=== PATIENT | female | born 1990 | race Caucasian/White ===

== ENCOUNTER 2022-06-28 10:10 | Emergency (ER) | payer OTHER, MEDICAID, SELFPAY ==
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
[2022-06-28 10:18] VITALS: BP 130/80; PULSE 96; O2SAT 97
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
[2022-06-28 10:28] VITALS: BP 133/89; PULSE 95; RESP 16; TEMP 36; O2SAT 97; BMI 31.1
[2022-06-28] MEDS: Acetaminophen 325 MG TABLET 975 MG PO (12:06)
== END 2022-06-28 12:22 | disposition home or self-care (01) ==
PROVIDERS: Emergency Provider Emergency Medicine
DX: S13.4XXA Sprain of ligaments of cervical spine, initial encounter (principal); M54.2 Cervicalgia; R07.89 Other chest pain; R51.9 Headache, unspecified; V43.62XA Car passenger injured in collision with other type car in traffic accident, initial encounter; Y93.9 Activity, unspecified; Y92.410 Unspecified street and highway as the place of occurrence of the external cause; Y99.9 Unspecified external cause status; Z79.899 Other long term (current) drug therapy
CPT/HCPCS: 70450; 72125; 99283; 99284

== ENCOUNTER 2022-09-13 15:00 | Outpatient (RCR) | payer OTHER, MEDICAID, SELFPAY | END 2022-10-31 08:17 | disposition home or self-care (01) | LOC: HO.PTCHIC 15:00 | PROVIDERS: PCP Internal Medicine; Visit Provider Internal Medicine | DX: M62.838 Other muscle spasm (principal) | CPT/HCPCS: 97014; 97110; 97161 ==

== ENCOUNTER 2023-03-20 10:00 | Outpatient (RCR) | payer OTHER, MEDICAID, SELFPAY ==
[2022-11-08 14:12] VITALS: BP 130/95
== END 2023-05-27 16:38 | disposition home or self-care (01) ==
LOC: HO.PTCHIC 10:00
PROVIDERS: PCP Internal Medicine; Visit Provider Internal Medicine
DX: M62.838 Other muscle spasm (principal); M54.2 Cervicalgia; M54.42 Lumbago with sciatica, left side
CPT/HCPCS: 97110; 97112; 97140; 97161; 97530

== ENCOUNTER 2023-07-16 13:26 | Inpatient (IN) | payer MEDICAID, SELFPAY ==
--- NOTE | ~2023-07-16 | CT_ITS ---
EXAMINATION: CT ABDOMEN AND PELVIS WITH CONTRAST CLINICAL INFORMATION: epigastric pain, pancreatitis COMPARISON: None. TECHNIQUE: Multidetector volumetric imaging was performed from the superior aspect of the liver through the pubic symphysis following administration of 81 mL Omnipaque 300 intravenous contrast. Sagittal and coronal reformatted images were obtained on the technologist workstation.. This CT examination was performed using dose optimization techniques as appropriate, variously including the following: *Automated exposure control *Adjustment of mA and/or kV according to patient size (this includes techniques or standardized protocols for targeted exams where dose is matched to indication/reason for exam; i.e. extremities or head) *Use of iterative reconstruction technique DLP: 685 mGy-cm FINDINGS: LUNG BASES: The visualized lung bases are unremarkable. LIVER, GALLBLADDER, AND BILIARY TREE: Diffuse fatty infiltration of the liver but no focal hepatic lesion nor biliary ductal dilatation. The gallbladder is unremarkable with no evidence of radiopaque gallstones, gallbladder wall thickening, or obvious pericholecystic inflammatory changes. PANCREAS: There is mild peripancreatic inflammatory change and fluid tracking along the left anterior pararenal space. No pancreatic ductal dilatation. No evidence for pancreatic necrosis. No suspicious pancreatic calcifications. SPLEEN: Unremarkable. ADRENAL GLANDS: Unremarkable. KIDNEYS AND URETERS: The kidneys are normal in size, shape, and attenuation. No hydronephrosis, hydroureter, or calculi seen. No perinephric stranding. BLADDER: Unremarkable. GASTROINTESTINAL TRACT: The small and large bowel are unremarkable. The appendix is unremarkable. ABDOMINAL WALL: No significant hernia is appreciated. LYMPHOVASCULAR STRUCTURES: No lymphadenopathy. The aorta is unremarkable. PELVIC VISCERA: Unremarkable. OSSEOUS STRUCTURES: Unremarkable. CT/CT abdomen pelvis w IV con IMPRESSION: Mild peripancreatic inflammatory changes and fluid tracking along the left anterior pararenal space consistent with acute pancreatitis. No evidence for pancreatic necrosis. Diffuse fatty infiltration of the liver.
--- NOTE | ~2023-07-16 | US_ITS ---
EXAMINATION: US ABDOMEN LIMITED CLINICAL INFORMATION: Gallbladder. Right upper quadrant pain. COMPARISON: None available. TECHNIQUE: Real-time imaging of the right upper quadrant abdominal viscera. Termination is significantly limited due to patient body habitus FINDINGS: PANCREAS: Unable to be visualized. LIVER: Enlarged. The liver contour is normal. Diffusely increased hepatic echotexture suggesting diffuse fatty infiltration. No focal hepatic lesion. There is no intrahepatic biliary duct dilatation seen. GALLBLADDER: Normal. The gallbladder is physiologically distended without evidence of stones, sludge, polyps, wall thickening or pericholecystic fluid. COMMON BILE DUCT: Normal in caliber measuring 0.3 cm in diameter. RIGHT KIDNEY: Normal. No hydronephrosis. No renal calculi or focal parenchymal lesions. The kidney measures and 0.7 cm in maximum dimension. FREE FLUID: None. US/US abdomen limited IMPRESSION: Diffuse fatty infiltration of the liver. Limited examination.
[2023-07-16 13:41] VITALS: BP 146/96; PULSE 61; RESP 19; TEMP 36.6; O2SAT 97; BMI 36.2
--- NOTE | 2023-07-16 13:42 | ED_ITS ---
HPI - General Adult General Chief complaint: Abdominal Pain Stated complaint: ETOH Withdrawal Time Seen by Provider: 07/16/23 16:00 Source: patient Mode of arrival: ambulatory History of Present Illness HPI narrative: 32-year-old female who is relapsed alcoholic, last drink was 3 days ago but she began having epigastric pain 2 days ago with several episodes of nausea and vomiting and has been unable to eat or drink since that time. She describes significant abdominal discomfort and denies diarrhea or urinary symptoms. Related Data Previous Rx's Medication Instructions Recorded cyclobenzaprine 10 mg tablet 10 mg PO TID PRN muscle spasm #14 06/28/22 tabs ibuprofen 600 mg tablet 600 mg PO Q8H PRN pain #14 tabs 06/28/22 lidocaine 5 % topical patch 1 patch topical DAILY #15 ea 06/28/22 Allergies Allergy/AdvReac Type Severity Reaction Status Date / Time No Known Allergies Allergy Verified 07/16/23 13:41 Review of Systems 2 Review of Systems: Pertinent positives and negatives as stated in HPI PMFSH Past Medical History Source: nursing notes reviewed Social History Social History Alcohol intake: current Alcohol intake frequency: 3 or more drinks per day Smoked in Last 30 Days: No Use of substances other than those prescribed or required for medical reasons: Yes Substance Use Frequency: Chronic Longstanding Any prior treatment program specific to substance use: Yes (methadone) Advance Directives: No Advance Directives Information Provided: No Physical Exam ED Vital Signs: Vital Signs - 24 hr 07/16/23 13:41 07/16/23 16:15 07/16/23 17:43 Temperature 98 F 97.9 F 97.9 F Pulse Rate 61 54 50 Respiratory Rate 19 16 16 Blood Pressure 146/96 H 154/89 H 133/88 Pulse Oximetry 97 98 98 Oxygen Delivery Method Room Air Room Air Room Air BMI result Body Mass Index 36.2 VITAL SIGNS: Reviewed. GENERAL: Well developed, well nourished, in no acute distress. HEAD: Normocephalic/atraumatic EYES: PERRLA, EOMI EARS: Ext canals without abnormality NOSE: Nares patent bilateral OROPHARYNX: no oral lesions noted, posterior pharynx clear NECK: Supple, no adenopathy LUNGS: Normal breath sounds. No adventitious sounds or accessory muscle use. SpO2<98> CARDIOVASCULAR: Regular rate and rhythm without noted murmurs ABDOMEN: Soft, diffuse abdominal discomfort, non-distended with bowel sounds. MUSCULOSKELETAL: No tenderness, deformities, or effusions noted on gross inspection. EXTREMITIES: No cyanosis, clubbing or edema. SKIN: Inspection of the skin reveals no rashes NEUROLOGIC: Alert and oriented x 4. Strength and sensation to light touch were grossly intact x 4. Course Course Course Narrative: RME- 32 year old female presents for evaluation of alcohol withdrawal. She reports drinking 4-5 nips per day but not drinking for the last 3 days. Complains of abdominal pain and vomiting. Patient is mildly hypertensive heart rate of 55. Plan for labs Medications Administered Generic Name Dose Route Start Last Admin Trade Name Freq PRN Reason Stop Dose Admin Hydromorphone HCl 0.5 mg 07/16/23 17:07 07/16/23 19:00 Hydromorphone Hcl 0.5 Mg/0.5 Ml Syringe IVPUSH 0.5 mg Q30M PRN Administration Pain, Severe (Pain Scale 7-10) Protocol Discontinued Medications Generic Name Dose Route Start Last Admin Trade Name Freq PRN Reason Stop Dose Admin Hydromorphone HCl 0.5 mg 07/16/23 16:22 07/16/23 16:47 Hydromorphone Hcl 0.5 Mg/0.5 Ml Syringe IVPUSH 07/16/23 16:23 0.5 mg ONCE ONE Administration Protocol Sodium Chloride 1,000 mls @ 999 mls/hr 07/16/23 16:30 07/16/23 17:50 Ns IV 07/16/23 17:30 Infused .Q1H1M SCAR Infusion Iohexol 100 ml 07/16/23 19:31 07/16/23 19:32 Iohexol 350 Mg/Ml 100 Ml Infus..Btl IV 07/16/23 19:32 85 ml ONCE ONE Administration Ondansetron HCl 4 mg 07/16/23 14:47 07/16/23 14:50 Ondansetron Odt 4 Mg Tab.Rapdis TRANSLINGU 07/16/23 14:48 4 mg ONCE ONE Administration Ondansetron HCl 4 mg 07/16/23 17:07 07/16/23 17:13 Ondansetron Hcl 4 Mg/2 Ml Vial IVPUSH 07/16/23 17:08 4 mg ONCE ONE Administration Medical Decision Making Medical Decision Making [facility] Narrative: 22-year-old female with history and clinical presentation, DDX: Biliary pancreatitis, alcoholic pancreatitis, gastritis, cholecystitis, less clinical suspicion for pyelonephritis/SBO. I reviewed all investigations and hematologic indices are negative for leukocytosis but there is a mild left shift, no anemia or thrombocytopenia. Chemistry indices are negative for metabolic acidosis, potassium values are within normal limits, there is no MARIE, however liver enzymes are significantly elevated without an alkaline phosphatase suggesting the possibility being more consistent with an alcoholic pancreatitis in suspect that this is the reason for patient's diffuse abdominal discomfort. Will 1st order an ultrasound and then follow with a CT scan to evaluate the pancreatitis In the meantime, patient will receive antiemetics, IV fluids, pain medication. Ultrasound negative for cholelithiasis and again due to the absence of alkaline phosphatase low clinical suspicion for a choledochal lithiasis in the etiology for elevated AST and total bilirubin. Patient has received IV fluids, antiemetics and continues to receive pain medication as needed. CT scan of abdomen and pelvis is pending. 1950: I discussed case with inpatient hospitalist who accepts admission. I have reviewed the CT scan my prelim read is that there is extensive CT evidence of pancreatitis with peripancreatic inflammation and stranding. Differential Diagnosis Differential Diagnoses: The differential diagnosis associated with the presentation includes Please see the discussion above Admission/Observation Consideration of admission/observation: Escalation of care including admission/observation considered Please see the discussion above Consult Healthcare Provider Management of the patient was discussed with: Hospitalist Please see the discussion above Lab Data MDM Lab Attestation statement: I reviewed the patient's lab results. Please see the discussion above 07/16/23 14:02 07/16/23 14:02 Labs: Lab Results 07/16/23 07/16/23 Range/Units 14:02 17:45 WBC 10.4 (4.8-10.8) X10*3/uL RBC 4.42 (4.20-5.50) X10*6/uL Hgb 14.4 (12.0-16.0) g/dl Hct 41.8 (37.0-47.0) % MCV 94.6 (80.0-98.0) fL MCH 32.6 (27.0-33.0) pg MCHC 34.4 (31.0-35.0) g/dl RDW 12.3 (11.0-16.0) % Plt Count 228 (160-400) X10*3/uL MPV 11.3 (9.4-12.3) fL Immature Gran % (Auto) 0.5 H (0.0-0.4) % Neut % (Auto) 77.6 H (45-73) % Lymph % (Auto) 16.0 L (20-40) % Henderson % (Auto) 5.3 (2-11) % Eos % (Auto) 0.1 (0-4) % Baso % (Auto) 0.5 (0-2) % Lymph # (Auto) 1.7 (1.2-4.9) X10*3/uL Henderson # (Auto) 0.6 (0.1-1.2) X10*3/uL Eos # (Auto) 0.0 (0.0-0.4) X10*3/uL Baso # (Auto) 0.1 (0.0-0.2) X10*3/uL Abs Immat Gran (auto) 0.05 H (0.00-0.03) X10*3/uL Absolute Neuts (auto) 8.0 (2.0-8.3) x10*3/uL Absolute Nucleated RBC 0.000 (0.0-0.012) X10*3/uL Nucleated RBC % (auto) 0.0 (0.0-0.2) /100WBC Sodium 139 (135-145) mmol/L Potassium 3.6 (3.3-5.1) mmol/L Chloride 102 (96-108) mmol/L Carbon Dioxide 22 (22-29) mmol/L Anion Gap 19 (12-20) BUN 20 H (9-16) mg/dL Creatinine 0.97 (0.5-1.4) mg/dL Estim Creat Clear Calc 85.1 Estimated GFR > 60 Random Glucose 148 H (60-115) mg/dL Calcium 9.6 (8.4-10.2) mg/dL Magnesium 1.6 (1.6-2.6) mg/dL Total Bilirubin 1.3 H (0.0-1.0) mg/dL AST 153 H (5-31) U/L ALT 84 H (0-31) U/L Alkaline Phosphatase 94 (39-117) U/L Total Protein 8.2 H (6.5-8.0) g/dL Albumin 4.2 (3.5-5.0) g/dL Lipase 278 H (8-78) U/L Urine Color Dark Yellow Urine Appearance Cloudy Urine pH 5.5 (5.0-9.0) Ur Specific [place] >= 1.030 H (1.005-1.025) Urine Protein 30 (1+) H (Neg-Trace) mg/dL Urine Glucose (UA) Negative (Negative) mg/dL Urine Ketones Trace (Negative) mg/dL Urine Blood Negative (Negative) Urine Nitrite Negative (Negative) Ur Leukocyte Esterase Trace H (Negative) Urine RBC 0-2 (0-2) /HPF Urine WBC 0-5 (0-5) /HPF Ur Squamous Epith Cells 3-5 (0-2) /HPF Urine Bacteria 2+ (None Seen) Hyaline Casts 0-2 (0-2) /LPF Urine Test NEGATIVE (NEGATIVE) Urine Opiates Screen Not Detected (Not Detect) Urine Fentanyl Screen Not Detected (Not Detect) Ur Barbiturates Screen Not Detected (Not Detect) Ur Phencyclidine Scrn Not Detected (Not Detect) Ur Amphetamines Screen Not Detected (Not Detect) U Benzodiazepines Scrn POSITIVE H (Not Detect) Urine Cocaine Screen Not Detected (Not Detect) U Marijuana (THC) Screen POSITIVE H (Not Detect) Ethyl Alcohol < 10 mg/dL Independent Interpretation I performed an independent interpretation of an: EKG Interpretation: Sinus bradycardia, HR -50, no STEMI, DE/QRS/QTC is within normal limits. Radiology Impression Discussion of test interpretation with radiology: I have reviewed the radiologist's reading. Radiologist Impression: Please see the discussion above Chronic Conditions Patient?s care impacted by: Other Alcohol abuse Social Determinants Patient?s care significantly limited by Social Determinants of Health including: Alcoholism and drug addiction in family Critical Care Time Critical Care Time Critical Care Time: Yes Total Critical Care Time: 30 Attestation: I personally attest to this time spent taking care of the patient. Discharge Plan Discharge Clinical Impression: Acute alcoholic pancreatitis, Dehydration, Alcohol abuse Patient Disposition: Admitted As Inpatient
--- NOTE | 2023-07-16 13:42 | ECG_ITS ---
Test Reason : pain Blood Pressure : / mmHG Vent. Rate : 050 BPM Atrial Rate : 050 BPM P-R Int : 134 ms QRS Dur : 094 ms QT Int : 494 ms P-R-T Axes : 016 037 040 degrees QTc Int : 450 ms Sinus bradycardia Nonspecific T wave abnormality Otherwise normal ECG When compared with ECG of 17-OCT-2010 14:47, Vent. rate has decreased BY 37 BPM T wave inversion now evident in Anterior leads Referred By: Frandy Wilkinson Electronically Signed By:RAJINDER BARLOW
[2023-07-16 14:11] LABS: MANUAL DIFF FLAG NO
[2023-07-16 14:14] LABS: Basophils Absolute Auto 0.1 X10*3/uL (0.0-0.2); Basophils Percent Auto 0.5 % (0-2); Eosinophils Percent Auto 0.1 % (0-4); Hematocrit 41.8 % (37.0-47.0); Hemoglobin 14.4 g/dl (12.0-16.0); Imm Gran Abs Auto 0.05 X10*3/uL (0.00-0.03); Imm Gran Pct Auto 0.5 % (0.0-0.4); Lymphocytes Absolute Auto 1.7 X10*3/uL (1.2-4.9); Mean Corpuscular HGB Conc 34.4 g/dl (31.0-35.0); Mean Corpuscular Hemoglobin 32.6 pg (27.0-33.0); Mean Corpuscular Volume 94.6 fL (80.0-98.0); Mean Platelet Volume 11.3 fL (9.4-12.3); Monocytes Absolute Auto 0.6 X10*3/uL (0.1-1.2); Monocytes Percent Auto 5.3 % (2-11); Neutrophils Percent Auto 77.6 % (45-73); Platelet Count 228 X10*3/uL (160-400); Red Blood Count 4.42 X10*6/uL (4.20-5.50); Red Cell Distribution Width 12.3 % (11.0-16.0); White Blood Count 10.4 X10*3/uL (4.8-10.8)
[2023-07-16 14:33] LABS: Alanine Aminotransferase 84 U/L (0-31); Albumin Level 4.2 g/dL (3.5-5.0); Alkaline Phosphatase 94 U/L (39-117); Anion Gap 19 (12-20); Aspartate Amino Transferase 153 U/L (5-31); Bilirubin Total 1.3 mg/dL (0.0-1.0); Blood Urea Nitrogen 20 mg/dL (9-16); Calcium 9.6 mg/dL (8.4-10.2); Carbon Dioxide 22 mmol/L (22-29); Chloride 102 mmol/L (96-108); Creatinine Clr Calc Pharmacy 85.1; Estimated Glomerular Filt Rate > 60; Ethanol < 10 mg/dL; Glucose Random 148 mg/dL (60-115); Magnesium 1.6 mg/dL (1.6-2.6); Potassium 3.6 mmol/L (3.3-5.1); Sodium 139 mmol/L (135-145); Total Protein 8.2 g/dL (6.5-8.0)
[2023-07-16 14:45] LABS: Lipase 278 U/L (8-78)
[2023-07-16] MEDS: Ondansetron ODT 4 MG TAB.RAPDIS TRANSLINGU (14:50)
--- OUTSIDE RECORDS SUMMARY | 2023-07-16 15:51 | XMS_ITS | Continuity of Care Document ---
Author Name Unknown Organization [facility] Address [address], [address] [place] [address]- Care Team Providers Care Photographic Equipment Mechanic Name Role Phone Juan ROBERTS, Kenisha Primary Care Physician Encounter [facility] [place] Date(s): 12/22/20 - 02/21/21 [facility] [address], [address]th [place] [address]- Attending Physician: Rosendo ROBERTS [OB], Brenda Kapadia Allergies, Adverse Reactions, Alerts Substance Reaction Severity Status amoxicillin Hives Active Immunizations Given and Recorded Vaccine Date Status Refusal Reason tetanus/diphtheria/pertussis, acel(Tdap) 1 09/20/20 Given Not Given Vaccine Date Status Refusal Reason influenza virus vaccine, inactivated 10/30/20 Not Given Patient Refuses 1Result Comment: Patient tolerated well NS. Medications acetaminophen 325 mg oral tablet 650 mg, By Mouth, Every 4 hours, # 50 tablet, Refills 0, Tot. Refills 0, Maintenance, 12/12/20 6:39:00 EST, Route to Pharmacy Electronically, [facility] #[id number], Partial fill upon patient request if the prescription is for a schedule II opioi... Start Date: 12/12/20 Status: Ordered acyclovir 400 mg oral tablet = 400 mg, By Mouth, Every 8 hours, # 9 tablet, 0 Refills, Maintenance, 12/12/20 6:41:00 EST, Tablet, [facility] #[id number], Partial fill upon patient request if the prescription is for a schedule II opioid drug., 158, cm, 12/12/20 0:24:00 EST, H... Start Date: 12/12/20 Status: Ordered Adderall 30 mg oral tablet 1 tablet = 30 mg, By Mouth, PRN Other, 0 Refills, Maintenance, 06/19/17 13:06:55 Start Date: 06/19/17 Status: Ordered docusate sodium 100 mg oral capsule 1 capsule = 100 mg, By Mouth, 2 times a day, # 60 capsule, 0 Refills, Maintenance, 12/12/20 6:40:00EST, Capsule, [facility] #[id number], Partial fill upon patient request if the prescription isfor a schedule II opioid drug., 158, cm, 12/12/20 0... Start Date: 12/12/20 Status: Ordered fluconazole 150 mg oral tablet 1 tablet = 150 mg, By Mouth, Once, # 1 tablet, 0 Refills, Soft Stop, 10/30/20 17:30:00 EST, Tablet,[facility] #[id number], Partial fill upon patient request if the prescription is for a schedule II opioid drug., 158, cm, 10/29/20 21:46:00 EST, H... Start Date: 10/30/20 Status: Ordered ibuprofen 800 mg oral tablet 800 mg, 1, tablet, By Mouth, Every 8 hours, # 50 tablet, Refills 0, Tot. Refills 0, Maintenance, 12/12/20 6:40:00 EST, Route to Pharmacy Electronically, [facility] #[id number], Partial fill uponpatient request if the prescription is for a schedu... Start Date: 12/12/20 Status: Ordered lidocaine 1% topical lotion See Instructions, Use on right aspect of skin incision wher burning sensation is located. Use only on skin, # 1 pack/packet, 0 Refills, Maintenance, 12/12/20 6:40:00 EST, [facility] #[id number],Partial fill upon patient request if the prescripti... Start Date: 12/12/20 Status: Ordered methadone 10 mg/5 mL oral solution 70 mL = 140 mg, By Mouth, Every 24 hours, 0 Refills, Maintenance, 09/30/20 14:45:00 EST, Solution, Partial fill upon patient request Start Date: 09/30/20 Status: Ordered MiraLax oral powder for reconstitution = 17 Gm, By Mouth, Daily, dissolve in water before taking, # 527 Gm, 1 Refills, Acute 01/27/23 9:10:00 EST, 11/29/20 9:09:00 EST, REC Powder, [facility] #[id number], Partial fill upon patient request if the prescription is for a schedule II opioi... Start Date: 11/29/20 Stop Date: 11/29/22 Status: Ordered Multivitamin Tablet 0 Refills, Maintenance, 05/03/20 15:48:00 EDT Start Date: 05/03/20 Status: Ordered ondansetron 4 mg oral tablet, disintegrating 1 tablet = 4 mg, By Mouth, Every 8 hours, PRN Nausea & Vomiting, # 30 tablet, 1 Refills, Maintenance, 11/15/20 11:51:00 EST, Tablet, [facility] #[id number], Partial fill upon patient requestif the prescription is for a schedule II opioid drug.,... Start Date: 11/15/20 Status: Ordered oxyCODONE 5 mg oral tablet 5 mg, 1, tablet, By Mouth, Every 4 hours, PRN, # 12 tablet, Refills 0, Tot. Refills 0, Maintenance,Pain , Severe, 12/12/20 6:40:00 EST, Route to Pharmacy Electronically, [facility] #[id number],Partial fill upon patient request if the prescripti... Start Date: 12/12/20 Status: Ordered simethicone 80 mg oral tablet, chewable 80 mg, Chew, 3 times a day, PRN, # 100 tablet, Refills 0, Tot. Refills 0, Maintenance, Gas, 12/12/20 6:40:00 EST, Route to Pharmacy Electronically, [facility] #[id number], Partial fill upon patient request if the prescription is for a schedule II... 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
--- OUTSIDE RECORDS SUMMARY | 2023-07-16 15:51 | XMS_ITS | Continuity of Care Document ---
Author Name Unknown Organization [facility]er [facility] Address [address], [address] [place] [address]- Care Team Providers Care Skewer Up Name Role Phone Juan ROBERTS, Kenisha Primary Care Physician [place] [facility] [place] 12/11/20 - 01/10/21 [facility] [address], [address] [place], [place] [address] Allergies, Adverse Reactions, Alerts Substance Reaction Severity [...] 12/12/20 6:39:00 EST, Route to Pharmacy Electronically, [facility] #[id number], Partial fill upon patient request if the prescription is for a schedule II opioi... Start Date: 12/12/20 Status: Ordered acyclovir 400 mg oral tablet = 400 mg, By Mouth, Every 8 hours, # 9 tablet, 0 Refills, Maintenance, 12/12/20 6:41:00 EST, Tablet, [facility] #[id number], Partial fill upon patient request if the [...] capsule, 0 Refills, Maintenance, 12/12/20 6:40:00EST, Capsule, [facility] #[id number], Partial fill upon patient request if the prescription isfor a schedule II opioid drug., 158, cm, 12/12/20 0... Start Date: 12/12/20 Status: Ordered fluconazole 150 mg oral tablet 1 tablet = 150 mg, By Mouth, Once, # 1 tablet, 0 Refills, Soft Stop, 10/30/20 17:30:00 EST, Tablet,[facility] #[id number], Partial fill upon patient request if the prescription is for a schedule II opioid drug., 158, cm, 10/29/20 21:46:00 EST, H... Start Date: 10/30/20 Status: Ordered ibuprofen 800 mg oral tablet 800 mg, 1, tablet, By Mouth, Every 8 hours, # 50 tablet, Refills 0, Tot. Refills 0, Maintenance, 12/12/20 6:40:00 EST, Route to Pharmacy Electronically, [facility] #[id number], Partial fill uponpatient request if the prescription is for a schedu... Start Date: 12/12/20 Status: Ordered lidocaine 1% topical lotion See Instructions, Use on right aspect of skin incision wher burning sensation is located. Use only on skin, # 1 pack/packet, 0 Refills, Maintenance, 12/12/20 6:40:00 EST, [facility] #[id number],Partial fill upon patient request if the prescripti... [...] taking, # 527 Gm, 1 Refills, Acute 11/29/22 9:10:00 EST, 11/29/20 9:09:00 EST, REC Powder, [facility] #[id number], Partial fill upon patient request if the [...] 1 Refills, Maintenance, 11/15/20 11:51:00 EST, Tablet, [facility] #[id number], Partial fill upon patient requestif the prescription is for a schedule II opioid drug.,... Start Date: 11/15/20 Status: Ordered oxyCODONE 5 mg oral tablet 5 mg, 1, tablet, By Mouth, Every 4 hours, PRN, # 12 tablet, Refills 0, Tot. Refills 0, Maintenance,Pain , Severe, 12/12/20 6:40:00 EST, Route to Pharmacy Electronically, [facility] #[id number],Partial fill upon patient request if the prescripti... Start Date: 12/12/20 Status: Ordered simethicone 80 mg oral tablet, chewable 80 mg, Chew, 3 times a day, PRN, # 100 tablet, Refills 0, Tot. Refills 0, Maintenance, Gas, 12/12/20 6:40:00 EST, Route to Pharmacy Electronically, [facility] #[id number], Partial fill upon patient request if the [...] Active Breech presentation(Confirmed) Active Chronic hepatitis C(Confirmed) 2013 Active Constipation(Confirmed) 1989 Active History of depression(Confirmed) [...]
--- OUTSIDE RECORDS SUMMARY | 2023-07-16 15:51 | XMS_ITS | Continuity of Care Document ---
Author Name Unknown Organization [facility] ter Address [address] [place] [address]- Care Team Providers Care Can Carrier Name Role Phone Juan ROBERTS, Kenisha Primary Care Physician Encounter [facility] [place] Date(s): 10/29/20 - 10/29/[address] [address]- Discharge Disposition: A-D/C Walkout Attending Physician: Not on Staff, Attending MD Admitting Physician: Not on Staff, Admitting MD Referring Physician: Not on Staff, Referring MD Allergies, Adverse Reactions, Alerts Substance Reaction Severity Status amoxicillin Hives Active Immunizations Given and Recorded Vaccine Date Status Refusal Reason tetanus/diphtheria/pertussis, acel(Tdap) 1 09/20/20 Given Not Given Vaccine Date Status Refusal Reason influenza virus vaccine, inactivated 10/30/20 Not Given Patient Refuses 1Result Comment: Patient tolerated well NS. Medications Adderall 30 mg oral tablet 1 tablet = 30 mg, By Mouth, PRN Other, 0 Refills, Maintenance, 06/19/17 13:06:55 Start Date: 06/19/17 Status: Ordered Diflucan 150 mg oral tablet 1 tablet = 150 mg, By Mouth, Once, # 1 tablet, 0 Refills, Soft Stop, 09/21/20 12:15:00 EST, Tablet,[facility] #[id number], Partial fill upon patient request, 157.48, cm, 09/20/20 10:36:00 EST, Height, 81.66, kg, 05/18/20 16:38:00 EDT, Dry Weight Start Date: 09/21/20 Status: Ordered methadone 10 mg/5 mL oral solution 70 mL = 140 mg, By Mouth, Every 24 hours, 0 Refills, Maintenance, 09/30/20 14:45:00 EST, Solution, Partial fill upon patient request Start Date: 09/30/20 Status: Ordered Multivitamin Tablet 0 Refills, Maintenance, 05/03/20 15:48:00 EDT Start Date: 05/03/20 Status: Ordered Xanax Tablet 2 mg, By Mouth, 4 times a day, PRN, Maintenance, as needed for anxiety, 12/15/11 3:57:58 Start Date: 12/15/11 Status: Ordered Problem List Condition Effective Dates Status Health Status Inform ant Adult ADHD(Confirmed) 2012 Active Anemia(Confirmed) Active Anxiety(Confirmed) 2004 Active Chronic hepatitis C(Confirmed) 2013 Active Constipation(Confirmed) 1989 Active History of depression(Confirmed) 2004 Active History of varicose veins(Confirmed) 2013 Active Methadone maintenance treatm ent affecting , 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 Supervision of high-risk (Confirmed) Active History of opioid abuse(Confirmed) 2005 Active Marijuana use(Confirmed) 2019 Active Obesity(Confirmed) 2019 Active Obstructive sleep apnea(Confirmed) 2019 Active PTSD (post-traumatic stress disorder)(Confirmed) Active Substance abuse(Confirmed) 1 10/29/20 Active Tobacco abuse(Confirmed) 2019 Active 1Problem added by Discern Expert Vital Signs Most recent to oldest [Reference Range]: 1 2 Oxygen Saturation [94-100 %] 99 % (10/29/20 6:05 PM) 96 % (10/29/20 5:54 PM) Pulse Rate [55-90 bpm] 81 bpm (10/29/20 6:05 PM) 87 bpm (10/29/20 5:54 PM) Blood Pressure [90-138/55-84 mm Hg] 140/ 67mm Hg *H* (10/29/20 6:05 PM) Respiratory Rate [16-30 br/min] 16 br/mi n (10/29/20 6:05 PM) Temperature [96.8-100.4 DegF] 98.8 DegF (10/29/20 6:05 PM) Mode of Delivery (Oxygen) Room air (10/29/20 6:05 PM) Temperature Route Oral (10/29/20 6:05 PM) Social History Social History Type Response Smoking Status 5-9 cigarettes (betw een 1/4 to 1/2 pack)/day in last 30 days; Tobacco user in household: Yes entered on: 05/18/20 Sex
--- OUTSIDE RECORDS SUMMARY | 2023-07-16 15:51 | XMS_ITS | Continuity of Care Document ---
Author Name Unknown Organization [facility] Miles Boyer [employer] Address [address], [address]t [place] [address]- Care Team Providers Care Vac Press Operator Name Role Phone Juan ROBERTS, Kenisha Primary Care Physician [phone] Encounter [facility] [place] Date(s): 11/21/20 - 11/28/20 [facility] [address], [address]th [place] [address]- Attending Physician: Martine Williamson MD Allergies, Adverse Reactions, Alerts Substance Reaction [...] 06/19/17 13:06:55 Start Date: 06/19/17 Status: Ordered fluconazole 150 mg oral tablet 1 tablet = 150 mg, By Mouth, Once, # 1 tablet, 0 Refills, Soft Stop, 10/30/20 17:30:00 EST, Tablet,[facility] #[id number], Partial fill upon patient request if the prescription is for a schedule II opioid drug., 158, cm, 10/29/20 21:46:00 EST, H... Start Date: 10/30/20 Status: Ordered methadone 10 mg/5 mL oral [...] 1 Refills, Maintenance, 11/15/20 11:51:00 EST, Tablet, [facility] #[id number], Partial fill upon patient requestif the prescription is for a schedule II opioid drug.,... 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 Supervision of high-risk (Confirmed) Active History of opioid abuse(Confirmed) 2005 Active Marijuana use(Confirmed) 2019 Active Obesity(Confirmed) 2019 Active Obstructive sleep apnea(Confirmed) 2019 Active PTSD (post-traumatic stress disorder)(Confirmed) Active Substance abuse(Confirmed) 1 10/29/20 Active Tobacco abuse(Confirmed) 2019 Active 1Problem added by Discern Expert Vital Signs Most recent to oldest [Reference Range]: 1 Height 158 cm (11/21/20 11:31 AM) Weight 89.0 kg (11/21/20 11:31 AM) Body Mass Index [18.5-24.99] 35.65 *>HHI* (11/21/20 11:31 AM) Blood Pressure [90-138/55-84 mm Hg] 105/ 58mm Hg (11/21/20 11:31 AM) Blood pressure sites Arm, right (11/21/20 11:31 AM) Weight Obtained Via Standing scale (11/21/20 11:31 AM) Social History Social History Type Response Smoking Status 5-9 cigarettes (betw een 1/4 to 1/2 pack)/day in last 30 days; Tobacco user in household: Yes entered on: 05/18/20 Sex
--- OUTSIDE RECORDS SUMMARY | 2023-07-16 15:52 | XMS_ITS | Continuity of Care Document ---
Author Name Unknown Organization [facility] Miles [facility] Address [address], [address]t [place] [address]- Care Team Providers Care Barking Machine Feeder Name Role Phone Juan ROBERTS, Kenisha Primary Care Physician Encounter [facility] [place] Date(s): 07/19/20 - 11/16/20 [facility] [address], [address] [place] [address]- Attending Physician: Not on Staff, Attending MD Referring Physician: Martine Williamson MD Allergies, Adverse Reactions, [...] 0 Refills, Soft Stop, 10/30/20 17:30:00 EST, Tablet,[facility] #[id number], Partial fill upon patient request if the [...] 1 Refills, Maintenance, 11/15/20 11:51:00 EST, Tablet, [facility] #[id number], Partial fill upon patient requestif the prescription is for a schedule II opioid drug.,... 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
--- OUTSIDE RECORDS SUMMARY | 2023-07-16 15:52 | XMS_ITS | Continuity of Care Document ---
Author Name Unknown Organization [facility] ter Address [address] [place] [address]- Care Team Providers Care Industrial Cleaner Name Role Phone Juan ROBERTS, Kenisha Primary Care Physician Encounter [facility] [place] [facility] [place] [id number] Date(s): 12/08/20 - 12/12/[address] [address]- Discharge Disposition: A-D/C Home Attending Physician: Martine Williamson MD Admitting Physician: Martine Williamson MD Referring Physician: Martine Williamson MD Allergies, [...] 12/12/20 6:39:00 EST, Route to Pharmacy Electronically, [facility] #[id number], Partial fill upon patient request if the prescription is for a schedule II opioi... Start Date: 12/12/20 Status: Ordered Acetaminophen Tablet 650 mg, Tablet, By Mouth, (1-3), may give 325mg per patient preference and re- dose with 325mg within 4 hours if needed. Patient should only receive a total of 650mg of Acetaminophen every 4 hours., 12/12/20 5:00:00 EST Start Date: 12/12/20 Stop Date: 12/12/20 Status: Completed acyclovir 400 mg oral tablet = 400 mg, By Mouth, Every 8 hours, # 9 tablet, 0 Refills, Maintenance, 12/12/20 6:41:00 EST, Tablet, [facility] #[id number], Partial fill upon patient request if the [...] capsule, 0 Refills, Maintenance, 12/12/20 6:40:00EST, Capsule, [facility] #[id number], Partial fill upon patient request if the prescription isfor a schedule II opioid drug., 158, cm, 12/12/20 0... Start Date: 12/12/20 Status: Ordered fluconazole 150 mg oral tablet 1 tablet = 150 mg, By Mouth, Once, # 1 tablet, 0 Refills, Soft Stop, 10/30/20 17:30:00 EST, Tablet,[facility] #[id number], Partial fill upon patient request if the prescription is for a schedule II opioid drug., 158, cm, 10/29/20 21:46:00 EST, H... Start Date: 10/30/20 Status: Ordered ibuprofen 800 mg oral tablet 800 mg, 1, tablet, By Mouth, Every 8 hours, # 50 tablet, Refills 0, Tot. Refills 0, Maintenance, 12/12/20 6:40:00 EST, Route to Pharmacy Electronically, [facility] #[id number], Partial fill uponpatient request if the prescription is for a schedu... Start Date: 12/12/20 Status: Ordered lidocaine 1% topical lotion See Instructions, Use on right aspect of skin incision wher burning sensation is located. Use only on skin, # 1 pack/packet, 0 Refills, Maintenance, 12/12/20 6:40:00 EST, [facility] #[id number],Partial fill upon patient request if the prescripti... Start Date: 12/12/20 Status: Ordered methadone 10 mg/5 mL oral solution 70 mL = 140 mg, By Mouth, Every 24 hours, 0 Refills, Maintenance, 09/30/20 14:45:00 EST, Solution, Partial fill upon patient request Start Date: 09/30/20 Status: Ordered Methadone Liquid 70 mg, Solution, By Mouth, 12/12/20 5:00:00 EST Start Date: 12/12/20 Stop Date: 12/12/20 Status: Completed MiraLax oral powder for reconstitution = 17 Gm, By Mouth, Daily, dissolve in water before taking, # 527 Gm, 1 Refills, Acute 11/29/22 9:10:00 EST, 11/29/20 9:09:00 EST, REC Powder, [facility] #[id number], Partial fill upon patient request if the [...] 1 Refills, Maintenance, 11/15/20 11:51:00 EST, Tablet, [facility] #[id number], Partial fill upon patient requestif the prescription is for a schedule II opioid drug.,... Start Date: 11/15/20 Status: Ordered oxyCODONE 5 mg oral tablet 5 mg, 1, tablet, By Mouth, Every 4 hours, PRN, # 12 tablet, Refills 0, Tot. Refills 0, Maintenance,Pain , Severe, 12/12/20 6:40:00 EST, Route to Pharmacy Electronically, [facility] #[id number],Partial fill upon patient request if the prescripti... Start Date: 12/12/20 Status: Ordered oxyCODONE 5 mg oral tablet 5 mg, Tablet, By Mouth, Every 4 hours, PRN for Pain , Severe, Routine, 12/09/20 19:11:00 EST Start Date: 12/09/20 Stop Date: 12/12/20 Status: Discontinued simethicone 80 mg oral tablet, chewable 80 mg, Chew, 3 times a day, PRN, # 100 tablet, Refills 0, Tot. 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 Supervision of high-risk (Confirmed) Active History of opioid abuse(Confirmed) 2005 Active Marijuana use(Confirmed) 2019 Active Obesity(Confirmed) 2019 Active Obstructive sleep apnea(Confirmed) 2019 Active PTSD (post-traumatic stress disorder)(Confirmed) Active Tobacco abuse(Confirmed) 2019 Active Procedures Procedure Date Related Diagnosis Body Site Status delivery only; 12/08/20 C ompleted Vital Signs Most recent to oldest [Reference Range]: 1 2 3 4 Height 158 cm (12/12/20 8:00 AM) 158 cm (12/12/20 12:24 AM) 158 cm (12/11/20 6:41 PM) Weight 88.5 kg (12/07/20 8:05 PM) Oxygen Saturation [94-100 %] 96 % (12/12/20 8:00 AM) 96 % (12/12/20 12:24 AM) 96 % (12/11/20 6:41 PM) Pulse Rate [55-90 bpm] 73 bpm (12/12/20 8:00 AM) 64 bpm (12/12/20 12:24 AM) 65 bpm (12/11/20 6:41 PM) Body Mass Index [18.5-24.99] 35.45 *>HHI* (12/07/20 8:05 PM) Blood Pressure [90-138/55-84 mm Hg] 114/63mm Hg (12/12/20 8:00 AM) 109/57mm Hg (12/12/20 12:24 AM) 117/60mm Hg (12/11/20 6:41 PM) Respiratory Rate [16-30 br/min] 16 br/min (12/12/20 11:17 AM) 18 br/min (12/12/20 8:00 AM) 18 br/min (12/12/20 6:48 AM) 18 br/min (12/12/20 6:48 AM) Temperature [96.8-100.4 DegF] 97.7 DegF (12/12/20 8:00 AM) 97.5 DegF (12/12/20 12:24 AM) 98.1 DegF (12/11/20 6:41 PM) Mode of Delivery (Oxygen) Room air (12/12/20 8:00 AM) Room air (12/12/20 12:24 AM) Room air (12/11/20 4:50 AM) Blood pressure sites Arm, right (12/12/20 8:00 AM) Arm, right (12/12/20 12:24 AM) Arm, left (12/11/20 4:50 AM) Temperature Route Oral (12/12/20 8:00 AM) Oral (12/12/20 12:24 AM) Oral (12/11/20 6:41 PM) Dry Weight 88.5 kg (12/07/20 8:05 PM) Social History Social History Type Response Smoking Status 5-9 cigarettes (betw een 1/4 to 1/2 pack)/day in last 30 days; Tobacco user in household: Yes entered on: 05/18/20 Sex
--- OUTSIDE RECORDS SUMMARY | 2023-07-16 15:52 | XMS_ITS | Continuity of Care Document ---
Author Name Unknown Organization [facility] ter Address [address] [place] [id number]- Care Team Providers Care Pharmacy Messenger Name Role Phone Juan ROBERTS, Kenisha Primary Care Physician [phone] Encounter [place] Date(s): 02/24/23 - 02/28/[address] [address]- Encounter Diagnosis Pancreatitis(Final) - 02/24/23 Discharge Disposition: A-D/C Home Attending Physician: Ricardo Marion MD Admitting Physician: Sussy Whipple MD Referring Physician: Not on Staff, Referring MD Allergies, Adverse Reactions, Alerts Substance Reaction Severity Status amoxicillin Hives Active Immunizations Given and Recorded Vaccine Date Status Refusal Reason tetanus/diphtheria/pertussis, acel(Tdap) 1 09/20/20 Given Not Given Vaccine Date Status Refusal Reason influenza virus vaccine, inactivated 10/30/20 Not Given Patient Refuses 1Result Comment: Patient tolerated well NS. Medications Adderall XR 30 mg oral capsule, extended release TAKE 1 CAPSULE BY MOUTH EVERY MORNING Start Date: 02/28/23 Status: Ordered ALPRAZolam 2 mg oral tablet TAKE 1 TABLET (2 MG) BY MOUTH 4 TIMES PER DAY NEEDED FOR ANXIETY- Start Date: 02/28/23 Status: Ordered amphetamine-dextroamphetamine 10 mg oral tablet TAKE 1 TABLET BY MOUTH TWICE DAILY FOR ADHD Start Date: 02/28/23 Status: Ordered folic acid 1 mg oral tablet 1 mg, 1, tablet, By Mouth, Daily, # 30 tablet, Refills 3, Tot. Refills 3, Maintenance, 02/28/23 8:22:00 EDT, Route to Pharmacy Electronically, [facility][id number], Partial fill upon patient request if the prescription is for a schedule II opio... Start Date: 02/28/23 Status: Ordered methadone 10 mg/5 mL oral solution = 77 mg, By Mouth, Every 24 hours, 77 mg by mouth daily, 0 Refills, Maintenance, 09/30/20 14:45:00 EST, Solution, Partial fill upon patient request Start Date: 09/30/20 Status: Ordered Methadone Liquid 77 mg, Solution, By Mouth, verified with clinic, 02/28/23 9:00:00 EDT Start Date: 02/28/23 Stop Date: 02/28/23 Status: Completed ondansetron 4 mg oral tablet, disintegrating 1 tablet = 4 mg, By Mouth, Every 8 hours, PRN as needed for nausea/vomiting, # 30 tablet, 1 Refills, Maintenance, 02/28/23 8:28:00 EDT, Tablet, [facility] #[id number], Partial fill upon patient request if the prescription is for a schedule II opi... Start Date: 02/28/23 Status: Ordered oxyCODONE 5 mg oral tablet 5 mg, 1, tablet, By Mouth, Every 6 hours, PRN, # 17 tablet, Refills 0, Tot. Refills 0, Maintenance,Pain , Severe, 02/28/23 8:26:00 EDT, Route to Pharmacy Electronically, [facility] #[id number],Partial fill upon patient request if the prescripti... Start Date: 02/28/23 Status: Ordered Protonix 40 mg oral delayed release tablet 1 tablet = 40 mg, By Mouth, Daily, # 30 tablet, 1 Refills, Maintenance, 02/28/23 8:33:00 EDT, EC Tablet, 157, cm, 02/27/23 6:14:00 EDT, Height, 99.2, kg, 04/27/22 9:46:00 EDT, Dry Weight Start Date: 02/28/23 Status: Ordered thiamine 100 mg oral tablet 100 mg, 1, tablet, By Mouth, Daily, # 30 tablet, Refills 3, Tot. Refills 3, Maintenance, 02/28/23 8:22:00 EDT, Route to Pharmacy Electronically, [facility] #[id number], Partial fill upon patientrequest if the prescription is for a schedule II op... Start Date: 02/28/23 Status: Ordered Problem List Condition Confirmation Course Effective Dates Status Health St atus Informant Adult ADHD Confirmed 2011 Active Anemia Confirmed Active Anxiety Confirmed 2003 Active Breech presentation Confirmed Active Chronic hepatitis C Confirmed 2012 Active Constipation Confirmed 1988 Active History of depression Confirmed 2003 Active History of varicose veins Confirmed 2013 Active Methadone maintenance treatment affecting , antepartum Confirmed 2016 Active History of opioid abuse Confirmed 2005 Active Marijuana use Confirmed 2019 Active Obesity Confirmed 2019 Active Obstructive sleep apnea Confirmed 2019 Active PTSD (post-traumatic stress disorder) Confirmed Active Severe obesity (BMI 35.0-39.9) with comorbidity Confirmed Active Tobacco abuse Confirmed 2019 Active Results Radiology Reports * Exam Date Time Procedure Performing Provider Status 02/24/23 11:[address] Abd/Pelvis W/ IV Contrast Only Yakov Morelos; Auth (Verified) Notes: (CT Abd/Pelvis W/ IV Contrast Only) Reason For Exam: RLQ pain;Other: RESULT: CT Abd/Pelvis W/ IV Contrast Only CT Abd/Pelvis W/ IV Contrast Only Hx of Present Illness: States increasing epigastric pain and n v for 2 days. also reports daily ETOH and unable to tolerate much. denies any CP, SOB, or diarrhea. Appears very tremulous anxious; Reason: Other:; RLQ pain; Clinical Question(s): Appendicitis; Order Comment: TECHNIQUE: Spiral CT through the abdomen and pelvis with IV contrast formatted in 3 planes. 100 cc of Omnipaque 300 was administered intravenously. This study was performed without oral contrast. Weight-based protocol using automatic tube modulation was used to optimize exposure parameters. CTDIvol Body: 15.40 mGy, DLP Body: 874 mGy*cm. COMPARISON: Right upper quadrant ultrasound from the same day FINDINGS: Water Mechanic View Findings, Lines and Tubes: None. Visualized Chest: Lung bases are clear. No pleural effusion. The heart is normal in size. No pericardial effusion. Diaphragm: Normal. Liver: Severe hepatic steatosis. Gallbladder: No CT evidence of gallbladder pathology. Bile ducts: No biliary ductal dilation. Spleen: Normal. Pancreas: Minimal stranding seen inferior to the pancreas and near the pancreatic head (image [id number]). No fluid collection or hypoenhancement. Adrenal glands: Normal. Kidneys and ureters: No hydronephrosis, stones, or suspicious masses. Bladder: Normal. Reproductive organs: 2.2 cm physiologic appearing cyst on the right ovary. Stomach, small bowel, and large bowel: No evidence of obstruction. Wall thickening and surrounding stranding noted around the third and fourth portion of the duodenum. Appendix: Normal (image 123). Peritoneum and retroperitoneum: No ascites or pneumoperitoneum. No omental or mesenteric lesions. Lymph nodes: No enlarged lymph nodes. Blood vessels: Normal. No aneurysm. No evidence of venous thrombosis. Abdominal and pelvic wall: Unremarkable. Bones: No acute abnormality. Sclerotic changes in the right iliac bone near the SI joint is likely sequela of prior sacroiliitis or trauma. IMPRESSION: Findings suspicious for duodenitis and pancreatitis. Severe hepatic steatosis. Findings communicated to Dr. Alaina Santillan at 11:27 PM on 02/24/2023 I have personally reviewed the images and I agree with this report. WSN: [id number] Ordering Physician: Alaina Santillan Dictated By: Kole Bergeron DO Dictated Date/Time: 02/24/23 11:35 p Reviewed By: Damian Martinez MD Signed By: Damian Martinez MD Signed Date/Time: 02/24/23 11:40 pm Transcribed By: ELY Transcribed Date/Time: 02/24/23 11:28 pm * Exam Date Time Procedure Performing Provider Status 02/24/23 3:28 PM US RUQ Geovanna Romero; Auth (V erified) Notes: (US RUQ) Reason For Exam: Abdominal Pain;Other: RESULT: US RUQ US RUQ HX OF PRESENT ILLNESS: States increasing epigastric pain and n v for 2 days. also reports daily ETOH and unable to tolerate much. denies any CP, SOB, or diarrhea. Appears very tremulous anxious; Reason: Abdominal Pain; Clinical Question(s): Cholecystitis COMPARISON: None. FINDINGS: Limitations: Study is suboptimal due to overlying bowel gas and patient body habitus. Liver: Diffusely echogenic parenchyma. Due to echogenic parenchyma, there is decreased sensitivity for focal lesion detection, but there are no obvious hepatic masses. Smooth hepatic contour. Main portal vein patent with normal hepatopetal direction of flow. Gallbladder: No gallstones. Normal wall thickness. No pericholecystic fluid. Negative Sanchez sign. Biliary Tree: No intrahepatic or extrahepatic bile duct dilation is identified. Common duct measures: 0.4 cm. Pancreas: Obscured by overlying bowel gas. Right kidney: 9.1 cm in length. Normal parenchymal echotexture and thickness. No hydronephrosis, stone or mass. IMPRESSION: 1. Somewhat limited study. Echogenic liver likely representing severe hepatic steatosis. 2. No evidence of acute cholecystitis. I have personally reviewed the images and I agree with this report. WSN: [id number] Ordering Physician: Mary Cervantes Dictated By: Roberta Camacho MD Dictated Date/Time: 02/24/23 4:41 pm Reviewed By: Frandy Butler MD Signed By: Frandy Butler MD Signed Date/Time: 02/24/23 4:46 pm Transcribed By: ELY Transcribed Date/Time: 02/24/23 4:35 pm Vital Signs Most recent to oldest [Reference Range]: 1 2 3 Height 157 cm (02/28/23 10:00 AM) 157 cm (02/28/23 9:27 AM) 157 cm (02/27/23 6:14 AM) Weight 92.7 kg (02/26/23 8:49 AM) Oxygen Saturation [94-100 %] 97 % (02/28/23 10:00 AM) 93 % *L* (02/28/23 9:27 AM) 98 % (02/28/23 5:00 AM) Pulse Rate [55-90 bpm] 96 bpm *H* (02/28/23 10:00 AM) 96 bpm *H* (02/28/23 9:27 AM) 98 bpm *H* (02/28/23 5:00 AM) Body Mass Index [18.5-24.99 kg/m2] 37.61 kg/m2 *>HHI* (02/26/23 8:49 AM) Blood Pressure [90-138/55-84 mm Hg] 128/74mm Hg (02/28/23 10:00 AM) 125/72mm Hg (02/28/23 9:27 AM) 108/72mm Hg (02/28/23 5:00 AM) Respiratory Rate [16-30 br/min] 18 br/min (02/28/23 10:39 AM) 18 br/min (02/28/23 10:00 AM) 18 br/min (02/28/23 9:27 AM) Temperature [96.8-100.4 DegF] 97.9 DegF (02/28/23 10:00 AM) 97.8 DegF (02/28/23 9:27 AM) 98.0 DegF (02/28/23 5:00 AM) Mode of Delivery (Oxygen) Room air (02/28/23 10:00 AM) Room air (02/28/23 9:27 AM) Room air (02/28/23 5:00 AM) Blood pressure sites Arm, left (02/28/23 9:27 AM) Arm, left (02/28/23 5:00 AM) Arm, left (02/27/23 9:00 PM) Temperature Route Oral (02/28/23 10:00 AM) Oral (02/28/23 9:27 AM) Oral (02/28/23 5:00 AM) Weight Obtained Via Patient/family state d (02/26/23 8:49 AM) Social History Social History Type Response Smoking Status 5-9 cigarettes (betw een 1/4 to 1/2 pack)/day in last 30 days; Tobacco user in household: Yes entered on: 05/18/20 Sex Admission evaluation note * Yasmani ROBERTS, Derrick: PERFORM Event Display: Admission Note Authored Date: [id number] Patient: ??JAY HOLLOWAY ? Age:??32 Years?Sex:??Female?:??1990?? Chief Complaint/Reason for Consultation abd pain History of Present Illness 32-year-old female??with history of alcoholism, and prior??IV drug use on methadone, is [facility] pancreatitis Patient stated 2 days ago she started having some??central??abdominal pain that radiates through toher back, associated with some nausea, without vomiting,??and got progressively worse??and she was unable to tolerate food or??drinks, which prompted her to come to the hospital She was not given??able to tolerate??much of alcohol On presentation she is hemodynamically stable, blood work is??with a transaminitis and??lipase is 125, CT abdomen with??pancreatitis and severe liver steatosis she was given two liters of LR Review of Systems as under HPI Objective vss ?? Physical Exam Constitutional: Alert, in no acute distress. Head EENT: Extraocular muscle movement intact.??Moist mucous membranes.?? Neck: Supple. No JVD. Respiratory: Clear to auscultation. No wheezing or crackles. No use of accessory muscles. Cardiovascular: S1S2 regular. No murmurs, rubs or gallops. Gastrointestinal: Abdomen soft, DIFFUSELY tender, non-distended. Normal bowel sounds. Genitourinary: No CVA tenderness. Extremities: No lower extremity pitting??edema. No cyanosis or clubbing. Neurologic: AAOx3, Speech normal. No focal neurological deficits. Skin: No rash. Psychiatric: Normal mood and affect Assessment/Plan Diagnoses Pancreatitis ??(K85.90) ?? Assessment:??32 yo female admitted to hospital for acute alcoholic pancreatitis ?? Alcoholism Acute pancreatitis Presentation correlate with acute alcoholic pancreatitis and transaminitis, Mildly elevated lipase, and CT confirmed diagnosis Status post 2 L We will continue LR at 250 cc/h Pain control with Dilaudid 1 mg every 4 hours CIWA protocol Thiamine and folic acid Clear liquid diet and advance as tolerated ?? opioids disorder in remission, methadone dose need to be verified ? Full code DVT prophylaxis Lovenox subcu ?? Discharge Planning:? Histories Past Medical History/Problem List Active Problems??(16) Adult ADHD Anemia Anxiety Breech presentation Chronic hepatitis C Constipation History of depression History of opioid abuse History of varicose veins Marijuana use Methadone maintenance treatment affecting , antepartum Obese class II Obesity Obstructive sleep apnea PTSD (post-traumatic stress disorder) Tobacco abuse ? Past Surgical History delivery only;: 12/08/20 [place] tooth Foot ? Social History Alcohol Details:??Use: Past. ??Frequency: 1-2 times per year. ??Type: Wine. ??Alcohol use in household: No. 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 Exercise Details:??Self assessment: Good condition. Home/Environment Details:??Living situation: Home/Independent. ??Lives with: Father, Mother. ??DCF involvement: None. Nutrition/Health Details:??Diet: Regular. Sexual Details:??Sexually involved in last 6 months: Yes. ??Gender identity: Identifies as female. ??Self described orientation: Straight or heterosexual. ??Preferred pronoun: She/her. Substance Abuse Details:??Use: Past. ??Type: Marijuana. ??Substance abuse in household: No. Tobacco Details:??Use: 5-9 cigarettes (between 1/4 to 1/2 pack)/day in last 30 days. ??Tobacco user in household: Yes. Details:??Current every day smoker ? Family History No family history recorded. ? Medications Home Medications Acetaminophen (acetaminophen 325 mg oral tablet)?650?Milligram?By Mouth?Every 4 hours Acyclovir (acyclovir 400 mg oral tablet)?400?Milligram?By Mouth?Every 8 hours Alprazolam (Xanax Tablet)?2?Milligram?By Mouth?4 times a day?as needed?as needed for anxiety Amphetamine-Dextroamphetamine (Adderall 30 mg oral tablet)?1?tab(s)?30?Milligram?By Mouth?as needed?Other Docusate (docusate sodium 100 mg oral capsule)?1?capsule?100?Milligram?By Mouth?2times a day Fluconazole (fluconazole 150 mg oral tablet)?1?tab(s)?150?Milligram?By Mouth?Once Ibuprofen (ibuprofen 800 mg oral tablet)?800?Milligram?1?tablet?By Mouth?Every 8 hours Lidocaine Topical (lidocaine 1% topical lotion)?See Instructions?Use on right aspect of skin incision wher burning sensation is located. Use only on skin Methadone (methadone 10 mg/5 mL oral solution)?70?Milliliter?140?Milligram?By Mouth?Every 24 hours Ondansetron (ondansetron 4 mg oral tablet, disintegrating)?1?tab(s)?4?Milligram?By Mouth?Every 8 hours?as needed?Nausea & Vomiting Oxycodone (oxyCODONE 5 mg oral tablet)?5?Milligram?1?tablet?By Mouth?Every 4 hours?as needed?Pain , Severe Simethicone (simethicone 80 mg oral tablet, chewable)?80?Milligram?Chew?3 times a day?as needed?Gas ? Inpatient Medications Medications (20) Active SCHEDULED: (6) Enoxaparin 40 mg Inj (Enoxaparin Inj) ??40 mg 0.4 mL, Subcutaneous Injection, Daily Folic Acid 1 mg Tablet (Folic Acid Tablet) ??1 mg, By Mouth, Daily Multivitamin Tablet ??1 tablet, By Mouth, Daily NaCl 0.9% Flush 3ml (NaCL 0.9% Flush) ??3 mL, IV Push, Every 8 hours Pyridoxine 50 mg Tablet (Pyridoxine Tablet) ??50 mg, By Mouth, Daily Thiamine 100 mg Tablet (Thiamine Tablet) ??100 mg, By Mouth, 2 times a day CONTINUOUS: (1) Lactated Ringers (1000 mL) Cont IV 1,000 mL (Lactated Ringers 1,000 mL) ??1,000 mL, IV Infusion, 125 mL/hr PRN: (13) Acetaminophen 325 mg Tablet (Acetaminophen Tablet) ??650 mg, By Mouth, Every 4 hours Dextromethorphan-Guaifenesin 20 mg-200 mg/10 mL Liqu UD (Robitussin DM Liquid) ??10 mL, By Mouth, Every 4 hours HYDROmorphone 1 mg/mL Inj Syringe (Dilaudid Inj) ??1 mg 1 mL, IV Push Slowly, Every 4 hours Lorazepam 2 mg Inj Syringe (Ativan Inj) ??1 mg, IV Push Slowly, Every 2 hours Lorazepam 2 mg Inj Syringe (Ativan Inj) ??2 mg, IV Push Slowly, Every 2 hours Lorazepam 2 mg Inj Syringe (Ativan Inj) ??2 mg, IV Push Slowly, Every hour Lorazepam 2 mg Tablet (LORazepam Tablet) ??2 mg, By Mouth, Every hour Melatonin 3 mg Tablet (Melatonin Tablet) ??3 mg, By Mouth, Daily at bedtime NaCl 0.9% Flush 3ml (NaCL 0.9% Flush) ??3 mL, IV Push, Every 8 hours Ondansetron 2mg/mL Inj (2mL Vial) (Ondansetron Inj) ??4 mg, IV Push Slowly, Every 30 minutes Polyethylene Glycol 17 Gm Powder (MiraLax Powder) ??17 Gm 1 pack/packet, By Mouth, Daily Senna 8.6 mg / Docusate 50 mg tablet (Docusate/Senna Tablet) ??1 tablet, By Mouth, 2 times a day Simethicone 80 mg Chewable Tablet (Simethicone Tablet) ??80 mg, Chew, 3 times a day ? EKG study * Event Display: EKG Authored Date: * Event Display: ECG 12-Lead Authored Date: Please click on pdf link to open report * Event Display: ECG 12-Lead Authored Date: Ventricular Rate: 91 BPM Atrial Rate: 91 BPM P-R Interval: 128 ms QRS Duration: 88 ms Q-T Interval: 364 ms QTC Calculation(Bazett): 447 ms P [place]: 47 degrees R [place]: 36 degrees T [place]: 22 degrees Normal sinus rhythm Cannot rule out Anterior infarct , age undetermined Abnormal ECG No previous ECGs available Confirmed by DANIELE GIBBONS ([id number]) on 02/25/2023 8:13:38 AM [place]: DANIELE GIBBONS [facility] Progress note * Sanam ROBERTS, Ricardo Lopez: MODIFY, PERFORM Event Display: Progress [facility] Authored Date: [id number] Patient: ??HOLLOWAY, JAY ? Age:??32 Years?Sex:??Female?:??1990?? Subjective no vomiting, has had nausea. Epigastric abd. pain improving ?? Review of Systems ?? Constitutional- no fever, no chills HEENT- no ear pain, no tinnitus, no sore throat Respiratory- no shortness of breath?? CVS- no chest pain, no palpitations, no syncope Abdomen-??has had epigastric ??abdominal pain, nausea and vomtiing- nausea and vomting resolving Neuro- no headache, no paresthesias, no focal weakness - no dysuria, no hematuria Derm- no rash, no pruritis Objective Vital Signs?? Temperature: 99.2 DegF (02/27/23 06:14:00) Temperature Route: Oral (02/27/23 06:14:00) Pulse Rate:??96 bpm??High (02/27/23 10:25:00) Respiratory Rate: 18 br/min (02/27/23 10:25:00) Systolic Blood Pressure: 132 mm Hg (02/27/23 10:25:00) Diastolic Blood Pressure: 72 mm Hg (02/27/23 10:25:00) Blood pressure sites: Arm, left (02/27/23 06:14:00) Mean Arterial Pressure: 87 mm Hg (02/27/23 06:14:00) Pulse Pressure: 57 mm Hg (02/27/23 06:14:00) Oxygen Saturation: 94 % (02/27/23 06:14:00) Mode of Delivery (Oxygen): Room air (02/27/23 06:14:00) FiO2: 21 % (02/27/23 04:48:00) Early Warning Score: 3 (02/27/23 10:26:01) ? 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 Extremities: No edema, peripheral pulses palpable. _ Inpatient Medications Medications (26) Active SCHEDULED: (8) Enoxaparin 40 mg Inj (Enoxaparin Inj) ??40 mg 0.4 mL, Subcutaneous Injection, Daily Folic Acid 1 mg Tablet (Folic Acid Tablet) ??1 mg, By Mouth, Daily Methadone 10mg/5mL UD Solution (Methadone Liquid) ??77 mg 38.5 mL, By Mouth, Daily Multivitamin Tablet ??1 tablet, By Mouth, Daily NaCl 0.9% Flush 3ml (NaCL 0.9% Flush) ??3 mL, IV Push, Every 8 hours Pantoprazole 40 mg Inj (Protonix Inj) ??40 mg, IV Push Slowly, Every 12 hours Pyridoxine 50 mg Tablet (Pyridoxine Tablet) ??50 mg, By Mouth, Daily Thiamine 100 mg Tablet (Thiamine Tablet) ??100 mg, By Mouth, 2 times a day CONTINUOUS: (1) Lactated Ringers (1000 mL) Cont IV 1,000 mL (LR 1,000 mL) ??1,000 mL, IV Infusion, 125 mL/hr PRN: (17) Acetaminophen 325 mg Tablet (Acetaminophen Tablet) ??650 mg, By Mouth, Every 4 hours Alprazolam 0.5 mg Tablet (Xanax Tablet) ??2 mg, By Mouth, 4 times a day Amphetamine-Dextroamphetamine 5 mg Tablet (Adderall Oral Tablet) ??30 mg, By Mouth, 2 times a day Dextromethorphan-Guaifenesin 20 mg-200 mg/10 mL Liqu UD (Robitussin DM Liquid) ??10 mL, By Mouth, Every 4 hours HYDROmorphone 1 mg/mL Inj Syringe (Dilaudid Inj) ??1 mg 1 mL, IV Push Slowly, Every 8 hours Lorazepam 2 mg Inj Syringe (Ativan Inj) ??1 mg, IV Push Slowly, Every 2 hours Lorazepam 2 mg Inj Syringe (Ativan Inj) ??2 mg, IV Push Slowly, Every 2 hours Lorazepam 2 mg Inj Syringe (Ativan Inj) ??2 mg, IV Push Slowly, Every hour Lorazepam 2 mg Tablet (LORazepam Tablet) ??2 mg, By Mouth, Every hour Melatonin 3 mg Tablet (Melatonin Tablet) ??3 mg, By Mouth, Daily at bedtime NaCl 0.9% Flush 3ml (NaCL 0.9% Flush) ??3 mL, IV Push, Every 8 hours nalOXONE ??400mcg/mL Inj (nalOXONE Inj) ??0.2 mg 0.5 mL, IV Push, Every 5 minutes Ondansetron 2mg/mL Inj (2mL Vial) (Zofran Inj) ??4 mg, IV Push, Every 6 hours OxyCODONE 5 mg IR Tablet (oxyCODONE 5 mg oral tablet) ??5 mg, By Mouth, Every 6 hours Polyethylene Glycol 17 Gm Powder (MiraLax Powder) ??17 Gm 1 pack/packet, By Mouth, Daily Senna 8.6 mg / Docusate 50 mg tablet (Docusate/Senna Tablet) ??1 tablet, By Mouth, 2 times a day Simethicone 80 mg Chewable Tablet (Simethicone Tablet) ??80 mg, Chew, 3 times a day ? Results Recent Labs LIPID STUDIES Cholesterol 149 mg/dL ()?? 02/27/2023 12:01 Triglycerides 175 mg/dL (High)?? 02/27/2023 12:01 HDL Cholesterol 17 mg/dL (Low)?? 02/27/2023 12:01 LDL Cholesterol 97 mg/dL ()?? 02/27/2023 12:01 Non HDL Cholesterol 132 mg/dL ()?? 02/27/2023 12:01 ? Assessment/Plan ?? This is a 32-year-old female with history of alcohol use disorder, IV DA currently on maintenance methadone, MEMO, hep C, PTSD, presenting to the emergency room with complaints of severe abdominal pain of 2 to 3 days duration associated with some nausea, vomiting.?? Patient noted to have mildly elevated lipase, transaminase levels were elevated, CT with evidence of acute pancreatitis, possible duodenitis and severe hepatic steatosis.?? Patient admitted for further work-up and management. ?? Acute pancreatitis -suspected to be 2/2??alcohol use Duodenitis Ultrasound right upper quadrant with echogenic liver likely representing severe hepatic steatosis and no evidence of acute cholecystitis. -CT abdomen pelvis done showed??acute pancreatitis and duodenitis. - -Continue PPI IV BID, change to po on discharge -- triglyceride levels were normal and no new medications that could cause pancreatitis - suspected to have acute pancreatitis 2/2 to EtoH use, although she denied regular or excessive ETOH use to me?? (see below) - wean down IV opiates, advanced diet today ?? Opiate use disorder on methadone maintenance Verified with her methadone clinic and will continue with 77 mg of methadone daily for now. ?? Alcohol use disorder - patient denied excessive EtoH use to me today and stated she only drinks a few nips twice a month. However to other staff previously had stated she used to drink 6-10 nips/ day but cut down to 3-4 nips/day. - also has transaminitis, with AST > ALT. although transaminitis may also be due to??hepatic steatosis/ fatty liver. ?? - Liver US showed severe hepatic steatosis. - consulted Addiction medicine-??with addiction medicine as well, she denied any regular or excessive alcohol use. - also seen by SW ? DVT prophylaxis Lovenox CODE STATUS is full Diet - full??liquid OMN -wean down IV opiates,?? advance diet,?? hopefully dc tomorrow ?? * Mio Aguiar RN: PERFORM, SIGN, VERIFY Event Display: Progress Note Hospital Authored Date: Patient: JAY HOLLOWAY Age: 32 years Sex: Female : 1990 Associated Diagnoses: None Author: Mio Aguiar RN Findings Narrative/Incidental Alert and oriented x4, VSS. Patient reports frequent pain in abdomen, medicated with PRN oxycodone as ordered per patient request. IVFs maintained. CIWA assessed per protocol, patient reports mild headache and anxiety and mild tremors to touch. Patient's gait appears to be steady at this time-- safety maintained. Patient able to make her needs known, all needs met at this time. Discharge Information Pulmonary Rehab Discharge : Pulmonary Rehab Discharge Status 02/27/2023 4:48 EDT CPAP/BiPAP Mask Type Full CPAP/BiPAP Mask Size Medium 02/27/2023 2:16 EDT CPAP/BiPAP Mask Type Full CPAP/BiPAP Mask Size Medium 02/26/2023 21:54 EDT CPAP/BiPAP Mask Type Full CPAP/BiPAP Mask Size Medium * Love ROBERTS, Esther: PERFORM Event Display: Progress Note Hospital Authored Date: Patient: ??JAY HOLLOWAY ? Age:??32 Years?Sex:??Female?:??1990?? Subjective Patient continues to have pain, but she reports feeling hungry and wanting to try a diet. Since she is tolerating po now, will cut back on dilaudid and add oxycodone. Hope to wean off dilaudid completely by tomorrow Review of Systems Negative except for the above Allergies Allergies ?(Active and Proposed Allergies Only) amoxicillin? (Severity: Unknown severity, Onset: Unknown) ?Reactions: Hives ? Past Medical History Active Problems??(16) Adult ADHD Anemia Anxiety Breech presentation Chronic hepatitis C Constipation History of depression History of opioid abuse History of varicose veins Marijuana use Methadone maintenance treatment affecting , antepartum Obesity Obstructive sleep apnea PTSD (post-traumatic stress disorder) Severe obesity (BMI 35.0-39.9) with comorbidity Tobacco abuse ? Past Surgical History delivery only;: 12/08/20 [place] tooth Foot ? Social History Alcohol Details:??Use: Past. ??Frequency: 1-2 times per year. ??Type: Wine. ??Alcohol use in household: No. 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 Exercise Details:??Self assessment: Good condition. Home/Environment Details:??Living situation: Home/Independent. ??Lives with: Father, Mother. ??DCF involvement: None. Nutrition/Health Details:??Diet: Regular. Sexual Details:??Sexually involved in last 6 months: Yes. ??Gender identity: Identifies as female. ??Self described orientation: Straight or heterosexual. ??Preferred pronoun: She/her. Substance Abuse Details:??Use: Past. ??Type: Marijuana. ??Substance abuse in household: No. Tobacco Details:??Use: 5-9 cigarettes (between 1/4 to 1/2 pack)/day in last 30 days. ??Tobacco user in household: Yes. Details:??Current every day smoker ? Objective Vital Signs?? Temperature: 99.6 DegF (02/26/23 08:49:00) Temperature Route: Oral (02/26/23 08:49:00) Pulse Rate:??110 bpm??High (02/26/23 08:55:00) Respiratory Rate: 18 br/min (02/26/23 12:19:00) Systolic Blood Pressure: 123 mm Hg (02/26/23 08:55:00) Diastolic Blood Pressure: 78 mm Hg (02/26/23 08:55:00) Blood pressure sites: Arm, left (02/26/23 08:49:00) Mean Arterial Pressure: 93 mm Hg (02/26/23 08:49:00) Pulse Pressure: 45 mm Hg (02/26/23 08:49:00) Oxygen Saturation: 95 % (02/26/23 08:22:00) Mode of Delivery (Oxygen): Room air (02/26/23 08:22:00) Early Warning Score: 4 (02/26/23 12:20:22) ? Intake/Output? 02/24 23:51 02/26 07:00 02/25 07:00 02/24 07:00 ?? 02/26 13:57 02/26 13:57 02/26 06:59 02/25 06:59 Urine Count ?1 ?1 ?0 ?0 ? Mobility & Ambulation Level Mobility & Ambulation Level Activity Assistance: Standby assist (02/26/23) Activity Status ADL: Ambulating in room, Bathroom privileges (02/26/23) Ambulatory devices needed: None (02/26/23) ? Physical Exam Constitutional: Alert, in no distress. Mental Status: Oriented to person, place and time. Head: Normocephalic. Eyes: Pupils are equal, round and reactive to light. Extraocular muscles intact. Ear, Nose and Throat: Oropharynx clear, mucous membranes moist. Ears and nose without masses, lesions or deformities. Trachea midline. Neck: Supple, Full range of motion. Respiratory: Clear to auscultation. No wheezing, rales or rhonchi. Cardiovascular: S1 S2 regular. No murmurs, rubs or gallops. Gastrointestinal: Abdomen soft, epigastric tenderness, non-distended. Normal bowel sounds. No pulsatile mass. No hepatosplenomegaly. Genitourinary: No costovertebral angle tenderness. Neurologic: Cranial nerves II-XII grossly intact. No focal neurological deficits. Flexor plantar response. Moves all extremities spontaneously. Sensation intact bilaterally. Skin: No rashes or lesions. No petechiae or purpura.?? Musculoskeletal: No cyanosis or clubbing. No gross deformities. Normal range of motion. Heme/Lymphatics/Immun: Palpation of neck reveals no swelling or tenderness of neck nodes. Palpationof groin reveals no swelling or tenderness of groin nodes. Psychiatric: Normal mood and affect _ Home Medications Alprazolam (Xanax Tablet)?2?Milligram?By Mouth?4 times a day?as needed?as needed for anxiety Amphetamine-Dextroamphetamine (Adderall 30 mg oral tablet)?1?tab(s)?30?Milligram?By Mouth?as needed?Other Methadone (methadone 10 mg/5 mL oral solution)?70?Milliliter?140?Milligram?By Mouth?Every 24 hours ? Inpatient Medications Medications (26) Active SCHEDULED: (8) Enoxaparin 40 mg Inj (Enoxaparin Inj) ??40 mg 0.4 mL, Subcutaneous Injection, Daily Folic Acid 1 mg Tablet (Folic Acid Tablet) ??1 mg, By Mouth, Daily Methadone 10mg/5mL UD Solution (Methadone Liquid) ??77 mg 38.5 mL, By Mouth, Daily Multivitamin Tablet ??1 tablet, By Mouth, Daily NaCl 0.9% Flush 3ml (NaCL 0.9% Flush) ??3 mL, IV Push, Every 8 hours Pantoprazole 40 mg Inj (Protonix Inj) ??40 mg, IV Push Slowly, Every 12 hours Pyridoxine 50 mg Tablet (Pyridoxine Tablet) ??50 mg, By Mouth, Daily Thiamine 100 mg Tablet (Thiamine Tablet) ??100 mg, By Mouth, 2 times a day CONTINUOUS: (1) Lactated Ringers (1000 mL) Cont IV 1000 mL (Lactated Ringers 1000 mL) ??1,000 mL, IV Infusion, 250 mL/hr PRN: (17) Acetaminophen 325 mg Tablet (Acetaminophen Tablet) ??650 mg, By Mouth, Every 4 hours Alprazolam 0.5 mg Tablet (Xanax Tablet) ??2 mg, By Mouth, 4 times a day Amphetamine-Dextroamphetamine 5 mg Tablet (Adderall Oral Tablet) ??30 mg, By Mouth, 2 times a day Dextromethorphan-Guaifenesin 20 mg-200 mg/10 mL Liqu UD (Robitussin DM Liquid) ??10 mL, By Mouth, Every 4 hours HYDROmorphone 1 mg/mL Inj Syringe (Dilaudid Inj) ??1 mg 1 mL, IV Push Slowly, Every 4 hours Lorazepam 2 mg Inj Syringe (Ativan Inj) ??1 mg, IV Push Slowly, Every 2 hours Lorazepam 2 mg Inj Syringe (Ativan Inj) ??2 mg, IV Push Slowly, Every 2 hours Lorazepam 2 mg Inj Syringe (Ativan Inj) ??2 mg, IV Push Slowly, Every hour Lorazepam 2 mg Tablet (LORazepam Tablet) ??2 mg, By Mouth, Every hour Melatonin 3 mg Tablet (Melatonin Tablet) ??3 mg, By Mouth, Daily at bedtime NaCl 0.9% Flush 3ml (NaCL 0.9% Flush) ??3 mL, IV Push, Every 8 hours nalOXONE ??400mcg/mL Inj (nalOXONE Inj) ??0.2 mg 0.5 mL, IV Push, Every 5 minutes Ondansetron 2mg/mL Inj (2mL Vial) (Zofran Inj) ??4 mg, IV Push, Every 6 hours OxyCODONE 5 mg IR Tablet (oxyCODONE 5 mg oral tablet) ??5 mg, By Mouth, Every 6 hours Polyethylene Glycol 17 Gm Powder (MiraLax Powder) ??17 Gm 1 pack/packet, By Mouth, Daily Senna 8.6 mg / Docusate 50 mg tablet (Docusate/Senna Tablet) ??1 tablet, By Mouth, 2 times a day Simethicone 80 mg Chewable Tablet (Simethicone Tablet) ??80 mg, Chew, 3 times a day ? Results Recent Labs BLOOD COUNT & DIFF WBC 8.9 k/mm3 ()?? 02/25/2023 16:31 RBC 4.38 m/mm3 ()?? 02/25/2023 16:31 Hgb 13.7 Gm/dL ()?? 02/25/2023 16:31 Hct 41.2 % ()?? 02/25/2023 16:31 MCV 94.1 femtoliters ()?? 02/25/2023 16:31 MCH 31.3 pg ()?? 02/25/2023 16:31 MCHC 33.3 g/dL ()?? 02/25/2023 16:31 Platelet Count 161 k/mm3 ()?? 02/25/2023 16:31 RDW-SD 47.2 femtoliters (High)?? 02/25/2023 16:31 MPV 11.3 femtoliters ()?? 02/25/2023 16:31 Nucleated RBC (Automated) 0.0 #/100 WBC'S ()?? 02/25/2023 16:31 Abs. NRBC 0.0 k/mm3 ()?? 02/25/2023 16:31 Abs. Neut 4.2 k/mm3 ()?? 02/25/2023 04:30 Abs. Lymph 2.1 k/mm3 ()?? 02/25/2023 04:30 Abs. Hubbard 0.6 k/mm3 ()?? 02/25/2023 04:30 Abs. Eo 0.1 k/mm3 ()?? 02/25/2023 04:30 Abs. Baso 0.0 k/mm3 ()?? 02/25/2023 04:30 Neut % 59.8 % ()?? 02/25/2023 04:30 Lymph % 29.9 % ()?? 02/25/2023 04:30 Hubbard % 8.6 % ()?? 02/25/2023 04:30 Eos % 0.9 % ()?? 02/25/2023 04:30 Baso % 0.4 % ()?? 02/25/2023 04:30 Imm Gran 0.4 % ()?? 02/25/2023 04:30 Abs. Imm Gran 0.0 k/mm3 ()?? 02/25/2023 04:30 ?? CHEM GENERAL Sodium 135 mmol/L ()?? 02/25/2023 16:31 Potassium 4.0 mmol/L ()?? 02/25/2023 16:31 Chloride 96 mmol/L (Low)?? 02/25/2023 16:31 Bicarbonate Level 26 mmol/L ()?? 02/25/2023 16:31 Anion Gap 13 ()?? 02/25/2023 16:31 Glucose Level 106 mg/dL (High)?? 02/25/2023 04:30 BUN 7 mg/dL ()?? 02/25/2023 04:30 Creatinine-Blood 1.0 mg/dL ()?? 02/25/2023 04:30 Estimated GFR Creatinine 81 ML/MIN/1.73 M2 ()?? 02/25/2023 04:30 Calcium 8.2 mg/dL (Low)?? 02/25/2023 04:30 Calcium, Ionized pH Corrected 1.19 mmol/L ()?? 02/25/2023 04:30 Magnesium 1.6 mg/dL ()?? 02/25/2023 04:30 Protein, Total 6.5 Gm/dL ()?? 02/25/2023 16:31 Albumin 3.2 Gm/dL (Low)?? 02/25/2023 16:31 Alkaline Phosphatase 111 units/L (High)?? 02/25/2023 16:31 Lipase 560 units/L (High)?? 02/25/2023 16:31 AST (SGOT) 276 units/L (High)?? 02/25/2023 16:31 ALT (SGPT) 211 units/L (High)?? 02/25/2023 16:31 Bilirubin, Total 1.1 mg/dL ()?? 02/25/2023 16:31 Bilirubin, Direct 0.5 mg/dL (High)?? 02/25/2023 16:31 Bilirubin, Indirect 0.6 mg/dL ()?? 02/25/2023 16:31 ? Abnormal Labs ?? BLOOD COUNT & DIFF ??Abs. NRBC ??0.0 k/mm3 () ??02/25/2023 16:31 ??Nucleated RBC (Automated) ??0.0 #/100 WBC'S () ??02/25/2023 16:31 ??RDW-SD ??47.2 femtoliters (High) ??02/25/2023 16:31 ? CHEM GENERAL ??ALT (SGPT) ??211 units/L (High) ??02/25/2023 16:31 ??AST (SGOT) ??276 units/L (High) ??02/25/2023 16:31 ??Albumin ??3.2 Gm/dL (Low) ??02/25/2023 16:31 ??Alkaline Phosphatase ??111 units/L (High) ??02/25/2023 16:31 ??Bilirubin, Direct ??0.5 mg/dL (High) ??02/25/2023 16:31 ??Chloride ??96 mmol/L (Low) ??02/25/2023 16:31 ??Lipase ??560 units/L (High) ??02/25/2023 16:31 ? Note: Critical results are displayed in red. ? Urinalysis?? No qualifying data available. ? Assessment/Plan This is a 32-year-old female with history of alcohol use disorder, IV DA currently on maintenance methadone, MEMO, hep C, PTSD, presenting to the emergency room with complaints of severe abdominal pain of 2 to 3 days duration associated with some nausea, vomiting.?? Patient noted to have mildly elevated lipase, transaminase levels were elevated, CT with evidence of acute pancreatitis, possible duodenitis and severe hepatic steatosis.?? Patient admitted for further work-up and management. ?? Acute pancreatitis Secondary to alcohol use Duodenitis Ultrasound right upper quadrant with echogenic liver likely representing severe hepatic steatosis no evidence of acute cholecystitis. CT abdomen pelvis done which shows evidence of acute pancreatitisand duodenitis. -Clear liquid diet, advance to full liquids for dinner -Continue LR until PO intake stable -Cut back on dilaudid, change to 1 mg q4h prn, add oxycodone 5 mg q6h prn -Zofran IV as needed for nausea -Hope to advance to regular diet by tomorrow morning, and if pain controlled on po meds, discharge in am -Continue PPI IV BID, change to po on discharge ? Opiate use disorder on methadone maintenance Verified with her methadone clinic and will continue with 77 mg of methadone daily for now. ?? Alcohol use disorder Monitor on [facility] protocol Continue with IV thiamine, folic acid. ?? DVT prophylaxis Lovenox CODE STATUS is full Diet - full??liquid OMN - IV pain control, acute pancreatitis, anticipate dc tomorrow if pain controlled and nuno diet ?Order Date/Time ??Order Action ??Order Name ??Order Detail ??02/26/2023 13:56 ??Discontinue ??HYDROmorphone 0.5 mg/0.5 mL Inj Syringe ??0.5 mg, 0.5 mL, IV Push Slowly, Every 2 hours, PRN: Pain , Moderate ??02/26/2023 13:55 ??Order ??OxyCODONE 5 mg IR Tablet ??5 mg, By Mouth, Every 6 hours, PRN: Pain , Severe ??02/26/2023 13:55 ??Modify ??HYDROmorphone 1 mg/mL Inj Syringe ??1 mg, 1 mL, IV Push Slowly, Every 4 hours, PRN: Pain , Severe ??02/26/2023 13:53 ??Order ??Full Liquid Diet ??Start: now, 02/26/23 13:53:00 EDT ??02/26/2023 08:39 ??Order ??Clear Liquid Diet ??Clear Liquids without Red Liquids, Start: now, Progress Diet: No, When: Not Applicable, 02/26/23 8:39:00 EDT ??02/26/2023 07:52 ??Order ??Change Attending, /DO ??Love ROBERTS, Esther, 02/26/23 7:51:00 EDT ? Note * Alejandra CLANCY, Twila: PERFORM Event Display: Discharge/Transfer Note Hospital Authored Date: [id number] Nursing Discharge Note Entered On: 02/28/2023 9:19 EDT Performed On: 02/28/2023 9:19 EDT by Twila Roberts RN Nursing Discharge Note 2 Discharge Time : 02/28/2023 11:40 EDT Twila Roberts RN - 02/28/2023 16:38 EDT Discharge Level of Care at Discharge : Home/Long-Term/Foster Care Patient Left Unit Via : Wheelchair Patient Accompanied Off Unit with : Significant other, Other: STAFF DC Instructions Provided & Signed by Pt : Yes Patient Understands D/C Instructions : Yes Patient Instructions Discharge Signed : Yes Did Pt have Specialty Bed or Wound Vac : No Twila Roberts RN - 02/28/2023 9:19 EDT * Sanam ROBERTS, Ricardo Lopez: PERFORM Event Display: Discharge/Transfer Note Hospital Authored Date: [id number] Patient: ??JAY HOLLOWAY ? Age:??32 Years?Sex:??Female?:??1990?? Patient Information Discharge Location: [place] Primary Care Physician: Juan ROBERTS [facility] Admit Date/Time: 02/24/23 23:51 Discharge Disposition Discharge Disposition: Home: No Services Discharge Diagnosis Acute Pancreatitis (K85.90) ? Secondary discharge diagnoses H/o IVDA, in remission, stable on methadone Opioid dependence (F11.20) H/o Hepatitis C s/p treatment ? _ Discharge Medications Alprazolam (ALPRAZolam 2 mg oral tablet)?TAKE 1 TABLET (2 MG) BY MOUTH 4 TIMES PER DAY NEEDEDFOR ANXIETY- Amphetamine-Dextroamphetamine (Adderall XR 30 mg oral capsule, extended release)?TAKE 1 CAPSULE BY MOUTH EVERY MORNING Amphetamine-Dextroamphetamine (amphetamine-dextroamphetamine 10 mg oral tablet)?TAKE 1 TABLET BYMOUTH TWICE DAILY FOR ADHD Folic Acid (folic acid 1 mg oral tablet)?1?Milligram?1?tablet?By Mouth?Daily Methadone (methadone 10 mg/5 mL oral solution)?77?Milligram?By Mouth?Every 24 hours?77 mg by mouth daily Ondansetron (ondansetron 4 mg oral tablet, disintegrating)?1?tab(s)?4?Milligram?By Mouth?Every 8 hours?as needed?as needed for nausea/vomiting Oxycodone (oxyCODONE 5 mg oral tablet)?5?Milligram?1?tablet?By Mouth?Every 6 hours?as needed?Pain , Severe Thiamine (thiamine 100 mg oral tablet)?100?Milligram?1?tablet?By Mouth?Daily ? Medications Started Thiamine Folic acid Short course of oxycodone ?? Hospital Course ??This is a 32-year-old female with history of alcohol use disorder, IV DA currently on maintenancemethadone, MEMO, hep C, PTSD, presenting to the emergency room with complaints of severe abdominal pain of 2 to 3 days duration associated with some nausea, vomiting.?? Patient noted to have mildly elevated lipase, transaminase levels were elevated, CT with evidence of acute pancreatitis, possible duodenitis and severe hepatic steatosis.?? Patient admitted for further work-up and management. ?? Acute pancreatitis - Duodenitis Ultrasound right upper quadrant with echogenic liver likely representing severe hepatic steatosis and no evidence of acute cholecystitis. -CT abdomen pelvis done showed??acute pancreatitis and duodenitis. -suspected to have acute pancreatitis 2/2 to EtoH use, although she?? adamantly denied regular or excessive ETOH use to me??and to addiction medicine ??(see below). Cannot definitevely ascertain alcohol as etiology of pancreatitis but this was suspected to be the cause. See below . - no gallstones on US and?? triglyceride levels were normal and no new medications that could causepancreatitis and no trauma- = she?? was treated supportively with aggressive IVF and pain control with IV opiates for duodenitis-was on IV PPI and t hen switched to PO PPI on discharge - she clinically improved, with no nausea or vomiting and tolerating diet, still with epigastric pain but improved (gave s hort course of PO oxycodone on discharge , MASSPAT checked ? Possible Alcohol use disorder - patient denied excessive EtoH use to me??during my interactions with her ??and stated she only drinks a few nips twice a month. However to other staff previously on admission had stated she used todrink 6-10 nips/ day but cut down to 3-4 nips/day. - also has transaminitis, with AST > ALT which could suggest Alcohol induced transaminitis, ??although transaminitis may also be due to??hepatic steatosis/ fatty liver. ?? - Liver US showed severe hepatic steatosis. - consulted Addiction medicine-??with addiction medicine as well, she denied any regular or excessive alcohol use. - no ETOH level was done initially in ER - so unable to ascertain definitevely if alcohol use disorder at this time. Continue monitoring at addiction /methadone clinic - also seen by SW ?? H/o MABELFRED with heroin/ Opiate use disorder on methadone maintenance- - she has been in remission with no relapse, and stable on methadone. I commended her for maintaining treatment successfully - her methadone dose was Verified with her methadone clinic and we continued?? 77 mg of methadone daily - last dose of methadone was 02/28/23 at 9:30 AM ? CODE STATUS is full Objective Vital Signs?? Temperature: 98 DegF (02/28/23 05:00:00) Temperature Route: Oral (02/28/23 05:00:00) Pulse Rate:??98 bpm??High (02/28/23 05:00:00) Respiratory Rate: 19 br/min (02/28/23 05:00:00) Systolic Blood Pressure: 108 mm Hg (02/28/23 05:00:00) Diastolic Blood Pressure: 72 mm Hg (02/28/23 05:00:00) Blood pressure sites: Arm, left (02/28/23 05:00:00) Pulse Pressure: 46 mm Hg (02/27/23 13:00:00) Oxygen Saturation: 98 % (02/28/23 05:00:00) Mode of Delivery (Oxygen): Room air (02/28/23 05:00:00) Early Warning Score: 0 (02/28/23 05:42:33) ? . Physical Exam General: ??PERRLA, NAD, Moist mucus membranes Neck: No JVD, no carotid bruit CVS: Regular S1 S2, No M/R/G Resp: CTAB, no crepitations or wheezing Abdo: Soft, epigastric tenderness, ??ND, NABS, no organomegaly, no masses [employer] CR[employer] ENGINEER: AO x 3, No focal neurological deficits. Extremities: No edema, peripheral pulses palpable. Pending Results CBC ordered on 02/26/2023 H. pylori Antigen ordered on 02/25/2023 Patient Education Titles Depression?? Follow-Up Appointments Added Follow Up ?Time Frame ?Comments Kenisha Martinez MD?1 week Post Discharge Care Code Status: ?? Full Resuscitation Discharge ?Please give dose of methadone 77mg ??before discharge, ??02/28/23 8:28:00 EDT Discharge Prescriptions ?ePrescribed, ??02/28/23 8:28:00 EDT Home Health Face to Face ^HomeHealthFT[facility] Results Discharge Labs BLOOD COUNT & DIFF WBC 8.9 k/mm3 ()?? 02/25/2023 16:31 RBC 4.38 m/mm3 ()?? 02/25/2023 16:31 Hgb 13.7 Gm/dL ()?? 02/25/2023 16:31 Hct 41.2 % ()?? 02/25/2023 16:31 MCV 94.1 femtoliters ()?? 02/25/2023 16:31 MCH 31.3 pg ()?? 02/25/2023 16:31 MCHC 33.3 g/dL ()?? 02/25/2023 16:31 Platelet Count 161 k/mm3 ()?? 02/25/2023 16:31 RDW-SD 47.2 femtoliters (High)?? 02/25/2023 16:31 MPV 11.3 femtoliters ()?? 02/25/2023 16:31 Nucleated RBC (Automated) 0.0 #/100 WBC'S ()?? 02/25/2023 16:31 Abs. NRBC 0.0 k/mm3 ()?? 02/25/2023 16:31 Abs. Neut 4.2 k/mm3 ()?? 02/25/2023 04:30 Abs. Lymph 2.1 k/mm3 ()?? 02/25/2023 04:30 Abs. Hubbard 0.6 k/mm3 ()?? 02/25/2023 04:30 Abs. Eo 0.1 k/mm3 ()?? 02/25/2023 04:30 Abs. Baso 0.0 k/mm3 ()?? 02/25/2023 04:30 Neut % 59.8 % ()?? 02/25/2023 04:30 Lymph % 29.9 % ()?? 02/25/2023 04:30 Hubbard % 8.6 % ()?? 02/25/2023 04:30 Eos % 0.9 % ()?? 02/25/2023 04:30 Baso % 0.4 % ()?? 02/25/2023 04:30 Imm Gran 0.4 % ()?? 02/25/2023 04:30 Abs. Imm Gran 0.0 k/mm3 ()?? 02/25/2023 04:30 ?? CHEM GENERAL Sodium 139 mmol/L ()?? 02/28/2023 01:35 Potassium 3.6 mmol/L ()?? 02/28/2023 01:35 Chloride 102 mmol/L ()?? 02/28/2023 01:35 Bicarbonate Level 29 mmol/L ()?? 02/28/2023 01:35 Anion Gap 8 ()?? 02/28/2023 01:35 Glucose Level 71 mg/dL ()?? 02/28/2023 01:35 BUN 4 mg/dL (Low)?? 02/28/2023 01:35 Creatinine-Blood 0.9 mg/dL ()?? 02/28/2023 01:35 Estimated GFR Creatinine 88 ML/MIN/1.73 M2 ()?? 02/28/2023 01:35 Calcium 8.2 mg/dL (Low)?? 02/28/2023 01:35 Calcium, Ionized pH Corrected 1.19 mmol/L ()?? 02/25/2023 04:30 Magnesium 1.6 mg/dL ()?? 02/25/2023 04:30 Protein, Total 5.8 Gm/dL (Low)?? 02/28/2023 01:35 Albumin 3.0 Gm/dL (Low)?? 02/28/2023 01:35 AG Ratio 1.1 ()?? 02/28/2023 01:35 Alkaline Phosphatase 97 units/L ()?? 02/28/2023 01:35 Lipase 560 units/L (High)?? 02/25/2023 16:31 AST (SGOT) 76 units/L (High)?? 02/28/2023 01:35 ALT (SGPT) 78 units/L (High)?? 02/28/2023 01:35 Bilirubin, Total 1.0 mg/dL ()?? 02/28/2023 01:35 Bilirubin, Direct 0.5 mg/dL (High)?? 02/25/2023 16:31 Bilirubin, Indirect 0.6 mg/dL ()?? 02/25/2023 16:31 Lactate 2.1 mmol/L ()?? 02/24/2023 15:36 ? ENDOCRINE/TUMOR MARKER Serum Qual NEGATIVE mIU/mL ()?? 02/24/2023 15:36 ? HEME OTHER [place] SPECIMEN DISCARDED AFTER 4 HOURS. ()?? 02/24/2023 15:36 ? LIPID STUDIES Cholesterol 149 mg/dL ()?? 02/27/2023 12:01 Triglycerides 175 mg/dL (High)?? 02/27/2023 12:01 HDL Cholesterol 17 mg/dL (Low)?? 02/27/2023 12:01 LDL Cholesterol 97 mg/dL ()?? 02/27/2023 12:01 Non HDL Cholesterol 132 mg/dL ()?? 02/27/2023 12:01 ? UA/URINALYSIS Appear/Color, Urine YELLOW ()?? 02/24/2023 17:41 Specific [place], Urine 1.024 ()?? 02/24/2023 17:41 pH, Urine 5.5 ()?? 02/24/2023 17:41 Albumin, Urine TRACE (Abnormal)?? 02/24/2023 17:41 Glucose, Urine NEGATIVE ()?? 02/24/2023 17:41 Ketones, Urine NEGATIVE ()?? 02/24/2023 17:41 Bilirubin, Urine NEGATIVE ()?? 02/24/2023 17:41 Hemoglobin, Urine NEGATIVE ()?? 02/24/2023 17:41 Nitrite, Urine NEGATIVE ()?? 02/24/2023 17:41 Leukocyte, Urine 1+ (Abnormal)?? 02/24/2023 17:41 Urobilinogen NORMAL mg/dL ()?? 02/24/2023 17:41 WBC's, Urine 1 /HPF ()?? 02/24/2023 17:41 RBC's, Urine 1 /HPF ()?? 02/24/2023 17:41 Bacteria SLIGHT HPF (Abnormal)?? 02/24/2023 17:41 Squamous Epith 2 /HPF ()?? 02/24/2023 17:41 Mucus SLIGHT /LPF ()?? 02/24/2023 17:41 Hold Urine Culture Testing available 48 hours from time of collection. ()?? 02/24/2023 17:41 ? VIROLOGY COVID-19 POC Result NEGATIVE ()?? 02/24/2023 11:50 ? 35_ minutes spent on discharge * Alejandra CLANCY, Twila: PERFORM Event Display: Patient Education/Instruction Authored Date: [id number] Inpatient Adult Discharge Instructions [address] [id number] Name: JAY HOLLOWAY : 1990 Visit: 02/24/2023 23:51:00 Current Date: 02/28/2023 09:51 Account: [id number] Inpatient Adult Discharge Instructions We would like to thank you for allowing us to assist you with your healthcare needs. The following includes patient education materials and information regarding your injury/illness. Our entire staffstrives to provide an excellent experience for our patients and their families. PLEASE ENSURE YOU FOLLOW-UP PER THE INSTRUCTIONS BELOW! ?? YOUR OPINION IS IMPORTANT TO US! Please complete the survey you may receive by mail or email. Your feedback will be used to make improvements to the healthcare experiences of our patients and their families. Surveys are administered by [employer] ?? If further treatment with your primary care physician or another doctor is recommended, it is important for you to keep the appointment. Call your primary care physician or return to the Emergency Department immediately if your condition worsens, fails to improve, or new symptoms develop. If you need to find a doctor, you can call [facility] for a referral at [phone] or toll free at [phone]) or log in to [email or web address].. ?? You can view and manage your care through the patient portal or by using a health care radha of your choosing. [facility] is a website that allows you to securely view your medical information including your hospital discharge summary, office visit summaries, medications and follow-up visits. You can also request appointments, renew medications, and request access to your medical information using a health care radha of your choosing, or just ask a question. You can enroll at [email or web address] or register during your next office visit. You have been discharged from [facility], Patient Care Unit: S3. If you have any questions regarding these instructions after you leave, please call us and we will be happy to assist you. [facility] Your Care Team Attending Physician Ricardo Marion MD Discharging Providers Ricardo Marion MD Reason for Your Visit Abdominal pain, General medical Your Diagnosis Abdominal pain Alcohol use with withdrawal General medical Medical marijuana use Opioid dependence Pancreatitis Tests Performed Below is a partial list of the tests performed during your hospitalization. You may have had other tests and procedures not included in this list. Please discuss all test results with your provider. BASIC METABOLIC PANEL CBC w/ Differential Comprehensive Metabolic Panel COVID-19 RNA POC Electrolytes HEPATIC FUNCTION PANEL Hold Blue Top Tube Lactic Acid Level Lipase Lipid Panel Liver Function Panel MAGNESIUM PH CORRECTED IONIZED CALCIUM Serum Qualitative Urinalysis w/hold for Urine Culture CT Abd/Pelvis W/ IV Contrast Only US RUQ Primary Care Provider Kenisha Martinez MD Advance Directive . Discharge Vitals Temperature: 97.8 DegF Height: 157 cm Pulse Rate:??96 bpm??High Weight: 92.7 kg Respiratory Rate: 18 br/min Body Mass Index:??37.61 kg/m2??Critical Systolic Blood Pressure: 125 mm Hg Body surface area: 2.01 Diastolic Blood Pressure: 72 mm Hg ?? Oxygen Saturation:??93 %??Low ?? Studies Pending All tests and labs ordered during this hospital stay have been completed unless listed below. Please discuss all pending results with your provider listed above in these instructions. ?? CBC H. pylori Antigen What to do next Instructions From Your Doctor Discharge Orders Code Status:?? Full Resuscitation You Need to Schedule the Following Appointments Follow Up with??Kenisha Martinez MD When??Within 1 week Where: [address] [place] [id number]- Business (1) Discharge Medications JAY HOLLOWAY :1990 Visit Date:02/24/2023 Medications: Please continue your medications until treatment is completed or stopped by your provider. Medications not listed below should be discontinued. Discuss any questions related to medications with your provider. What How Much When Instructions Next Dose New Folic Acid (folic acid 1 mg oral tablet) 1 tab(s) Oral Daily [facility]ills: [id number]/01 New Pantoprazole (Protonix 40 mg oral delayed release tablet) 1 tab(s) Oral Daily Refills: 1 Pickup at [facility] #[id number] 03/01 New Thiamine (thiamine 100 mg oral tablet) 1 tab(s) Oral Daily [facility]: [id number]01 Changed Alprazolam (ALPRAZolam 2 mg oral tablet) TAKE 1 TABLET (2 MG) BY MOUTH 4 TIMES PER DAY NEEDED FOR ANXIETY- ?? as needed Changed Amphetamine-Dextroamphetamine (Adderall XR 30 mg oral capsule, extended release) TAKE 1 CAPSULE BY MOUTH EVERY MORNING ?? 03/01 Changed Amphetamine-Dextroamphetamine (amphetamine-dextroamphetamine 10 mg oral tablet) TAKE 1 TABLET BY MOUTH TWICE DAILY FOR ADHD ?? 902/28 Changed Methadone (methadone 10 mg/ 5 mL oral solution) 77 Milligram Oral Every 24 hours 77 mg by mouth daily ?? 03/01 Changed Ondansetron (ondansetron 4 mg oral tablet, disintegrating) 1 tab(s) Oral Every 8 hours as needed for as needed for nausea/vomiting Pickup at [facility] #[id number] as needed Changed Oxycodone (oxyCODONE 5 mg oral tablet) 1 tab(s) Oral Every 6 hours as needed for Pain , Severe Pickup at [facility] #[id number] as needed Pharmacy Information [facility] #[id number]: [address] [place] [address] [phone] ?? What How Much When Why Comments Stop Taking Acetaminophen (acetaminophen 325 mg oral tablet) 650 Milligram Oral Every 4 hours Stop Taking Acyclovir (acyclovir 400 mg oral tablet) 400 Milligram Oral Every 8 hours Cold sore Stop Taking Docusate (docusate sodium 100 mg oral capsule) 1 capsule Oral Twice a day Stop Taking Fluconazole (fluconazole 150 mg oral tablet) 1 tab(s) Oral Once Stop Taking Ibuprofen (ibuprofen 800 mg oral tablet) 1 tab(s) Oral Every 8 hours Stop Taking Lidocaine Topical (lidocaine 1% topical lotion) See instructions Use on right aspect of skin incision wher burning sensation is located. Use only on skin ?? Stop Taking Multivitamin, (Multivitamin Tablet) Stop Taking Simethicone (simethicone 80 mg oral tablet, chewable) 80 Milligram Chew 3 times a day as needed for Gas Test Results Below is a partial list of the most recent Laboratory test results done prior to this discharge. You may have had other tests and procedures not included in this list. Please discuss all test resultswith your provider. BASIC METABOLIC PANEL (02/25/2023) ???Sodium - 136 mmol/L???Potassium - 4.0 mmol/L???Chloride - 100 mmol/L???Bicarbonate Level - 24 mmol/L???Anion Gap - 12???Glucose Level - 106 mg/dL???BUN - 7 mg/dL???Creatinine-Blood - 1.0 mg/dL???Estimated GFR Creatinine - 81 ML/MIN/1.73 M2???Calcium - 8.2 mg/dL CBC w/ Differential (02/25/2023) ???WBC - 7.0 k/mm3???RBC - 3.76 m/mm3???Hgb - 12.0 Gm/dL???Hct - 35.4 %???MCV - 94.1 femtoliters???MCH - 31.9 pg???MCHC - 33.9 g/dL???Platelet Count - 164 k/mm3???RDW-SD - 47.0 femtoliters???MPV - 11.6 femtoliters???Nucleated RBC (Automated) - 0.3 #/100 WBC'S???Abs. NRBC - 0.0 k/mm3???Abs. Neut - 4.2 k/mm3???Abs. Lymph - 2.1 k/mm3???Abs. Hubbard - 0.6 k/mm3???Abs. Eo - 0.1 k/mm3???Abs. Baso - 0.0 k/mm3???Neut % - 59.8 %???Lymph % - 29.9 %???Hubbard % - 8.6 %???Eos % - 0.9 %???Baso % - 0.4 %???Imm Gran - 0.4 %???Abs. Imm Gran - 0.0 k/mm3 Comprehensive Metabolic Panel (02/28/2023) ???Sodium - 139 mmol/L???Potassium - 3.6 mmol/L???Chloride - 102 mmol/L???Bicarbonate Level - 29 mmol/L???Anion Gap - 8???Glucose Level - 71 mg/dL???BUN - 4 mg/dL???Creatinine-Blood - 0.9 mg/dL???Estimated GFR Creatinine - 88 ML/MIN/1.73 M2???Calcium - 8.2 mg/dL???Protein, Total - 5.8 Gm/dL???Albumin - 3.0 Gm/dL???AG Ratio - 1.1???Alkaline Phosphatase - 97 units/L???AST (SGOT) - 76 units/L???ALT (SGPT) - 78 units/L???Bilirubin, Total - 1.0 mg/dL COVID-19 RNA POC (02/24/2023) ???COVID-19 POC Result - NEGATIVE Electrolytes (02/25/2023) ???Sodium - 135 mmol/L???Potassium - 4.0 mmol/L???Chloride - 96 mmol/L???Bicarbonate Level - 26 mmol/L???Anion Gap - 13 HEPATIC FUNCTION PANEL (02/25/2023) ???Protein, Total - 5.8 Gm/dL???Albumin - 2.8 Gm/dL???Alkaline Phosphatase - 100 units/L???AST (SGOT) - 365 units/L???ALT (SGPT) - 222 units/L???Bilirubin, Total - 0.9 mg/dL???Bilirubin, Direct - 0.4mg/dL???Bilirubin, Indirect - 0.5 mg/dL Hold Blue Top Tube (02/24/2023) ???Hold Blue Top - SPECIMEN DISCARDED AFTER 4 HOURS. Lactic Acid Level (02/24/2023) ???Lactate - 2.1 mmol/L Lipase (02/25/2023) ???Lipase - 560 units/L Lipid Panel (02/27/2023) ???Cholesterol - 149 mg/dL???Triglycerides - 175 mg/dL???HDL Cholesterol - 17 mg/dL???LDL Cholesterol - 97 mg/dL???Non HDL Cholesterol - 132 mg/dL Liver Function Panel (02/25/2023) ???Protein, Total - 6.5 Gm/dL???Albumin - 3.2 Gm/dL???Alkaline Phosphatase - 111 units/L???AST (SGOT) - 276 units/L???ALT (SGPT) - 211 units/L???Bilirubin, Total - 1.1 mg/dL???Bilirubin, Direct - 0.5mg/dL???Bilirubin, Indirect - 0.6 mg/dL MAGNESIUM (02/25/2023) ???Magnesium - 1.6 mg/dL PH CORRECTED IONIZED CALCIUM (02/25/2023) ???Calcium, Ionized pH Corrected - 1.19 mmol/L Serum Qualitative (02/24/2023) ??? Serum Qual - NEGATIVE Urinalysis w/hold for Urine Culture (02/24/2023) ???Appear/Color, Urine - YELLOW???Specific [place], Urine - 1.024???pH, Urine - 5.5???Albumin, Urine - TRACE???Glucose, Urine - NEGATIVE???Ketones, Urine - NEGATIVE???Bilirubin, Urine - NEGATIVE???Hemoglobin, Urine - NEGATIVE???Nitrite, Urine - NEGATIVE???Leukocyte, Urine - 1+???Urobilinogen - NORMAL???WBC's, Urine - 1 /HPF???RBC's, Urine - 1 /HPF???Bacteria - SLIGHT???Squamous Epith - 2 /HPF???Mucus - SLIGHT???Hold Urine Culture - Testing available 48 hours from time of collection. Allergies (NKA means No Known Allergies) amoxicillin??(Hives) Problems Active Problems??(16) Adult ADHD?? Anemia?? Anxiety?? Breech presentation?? Chronic hepatitis C?? Constipation?? History of depression?? History of opioid abuse?? History of varicose veins?? Marijuana use?? Methadone maintenance treatment affecting , antepartum?? Obesity?? Obstructive sleep apnea?? PTSD (post-traumatic stress disorder)?? Severe obesity (BMI 35.0-39.9) with comorbidity?? Tobacco abuse?? Education Materials Below is the list of Educational Leaflet Providered with your Discharge Instructions. Depression?? Valuables and Belongings I fully understand and agree that [facility] accepts no responsibility for all my personal property including clothing, toilet articles, radios, jewelry, dentures, hearing aids, rings, money, or any other property that is in my possession or is brought to me after admission. I understand certain valuables may be placed in a hospital safe for a short period of time. I understand that the hospital is not liable for loss or damage due to accident, fire, or other natural occurrence while said property is in the safe. I accept full responsibility for any personal property that I keep with me, and will not hold the hospital responsible in case of loss or disappearance. I acknowledge that i have been encouraged to send valuables and belongings home. ?? Review of Valuable and Belonging List: With patient Possessions released to: No ??Medical ??Advices Date for Pt to Sign Valuables/Belongings: 02/28/23 09:27:00 ?? Other Discharge Information ? Case Management Discharge Plan?? Discharge Plan?? Discharge Level of Care at Discharge: Home/Long-Term/Foster Care ?? Pulmonary Rehab Status?? Pulmonary Rehab Discharge Status?? CPAP/BiPAP Mask Type: Full CPAP/BiPAP Mask Size: Medium Respiratory Rate: 18 br/min ? Common Emergency Awareness Tips IS IT A STROKE? Act FAST and Check for these signs: FACE Does the face look uneven? ARM Does one arm drift down? SPEECH Does their speech sound strange? TIME Call at any sign of stroke ?? Heart Attack Signs Chest discomfort: Most heart attacks involve discomfort in the center of the chest and lasts more than a few minutes, or goes away and comes back. It can feel like uncomfortable pressure, squeezing, fullness or pain. Discomfort in upper body: Symptoms can include pain or discomfort in one or both arms, back, neck, jaw or stomach. Shortness of breath: With or without discomfort. Other signs: Breaking out in a cold sweat, nausea, or lightheaded. Remember, MINUTES DO MATTER. If you experience any of these heart attack warning signs, call to get immediate medical attention! ?? Smoking can increase your chances of developing chronic health problems and can cause harmful effects to other family members in your house. If you smoke, you are strongly encouraged to quit. Please call [facility] [employer] at [phone] or [phone] ([phone]) or log in to [email or web address] for referrals to smoking cessation programs. ?? 861 Suicide & Crisis Lifeline is available 26/05 if you or someone you know needs to find a reason to keep living. By calling 419 you'll be connected to a skilled, trained counselor at a crisis center in your area. INPATIENT DISCHARGE INSTRUCTIONS SIGNATURE PAGE AMIEAMBERJAY Location:[facility] Registration Date and Time:02/24/2023 23:51 EDT Primary Care Physician: Juan ROBERTS , [facility], I JAY HOLLOWAY, have received the above patient education materials/instructions and have verbalized understanding. If ambulance or transport services are being used I further acknowledge being given a choice of service. ?? If you need to contact me, please call me at this number: . Patient/Home Child Care Provider Name: Patient/Home Child Care Provider Signature: Relationship to Patient: Witness Name/Signature: Date: * Ricardo Marion MD D: PERFORM, SIGN, VERIFY Event Display: Patient Education Handout Authored Date: [id number] * Fanny Mauricio: PERFORM Event Display: Patient Education Leaflets Authored Date: [id number] Depression ?? [id number] Depression Depression is a very common mental health problem. It's not just a state of being unhappy or sad. It's a true disease. The cause seems to be linked to a change in chemicals that send signals in the brain. These things increase a person???s risk of depression: ??? A family history of depression, alcoholism, or suicide ??? Chronic illness ??? Chronic pain ???Migraine headaches ??? High emotional stress Depression may be easier to see in others. You may have a hard time seeing it in yourself. It can show in many physical and emotional ways. These include: ??? Loss of appetite ??? Overeating ??? Not being able to sleep ??? Sleeping too much ??? A lot of tiredness not linked to physical activity ??? Restlessness or irritability ??? Slowness of movement or speech ??? Feeling sad or withdrawn ??? Loss of interest in things you once enjoyed ??? Trouble??concentrating, remembering,??or making decisions ??? Thoughts of harming or killing yourself, or thoughts that life is not worth living ??? Low self-esteem The treatment for depression may include both medicine and psychotherapy. Antidepressants can ease symptoms. They can also make it easier for you to do daily tasks. Therapy can offer emotional support. It can also help you understand things that may be causing the depression. Home care ??? Ongoing care and support help people manage this disease. Find a healthcare provider and therapist who meet your needs. Get help when you feel like you may be getting ill. ??? Be kind to yourself. Make it a point to do things that you enjoy. This may be gardening, walking in nature, or going to a movie. Reward yourself for small successes. ??? Take care of your body. Eat a balanced diet. Eat foods low in saturated fat. Eat a lot of fruits and vegetables. Exercise at least 3 times a week for 30 minutes. Even mild to moderate exercise like brisk walking can make you feel better. ??? Take medicine as prescribed. Don't stop your medicine or change the dose unless you talk with your healthcare provider. ??? Once you start medicine, expect your symptoms to get better slowly. Depression will lift over time. It doesn't get better right away. Ask your healthcare provider how long it will take for a medicine to start working. ??? Don't share your medicine. Don???t use someone else's medicine. ??? Tell your healthcare providers all the medicines you take. This includes prescription and kyyx-gdk-osvpyvi medicines. It includes vitamins and herbal supplements. Some supplements caninteract with medicines. They can cause dangerous side effects. Ask your pharmacist about medicine interactions when you have questions. ??? Don't make major decisions until you feel better. This incl udes things such as a job change, a divorce, or a marriage. ??? Don't drink alcohol. It can make depression worse. ??? Talk with your family and??trusted friends??about your feelings and thoughts.??Ask them to help you notice behavior changes early. You can then get help and, if needed, your medicine can be changed. ??? Talk with your healthcare provider if you are not getting better. They may change your medicine or have you try another treatment. ?? Follow-up care Follow up with your healthcare provider as advised. ?? Crisis care Call 988 if you have thoughts of harming yourself or others. When you call or text [phone], you will beconnected to trained crisis counselors. An online chat option is also available. [employer] is free and available 26/05. 988 counselors will work with 911 to help you get the care you need. Call 988 if you: ??? Have suicidal thoughts, a suicide plan, and a way to carry out the plan ??? Have serious thoughts of hurting someone else ??? Have trouble breathing ??? Are??very confused ??? Feel very drowsy or have??trouble awakening ??? Faint ??? Have new chest pain that becomes more severe, lasts longer, or spreads into your shoulder, arm, neck, jaw, or back ?? When to get medical care Call your healthcare provider right away if any of these happen: ??? Your symptoms get worse ??? You have extreme depression, fear, anxiety, or anger toward yourself or others ??? You feel out of control ??? You feel that you may try to harm yourself or another ??? You hear voices other people don't hear ??? You see things other people don't see ??? You don't sleep or eat for 3 days in a row ??? Friends or family express concern over your behavior and ask you to get help ?? Last Reviewed Date: 2022 ?? [id number] [employer]. All rights reserved. This information is not intended as a substitute for professional medical care. Always follow your healthcare professional's instructions. ?? US Abdomen RUQ * BHSPowerscrisilvia , YANNA S: TRANSCRISILVIA Butler MD, Frandy Riddle: VERIFY Roberta Camacho MD: SIGN Event Display: Result: Authored Date: [id number] US RUQ HX OF PRESENT ILLNESS: States increasing epigastric pain and n v for 2 days. also reports daily ETOH and unable to tolerate much. denies any CP, SOB, or diarrhea. Appears very tremulous anxious; Reason: Abdominal Pain; Clinical Question(s): Cholecystitis COMPARISON: None. FINDINGS: Limitations: Study is suboptimal due to overlying bowel gas and patient body habitus. Liver: Diffusely echogenic parenchyma. Due to echogenic parenchyma, there is decreased sensitivity for focal lesion detection, but there are no obvious hepatic masses. Smooth hepatic contour. Main portal vein patent with normal hepatopetal direction of flow. Gallbladder: No gallstones. Normal wall thickness. No pericholecystic fluid. Negative Sanchez sign. Biliary Tree: No intrahepatic or extrahepatic bile duct dilation is identified. Common duct measures: 0.4 cm. Pancreas: Obscured by overlying bowel gas. Right kidney: 9.1 cm in length. Normal parenchymal echotexture and thickness. No hydronephrosis, stone or mass. IMPRESSION: 1. Somewhat limited study. Echogenic liver likely representing severe hepatic steatosis. 2. No evidence of acute cholecystitis. I have personally reviewed the images and I agree with this report. WSN: [id number] Ordering Physician: Mary Cervantes Dictated By: Roberta Camacho MD Dictated Date/Time: 02/24/23 4:41 pm Reviewed By: Frandy Butler MD Signed By: Frandy Butler MD Signed Date/Time: 02/24/23 4:46 pm Transcribed By: ELY Transcribed Date/Time: 02/24/23 4:[address] Abdomen and Pelvis W contrast IV * BHSPowerscribe , CIS S: TRANSCRIBE Juan ROBERTS, Daiman: VERIFY Kole Bergeron DO: SIGN Event Display: Result: Authored Date: [id number] CT Abd/Pelvis W/ IV Contrast Only Hx of Present Illness: States increasing epigastric pain and n v for 2 days. also reports daily ETOH and unable to tolerate much. denies any CP, SOB, or diarrhea. Appears very tremulous anxious; Reason: Other:; RLQ pain; Clinical Question(s): Appendicitis; Order Comment: TECHNIQUE: Spiral CT through the abdomen and pelvis with IV contrast formatted in 3 planes. 100 cc of Omnipaque 300 was administered intravenously. This study was performed without oral contrast. Weight-based protocol using automatic tube modulation was used to optimize exposure parameters. CTDIvol Body: 15.40 mGy, DLP Body: 874 mGy*cm. COMPARISON: Right upper quadrant ultrasound from the same day FINDINGS: Water Mechanic View Findings, Lines and Tubes: None. Visualized Chest: Lung bases are clear. No pleural effusion. The heart is normal in size. No pericardial effusion. Diaphragm: Normal. Liver: Severe hepatic steatosis. Gallbladder: No CT evidence of gallbladder pathology. Bile ducts: No biliary ductal dilation. Spleen: Normal. Pancreas: Minimal stranding seen inferior to the pancreas and near the pancreatic head (image [id number]). No fluid collection or hypoenhancement. Adrenal glands: Normal. Kidneys and ureters: No hydronephrosis, stones, or suspicious masses. Bladder: Normal. Reproductive organs: 2.2 cm physiologic appearing cyst on the right ovary. Stomach, small bowel, and large bowel: No evidence of obstruction. Wall thickening and surrounding stranding noted around the third and fourth portion of the duodenum. Appendix: Normal (image 123). Peritoneum and retroperitoneum: No ascites or pneumoperitoneum. No omental or mesenteric lesions. Lymph nodes: No enlarged lymph nodes. Blood vessels: Normal. No aneurysm. No evidence of venous thrombosis. Abdominal and pelvic wall: Unremarkable. Bones: No acute abnormality. Sclerotic changes in the right iliac bone near the SI joint is likely sequela of prior sacroiliitis or trauma. IMPRESSION: Findings suspicious for duodenitis and pancreatitis. Severe hepatic steatosis. Findings communicated to Dr. Alaina Santillan at 11:27 PM on 02/24/2023 I have personally reviewed the images and I agree with this report. WSN: [id number] Ordering Physician: Alaina Santillan Dictated By: Kole Bergeron DO Dictated Date/Time: 02/24/23 11:35 p Reviewed By: Damian Martinez MD Signed By: Damian Martinez MD Signed Date/Time: 02/24/23 11:40 pm Transcribed By: ELY Transcribed Date/Time: 04/24/23 11:28 pm Patient Care team information Care Team Personnel Name: Juan ROBERTS , Kenisha Position: [facility] Outreach Member Role: PCP Address: Address: [address] [place] [address] - [place] Name: Vazquez Hernandez RN Position: [facility] RN Member Role: Primary Care Nurse Name: Twila Roberts RN Position: [facility] RN Member Role: Primary Care Nurse Name: Nelda Paige RN Position: [facility] RN Member Role: Primary Care Nurse Name: Jannie HAN Attending Position: [facility] ED Medicine MD Name: Sandeep King RN Position: [facility] ED RN W/OE and Tasks Member Role: Patient Care Provider Name: Riya Powell Position: [facility] ED TA [facility] Care Team Related Persons Name: KARTHIKEYAN TEAGUE Address: [employer] Address: home [address], [place] Name: NIKOLAY KILPATRICK Address: home [address] [place] [id number]
--- OUTSIDE RECORDS SUMMARY | 2023-07-16 15:52 | XMS_ITS | Continuity of Care Document ---
Author Name Unknown Organization [facility] Miles Boyer [employer] Address [address], [address] [place] [address]- Care Team Providers Care Social Work Coordinator Name Role Phone Juan ROBERTS, Kenisha Primary Care Physician Encounter [facility] Date(s): 10/03/20 - 11/02/20 [facility] [employer] [address], 4[address] [place], [place] [address] Allergies, Adverse Reactions, Alerts Substance Reaction Severity [...] 0 Refills, Soft Stop, 10/30/20 17:30:00 EST, Tablet,[id number], Partial fill upon patient request if the prescription is for a schedule II opioid drug., 158, cm, 10/29/20 21:46:00 EST, H... Start Date: 10/30/20 Status: Ordered methadone 10 mg/5 mL oral solution 70 mL = 140 mg, By Mouth, Every 24 hours, 0 Refills, Maintenance, 09/30/20 14:45:00 EST, Solution, Partial fill upon patient request Start Date: 09/30/20 Status: Ordered metroNIDAZOLE 500 mg oral tablet 1 tablet = 500 mg, By Mouth, Every 12 hours, for 7 days, # 14 tablet, 0 Refills, Acute 11/06/20 17:31:00 EST, 10/30/20 17:31:00 EST, Tablet, [facility] #[id number], Partial fill upon patient request if the prescription is for a schedule II opioid... Start Date: 10/30/20 Stop Date: 11/06/20 Status: Ordered Multivitamin Tablet 0 Refills, Maintenance, 05/03/20 15:48:00 EDT Start Date: 05/03/20 Status: Ordered Xanax Tablet 2 mg, By Mouth, 4 times a day, PRN, Maintenance, as needed for anxiety, 12/15/11 3:57:58 Start Date: 12/15/11 Status: Ordered Zofran 4 mg oral tablet 1 tablet = 4 mg, By Mouth, Every 8 hours, PRN Nausea & Vomiting, # 15 tablet, 0 Refills, Maintenance, 10/30/20 17:31:00 EST, Tablet, [facility] #[id number], Partial fill upon patient requestif the prescription is for a schedule II opioid drug.,... Start Date: 10/30/20 Status: Ordered Problem List Condition Effective Dates Status Health Status Inform ant Adult ADHD(Confirmed) 2011 Active Anemia(Confirmed) Active Anxiety(Confirmed) 2003 Active Chronic hepatitis C(Confirmed) 2012 Active Constipation(Confirmed) 1988 Active History of depression(Confirmed) 2004 Active History of varicose veins(Confirmed) 2014 Active Methadone maintenance treatm ent affecting , 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 Supervision of high-risk (Confirmed) Active History of opioid abuse(Confirmed) 2005 Active Marijuana use(Confirmed) 2019 Active Obesity(Confirmed) 2019 Active Obstructive sleep apnea(Confirmed) 2019 Active PTSD (post-traumatic stress disorder)(Confirmed) Active Substance abuse(Confirmed) 1 10/29/20 Active Tobacco abuse(Confirmed) 2019 Active 1Problem added by Discern Expert Social History Social History Type Response Smoking Status 5-9 cigarettes (betw een 1/4 to 1/2 pack)/day in last 30 days; Tobacco user in household: Yes entered on: 05/18/20 Sex
--- OUTSIDE RECORDS SUMMARY | 2023-07-16 15:52 | XMS_ITS | Continuity of Care Document ---
Author Name Unknown Organization [facility] Miles Boyer [employer] [facility] Address [address] [place] [address], [address]t [place] [address]- Care Team Providers Care Fast Food Cashier Name Role Phone Juan ROBERTS, Kenisha Primary Care Physician [place] [facility] [place] Date(s): 10/04/20 - 10/11/20 [facility] [facility] [address], [address] [place] [address]- Attending Physician: Brenda Robbins MD Referring Physician: Martine Williamson MD Allergies, Adverse Reactions, Alerts Substance Reaction Severity Status amoxicillin Active Immunizations Given and Recorded Vaccine Date Status Refusal Reason tetanus/diphtheria/pertussis, acel(Tdap) 1 09/20/20 Given 1Result Comment: Patient tolerated well NS. Medications Adderall 30 mg oral tablet 1 tablet = 30 mg, By Mouth, PRN Other, 0 Refills, Maintenance, 06/19/17 13:06:55 Start Date: 06/19/17 Status: Ordered Diflucan 150 mg oral tablet 1 tablet = 150 mg, By Mouth, Once, # 1 tablet, 0 Refills, Soft Stop, 09/21/20 12:15:00 EST, Tablet,[facility] #[id number], Partial fill upon patient request, 157.48, cm, [...] 2019 Active Obstructive sleep apnea(Confirmed) 2019 Active Tobacco abuse(Confirmed) 2019 Active Social History Social History Type Response Smoking Status 5-9 cigarettes (betw een 1/4 to 1/2 pack)/day in last 30 days; Tobacco user in household: Yes entered on: 05/18/20 Sex
--- OUTSIDE RECORDS SUMMARY | 2023-07-16 15:52 | XMS_ITS | Continuity of Care Document ---
Author Name Unknown Organization [facility] Miles haneySatellier [facility] Address [address] [facility] [address] [facility], [address] [place] [address]- Care Team Providers Care Office Worker Name Role Phone Juan ROBERTS, Kenisha Primary Care Physician En[place] [facility] [place] Date(s): 11/30/20 - 12/30/20 [facility] Roeb[facility] BranArcadia Powers [facility] [address], 4th [address] [place], [place] [address] Allergies, Adverse Reactions, Alerts Substance Reaction Severity [...] 12/12/20 6:39:00 EST, Route to Pharmacy Electronically, [facility] #[id number], Partial fill upon patient request if the prescription is for a schedule II opioi... Start Date: 12/12/20 Status: Ordered acyclovir 400 mg oral tablet = 400 mg, By Mouth, Every 8 hours, # 9 tablet, 0 Refills, Maintenance, 12/12/20 6:41:00 EST, Tablet, [facility] #[id number], Partial fill upon patient request if the [...] capsule, 0 Refills, Maintenance, 12/12/20 6:40:00EST, Capsule, [facility] #[id number], Partial fill upon patient request if the prescription isfor a schedule II opioid drug., 158, cm, 12/12/20 0... Start Date: 12/12/20 Status: Ordered fluconazole 150 mg oral tablet 1 tablet = 150 mg, By Mouth, Once, # 1 tablet, 0 Refills, Soft Stop, 10/30/20 17:30:00 EST, Tablet,[facility] #[id number], Partial fill upon patient request if the prescription is for a schedule II opioid drug., 158, cm, 10/29/20 21:46:00 EST, H... Start Date: 10/30/20 Status: Ordered ibuprofen 800 mg oral tablet 800 mg, 1, tablet, By Mouth, Every 8 hours, # 50 tablet, Refills 0, Tot. Refills 0, Maintenance, 12/12/20 6:40:00 EST, Route to Pharmacy Electronically, [facility] #[id number], Partial fill uponpatient request if the prescription is for a schedu... Start Date: 12/12/20 Status: Ordered lidocaine 1% topical lotion See Instructions, Use on right aspect of skin incision wher burning sensation is located. Use only on skin, # 1 pack/packet, 0 Refills, Maintenance, 12/12/20 6:40:00 EST, [facility] #[id number],Partial fill upon patient request if the prescripti... [...] 9:10:00 EST, 11/29/20 9:09:00 EST, REC Powder, [facility] #[id number], Partial fill upon patient request if the [...] 1 Refills, Maintenance, 11/15/20 11:51:00 EST, Tablet, [facility] #[id number], Partial fill upon patient requestif the prescription is for a schedule II opioid drug.,... Start Date: 11/15/20 Status: Ordered oxyCODONE 5 mg oral tablet 5 mg, 1, tablet, By Mouth, Every 4 hours, PRN, # 12 tablet, Refills 0, Tot. Refills 0, Maintenance,Pain , Severe, 12/12/20 6:40:00 EST, Route to Pharmacy Electronically, [facility] #[id number],Partial fill upon patient request if the prescripti... Start Date: 12/12/20 Status: Ordered simethicone 80 mg oral tablet, chewable 80 mg, Chew, 3 times a day, PRN, # 100 tablet, Refills 0, Tot. Refills 0, Maintenance, Gas, 12/12/20 6:40:00 EST, Route to Pharmacy Electronically, [facility] #[id number], Partial fill upon patient request if the [...] of opioid abuse(Confirmed) 2006 Active Marijuana use(Confirmed) 2020 Active Obesity(Confirmed) 2019 Active Obstructive sleep apnea(Confirmed) 2019 Active PTSD (post-traumatic stress disorder)(Confirmed) Active Tobacco abuse(Confirmed) 2020 Active Social History Social History Type Response Smoking Status 5-9 cigarettes (betw een 1/4 to 1/2 pack)/day in last 30 days; Tobacco user in household: Yes entered on: 05/18/20 Sex
--- OUTSIDE RECORDS SUMMARY | 2023-07-16 15:52 | XMS_ITS | Continuity of Care Document ---
Author Name Unknown Organization [facility] [employer] Boyer [employer] Address [address] [facility] [address] [facility], [address] [place] [address]- Care Team Providers Care Microsoft Bi Architect Name Role Phone Juan ROBERTS, Kenisha Primary Care Physician [place] [facility] [place] 12[place]20 - 03/09/21 [facility] [employer] [facility] [address], 4th [place] [address]- Attending Physician: Rosendo ROBERTS [OB], Brenda Kapadia [...] 12/12/20 6:39:00 EST, Route to Pharmacy Electronically, [facility] #[id number], Partial fill upon patient request if the prescription is for a schedule II opioi... Start Date: 12/12/20 Status: Ordered acyclovir 400 mg oral tablet = 400 mg, By Mouth, Every 8 hours, # 9 tablet, 0 Refills, Maintenance, 12/12/20 6:41:00 EST, Tablet, [facility] #[id number], Partial fill upon patient request if the [...] capsule, 0 Refills, Maintenance, 12/12/20 6:40:00EST, Capsule, [facility] #[id number], Partial fill upon patient request if the prescription isfor a schedule II opioid drug., 158, cm, 12/12/20 0... Start Date: 12/12/20 Status: Ordered fluconazole 150 mg oral tablet 1 tablet = 150 mg, By Mouth, Once, # 1 tablet, 0 Refills, Soft Stop, 10/30/20 17:30:00 EST, Tablet,[facility] #[id number], Partial fill upon patient request if the prescription is for a schedule II opioid drug., 158, cm, 10/29/20 21:46:00 EST, H... Start Date: 10/30/20 Status: Ordered ibuprofen 800 mg oral tablet 800 mg, 1, tablet, By Mouth, Every 8 hours, # 50 tablet, Refills 0, Tot. Refills 0, Maintenance, 12/12/20 6:40:00 EST, Route to Pharmacy Electronically, [facility] #[id number], Partial fill uponpatient request if the prescription is for a schedu... Start Date: 12/12/20 Status: Ordered lidocaine 1% topical lotion See Instructions, Use on right aspect of skin incision wher burning sensation is located. Use only on skin, # 1 pack/packet, 0 Refills, Maintenance, 12/12/20 6:40:00 EST, [facility] #[id number],Partial fill upon patient request if the prescripti... [...] 9:10:00 EST, 11/29/20 9:09:00 EST, REC Powder, [facility] #[id number], Partial fill upon patient request if the [...] 1 Refills, Maintenance, 11/15/20 11:51:00 EST, Tablet, [facility] #[id number], Partial fill upon patient requestif the prescription is for a schedule II opioid drug.,... Start Date: 11/15/20 Status: Ordered oxyCODONE 5 mg oral tablet 5 mg, 1, tablet, By Mouth, Every 4 hours, PRN, # 12 tablet, Refills 0, Tot. Refills 0, Maintenance,Pain , Severe, 12/12/20 6:40:00 EST, Route to Pharmacy Electronically, [facility] #[id number],Partial fill upon patient request if the prescripti... Start Date: 12/12/20 Status: Ordered simethicone 80 mg oral tablet, chewable 80 mg, Chew, 3 times a day, PRN, # 100 tablet, Refills 0, Tot. Refills 0, Maintenance, Gas, 12/12/20 6:40:00 EST, Route to Pharmacy Electronically, [facility] #[id number], Partial fill upon patient request if the [...]
--- OUTSIDE RECORDS SUMMARY | 2023-07-16 15:52 | XMS_ITS | Continuity of Care Document ---
Author Name Unknown Organization [facility] Miles Boyer [employer] Address [address] [facility], [address] [place] [address]- Care Team Providers Care Patient Accounts Specialist Name Role Phone Juan ROBERTS, Kenisha Primary Care Physician [phone] Encounter [facility] Date(s): 10/10/20 - 11/09/20 [facility] BranZymetiss [facility] [address], 4[address] [place], [place] [address] Allergies, Adverse Reactions, Alerts Substance Reaction [...] 0 Refills, Soft Stop, 10/30/20 17:30:00 EST, Table[id number], Partial fill upon patient request if the [...] 0 Refills, Maintenance, 10/30/20 17:31:00 EST, Tablet, [facility] #[id number], Partial fill upon patient requestif the prescription [...] 2006 Active Marijuana use(Confirmed) 2019 Active Obesity(Confirmed) 2020 Active Obstructive sleep apnea(Confirmed) 2019 Active PTSD (post-traumatic stress disorder)(Confirmed) Active Substance abuse(Confirmed) 1 10/29/20 Active Tobacco abuse(Confirmed) 2019 Active 1Problem added by Discern Expert Social History Social History Type Response Smoking Status 5-9 cigarettes (betw een 1/4 to 1/2 pack)/day in last 30 days; Tobacco user in household: Yes entered on: 05/18/20 Sex
--- OUTSIDE RECORDS SUMMARY | 2023-07-16 15:52 | XMS_ITS | Continuity of Care Document ---
Author Name Unknown Organization [facility] Address [address] [place] [address]- Care Team Providers Care Curriculum And Instruction Specialist Name Role Phone Juan ROBERTS, Kenisha Primary Care Physician [phone] Encounter [facility] [place] Date(s): 11/23/20 - 11/23/[address] [address]- Discharge Disposition: A-D/C Home Attending Physician: Fatmata Campos MD Admitting Physician: Fatmata Campos MD Referring Physician: Fatmata Campos MD Allergies, Adverse Reactions, Alerts Substance Reaction [...] 0 Refills, Soft Stop, 10/30/20 17:30:00 EST, Tablet,[facility] #[id number], Partial fill upon patient request if the [...] 1 Refills, Maintenance, 11/15/20 11:51:00 EST, Tablet, [facility] #[id number], Partial fill upon patient requestif the prescription [...] recent to oldest [Reference Range]: 1 2 Height 157 cm (11/23/20 9:30 AM) 157 cm (11/23/20 9:22 AM) Weight 90.0 kg (11/23/20 9:30 AM) Body Mass Index [18.5-24.99] 36.51 *>HHI* (11/23/20 9:30 AM) Blood Pressure [90-138/55-84 mm Hg] 120/ 65mm Hg (11/23/20 9:30 AM) Temperature [96.8-100.4 DegF] 98 DegF (11/23/20 9:22 AM) Blood pressure sites Arm, right (11/23/20 9:30 AM) Temperature Route Oral (11/23/20 9:22 AM) Dry Weight 90.0 kg (11/23/20 9:30 AM) Weight Obtained Via Standing scale (11/23/20 9:30 AM) Dry Weight Obtained Via Standing scale (11/23/20 9:30 AM) Social History Social History Type Response Smoking Status 5-9 cigarettes (betw een 1/4 to 1/2 pack)/day in last 30 days; Tobacco user in household: Yes entered on: 05/18/20 Sex
--- OUTSIDE RECORDS SUMMARY | 2023-07-16 15:52 | XMS_ITS | Continuity of Care Document ---
Author Name Unknown Organization [facility] ter Address [address] [place] [address]- Care Team Providers Care It Help Desk Technician Name Role Phone Juan ROBERTS, Kenisha Primary Care Physician [phone] Encounter [facility] [place] Date(s): 10/29/20 - 10/30/[address] [address] Discharge Disposition: A-D/C Home Attending Physician: Farhan Alvarez MD Admitting Physician: Farhan Alvarez MD Referring Physician: Farhan Alvarez MD Allergies, Adverse Reactions, Alerts Substance Reaction [...] 0 Refills, Soft Stop, 10/30/20 17:30:00 EST, Tablet,[facility] #[id number], Partial fill upon patient request if the prescription is for a schedule II opioid drug., 158, cm, 10/29/20 21:46:00 EST, H... Start Date: 10/30/20 Status: Ordered methadone 10 mg/5 mL oral solution 70 mL = 140 mg, By Mouth, Every 24 hours, 0 Refills, Maintenance, 09/30/20 14:45:00 EST, Solution, Partial fill upon patient request Start Date: 09/30/20 Status: Ordered Methadone Liquid 150 mg, Solution, By Mouth, 10/30/20 5:00:00 EST Start Date: 10/30/20 Stop Date: 10/30/20 Status: Completed metroNIDAZOLE 500 mg oral tablet 1 tablet = 500 mg, By Mouth, Every 12 hours, for 7 days, # 14 tablet, 0 Refills, Acute 11/06/20 17:31:00 EST, 10/30/20 17:31:00 EST, Tablet, [facility] #[id number], Partial fill upon patient request if the [...] 0 Refills, Maintenance, 10/30/20 17:31:00 EST, Tablet, [facility] #[id number], Partial fill upon patient requestif the prescription [...] 2019 Active 1Problem added by Discern Expert Procedures Procedure Date Related Diagnosis Body Site Status Foot 1 Completed [place] tooth Completed 1left foot screws Vital Signs Most recent to oldest [Reference Range]: 1 2 3 Height 158 cm (10/29/20 9:46 PM) 158 cm (10/29/20 6:40 PM) Weight 81.66 kg (10/29/20 9:46 PM) Oxygen Saturation [94-100 %] 98 % (10/30/20 2:01 PM) Pulse Rate [55-90 bpm] 67 bpm (10/29/20 9:46 PM) Body Mass Index [18.5-24.99] 32.71 *>HHI* (10/29/20 9:46 PM) Blood Pressure [90-138/55-84 mm Hg] 91/42mm Hg (10/30/20 2:01 PM) 102/52mm Hg (10/30/20 10:16 AM) 113/55mm Hg (10/30/20 5:00 AM) Respiratory Rate [16-30 br/min] 20 br/min (10/30/20 10:16 AM) 20 br/min (10/30/20 5:50 AM) 16 br/min (10/30/20 5:00 AM) Temperature [96.8-100.4 DegF] 98.1 DegF (10/30/20 2:01 PM) 97.9 DegF (10/30/20 10:16 AM) 97.2 DegF (10/30/20 5:00 AM) Blood pressure sites Arm, left (10/29/20 9:46 PM) Arm, right (10/29/20 6:42 PM) Temperature Route Oral (10/30/20 2:01 PM) Oral (10/30/20 10:16 AM) Oral (10/30/20 5:00 AM) Dry Weight 81.66 kg (10/29/20 9:46 PM) Social History Social History Type Response Smoking Status 5-9 cigarettes (betw een 1/4 to 1/2 pack)/day in last 30 days; Tobacco user in household: Yes entered on: 05/18/20 Sex
--- OUTSIDE RECORDS SUMMARY | 2023-07-16 15:52 | XMS_ITS | Continuity of Care Document ---
Author Name Unknown Organization [facility] Address [address] [place] [address]- Care Team Providers Care Tank Welder Name Role Phone Juan ROBERTS, Kenisha Primary Care Physician [phone] [place] [facility] [place] Date(s): 09/07/20 - 11/05/[address] [address]- Attending Physician: Not on Staff, Attending MD Referring Physician: Kenisha Martinez MD Allergies, Adverse Reactions, Alerts Substance Reaction [...] 0 Refills, Soft Stop, 10/30/20 17:30:00 EST, Tablet,[facility] #[id number], Partial fill upon patient request if the [...] 11/06/20 17:31:00 EST, 10/30/20 17:31:00 EST, Tablet, [facility] #[id number], Partial fill upon patient request if the [...] 0 Refills, Maintenance, 10/30/20 17:31:00 EST, Tablet, [facility] #[id number], Partial fill upon patient requestif the prescription is for a schedule II opioid drug.,... Start Date: 10/30/20 Status: Ordered Problem List Condition Effective Dates Status Health Status Inform ant Adult ADHD(Confirmed) 2012 Active Anemia(Confirmed) Active Anxiety(Confirmed) 2004 Active Chronic hepatitis C(Confirmed) 2013 Active Constipation(Confirmed) 1988 Active History of depression(Confirmed) [...]
--- OUTSIDE RECORDS SUMMARY | 2023-07-16 15:52 | XMS_ITS | Continuity of Care Document ---
Author Name Unknown Organization [facility] Ism[employer]kha Boyer [employer] Address [address] [facility], [address] [place] [address]- Care Team Providers Care Small Arms Artillery Repairer Name Role Phone Juan ROBERTS, Kenisha Primary Care Physician [place] [facility] [place] 11/22/20 [facility] [address], [address] [place] [address]- Attending Physician: Brenda Robbins MD Referring Physician: [...] 0 Refills, Soft Stop, 10/30/20 17:30:00 EST, Tablet,[facility] #[id number], Partial fill upon patient request if the [...] 1 Refills, Maintenance, 11/15/20 11:51:00 EST, Tablet, [facility] #[id number], Partial fill upon patient requestif the prescription [...] oldest [Reference Range]: 1 Height 158 cm (11/15/20 11:12 AM) Weight 88.0 kg (11/15/20 11:12 AM) Body Mass Index [18.5-24.99] 35.25 *>HHI* (11/15/20 11:12 AM) Blood Pressure [90-138/55-84 mm Hg] 103/ 56mm Hg (11/15/20 11:12 AM) Blood pressure sites Arm, right (11/15/20 11:12 AM) Weight Obtained Via Standing scale (11/15/20 11:12 AM) Social History Social History Type Response Smoking Status 5-9 cigarettes (betw een 1/4 to 1/2 pack)/day in last 30 days; Tobacco user in household: Yes entered on: 05/18/20 Sex
--- OUTSIDE RECORDS SUMMARY | 2023-07-16 15:52 | XMS_ITS | Continuity of Care Document ---
Author Name Unknown Organization [facility] Miles [facility] [facility] Address [address] [facility], [address]t [place] [address]- Care Team Providers Care Water Reclamation Systems Operator Name Role Phone Juan ROBERTS, Kenisha Primary Care Physician [phone] Encounter [facility] [place] Date(s): 09/14/20 - 01/13/21 [facility] [employer] [facility] [address], [address]th [place] [address]- Attending Physician: Ester ROBERTS, Lissett Myers Referring Physician: Martine Williamson MD Allergies, Adverse [...] 12/12/20 6:39:00 EST, Route to Pharmacy Electronically, [facility] #[id number], Partial fill upon patient request if the prescription is for a schedule II opioi... Start Date: 12/12/20 Status: Ordered acyclovir 400 mg oral tablet = 400 mg, By Mouth, Every 8 hours, # 9 tablet, 0 Refills, Maintenance, 12/12/20 6:41:00 EST, Tablet, [facility] #[id number], Partial fill upon patient request if the [...] capsule, 0 Refills, Maintenance, 12/12/20 6:40:00EST, Capsule, [facility] #[id number], Partial fill upon patient request if the prescription isfor a schedule II opioid drug., 158, cm, 12/12/20 0... Start Date: 12/12/20 Status: Ordered fluconazole 150 mg oral tablet 1 tablet = 150 mg, By Mouth, Once, # 1 tablet, 0 Refills, Soft Stop, 10/30/20 17:30:00 EST, Tablet,[facility] #[id number], Partial fill upon patient request if the prescription is for a schedule II opioid drug., 158, cm, 10/29/20 21:46:00 EST, H... Start Date: 10/30/20 Status: Ordered ibuprofen 800 mg oral tablet 800 mg, 1, tablet, By Mouth, Every 8 hours, # 50 tablet, Refills 0, Tot. Refills 0, Maintenance, 12/12/20 6:40:00 EST, Route to Pharmacy Electronically, [facility] #[id number], Partial fill uponpatient request if the prescription is for a schedu... Start Date: 12/12/20 Status: Ordered lidocaine 1% topical lotion See Instructions, Use on right aspect of skin incision wher burning sensation is located. Use only on skin, # 1 pack/packet, 0 Refills, Maintenance, 12/12/20 6:40:00 EST, [facility] #[id number],Partial fill upon patient request if the prescripti... [...] 9:10:00 EST, 11/29/20 9:09:00 EST, REC Powder, [facility] #[id number], Partial fill upon patient request if the [...] 1 Refills, Maintenance, 11/15/20 11:51:00 EST, Tablet, [facility] #[id number], Partial fill upon patient requestif the prescription is for a schedule II opioid drug.,... Start Date: 11/15/20 Status: Ordered oxyCODONE 5 mg oral tablet 5 mg, 1, tablet, By Mouth, Every 4 hours, PRN, # 12 tablet, Refills 0, Tot. Refills 0, Maintenance,Pain , Severe, 12/12/20 6:40:00 EST, Route to Pharmacy Electronically, [facility] #[id number],Partial fill upon patient request if the prescripti... Start Date: 12/12/20 Status: Ordered simethicone 80 mg oral tablet, chewable 80 mg, Chew, 3 times a day, PRN, # 100 tablet, Refills 0, Tot. Refills 0, Maintenance, Gas, 12/12/20 6:40:00 EST, Route to Pharmacy Electronically, [facility] #[id number], Partial fill upon patient request if the [...]
--- OUTSIDE RECORDS SUMMARY | 2023-07-16 15:52 | XMS_ITS | Continuity of Care Document ---
Author Name Unknown Organization [facility] Miles haneyThe [employer] [facility] Address [address], 4t [place] [address]- Care Team Providers Care Acls Nurse Name Role Phone Juan ROBERTS, Kenisha Primary Care Physician [phone] [id number] Date[facility] - [facility]30/[facility] [employer] [address], 4th [place] [address]- Attending Physician: Not on Staff, Attending MD [...] 0 Refills, Soft Stop, 10/30/20 17:30:00 EST, Tablet,[facility] #[id number], Partial fill upon patient request if the [...] 9:10:00 EST, 11/29/20 9:09:00 EST, REC Powder, [facility] #[id number], Partial fill upon patient request if the [...] 1 Refills, Maintenance, 11/15/20 11:51:00 EST, Tablet, [facility] #[id number], Partial fill upon patient requestif the prescription is for a schedule II opioid drug.,... Start Date: 11/15/20 Status: Ordered Xanax Tablet 2 mg, By Mouth, 4 times a day, PRN, Maintenance, as needed for anxiety, 12/15/11 3:57:58 Start Date: 12/15/11 Status: Ordered Problem List Condition Effective Dates Status Health Status Inform ant Adult ADHD(Confirmed) 2011 Active Anemia(Confirmed) Active Anxiety(Confirmed) 2004 Active Breech [...]
--- OUTSIDE RECORDS SUMMARY | 2023-07-16 15:52 | XMS_ITS | Continuity of Care Document ---
Author Name Unknown Organization [facility] [employer] Address [address], 4t [place] [address]- Care Team Providers Care Hardboard Factory Worker Name Role Phone Juan ROBERTS, Kenisha Primary Care Physician [phone] Encounter [facility] [place] Date(s): 10/23/20 - 01/19/21 [facility] [employer] [facility] [address], [address]th [place] [address]- Attending Physician: Brenda Robbins MD Allergies, Adverse Reactions, Alerts Substance Reaction [...] 12/12/20 6:39:00 EST, Route to Pharmacy Electronically, [facility] #[id number], Partial fill upon patient request if the prescription is for a schedule II opioi... Start Date: 12/12/20 Status: Ordered acyclovir 400 mg oral tablet = 400 mg, By Mouth, Every 8 hours, # 9 tablet, 0 Refills, Maintenance, 12/12/20 6:41:00 EST, Tablet, [facility] #[id number], Partial fill upon patient request if the [...] capsule, 0 Refills, Maintenance, 12/12/20 6:40:00EST, Capsule, [facility] #[id number], Partial fill upon patient request if the prescription isfor a schedule II opioid drug., 158, cm, 12/12/20 0... Start Date: 12/12/20 Status: Ordered fluconazole 150 mg oral tablet 1 tablet = 150 mg, By Mouth, Once, # 1 tablet, 0 Refills, Soft Stop, 10/30/20 17:30:00 EST, Tablet,[facility] #[id number], Partial fill upon patient request if the prescription is for a schedule II opioid drug., 158, cm, 10/29/20 21:46:00 EST, H... Start Date: 10/30/20 Status: Ordered ibuprofen 800 mg oral tablet 800 mg, 1, tablet, By Mouth, Every 8 hours, # 50 tablet, Refills 0, Tot. Refills 0, Maintenance, 12/12/20 6:40:00 EST, Route to Pharmacy Electronically, [facility] #[id number], Partial fill uponpatient request if the prescription is for a schedu... Start Date: 12/12/20 Status: Ordered lidocaine 1% topical lotion See Instructions, Use on right aspect of skin incision wher burning sensation is located. Use only on skin, # 1 pack/packet, 0 Refills, Maintenance, 12/12/20 6:40:00 EST, [facility] #[id number],Partial fill upon patient request if the prescripti... [...] 9:10:00 EST, 11/29/20 9:09:00 EST, REC Powder, [facility] #[id number], Partial fill upon patient request if the [...] 1 Refills, Maintenance, 11/15/20 11:51:00 EST, Tablet, [facility] #[id number], Partial fill upon patient requestif the prescription is for a schedule II opioid drug.,... Start Date: 11/15/20 Status: Ordered oxyCODONE 5 mg oral tablet 5 mg, 1, tablet, By Mouth, Every 4 hours, PRN, # 12 tablet, Refills 0, Tot. Refills 0, Maintenance,Pain , Severe, 12/12/20 6:40:00 EST, Route to Pharmacy Electronically, [facility] #[id number],Partial fill upon patient request if the prescripti... Start Date: 12/12/20 Status: Ordered simethicone 80 mg oral tablet, chewable 80 mg, Chew, 3 times a day, PRN, # 100 tablet, Refills 0, Tot. Refills 0, Maintenance, Gas, 12/12/20 6:40:00 EST, Route to Pharmacy Electronically, [facility] #[id number], Partial fill upon patient request if the [...]
--- OUTSIDE RECORDS SUMMARY | 2023-07-16 15:52 | XMS_ITS | Continuity of Care Document ---
Author Name Unknown Organization [facility] Address [address] [place] [address]- Care Team Providers Care Telecom Billing Analyst Name Role Phone Juan ROBERTS, Kenisha Primary Care Physician [phone] [place] [facility] [place] Date(s): 04/27/22 - 04/27/[address] [address]- Discharge Disposition: A-D/C Home Attending Physician: Brennen Graff MD Admitting Physician: Brennen Graff MD Referring Physician: Not on Staff, Referring [...] 12/12/20 6:39:00 EST, Route to Pharmacy Electronically, [facility] #[id number], Partial fill upon patient request if the prescription is for a schedule II opioi... Start Date: 12/12/20 Status: Ordered acyclovir 400 mg oral tablet = 400 mg, By Mouth, Every 8 hours, # 9 tablet, 0 Refills, Maintenance, 12/12/20 6:41:00 EST, Tablet, [facility] #[id number], Partial fill upon patient request if the [...] capsule, 0 Refills, Maintenance, 12/12/20 6:40:00EST, Capsule, [facility] #[id number], Partial fill upon patient request if the prescription isfor a schedule II opioid drug., 158, cm, 12/12/20 0... Start Date: 12/12/20 Status: Ordered fluconazole 150 mg oral tablet 1 tablet = 150 mg, By Mouth, Once, # 1 tablet, 0 Refills, Soft Stop, 10/30/20 17:30:00 EST, Tablet,[facility] #[id number], Partial fill upon patient request if the prescription is for a schedule II opioid drug., 158, cm, 10/29/20 21:46:00 EST, H... Start Date: 10/30/20 Status: Ordered ibuprofen 800 mg oral tablet 800 mg, 1, tablet, By Mouth, Every 8 hours, # 50 tablet, Refills 0, Tot. Refills 0, Maintenance, 12/12/20 6:40:00 EST, Route to Pharmacy Electronically, [facility] #[id number], Partial fill uponpatient request if the prescription is for a schedu... Start Date: 12/12/20 Status: Ordered lidocaine 1% topical lotion See Instructions, Use on right aspect of skin incision wher burning sensation is located. Use only on skin, # 1 pack/packet, 0 Refills, Maintenance, 12/12/20 6:40:00 EST, [facility] #[id number],Partial fill upon patient request if the prescripti... [...] 9:10:00 EST, 11/29/20 9:09:00 EST, REC Powder, [facility] #[id number], Partial fill upon patient request if the [...] 1 Refills, Maintenance, 11/15/20 11:51:00 EST, Tablet, [facility] #[id number], Partial fill upon patient requestif the prescription is for a schedule II opioid drug.,... Start Date: 11/15/20 Status: Ordered oxyCODONE 5 mg oral tablet 5 mg, 1, tablet, By Mouth, Every 4 hours, PRN, # 12 tablet, Refills 0, Tot. Refills 0, Maintenance,Pain , Severe, 12/12/20 6:40:00 EST, Route to Pharmacy Electronically, [facility] #[id number],Partial fill upon patient request if the prescripti... Start Date: 12/12/20 Status: Ordered simethicone 80 mg oral tablet, chewable 80 mg, Chew, 3 times a day, PRN, # 100 tablet, Refills 0, Tot. Refills 0, Maintenance, Gas, 12/12/20 6:40:00 EST, Route to Pharmacy Electronically, [facility] #[id number], Partial fill upon patient request if the [...] abuse(Confirmed) 2006 Active Marijuana use(Confirmed) 2019 Active Obese class II(Confirmed) Active Obesity(Confirmed) 2019 Active Obstructive sleep apnea(Confirmed) 2019 Active PTSD (post-traumatic stress disorder)(Confirmed) Active Tobacco abuse(Confirmed) 2019 Active Results Radiology Reports * Exam Date Time Procedure Performing Provider Status 04/27/22 11:00 AM Wrist Comp Min 3 Views Left Suri Chaudhary; Bessie (Verified) Notes: (Wrist Comp Min 3 Views Left) Reason For Exam: with Pain;Trauma RESULT: Wrist Comp Min 3 Views Left Left wrist 4 views dated April 27, 2022. No prior studies are available. HISTORY: Pain. FINDINGS: This examination shows a comminuted intra-articular fracture of the distal radius. The distal fracture fragments show minimal impaction. No additional fracture or dislocation is identified. IMPRESSION: Comminuted intra-articular fracture of the distal radius. Examination 46836. Thank you for allowing me to participate in the care of this patient. WSN: [id number] Ordering Physician: Wilton Martinez Dictated By: Paul Schultz MD Dictated Date/Time: 04/27/22 11:07 a Reviewed By: Paul Schultz MD Signed By: Paul Schultz MD Signed Date/Time: 04/27/22 11:07 am Transcribed By: ELY Transcribed Date/Time: 04/27/22 11:07 am Vital Signs Most recent to oldest [Reference Range]: 1 Height 158 cm (04/27/22 9:46 AM) Weight 99.2 kg (04/27/22 9:46 AM) Oxygen Saturation [94-100 %] 97 % (04/27/22 9:46 AM) Pulse Rate [55-90 bpm] 81 bpm (04/27/22 9:46 AM) Body Mass Index [18.5-24.99] 39.74 *>HHI* (04/27/22 9:46 AM) Blood Pressure [90-138/55-84 mm Hg] 113/ 75mm Hg (04/27/22 9:46 AM) Respiratory Rate [16-30 br/min] 16 br/mi n (04/27/22 9:46 AM) Temperature [96.8-100.4 DegF] 97.7 DegF (04/27/22 9:46 AM) Mode of Delivery (Oxygen) Room air (04/27/22 9:46 AM) Blood pressure sites Arm, right (04/27/22 9:46 AM) Temperature Route Oral (04/27/22 9:46 AM) Dry Weight 99.2 kg (04/27/22 9:46 AM) Weight Obtained Via Standing scale (04/27/22 9:46 AM) Dry Weight Obtained Via Standing scale (04/27/22 9:46 AM) Social History Social History Type Response Smoking Status 5-9 cigarettes (betw een 1/4 to 1/2 pack)/day in last 30 days; Tobacco user in household: Yes entered on: 05/18/20 Sex
--- OUTSIDE RECORDS SUMMARY | 2023-07-16 15:52 | XMS_ITS | Continuity of Care Document ---
Author Name Unknown Organization [facility]ess[facility]kha Boyer [employer] [facility] Address [address], [address]t [place] [address]- Care Team Providers Care Roll Table Operator Name Role Phone Juan ROBERTS, Kenisha Primary Care Physician [phone] [place] [facility] [place] 12[place]05[place]20 - 12/12/20 [facility] [employer] [facility] [address], [address]th [place] [address]- Attending Physician: Martine Williamson MD Allergies, Adverse [...] 12/12/20 6:39:00 EST, Route to Pharmacy Electronically, [facility] #[id number], Partial fill upon patient request if the prescription is for a schedule II opioi... Start Date: 12/12/20 Status: Ordered acyclovir 400 mg oral tablet = 400 mg, By Mouth, Every 8 hours, # 9 tablet, 0 Refills, Maintenance, 12/12/20 6:41:00 EST, Tablet, [facility] #[id number], Partial fill upon patient request if the [...] capsule, 0 Refills, Maintenance, 12/12/20 6:40:00EST, Capsule, [facility] #[id number], Partial fill upon patient request if the prescription isfor a schedule II opioid drug., 158, cm, 12/12/20 0... Start Date: 12/12/20 Status: Ordered fluconazole 150 mg oral tablet 1 tablet = 150 mg, By Mouth, Once, # 1 tablet, 0 Refills, Soft Stop, 10/30/20 17:30:00 EST, Tablet,[facility] #[id number], Partial fill upon patient request if the prescription is for a schedule II opioid drug., 158, cm, 10/29/20 21:46:00 EST, H... Start Date: 10/30/20 Status: Ordered ibuprofen 800 mg oral tablet 800 mg, 1, tablet, By Mouth, Every 8 hours, # 50 tablet, Refills 0, Tot. Refills 0, Maintenance, 12/12/20 6:40:00 EST, Route to Pharmacy Electronically, [facility] #[id number], Partial fill uponpatient request if the prescription is for a schedu... Start Date: 12/12/20 Status: Ordered lidocaine 1% topical lotion See Instructions, Use on right aspect of skin incision wher burning sensation is located. Use only on skin, # 1 pack/packet, 0 Refills, Maintenance, 12/12/20 6:40:00 EST, [facility] #[id number],Partial fill upon patient request if the prescripti... [...] 9:10:00 EST, 11/29/20 9:09:00 EST, REC Powder, [facility] #[id number], Partial fill upon patient request if the [...] 1 Refills, Maintenance, 11/15/20 11:51:00 EST, Tablet, [facility] #[id number], Partial fill upon patient requestif the prescription is for a schedule II opioid drug.,... Start Date: 11/15/20 Status: Ordered oxyCODONE 5 mg oral tablet 5 mg, 1, tablet, By Mouth, Every 4 hours, PRN, # 12 tablet, Refills 0, Tot. Refills 0, Maintenance,Pain , Severe, 12/12/20 6:40:00 EST, Route to Pharmacy Electronically, [facility] #[id number],Partial fill upon patient request if the prescripti... Start Date: 12/12/20 Status: Ordered simethicone 80 mg oral tablet, chewable 80 mg, Chew, 3 times a day, PRN, # 100 tablet, Refills 0, Tot. Refills 0, Maintenance, Gas, 12/12/20 6:40:00 EST, Route to Pharmacy Electronically, [facility] #[id number], Partial fill upon patient request if the [...] stress disorder)(Confirmed) Active Tobacco abuse(Confirmed) 2019 Active Vital Signs Most recent to oldest [Reference Range]: 1 Height 157 cm (12/05/20 10:46 AM) Weight 92 kg (12/05/20 10:46 AM) Body Mass Index [18.5-24.99] 37.32 *>HHI* (12/05/20 10:46 AM) Blood Pressure [90-138/55-84 mm Hg] 100/ 56mm Hg (12/05/20 10:46 AM) Blood pressure sites Arm, right (12/05/20 10:46 AM) Dry Weight 92 kg (12/05/20 10:46 AM) Weight Obtained Via Standing scale (12/05/20 10:46 AM) Dry Weight Obtained Via Standing scale (12/05/20 10:46 AM) Social History Social History Type Response Smoking Status 5-9 cigarettes (betw een 1/4 to 1/2 pack)/day in last 30 days; Tobacco user in household: Yes entered on: 05/18/20 Sex
--- OUTSIDE RECORDS SUMMARY | 2023-07-16 15:52 | XMS_ITS | Continuity of Care Document ---
Author Name Unknown Organization [facility] Address [address], [address] [place] [address]- Care Team Providers Care Stem Threshing Machine Operator Name Role Phone Juan ROBERTS, Kenisha Primary Care Physician [phone] Encounter [facility] [place] Date(s): 10/11/20 - 11/12/20 [facility] [employer] [facility] [address], [address]th [place] [address]- Attending Physician: Bessie Jay MD Referring Physician: Brenda Robbins MD Allergies, Adverse Reactions, [...] 0 Refills, Soft Stop, 10/30/20 17:30:00 EST, Tablet,[facility] #[id number], Partial fill upon patient request if the [...] 0 Refills, Maintenance, 10/30/20 17:31:00 EST, Tablet, [facility] #[id number], Partial fill upon patient requestif the prescription [...]
--- OUTSIDE RECORDS SUMMARY | 2023-07-16 15:52 | XMS_ITS | Continuity of Care Document ---
Author Name Unknown Organization [facility]er [employer] [facility] Address [address], [address]t [place] [address]- Care Team Providers Care Obiee Consultant Name Role Phone Juan ROBERTS, Kenisha Primary Care Physician [phone] En[place] [facility] [place] Date(s): 02/07/21 - 03/09/21 [facility] [employer] [facility] [address], [address] [place] [address]- Attending Physician: Brian Garcia Admitting Physician: AdmBrian vargas Referring Physician: AdmtrBrian Allergies, Adverse Reactions, Alerts Substance Reaction Severity [...] 12/12/20 6:39:00 EST, Route to Pharmacy Electronically, [facility] #[id number], Partial fill upon patient request if the prescription is for a schedule II opioi... Start Date: 12/12/20 Status: Ordered acyclovir 400 mg oral tablet = 400 mg, By Mouth, Every 8 hours, # 9 tablet, 0 Refills, Maintenance, 12/12/20 6:41:00 EST, Tablet, [facility] #[id number], Partial fill upon patient request if the [...] capsule, 0 Refills, Maintenance, 12/12/20 6:40:00EST, Capsule, [facility] #[id number], Partial fill upon patient request if the prescription isfor a schedule II opioid drug., 158, cm, 12/12/20 0... Start Date: 12/12/20 Status: Ordered fluconazole 150 mg oral tablet 1 tablet = 150 mg, By Mouth, Once, # 1 tablet, 0 Refills, Soft Stop, 10/30/20 17:30:00 EST, Tablet,[facility] #[id number], Partial fill upon patient request if the prescription is for a schedule II opioid drug., 158, cm, 10/29/20 21:46:00 EST, H... Start Date: 10/30/20 Status: Ordered ibuprofen 800 mg oral tablet 800 mg, 1, tablet, By Mouth, Every 8 hours, # 50 tablet, Refills 0, Tot. Refills 0, Maintenance, 12/12/20 6:40:00 EST, Route to Pharmacy Electronically, [facility] #[id number], Partial fill uponpatient request if the prescription is for a schedu... Start Date: 12/12/20 Status: Ordered lidocaine 1% topical lotion See Instructions, Use on right aspect of skin incision wher burning sensation is located. Use only on skin, # 1 pack/packet, 0 Refills, Maintenance, 12/12/20 6:40:00 EST, [facility] #[id number],Partial fill upon patient request if the prescripti... [...] 9:10:00 EST, 11/29/20 9:09:00 EST, REC Powder, [facility] #[id number], Partial fill upon patient request if the [...] 1 Refills, Maintenance, 11/15/20 11:51:00 EST, Tablet, [facility] #[id number], Partial fill upon patient requestif the prescription is for a schedule II opioid drug.,... Start Date: 11/15/20 Status: Ordered oxyCODONE 5 mg oral tablet 5 mg, 1, tablet, By Mouth, Every 4 hours, PRN, # 12 tablet, Refills 0, Tot. Refills 0, Maintenance,Pain , Severe, 12/12/20 6:40:00 EST, Route to Pharmacy Electronically, [facility] #[id number],Partial fill upon patient request if the prescripti... Start Date: 12/12/20 Status: Ordered simethicone 80 mg oral tablet, chewable 80 mg, Chew, 3 times a day, PRN, # 100 tablet, Refills 0, Tot. Refills 0, Maintenance, Gas, 12/12/20 6:40:00 EST, Route to Pharmacy Electronically, [facility] #[id number], Partial fill upon patient request if the [...]
--- OUTSIDE RECORDS SUMMARY | 2023-07-16 15:52 | XMS_ITS | Continuity of Care Document ---
Author Name Unknown Organization [facility] Milessurekha Boyer [employer] Address [address], [address] [place] [address]- Care Team Providers Care Business Analytics Manager Name Role Phone Juan ROBERTS, Kenisha Primary Care Physician [phone] [place] [facility] [place] 10[place]23/20 - 10/30/20 [facility] [employer] [address], [address]th [place] [address]- Attending Physician: Brenda Robbins MD Allergies, Adverse [...] 0 Refills, Soft Stop, 10/30/20 17:30:00 EST, Tablet,[facility] #[id number], Partial fill upon patient request if the [...] 11/06/20 17:31:00 EST, 10/30/20 17:31:00 EST, Tablet, [facility] #[id number], Partial fill upon patient request if the [...] 0 Refills, Maintenance, 10/30/20 17:31:00 EST, Tablet, [facility] #[id number], Partial fill upon patient requestif the prescription is for a schedule II opioid drug.,... Start Date: 10/30/20 Status: Ordered Problem List Condition Effective Dates Status Health Status Inform ant Adult ADHD(Confirmed) 2011 Active Anemia(Confirmed) Active Anxiety(Confirmed) 2004 Active Chronic [...] recent to oldest [Reference Range]: 1 Height 157.48 cm (10/23/20 9:03 AM) Weight 88.36 kg (10/23/20 9:03 AM) Body Mass Index [18.5-24.99] 35.63 *>HHI* (10/23/20 9:03 AM) Blood Pressure [90-138/55-84 mm Hg] 105/ 55mm Hg (10/23/20 9:03 AM) Blood pressure sites Arm, right (10/23/20 9:03 AM) Weight Obtained Via Standing scale (10/23/20 9:03 AM) Social History Social History Type Response Smoking Status 5-9 cigarettes (betw een 1/4 to 1/2 pack)/day in last 30 days; Tobacco user in household: Yes entered on: 05/18/20 Sex
--- OUTSIDE RECORDS SUMMARY | 2023-07-16 15:52 | XMS_ITS | Continuity of Care Document ---
Author Name Unknown Organization [facility] Boyer [employer] [facility] Address [address], [address] [place] [address]- Care Team Providers Care Dog Food Dough Mixer Name Role Phone Juan ROBERTS, Kenisha Primary Care Physician Encounter [facility] [place] Date(s): 10/24/20 - 10/31/20 [facility] [employer] [facility] [address], [address] [place] [address]- Attending Physician: Bessie Jay MD Referring Physician: [...] 0 Refills, Soft Stop, 10/30/20 17:30:00 EST, Tablet,[facility] #[id number], Partial fill upon patient request if the [...] 11/06/20 17:31:00 EST, 10/30/20 17:31:00 EST, Tablet, [facility] #[id number], Partial fill upon patient request if the [...] 0 Refills, Maintenance, 10/30/20 17:31:00 EST, Tablet, [facility][id number], Partial fill upon patient requestif the prescription [...]
--- OUTSIDE RECORDS SUMMARY | 2023-07-16 15:52 | XMS_ITS | Continuity of Care Document ---
Author Name Unknown Organization [facility] [employer] [facility] Address [address], [address] [place] [address]- Care Team Providers Care Mushroom Laborer Name Role Phone Juan ROBERTS, Kenisha Primary Care Physician [phone] En[place] [facility] [place] Date(s): 10/16/20 - 11/15/20 [facility] [employer] [facility] [address], [address]th [place] [address]- Allergies, Adverse Reactions, Alerts Substance Reaction Severity [...] 0 Refills, Soft Stop, 10/30/20 17:30:00 EST, Tablet,[facility] #[id number], Partial fill upon patient request if the [...] 1 Refills, Maintenance, 11/15/20 11:51:00 EST, Tablet, [facility] #[id number], Partial fill upon patient requestif the prescription [...] 2006 Active Marijuana use(Confirmed) 2020 Active Obesity(Confirmed) 2020 Active Obstructive sleep apnea(Confirmed) [...]
--- OUTSIDE RECORDS SUMMARY | 2023-07-16 15:52 | XMS_ITS | Continuity of Care Document ---
Author Name Unknown Organization [facility] Holmessurekha Boyer Flaconi [facility] Address [address] [facility], [address]t [place] [address]- Care Team Providers Care Assistant Finance Director Name Role Phone Juan ROBERTS, Kenisha Primary Care Physician Encounter [facility] Date(s): 09/19/20 - 01/17/21 [facility] [employer] [facility] [address], [address]th [place] [address]- Attending Physician: Brenda Robbins MD Referring Physician: [...] 12/12/20 6:39:00 EST, Route to Pharmacy Electronically, [facility] #[id number], Partial fill upon patient request if the prescription is for a schedule II opioi... Start Date: 12/12/20 Status: Ordered acyclovir 400 mg oral tablet = 400 mg, By Mouth, Every 8 hours, # 9 tablet, 0 Refills, Maintenance, 12/12/20 6:41:00 EST, Tablet, [facility] #[id number], Partial fill upon patient request if the [...] capsule, 0 Refills, Maintenance, 12/12/20 6:40:00EST, Capsule, [facility] #[id number], Partial fill upon patient request if the prescription isfor a schedule II opioid drug., 158, cm, 12/12/20 0... Start Date: 12/12/20 Status: Ordered fluconazole 150 mg oral tablet 1 tablet = 150 mg, By Mouth, Once, # 1 tablet, 0 Refills, Soft Stop, 10/30/20 17:30:00 EST, Tablet,[facility] #[id number], Partial fill upon patient request if the prescription is for a schedule II opioid drug., 158, cm, 10/29/20 21:46:00 EST, H... Start Date: 10/30/20 Status: Ordered ibuprofen 800 mg oral tablet 800 mg, 1, tablet, By Mouth, Every 8 hours, # 50 tablet, Refills 0, Tot. Refills 0, Maintenance, 12/12/20 6:40:00 EST, Route to Pharmacy Electronically, [facility] #[id number], Partial fill uponpatient request if the prescription is for a schedu... Start Date: 12/12/20 Status: Ordered lidocaine 1% topical lotion See Instructions, Use on right aspect of skin incision wher burning sensation is located. Use only on skin, # 1 pack/packet, 0 Refills, Maintenance, 12/12/20 6:40:00 EST, [facility] #[id number],Partial fill upon patient request if the prescripti... [...] 9:10:00 EST, 11/29/20 9:09:00 EST, REC Powder, [facility] #[id number], Partial fill upon patient request if the [...] 1 Refills, Maintenance, 11/15/20 11:51:00 EST, Tablet, [facility] #[id number], Partial fill upon patient requestif the prescription is for a schedule II opioid drug.,... Start Date: 11/15/20 Status: Ordered oxyCODONE 5 mg oral tablet 5 mg, 1, tablet, By Mouth, Every 4 hours, PRN, # 12 tablet, Refills 0, Tot. Refills 0, Maintenance,Pain , Severe, 12/12/20 6:40:00 EST, Route to Pharmacy Electronically, [facility] #[id number],Partial fill upon patient request if the prescripti... Start Date: 12/12/20 Status: Ordered simethicone 80 mg oral tablet, chewable 80 mg, Chew, 3 times a day, PRN, # 100 tablet, Refills 0, Tot. Refills 0, Maintenance, Gas, 12/12/20 6:40:00 EST, Route to Pharmacy Electronically, [facility] #[id number], Partial fill upon patient request if the [...]
--- OUTSIDE RECORDS SUMMARY | 2023-07-16 15:52 | XMS_ITS | Continuity of Care Document ---
Author Name Unknown Organization [facility] haneyAnteryon [facility] Address [address] [place] [address], 4t [place] [address]- Care Team Providers Care Gun Club Manager Name Role Phone Juan ROBERTS, Kenisha Primary Care Physician [id number] Date(s): 11/29/20 - 12/06/20 [facility] [employer] [facility] [address] [facility], 4th [place] [address]- Attending Physician: Brenda Robbins MD Referring Physician: [...] 0 Refills, Soft Stop, 10/30/20 17:30:00 EST, Tablet,[facility] #[id number], Partial fill upon patient request if the [...] 9:10:00 EST, 11/29/20 9:09:00 EST, REC Powder, [facility] #[id number], Partial fill upon patient request if the [...] 1 Refills, Maintenance, 11/15/20 11:51:00 EST, Tablet, [facility] #[id number], Partial fill upon patient requestif the prescription [...] oldest [Reference Range]: 1 Height 157 cm (11/29/20 8:35 AM) Weight 89.8 kg (11/29/20 8:35 AM) Body Mass Index [18.5-24.99] 36.43 *>HHI* (11/29/20 8:35 AM) Blood Pressure [90-138/55-84 mm Hg] 98/5 6mm Hg (11/29/20 8:35 AM) Blood pressure sites Arm, right (11/29/20 8:35 AM) Weight Obtained Via Standing scale (11/29/20 8:35 AM) Social History Social History Type Response Smoking Status 5-9 cigarettes (betw een 1/4 to 1/2 pack)/day in last 30 days; Tobacco user in household: Yes entered on: 05/18/20 Sex
--- OUTSIDE RECORDS SUMMARY | 2023-07-16 15:52 | XMS_ITS | Continuity of Care Document ---
Author Name Unknown Organization [facility] Address [address] [place] [address]- Care Team Providers Care Mastic Sprayer Name Role Phone Juan ROBERTS, Kenisha Primary Care Physician [place] [facility] [place] Date(s): 12/27/20 - 01/26/[address] [address]- Attending Physician: Brian Garcia Admitting Physician: AdmBrian [...] 12/12/20 6:39:00 EST, Route to Pharmacy Electronically, [facility] #[id number], Partial fill upon patient request if the prescription is for a schedule II opioi... Start Date: 12/12/20 Status: Ordered acyclovir 400 mg oral tablet = 400 mg, By Mouth, Every 8 hours, # 9 tablet, 0 Refills, Maintenance, 12/12/20 6:41:00 EST, Tablet, [facility] #[id number], Partial fill upon patient request if the [...] capsule, 0 Refills, Maintenance, 12/12/20 6:40:00EST, Capsule, [facility] #[id number], Partial fill upon patient request if the prescription isfor a schedule II opioid drug., 158, cm, 12/12/20 0... Start Date: 12/12/20 Status: Ordered fluconazole 150 mg oral tablet 1 tablet = 150 mg, By Mouth, Once, # 1 tablet, 0 Refills, Soft Stop, 10/30/20 17:30:00 EST, Tablet,[facility] #[id number], Partial fill upon patient request if the prescription is for a schedule II opioid drug., 158, cm, 10/29/20 21:46:00 EST, H... Start Date: 10/30/20 Status: Ordered ibuprofen 800 mg oral tablet 800 mg, 1, tablet, By Mouth, Every 8 hours, # 50 tablet, Refills 0, Tot. Refills 0, Maintenance, 12/12/20 6:40:00 EST, Route to Pharmacy Electronically, [facility] #[id number], Partial fill uponpatient request if the prescription is for a schedu... Start Date: 12/12/20 Status: Ordered lidocaine 1% topical lotion See Instructions, Use on right aspect of skin incision wher burning sensation is located. Use only on skin, # 1 pack/packet, 0 Refills, Maintenance, 12/12/20 6:40:00 EST, [facility] #[id number],Partial fill upon patient request if the prescripti... [...] 9:10:00 EST, 11/29/20 9:09:00 EST, REC Powder, [facility] #[id number], Partial fill upon patient request if the [...] 1 Refills, Maintenance, 11/15/20 11:51:00 EST, Tablet, [facility] #[id number], Partial fill upon patient requestif the prescription is for a schedule II opioid drug.,... Start Date: 11/15/20 Status: Ordered oxyCODONE 5 mg oral tablet 5 mg, 1, tablet, By Mouth, Every 4 hours, PRN, # 12 tablet, Refills 0, Tot. Refills 0, Maintenance,Pain , Severe, 12/12/20 6:40:00 EST, Route to Pharmacy Electronically, [facility] #[id number],Partial fill upon patient request if the prescripti... Start Date: 12/12/20 Status: Ordered simethicone 80 mg oral tablet, chewable 80 mg, Chew, 3 times a day, PRN, # 100 tablet, Refills 0, Tot. Refills 0, Maintenance, Gas, 12/12/20 6:40:00 EST, Route to Pharmacy Electronically, [facility] #[id number], Partial fill upon patient request if the [...]
--- OUTSIDE RECORDS SUMMARY | 2023-07-16 15:52 | XMS_ITS | Continuity of Care Document ---
Author Name Unknown Organization [facility] Address [address] [place] [address]- Care Team Providers Care Stitchdown Thread Laster Name Role Phone Juan ROBERTS, Kenisha Primary Care Physician [place] [facility] [place]/22/[place] - 11/22/[address] [address]- Discharge Disposition: A-D/C Home Attending Physician: Martine [...] 0 Refills, Soft Stop, 10/30/20 17:30:00 EST, Tablet,[email or web address] #[id number], Partial fill upon patient request if the [...] 1 Refills, Maintenance, 11/15/20 11:51:00 EST, Tablet, [email or web address] #[id number], Partial fill upon patient requestif the prescription [...] 2020 Active 1Problem added by Discern Expert Vital Signs Most recent to oldest [Reference Range]: 1 Height 157 cm (11/22/20 8:51 AM) Weight 89.2 kg (11/22/20 8:38 AM) Blood Pressure [90-138/55-84 mm Hg] 97/5 0mm Hg (11/22/20 8:56 AM) Temperature [96.8-100.4 DegF] 97.7 DegF (11/22/20 8:38 AM) Blood pressure sites Arm, right (11/22/20 8:56 AM) Temperature Route Oral (11/22/20 8:38 AM) Weight Obtained Via Standing scale (11/22/20 8:38 AM) Social History Social History Type Response Smoking Status 5-9 cigarettes (betw een 1/4 to 1/2 pack)/day in last 30 days; Tobacco user in household: Yes entered on: 05/18/20 Sex
--- OUTSIDE RECORDS SUMMARY | 2023-07-16 15:53 | XMS_ITS | Continuity of Care Document ---
Author Name Unknown Organization [facility]ha Boyer [employer] Address [address] [facility], [address] [place] [address]- Care Team Providers Care Corrugated Fastener Driver Name Role Phone Juan ROBERTS, Kenisha Primary Care Physician [place] [facility] [place] 07/13/20 [facility] [employer] [address] [facility], [address] [place] [address]- [facility] Allergies, Adverse Reactions, Alerts Substance Reaction Severity Status NKA Active Medications Adderall 30 mg oral tablet 1 tablet = 30 mg, By Mouth, PRN Other, 0 Refills, Maintenance, 06/19/17 13:06:55 Start Date: 06/19/17 Status: Ordered Methadone = 75 mg, By Mouth, Daily, 0 Refills, Maintenance, 12/15/11 3:57:52 Start Date: 12/15/11 Status: Ordered Multivitamin Tablet 0 Refills, Maintenance, 05/03/20 15:48:00 EDT Start Date: 05/03/20 Status: Ordered Xanax Tablet 2 mg, By Mouth, 4 times a day, PRN, Maintenance, as needed for anxiety, 12/15/11 3:57:58 Start Date: 12/15/11 Status: Ordered Zofran 4 mg oral tablet 1 tablet = 4 mg, By Mouth, Every 8 hours, 0 Refills, Maintenance, 05/03/20 15:48:00 EDT Start Date: 05/03/20 Status: Ordered Problem List Condition Effective Dates Status Health Status Inform ant Adult ADHD(Confirmed) 2012 Active Anxiety(Confirmed) 2004 Active Chronic hepatitis C(Confirmed) 2013 Active Constipation(Confirmed) 1989 Active History of depression(Confirmed) 2003 Active History of varicose veins(Confirmed) 2014 Active Methadone maintenance treatm ent affecting , 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
--- OUTSIDE RECORDS SUMMARY | 2023-07-16 15:53 | XMS_ITS | Continuity of Care Document ---
Author Name Unknown Organization [facility] Miles [employer] Address [address] [facility], [address] [place] [address]- Care Team Providers Care Panelboard Assembler Name Role Phone Juan ROBERTS, Kenisha Primary Care Physician Encounter [facility] [id number] Date(s): 05/18/20 - 05/25/20 [facility] [address] [facility], [address] [place] [address]- [facility] Attending Physician: Fatmata Campos MD Referring Physician: Kenisha Martinez MD Allergies, [...] 2013 Active Marijuana use(Confirmed) 2019 Active Obesity(Confirmed) 2019 Active Obstructive sleep apnea(Confirmed) 2019 Active Prolapse of female pelvic organs(Confirmed) 2019 Active Tobacco abuse(Confirmed) 2019 Active Vital Signs Most recent to oldest [Reference Range]: 1 Height 157.48 cm (05/18/20 3:49 PM) Weight 81.66 kg (05/18/20 3:49 PM) Body Mass Index [18.5-24.99] 32.93 *>HHI* (05/18/20 3:49 PM) Dry Weight 81.66 kg (05/18/20 3:49 PM) Social History Social History Type Response Smoking Status 5-9 cigarettes (betw een 1/4 to 1/2 pack)/day in last 30 days; Tobacco user in household: Yes entered on: 05/18/20 Sex
--- OUTSIDE RECORDS SUMMARY | 2023-07-16 15:53 | XMS_ITS | Continuity of Care Document ---
Author Name Unknown Organization [facility] Arnett [employer]T [employer] Address [address], [address] [place] [address]- Care Team Providers Care Director Paid Media Name Role Phone Juan ROBERTS, Kenisha Primary Care Physician [facility] [id number] Date(s): 05/03/20 - 05/10/20 [email or web address] [address] [facility], [address] [place] [address]- [facility] Attending Physician: Martine Williamson MD Referring Physician: Kenisha Martinez MD Allergies, [...] 15:48:00 EDT Start Date: 05/03/20 Status: Ordered Vital Signs Most recent to oldest [Reference Range]: 1 Weight 88 kg (05/03/20 3:46 PM) Blood Pressure [90-138/55-84 mm Hg] 92/5 0mm Hg (05/03/20 3:46 PM) Blood pressure sites Arm, right (05/03/20 3:46 PM) Dry Weight 88 kg (05/03/20 3:46 PM) Weight Obtained Via Standing scale (05/03/20 3:46 PM) Dry Weight Obtained Via Standing scale (05/03/20 3:46 PM) Social History Social History Type Response Smoking Status Current every day herberth browning entered on: 06/06/17 Sex
--- OUTSIDE RECORDS SUMMARY | 2023-07-16 15:53 | XMS_ITS | Continuity of Care Document ---
Author Name Unknown Organization [facility] [place] [employer] [facility] Address [address], [address]t [place] [address]- Care Team Providers Care Front Facer Name Role Phone Juan ROBERTS, Kenisha Primary Care Physician [phone] [place] [facility] [place] 07/03/20 - 08/02/20 [facility] [employer] [facility] [address], [address] [place] [address]- [facility] Allergies, Adverse Reactions, Alerts Substance Reaction [...]
--- OUTSIDE RECORDS SUMMARY | 2023-07-16 15:53 | XMS_ITS | Continuity of Care Document ---
Author Name Unknown Organization [facility] Lenoxsurekha Boyer [employer] [facility] Address [address] [facility], [address] [place] [address]- Care Team Providers Care Missing Persons Investigator Name Role Phone Juan ROBERTS, Kenisha Primary Care Physician [phone] [place] [facility] [place](s): 06/29/20 - 07/06/20 [facility] [employer] [facility] [address] [facility], [address] [place] [address]- [facility] Attending Physician: Not on Staff, Attending MD [...] 12/15/11 3:57:52 Start Date: 12/15/11 Status: Ordered metronidazole topical 0.75% gel with applicator 1 applicator, Vaginally, Daily at bedtime, for 5 days, # 70 Gm, 0 Refills, Acute 07/08/20 12:21:00 EDT, 07/03/20 12:21:00 EDT, Gel, [facility] #[id number], 1 applicator Vaginally Daily at bedtime,x5 days, 157.48, cm, 07/03/20 12:02:00 EDT, Height... Start Date: 07/03/20 Stop Date: 07/08/20 Status: Ordered Multivitamin Tablet 0 Refills, Maintenance, [...] Anemia, iron deficiency(Confirmed) 2013 Active Marijuana use(Confirmed) 2020 Active Obesity(Confirmed) 2020 Active Obstructive sleep apnea(Confirmed) 2019 Active Prolapse of female pelvic organs(Confirmed) 2019 Active Tobacco abuse(Confirmed) 2020 Active Social History Social History Type Response Smoking Status 5-9 cigarettes (betw een 1/4 to 1/2 pack)/day in last 30 days; Tobacco user in household: Yes entered on: 05/18/20 Sex
--- OUTSIDE RECORDS SUMMARY | 2023-07-16 15:53 | XMS_ITS | Continuity of Care Document ---
Author Name Unknown Organization [facility]ha Boyer [employer] Address [address] [facility], [address]t [place] [address]- Care Team Providers Care Doctor Of Radiology Name Role Phone Juan ROBERTS, Kenisha Primary Care Physician En[place] [facility] [place] Date(s): 01/08/21 - 01/15/21 [facility] [employer] [facility] [address], [address]th [place] [address]- Attending Physician: Rosendo ROBERTS [OB], Brenda Kapadia [...] 12/12/20 6:39:00 EST, Route to Pharmacy Electronically, [facility] #[id number], Partial fill upon patient request if the prescription is for a schedule II opioi... Start Date: 12/12/20 Status: Ordered acyclovir 400 mg oral tablet = 400 mg, By Mouth, Every 8 hours, # 9 tablet, 0 Refills, Maintenance, 12/12/20 6:41:00 EST, Tablet, [facility] #[id number], Partial fill upon patient request if the [...] capsule, 0 Refills, Maintenance, 12/12/20 6:40:00EST, Capsule, [facility] #[id number], Partial fill upon patient request if the prescription isfor a schedule II opioid drug., 158, cm, 12/12/20 0... Start Date: 12/12/20 Status: Ordered fluconazole 150 mg oral tablet 1 tablet = 150 mg, By Mouth, Once, # 1 tablet, 0 Refills, Soft Stop, 10/30/20 17:30:00 EST, Tablet,[facility] #[id number], Partial fill upon patient request if the prescription is for a schedule II opioid drug., 158, cm, 10/29/20 21:46:00 EST, H... Start Date: 10/30/20 Status: Ordered ibuprofen 800 mg oral tablet 800 mg, 1, tablet, By Mouth, Every 8 hours, # 50 tablet, Refills 0, Tot. Refills 0, Maintenance, 12/12/20 6:40:00 EST, Route to Pharmacy Electronically, [facility] #[id number], Partial fill uponpatient request if the prescription is for a schedu... Start Date: 12/12/20 Status: Ordered lidocaine 1% topical lotion See Instructions, Use on right aspect of skin incision wher burning sensation is located. Use only on skin, # 1 pack/packet, 0 Refills, Maintenance, 12/12/20 6:40:00 EST, [facility] #[id number],Partial fill upon patient request if the prescripti... [...] 9:10:00 EST, 11/29/20 9:09:00 EST, REC Powder, [facility] #[id number], Partial fill upon patient request if the [...] 1 Refills, Maintenance, 11/15/20 11:51:00 EST, Tablet, [facility] #[id number], Partial fill upon patient requestif the prescription is for a schedule II opioid drug.,... Start Date: 11/15/20 Status: Ordered oxyCODONE 5 mg oral tablet 5 mg, 1, tablet, By Mouth, Every 4 hours, PRN, # 12 tablet, Refills 0, Tot. Refills 0, Maintenance,Pain , Severe, 12/12/20 6:40:00 EST, Route to Pharmacy Electronically, [facility] #[id number],Partial fill upon patient request if the prescripti... Start Date: 12/12/20 Status: Ordered simethicone 80 mg oral tablet, chewable 80 mg, Chew, 3 times a day, PRN, # 100 tablet, Refills 0, Tot. Refills 0, Maintenance, Gas, 12/12/20 6:40:00 EST, Route to Pharmacy Electronically, [facility] #[id number], Partial fill upon patient request if the [...] 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 History of opioid abuse(Confirmed) 2005 Active [...]
--- OUTSIDE RECORDS SUMMARY | 2023-07-16 15:53 | XMS_ITS | Continuity of Care Document ---
Author Name Unknown Organization [facility] New[facility]ha Boyer [employer] [facility] Address [address] [facility], [address] [place] [address]- Care Team Providers Care Chief Security Officer Name Role Phone Juan ROBERTS, Kenisha Primary Care Physician En[place] [facility] [place] Date(s): 06/07/20 - 07/07/20 [facility] [address], [address] [place] [address]- [facility] Allergies, Adverse Reactions, Alerts Substance Reaction Severity [...] 07/08/20 12:21:00 EDT, 07/03/20 12:21:00 EDT, Gel, [facility] #[id number], 1 applicator Vaginally Daily at bedtime,x5 days, [...] 2020 Active Prolapse of female pelvic organs(Confirmed) 2020 Active Tobacco abuse(Confirmed) 2020 Active Social History Social History Type Response Smoking Status 5-9 cigarettes (betw een 1/4 to 1/2 pack)/day in last 30 days; Tobacco user in household: Yes entered on: 05/18/20 Sex
--- OUTSIDE RECORDS SUMMARY | 2023-07-16 15:53 | XMS_ITS | Continuity of Care Document ---
Author Name Unknown Organization [facility]kha Boyer [facility] Address [address] [facility], [address] [place] [address]- Care Team Providers Care Securities Lending Trader Name Role Phone Kenisha Martinez MD Primary Care Physician En[place] [facility] [place] Date(s): 07/03/20 - 07/10/20 [facility] [address] [facility], [address] [place] [address]- [facility] Attending Physician: Bushra Alvarez MD Referring Physician: Kenisha Martinez MD Allergies, [...] Status Inform ant Adult ADHD(Confirmed) 2011 Active Anxiety(Confirmed) 2003 Active Chronic hepatitis C(Confirmed) 2012 Active Constipation(Confirmed) 1988 Active History of depression(Confirmed) 2004 Active History of varicose veins(Confirmed) 2014 Active Methadone maintenance treatm ent affecting , 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 History of abnormal cervical Pap smear(Confirmed) 2015 Active History of chlamydia(Confirmed) 2015 Active History of opioid abuse(Confirmed) 2006 Active Anemia, iron deficiency(Confirmed) 2013 Active Marijuana use(Confirmed) 2020 Active Obesity(Confirmed) 2019 Active Obstructive sleep apnea(Confirmed) 2019 Active Prolapse of female pelvic organs(Confirmed) 2019 Active Tobacco abuse(Confirmed) 2019 Active Vital Signs Most recent to oldest [Reference Range]: 1 Height 157.48 cm (07/03/20 12:02 PM) Weight 87.81 kg (07/03/20 12:02 PM) Body Mass Index [18.5-24.99] 35.41 *>HHI* (07/03/20 12:02 PM) Blood Pressure [90-138/55-84 mm Hg] 96/5 1mm Hg (07/03/20 12:02 PM) Blood pressure sites Arm, left (07/03/20 12:02 PM) Weight Obtained Via Standing scale (07/03/20 12:02 PM) Social History Social History Type Response Smoking Status 5-9 cigarettes (betw een 1/4 to 1/2 pack)/day in last 30 days; Tobacco user in household: Yes entered on: 05/18/20 Sex
--- OUTSIDE RECORDS SUMMARY | 2023-07-16 15:53 | XMS_ITS | Continuity of Care Document ---
Author Name Unknown Organization [facility] [place] [employer]ha Boyer [employer] Address [address], [address] [place] [address]- Care Team Providers Care Visual Aid Expert Name Role Phone Juan ROBERTS, Kenisha Primary Care Physician [phone] [place] [facility] [place] - 08/03/20 [facility] [employer] [facility] [address] [facility], [address] [place] [address]- [facility] Attending Physician: Not on Staff, Attending MD [...]
--- OUTSIDE RECORDS SUMMARY | 2023-07-16 15:53 | XMS_ITS | Continuity of Care Document ---
Author Name Unknown Organization [facility] [place] [employer] [facility] Address [address] [facility], [address] [place] [address]- Care Team Providers Care Pneumatic Tool Repairer Name Role Phone Juan ROBERTS, Kenisha Primary Care Physician En[place] [facility] [place] Date(s): 08/21/20 - 08/28/20 [facility] [employer] [facility] [address] [facility], [address] [place] [address]- [facility] Attending Physician: Bessie Jay MD Referring Physician: Keinsha Martinez MD Allergies, Adverse Reactions, Alerts Substance [...]
--- OUTSIDE RECORDS SUMMARY | 2023-07-16 15:53 | XMS_ITS | Continuity of Care Document ---
Author Name Unknown Organization [facility] Miles Boyer [employer] [facility] Address [address] [place] [address], [address] [place] [address]- Care Team Providers Care Cd Mixer Helper Name Role Phone Juan ROBERTS, Kenisha Primary Care Phys[id number] Date[facility] 05/30/20 - 06/06/20 [facility] [employer] [facility] [address] [facility] [facility], 4th [place] [address]- [facility] Attending Physician: Martine Williamson MD [...] Inform ant Adult ADHD(Confirmed) 2012 Active Anxiety(Confirmed) 2003 Active Chronic hepatitis C(Confirmed) [...] oldest [Reference Range]: 1 Height 157.48 cm (05/30/20 11:39 AM) Weight 88.0 kg (05/30/20 11:39 AM) Body Mass Index [18.5-24.99] 35.48 *>HHI* (05/30/20 11:39 AM) Blood Pressure [90-138/55-84 mm Hg] 101/ 56mm Hg (05/30/20 11:39 AM) Blood pressure sites Arm, right (05/30/20 11:39 AM) Weight Obtained Via Standing scale (05/30/20 11:39 AM) Social History Social History Type Response Smoking Status 5-9 cigarettes (betw een 1/4 to 1/2 pack)/day in last 30 days; Tobacco user in household: Yes entered on: 05/18/20 Sex
--- OUTSIDE RECORDS SUMMARY | 2023-07-16 15:53 | XMS_ITS | Continuity of Care Document ---
Author Name Unknown Organization [facility] Address [address] [place] [address]- Care Team Providers Care Web Design Specialist Name Role Phone Kenisha Martinez MD Primary Care Physician [place] [facility] [place] - 08/12/[address] [address]- [facility] Allergies, Adverse Reactions, Alerts Substance Reaction Severity [...]
--- OUTSIDE RECORDS SUMMARY | 2023-07-16 15:53 | XMS_ITS | Continuity of Care Document ---
Author Name Unknown Organization [facility] [employer]ha Boyer [employer] Address [address] [facility], [address] [place] [address]- Care Team Providers Care Sweep Molder Name Role Phone Juan ROBERTS, Kenisha Primary Care Physician [phone] En[place] [facility] [place] Date(s): 07/05/20 - 08/05/20 [facility] [employer] [address] [facility], [address] [place] [address]- [facility] Attending Physician: Not on Staff, Attending MD Referring Physician: Bushra Alvarez MD Allergies, Adverse Reactions, Alerts Substance [...]
--- OUTSIDE RECORDS SUMMARY | 2023-07-16 15:53 | XMS_ITS | Continuity of Care Document ---
Author Name Unknown Organization [facility] [employer] [facility] Address [address], [address] [place] [address]- Care Team Providers Care Cook Short Order Name Role Phone Juan ROBERTS, Kenisha Primary Care Physician [phone] [place] [facility] [place] 07/07/20 - 08/06/20 [facility] [employer] [address], [address] [place] [address]- [facility] Allergies, Adverse Reactions, Alerts Substance [...]
--- OUTSIDE RECORDS SUMMARY | 2023-07-16 15:53 | XMS_ITS | Continuity of Care Document ---
Author Name Unknown Organization [facility] Address [address] [place] [address]- Care Team Providers Care School Cleaner Name Role Phone Kenisha Martinez MD Primary Care Physician [place] [facility] [place](s[place] 06/08/20 - 07/08/[address] [address]- [facility] Allergies, Adverse Reactions, Alerts Substance Reaction Severity [...]
--- OUTSIDE RECORDS SUMMARY | 2023-07-16 15:53 | XMS_ITS | Continuity of Care Document ---
Author Name Unknown Organization [facility] Miles Boyer [employer] [facility] Address [address] [facility], [address]t [place] [address]- Care Team Providers Care Making Line Worker Name Role Phone Juan ROBERTS, Kenisha Primary Care Physician [place] [facility] [place]/18[place]20 - 01/17/21 [facility] [employer] [facility] [address], [address]th [place] [address]- Attending Physician: Brain Garcia Admitting Physician: AdmBrian vargas Referring Physician: [...] 12/12/20 6:39:00 EST, Route to Pharmacy Electronically, [facility][id number], Partial fill upon patient request if the prescription is for a schedule II opioi... Start Date: 12/12/20 Status: Ordered acyclovir 400 mg oral tablet = 400 mg, By Mouth, Every 8 hours, # 9 tablet, 0 Refills, Maintenance, 12/12/20 6:41:00 EST, Tablet, [facility] #[id number], Partial fill upon patient request if the [...] capsule, 0 Refills, Maintenance, 12/12/20 6:40:00EST, Capsule, [facility] #[id number], Partial fill upon patient request if the prescription isfor a schedule II opioid drug., 158, cm, 12/12/20 0... Start Date: 12/12/20 Status: Ordered fluconazole 150 mg oral tablet 1 tablet = 150 mg, By Mouth, Once, # 1 tablet, 0 Refills, Soft Stop, 10/30/20 17:30:00 EST, Tablet,[facility] #[id number], Partial fill upon patient request if the prescription is for a schedule II opioid drug., 158, cm, 10/29/20 21:46:00 EST, H... Start Date: 10/30/20 Status: Ordered ibuprofen 800 mg oral tablet 800 mg, 1, tablet, By Mouth, Every 8 hours, # 50 tablet, Refills 0, Tot. Refills 0, Maintenance, 12/12/20 6:40:00 EST, Route to Pharmacy Electronically, [facility] #[id number], Partial fill uponpatient request if the prescription is for a schedu... Start Date: 12/12/20 Status: Ordered lidocaine 1% topical lotion See Instructions, Use on right aspect of skin incision wher burning sensation is located. Use only on skin, # 1 pack/packet, 0 Refills, Maintenance, 12/12/20 6:40:00 EST, [facility] #[id number],Partial fill upon patient request if the prescripti... [...] 9:10:00 EST, 11/29/20 9:09:00 EST, REC Powder, [facility] #[id number], Partial fill upon patient request if the [...] 1 Refills, Maintenance, 11/15/20 11:51:00 EST, Tablet, [facility] #[id number], Partial fill upon patient requestif the prescription is for a schedule II opioid drug.,... Start Date: 11/15/20 Status: Ordered oxyCODONE 5 mg oral tablet 5 mg, 1, tablet, By Mouth, Every 4 hours, PRN, # 12 tablet, Refills 0, Tot. Refills 0, Maintenance,Pain , Severe, 12/12/20 6:40:00 EST, Route to Pharmacy Electronically, [facility] #[id number],Partial fill upon patient request if the prescripti... Start Date: 12/12/20 Status: Ordered simethicone 80 mg oral tablet, chewable 80 mg, Chew, 3 times a day, PRN, # 100 tablet, Refills 0, Tot. Refills 0, Maintenance, Gas, 12/12/20 6:40:00 EST, Route to Pharmacy Electronically, [facility] #[id number], Partial fill upon patient request if the [...]
--- OUTSIDE RECORDS SUMMARY | 2023-07-16 15:53 | XMS_ITS | Continuity of Care Document ---
Author Name Unknown Organization [facility] Address [address] [place] [address]- Care Team Providers Care Mechanical Insulator Name Role Phone Juan ROBERTS, Kenisha Primary Care Physician [place] [facility] [place](s): 06/22/20 - 08/12/[address] [address]- [facility] Attending Physician: Not on Staff, Attending MD Allergies, Adverse Reactions, Alerts Substance Reaction [...]
--- OUTSIDE RECORDS SUMMARY | 2023-07-16 15:53 | XMS_ITS | Continuity of Care Document ---
Author Name Unknown Organization [facility] [employer]ha Boyer [employer] [facility] Address [address] [facility], [address] [place] [address]- Care Team Providers Care Senior Engineering Technician Name Role Phone Juan ROBERTS, Kenisha Primary Care Physician En[place] [facility] [place] Date(s): 05/30/20 - 09/09/20 [facility] [employer] [address] [facility], [address] [place], [place] [address] Attending Physician: Martine Williamson MD Allergies, Adverse [...] Inform ant Adult ADHD(Confirmed) 2011 Active Anxiety(Confirmed) 2004 Active Chronic hepatitis C(Confirmed) 2013 Active Constipation(Confirmed) 1988 Active History of depression(Confirmed) 2004 Active History of varicose veins(Confirmed) 2014 Active Methadone maintenance treatm ent affecting , 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
--- OUTSIDE RECORDS SUMMARY | 2023-07-16 15:53 | XMS_ITS | Continuity of Care Document ---
Author Name Unknown Organization [facility] Miles Boyer [employer] [facility] Address [address] [facility], 4t [place] [address]- Care Team Providers Care Metal Roofing Mechanic Name Role Phone Juan ROBERTS, Kenisha Primary Care Physician [place] [facility] [place] - 06[place]02/20 [facility] Miles [employer] [facility] [address] [facility], 4th [place] [address]- [facility] Allergies, Adverse Reactions, Alerts Substance Reaction [...]
--- OUTSIDE RECORDS SUMMARY | 2023-07-16 15:53 | XMS_ITS | Continuity of Care Document ---
Author Name Unknown Organization [facility] Miles Boyer [employer] [facility] Address [address] [place] [address], 4t [place] [address]- Care Team Providers Care Appeals And Generalist Clerk Name Role Phone Juan ROBERTS, Kenisha Primary Care Physician En[facility] [id number] Date(s): 05/30/20 - 06/06/20 [facility] [employer] [facility] [address] [facility], 4th [place] [address]- [facility] Attending Physician: Bessie Jay MD Referring Physician: Martine Williamson MD Allergies, [...]
--- OUTSIDE RECORDS SUMMARY | 2023-07-16 15:53 | XMS_ITS | Continuity of Care Document ---
Author Name Unknown Organization [facility] [employer] Address [address] [facility], [address] [place] [address]- Care Team Providers Care Artificial Flowers Starcher Name Role Phone Juan ROBERTS, Kenisha Primary Care Physician [place] [facility] [place] Date(s): 07/05/20 - 08/04/20 [facility] [employer] [address] [facility], [address] [place] [address]- [facility] Allergies, Adverse Reactions, Alerts Substance Reaction Severity [...]
--- OUTSIDE RECORDS SUMMARY | 2023-07-16 15:53 | XMS_ITS | Continuity of Care Document ---
Author Name Unknown Organization [facility]ha Boyer [employer] Address [address] [facility], [address] [place] [address]- Care Team Providers Care Arabic Translator Name Role Phone Juan ROBERTS, Kenisha Primary Care Physician [phone] Encounter [facility] [id number] Date(s): 04/20/20 - 04/27/20 [facility] [employer] [facility] [address], [address] [place] [address]- [facility] Attending Physician: Mendez Ojeda MD Allergies, Adverse Reactions, Alerts Substance Reaction Severity Status NKA Active Medications Adderall 30 mg oral tablet 1 tablet = 30 mg, By Mouth, PRN Other, 0 Refills, Maintenance, 06/19/17 13:06:55 Start Date: 06/19/17 Status: Ordered gabapentin 400 mg oral capsule 400 mg, 1, capsule, By Mouth, 2 times a day, PRN, Refills 0, Maintenance, Pain , Moderate, 06/19/1713:07:24 Start Date: 06/19/17 Status: Ordered Methadone = 75 mg, By Mouth, Daily, 0 Refills, Maintenance, 12/15/11 3:57:52 Start Date: 12/15/11 Status: Ordered morphine 15 mg/12 hr oral tablet, extended release = 15 mg, By Mouth, Every 12 hours, # 14 capsule, 0 Refills, Maintenance, 06/22/17 9:07:27, CR Tablet Start Date: 06/22/17 Status: Ordered Xanax Tablet 2 mg, By Mouth, 4 times a day, PRN, Maintenance, as needed for anxiety, 12/15/11 3:57:58 Start Date: 12/15/11 Status: Ordered Social History Social History Type Response Smoking Status Current every day herberth browning entered on: 06/06/17 Sex
--- OUTSIDE RECORDS SUMMARY | 2023-07-16 15:53 | XMS_ITS | Continuity of Care Document ---
Author Name Unknown Organization [facility] Miles haney[employer]elig[employer] [facility] Address [address], [address] [place] [address]- Care Team Providers Care Computer Consultant Name Role Phone Juan ROBERTS, Kenisha Primary Care Physician [place] [facility] [place] Date(s): 01/01/21 - 01/31/21 [facility] [employer] [facility] [address], 4th [place] [address]- Allergies, Adverse Reactions, Alerts Substance Reaction Severity [...] 12/12/20 6:39:00 EST, Route to Pharmacy Electronically, [facility] #[id number], Partial fill upon patient request if the prescription is for a schedule II opioi... Start Date: 12/12/20 Status: Ordered acyclovir 400 mg oral tablet = 400 mg, By Mouth, Every 8 hours, # 9 tablet, 0 Refills, Maintenance, 12/12/20 6:41:00 EST, Tablet, [facility] #[id number], Partial fill upon patient request if the [...] capsule, 0 Refills, Maintenance, 12/12/20 6:40:00EST, Capsule, [facility] #[id number], Partial fill upon patient request if the prescription isfor a schedule II opioid drug., 158, cm, 12/12/20 0... Start Date: 12/12/20 Status: Ordered fluconazole 150 mg oral tablet 1 tablet = 150 mg, By Mouth, Once, # 1 tablet, 0 Refills, Soft Stop, 10/30/20 17:30:00 EST, Tablet,[facility] #[id number], Partial fill upon patient request if the prescription is for a schedule II opioid drug., 158, cm, 10/29/20 21:46:00 EST, H... Start Date: 10/30/20 Status: Ordered ibuprofen 800 mg oral tablet 800 mg, 1, tablet, By Mouth, Every 8 hours, # 50 tablet, Refills 0, Tot. Refills 0, Maintenance, 12/12/20 6:40:00 EST, Route to Pharmacy Electronically, [facility] #[id number], Partial fill uponpatient request if the prescription is for a schedu... Start Date: 12/12/20 Status: Ordered lidocaine 1% topical lotion See Instructions, Use on right aspect of skin incision wher burning sensation is located. Use only on skin, # 1 pack/packet, 0 Refills, Maintenance, 12/12/20 6:40:00 EST, [facility] #[id number],Partial fill upon patient request if the prescripti... [...] 9:10:00 EST, 11/29/20 9:09:00 EST, REC Powder, [facility] #[id number], Partial fill upon patient request if the [...] 1 Refills, Maintenance, 11/15/20 11:51:00 EST, Tablet, [facility] #[id number], Partial fill upon patient requestif the prescription is for a schedule II opioid drug.,... Start Date: 11/15/20 Status: Ordered oxyCODONE 5 mg oral tablet 5 mg, 1, tablet, By Mouth, Every 4 hours, PRN, # 12 tablet, Refills 0, Tot. Refills 0, Maintenance,Pain , Severe, 12/12/20 6:40:00 EST, Route to Pharmacy Electronically, [facility] #[id number],Partial fill upon patient request if the prescripti... Start Date: 12/12/20 Status: Ordered simethicone 80 mg oral tablet, chewable 80 mg, Chew, 3 times a day, PRN, # 100 tablet, Refills 0, Tot. Refills 0, Maintenance, Gas, 12/12/20 6:40:00 EST, Route to Pharmacy Electronically, [facility] #[id number], Partial fill upon patient request if the [...]
--- OUTSIDE RECORDS SUMMARY | 2023-07-16 15:53 | XMS_ITS | Continuity of Care Document ---
Author Name Unknown Organization [facility] Address [address] [place] [address]- Care Team Providers Care Relish Blender Name Role Phone Juan ROBERTS, Kenisha Primary Care Physician [place] [facility] [place] 05/30/20 - 06/29/20 [facility] [address] [place] [address]- [facility] Allergies, Adverse Reactions, Alerts Substance Reaction [...] Pap smear(Confirmed) 2015 Active History of chlamydia(Confirmed) 2014 Active History of opioid abuse(Confirmed) 2006 Active Anemia, iron deficiency(Confirmed) 2012 Active Marijuana use(Confirmed) 2019 Active Obesity(Confirmed) 2019 Active Obstructive sleep apnea(Confirmed) 2019 Active Prolapse of female pelvic organs(Confirmed) 2019 Active Tobacco abuse(Confirmed) 2019 Active Social History Social History Type Response Smoking Status 5-9 cigarettes (betw een 1/4 to 1/2 pack)/day in last 30 days; Tobacco user in household: Yes entered on: 05/18/20 Sex
--- OUTSIDE RECORDS SUMMARY | 2023-07-16 15:53 | XMS_ITS | Continuity of Care Document ---
Author Name Unknown Organization [facility] [employer] Boyer [employer] Address [address] [facility], [address] [place] [address]- Care Team Providers Care Continuous Improvement Lead Name Role Phone Juan ROBERTS, Kenisha Primary Care Physician En[place] [facility] [place] Date(s): 07/31/20 - 09/09/20 [facility] [employer] [facility] [address] [facility], [address] [place] [address]- Attending Physician: Fatmata Campos MD Referring Physician: Krystle Dodge CNM Allergies, Adverse Reactions, Alerts Substance Reaction Severity [...]
--- OUTSIDE RECORDS SUMMARY | 2023-07-16 15:53 | XMS_ITS | Continuity of Care Document ---
Author Name Unknown Organization [facility] [employer] Address [address] [facility], [address] [place] [address]- Care Team Providers Care Cottage Parent Name Role Phone Juan ROBERTS, Kenisha Primary Care Physician [phone] [place] [facility] [place] Date(s): 07/18/20 - 08/17/20 [facility] [employer] [facility] [address] [facility], [address] [place] [address]- [facility] Allergies, Adverse Reactions, Alerts Substance Reaction [...]
[2023-07-16 16:15] VITALS: BP 154/89; PULSE 54; RESP 16; TEMP 36.6; O2SAT 98
[2023-07-16] MEDS: HYDROmorphone HCl 0.5 MG/0.5 ML SYRINGE IVPUSH ×3 (16:47→19:00)
[2023-07-16] MEDS: 0.9 % Sodium Chloride 1,000 ML 999 ML IV (16:48)
[2023-07-16] MEDS: ondansetron HCL 4 MG/2 ML VIAL IVPUSH ×2 (17:13→20:56)
[2023-07-16 17:43] VITALS: BP 133/88; PULSE 50; RESP 16; TEMP 36.6; O2SAT 98
[2023-07-16 17:56] LABS: Appearance Urine Cloudy; Color Urine Dark Yellow; Glucose Urine UA Negative (Negative); Leukocyte Esterase Urine Trace (Negative); Nitrite Urine Negative (Negative); PH 5.5 (5.0-9.0); Specific Gravity - Urine >= 1.030 (1.005-1.025); UMIC TRIGGER UACC YES; UPreg QC Valid YES; Urine Blood Negative (Negative); Urine Ketones Trace mg/dL (Negative); Urine Pregnancy NEGATIVE (NEGATIVE); Urine Protein 30 (1+) mg/dL (Neg-Trace)
[2023-07-16 18:02] LABS: Amphetamine Screen Urine Not Detected (Not Detect); Barbiturates, Urine Not Detected (Not Detect); Benzodiazepines Screen Urine POSITIVE (Not Detect); Cannabinoid Screen Urine POSITIVE (Not Detect); Cocaine Screen Urine Not Detected (Not Detect); Fentanyl, urine Not Detected (Not Detect); Opiate Screen Urine Not Detected (Not Detect); Phencyclidine Screen Urine Not Detected (Not Detect)
--- NOTE | 2023-07-16 18:27 | PC.NURSE ---
Pt requesting my xanax. Dr ricci notified, declined to order xanax.
--- NOTE | 2023-07-16 18:46 | PC.NURSE ---
Pt requesting more pain medication, MD ricci notified.
[2023-07-16 19:08] LABS: RBC Urine 0-2 /HPF (0-2)
[2023-07-16 19:09] LABS: Bacteria Urine 2+ (None Seen); Hyaline Casts Urine 0-2 /LPF (0-2); WBC Urine 0-5 /HPF (0-5)
[2023-07-16] MEDS: iohexoL 350 MG/ML 100 ML INFUS..BTL IV (19:32)
--- NOTE | 2023-07-16 20:06 | PHA.MEDREC ---
Addendum entered by Zahraa Duckworth RPh 07/16/23 20:28: Patient gets methadone from [facility], will need to be confirmed by the RN in the morning. Original Note: Pharmacy Consult ? Medication Reconciliation Pharmacy has completed the medication reconciliation. Patient reported she is trying to self-restart her acamprosate, last took a tablet today. Patient reported taking her adderall prn instead of scheduled. Zahraa Duckworth, PharmD
--- NOTE | 2023-07-16 20:17 | P.HPHOSP_ITS ---
History of Present Illness Date of Service: 07/16/23 Chief Complaint: Abdominal Pain This is a 32-year-old female with pertinent history of alcohol use disorder, opioid use disorder on methadone, mood disorder who presents to the emergency department for evaluation of abdominal pain. Patient states that started 2 days prior to presentation. Located in the epigastric region and radiating to the back. Initially it was intermittent but progressed to being constant. Associated with nausea and vomiting. Also has decreased p.o. intake in the last 2 days. Patient states her last alcoholic drink was 3 days prior to presentation. No history of alcohol withdrawal. Does have a history of alcoholic pancreatitis. No fever, chills, chest discomfort, palpitations, shortness of breath, changes in urinary or bowel habits. In the emergency department, lipase found to be elevated and imaging concerning for acute pancreatitis. Review of Systems 2 Constitutional: Constitutional: Reports fatigue and Reports malaise Cardiovascular: Cardiovascular: Reports no additional cardiovascular complaints Respiratory: Respiratory: Reports no additional respiratory complaints Gastrointestinal: Gastrointestinal: Reports abdominal pain, Reports nausea and Reports vomiting Genitourinary: Genitourinary: Reports no additional female genitourinary complaints Endocrine: Endocrine: Reports fatigue [facility] Medical History (Updated 07/16/23 @ 20:21 by Vera Reed MD) Mood disorder Opioid abuse Alcohol use disorder Pertinent family history: No family history of early CAD Social History Alcohol intake: current Alcohol intake frequency: 3 or more drinks per day Smoked in Last 30 Days: No Use of substances other than those prescribed or required for medical reasons: Yes Substance Use Frequency: Chronic Longstanding Any prior treatment program specific to substance use: Yes (methadone) Advance Directives: No Advance Directives Information Provided: No Meds Allergies Allergy/AdvReac Type Severity Reaction Status Date / Time No Known Allergies Allergy Verified 07/16/23 13:41 Active Medications: Current Medications Hydromorphone HCl (Hydromorphone Hcl 0.5 Mg/0.5 Ml Syringe) 0.5 mg IVPUSH Q30M PRN; Protocol PRN Reason: Pain, Severe (Pain Scale 7-10) Last Admin: 07/16/23 19:00 Dose: 0.5 mg Home Medications Medication Instructions Recorded Confirmed Last Taken Type acamprosate 333 mg tablet,delayed 666 mg PO TID 07/16/23 07/16/23 07/16/23 History release albuterol sulfate 90 mcg/actuation 2 puff inhalation Q4-6H PRN 07/16/23 07/16/23 Unknown History aerosol inhaler (Ventolin HFA) Shortness Of Breath Or Wheezing alprazolam 2 mg tablet 2 mg PO TID PRN anxiety 07/16/23 07/16/23 Unknown History dextroamphetamine-amphetamine 10 1 tab PO BID PRN attention deficit 07/16/23 07/16/23 Unknown History mg tablet hyperactivity disorder dextroamphetamine-amphetamine ER 1 cap PO QAM PRN attention deficit 07/16/23 07/16/23 Unknown History 30 mg 24hr capsule,extend release hyperactivity disorder (Adderall XR) Physical Exam 2 Vital Signs and Narrative: Vital Signs: Last Vital Signs Temp 97.9 F 07/16/23 17:43 Pulse 50 07/16/23 17:43 Resp 16 07/16/23 17:43 BP 133/88 07/16/23 17:43 Pulse Ox 98 07/16/23 17:43 O2 Del Method Room Air 07/16/23 17:43 BMI result Body Mass Index 36.2 Middle-aged female lying in bed in mild distress Neck supple, no JVD Regular rate and rhythm, S1-S2 heard Regular breath sounds bilaterally, no wheezing or crackles appreciated Abdomen with epigastric tenderness, no guarding, no rigidity, no rebound tenderness Patient is awake, alert and oriented to self, place, time and person ; no focal motor deficit Psych: Normal mood No pedal edema Results Labs 07/16/23 14:02 07/16/23 14:02 Labs: Laboratory Results - last 24 hr 07/16/23 07/16/23 14:02 17:45 MCV 94.6 MCH 32.6 MCHC 34.4 RDW 12.3 Plt Count 228 MPV 11.3 Immature Gran % (Auto) 0.5 H Neut % (Auto) 77.6 H Lymph % (Auto) 16.0 L [place] % (Auto) 5.3 Eos % (Auto) 0.1 Baso % (Auto) 0.5 Lymph # (Auto) 1.7 [place] # (Auto) 0.6 Eos # (Auto) 0.0 Baso # (Auto) 0.1 Abs Immat Gran (auto) 0.05 H Absolute Neuts (auto) 8.0 Absolute Nucleated RBC 0.000 Nucleated RBC % (auto) 0.0 Anion Gap 19 Estim Creat Clear Calc 85.1 Estimated GFR > 60 Random Glucose 148 H Calcium 9.6 Magnesium 1.6 Total Bilirubin 1.3 H AST 153 H ALT 84 H Alkaline Phosphatase 94 Total Protein 8.2 H Albumin 4.2 Lipase 278 H Urine Color Dark Yellow Urine Appearance Cloudy Urine pH 5.5 Ur Specific [place] >= 1.030 H Urine Protein 30 (1+) H Urine Glucose (UA) Negative Urine Ketones Trace Urine Blood Negative Urine Nitrite Negative Ur Leukocyte Esterase Trace H Urine RBC 0-2 Urine WBC 0-5 Ur Squamous Epith Cells 3-5 Urine Bacteria 2+ Hyaline Casts 0-2 Urine Test NEGATIVE Urine Opiates Screen Not Detected Urine Fentanyl Screen Not Detected Ur Barbiturates Screen Not Detected Ur Phencyclidine Scrn Not Detected Ur Amphetamines Screen Not Detected U Benzodiazepines Scrn POSITIVE H Urine Cocaine Screen Not Detected U Marijuana (THC) Screen POSITIVE H Ethyl Alcohol < 10 Imaging Radiologist's Impressions: Impressions Abdomen Ultrasound 07/16/23 17:00 IMPRESSION: Diffuse fatty infiltration of the liver. Limited examination. Abdomen/Pelvis CT 07/16/23 19:32 IMPRESSION: Mild peripancreatic inflammatory changes and fluid tracking along the left anterior pararenal space consistent with acute pancreatitis. No evidence for pancreatic necrosis. Diffuse fatty infiltration of the liver. Assessment and Plan (1) Acute alcoholic pancreatitis: Status: Acute Plan This is a 32-year-old female with pertinent history of alcohol use disorder, opioid use disorder on methadone, mood disorder who presents to the emergency department for evaluation of abdominal pain. #. acute pancreatitis, likely in the setting of alcohol use. Imaging without gallbladder disease. Triglyceride pending. Continue IV fluid resuscitation. Will keep NPO for bowel rest. IV opioids p.r.n. for symptomatic relief. Monitor for improvement in symptoms and advance diet as tolerated. #. Alcohol use disorder. Monitor CIWA. Initiating thiamine and folic acid. Consulting addiction team and care team #. mood disorder. On Xanax t.i.d. p.r.n. DVT prophylaxis: Lovenox Full code Admit as inpatient and will require two night minimum hospital stay for IV fluid resuscitation. Time Spent With Patient Time: Total time managing care of this patient today ____ minutes. Quality Stroke Does the patient have a stroke diagnosis?: No VTE Prior VTE?: No VTE Risk Level:: Medical - moderate - high VTE Device Contraindication: Treatment Not Indicated VTE Drug Contraindication: N/A - Med Ordered
[2023-07-16 20:40] LABS: Triglycerides 690 mg/dL (<150)
[2023-07-16] MEDS: Thiamine HCL 100 MG in 0.9 % Sodium Chloride 100 ML 202 MG IV (20:51)
[2023-07-16] MEDS: ALPRAZolam 0.5 MG TABLET 2 MG PO (20:51)
[2023-07-16] MEDS: Melatonin 3 MG TABLET 6 MG PO (20:51)
[2023-07-16] MEDS: Enoxaparin Sodium 40 MG/0.4 ML SYRINGE SUBCUT (20:52)
[2023-07-16] MEDS: Acetaminophen 325 MG TABLET 650 MG PO (20:56)
[2023-07-16] MEDS: Morphine Sulfate 4 MG/ML CARTRIDGE IVPUSH (20:56)
[2023-07-16] MEDS: 0.9 % Sodium Chloride 1,000 ML 100 ML IVCONT (21:41)
[2023-07-16] MEDS: Acamprosate Calcium 333 MG TABLET.DR 666 MG PO (21:42)
[2023-07-16 23:41] VITALS: BP 151/97; PULSE 62; RESP 16; TEMP 36.8; O2SAT 96
--- NOTE | 2023-07-16 23:45 | MHC.EDTECH ---
Pt ambulated to bathroom with steady gait.
[2023-07-17] MEDS: Metoclopramide HCl 10 MG/2 ML VIAL IVPUSH (00:18)
[2023-07-17] MEDS: Morphine Sulfate 4 MG/ML CARTRIDGE IVPUSH ×3 (00:44→22:22)
[2023-07-17] MEDS: ondansetron HCL 4 MG/2 ML VIAL IVPUSH ×3 (01:05→12:36)
[2023-07-17] MEDS: HYDROmorphone HCl 0.5 MG/0.5 ML SYRINGE IVPUSH ×2 (03:32→09:20)
[2023-07-17 05:41] LABS: Alanine Aminotransferase 63 U/L (0-31); Albumin Level 3.5 g/dL (3.5-5.0); Alkaline Phosphatase 86 U/L (39-117); Anion Gap 15 (12-20); Aspartate Amino Transferase 107 U/L (5-31); Bilirubin Total 1.5 mg/dL (0.0-1.0); Blood Urea Nitrogen 13 mg/dL (9-16); Carbon Dioxide 22 mmol/L (22-29); Chloride 106 mmol/L (96-108); Creatinine Clr Calc Pharmacy 100.6; Estimated Glomerular Filt Rate > 60; Glucose Random 108 mg/dL (60-115); Potassium 3.8 mmol/L (3.3-5.1); Sodium 139 mmol/L (135-145); Total Protein 7.4 g/dL (6.5-8.0)
[2023-07-17] MEDS: Thiamine HCL 100 MG TABLET PO (09:08)
[2023-07-17] MEDS: Folic Acid 1 MG TABLET PO (09:08)
[2023-07-17] MEDS: 0.9 % Sodium Chloride 1,000 ML 100 ML IVCONT (09:09)
[2023-07-17] MEDS: ALPRAZolam 0.5 MG TABLET 2 MG PO (09:20)
--- NOTE | 2023-07-17 10:30 | PC.NURSE ---
Addendum entered by Harrison Simms RN 07/17/23 13:00: addendum to note below: Bushra reported that pt got 6 take home bottles to cover 07/11-07/17. (77 mg each bottle). Original Note: release of information signed by pt and faxed ([phone])to [facility] in [place]. Methadone dose verified by Bushra ([phone]). Verification form faxed to pharmacy.
[2023-07-17] MEDS: Acamprosate Calcium 333 MG TABLET.DR 666 MG PO (10:51)
--- NOTE | 2023-07-17 11:34 | HE.PHANOTE ---
RE: methadone Received last dose verification form from [facility]; 77mg. Per Harrison, patient given take home bottles (quantity of 6) on 07/11/23; last dose 77mg on 07/16/23.
[2023-07-17] MEDS: PHENobarbitaL sodium 130 MG/ML IM ONCE 120 MG IM (12:00)
[2023-07-17] MEDS: Lactated Ringers 1,000 ML 150 ML IVCONT ×2 (12:02→18:18)
[2023-07-17] MEDS: methADONE HCl 20 MG/2 ML ORAL.CONC 77 MG PO (12:29)
--- NOTE | 2023-07-17 13:08 | PC.NURSE ---
NS d/c'd, LR started at 150 ml/hr. methadone given as documented.
--- NOTE | 2023-07-17 13:18 | HO.PM.IMPN ---
Subjective Subjective Date of Service: 07/17/23 Interval History: seen and examined this morning follow up for pancreatitis ongoing epigastric adominal paiin Review of Systems Review of Systems: Yes all other systems are reviewed and are negative Constitutional Constitutional: Denies chills and Denies fever(s) Cardiovascular Cardiovascular: Denies chest pain, Denies palpitations and Denies dyspnea Respiratory Respiratory: Denies cough and Denies dyspnea Gastrointestinal Gastrointestinal: Reports abdominal pain, Denies nausea and Denies vomiting Endocrine Endocrine: Denies palpitations Physical Exam Vital Signs: Vital Signs: Last Vital Signs Temp 98.2 F 07/16/23 23:41 Pulse 62 07/16/23 23:41 Resp 16 07/16/23 23:41 BP 151/97 H 07/16/23 23:41 Pulse Ox 96 07/16/23 23:41 O2 Del Method Room Air 07/16/23 23:41 BMI result Body Mass Index 36.2 Const: General: no acute distress, alert and awake Nutritional Appearance: overweight Orientation/consciousness: patient oriented x3 Resp: Effort & Inspection: normal respiratory effort, able to speak in complete sentences, no respiratory distress and no use of accessory muscles Auscultation: clear to auscultation bilaterally Cardio: Rate: regular rate Heart sounds: S1 normal heart sound present and S2 normal heart sound present GI: Other: epigastric tenderness Inspection: No distended Palpation (GI): Soft to palpation Neuro: General: patient oriented x3, moves all extremities and CN's II-XI intact bilaterally Extrem: General: Yes no pedal edema Objective Data Active Medications Acetaminophen (Acetaminophen 325 Mg Tablet) 650 mg PO Q6H PRN PRN Reason: Pain, Mild (Pain Scale 1-3) Last Admin: 07/16/23 20:56 Dose: 650 mg Documented By: SHAWN Albuterol Sulfate (Albuterol Sulfate 90 Mcg 8 Gm Inhaler) 2 puff INHALE Q4H PRN PRN Reason: Shortness Of Breath Or Wheezing Alprazolam (Alprazolam 0.5 Mg Tablet) 2 mg PO TID PRN PRN Reason: anxiety Last Admin: 07/17/23 09:20 Dose: 2 mg Documented By: HEATHER Enoxaparin Sodium (Enoxaparin Sodium 40 Mg/0.4 Ml Syringe) 40 mg SUBCUT Q24H [facility] Last Admin: 07/16/23 20:52 Dose: 40 mg Documented By: SHAWN Folic Acid (Folic Acid 1 Mg Tablet) 1 mg PO DAILY [facility] Last Admin: 07/17/23 09:08 Dose: 1 mg Documented By: HEATHER Lactated Ringer's (Lr) 1,000 mls @ 150 mls/hr IVCONT .Q6H40M [facility] Last Admin: 07/17/23 12:02 Dose: 150 mls/hr Documented By: HEATHER Melatonin (Melatonin 3 Mg Tablet) 6 mg PO BEDTIME PRN PRN Reason: Insomnia Last Admin: 07/16/23 20:51 Dose: 6 mg Documented By: SHAWN Methadone HCl (Methadone Hcl 20 Mg/2 Ml Oral.Conc) 77 mg PO DAILY [facility] Last Admin: 07/17/23 12:29 Dose: 77 mg Documented By: HEATHER Morphine Sulfate (Morphine Sulfate 4 Mg/Ml Cartridge) 4 mg IVPUSH Q4H PRN; Protocol PRN Reason: Pain, Severe (Pain Scale 7-10) Last Admin: 07/17/23 00:44 Dose: 4 mg Documented By: MODESTA Ondansetron HCl (Ondansetron Hcl 4 Mg/2 Ml Vial) 4 mg IVPUSH Q6H PRN PRN Reason: Nausea and Vomiting Last Admin: 07/17/23 12:36 Dose: 4 mg Documented By: HEATHER Pharmacy Consult (Consult Rx Etoh Phenob Im/Po) 1 each MISCELLANE ONCE PRN; Protocol PRN Reason: Consult order Phenobarbital (Phenobarbital 15 Mg Tablet) 45 mg PO BID [facility]; Protocol Stop: 07/19/23 21:01 Phenobarbital (Phenobarbital 15 Mg Tablet) 15 mg PO BID [facility]; Protocol Stop: 07/21/23 21:01 Phenobarbital (Phenobarbital 15 Mg Tablet) 15 mg PO DAILY [facility]; Protocol Stop: 07/23/23 09:01 Phenobarbital Sodium (Phenobarbital Sodium 130 Mg/Ml Vial Im Q3hx2) 90 mg IM Q3H [facility]; Protocol Stop: 07/17/23 17:16 Sodium Chloride (0.9 % Sodium Chloride Flush 3 Ml Syringe) 3 ml IVFLUSH QSHIFT [facility] Last Admin: 07/17/23 00:20 Dose: Not Given Documented By: SHAWN Non-Admin Reason: IV Running Thiamine HCl (Thiamine Hcl 100 Mg Tablet) 100 mg PO DAILY [facility] Last Admin: 07/17/23 09:08 Dose: 100 mg Documented By: HEATHER Labs 07/16/23 14:02 07/17/23 05:15 Labs: Laboratory Results - last 24 hr 07/16/23 07/16/23 07/16/23 14:02 14:10 17:45 MCV 94.6 MCH 32.6 MCHC 34.4 RDW 12.3 Plt Count 228 MPV 11.3 Immature Gran % (Auto) 0.5 H Neut % (Auto) 77.6 H Lymph % (Auto) 16.0 L [place] % (Auto) 5.3 Eos % (Auto) 0.1 Baso % (Auto) 0.5 Lymph # (Auto) 1.7 [place] # (Auto) 0.6 Eos # (Auto) 0.0 Baso # (Auto) 0.1 Abs Immat Gran (auto) 0.05 H Absolute Neuts (auto) 8.0 Absolute Nucleated RBC 0.000 Nucleated RBC % (auto) 0.0 Anion Gap 19 Estim Creat Clear Calc 85.1 Estimated GFR > 60 Random Glucose 148 H Calcium 9.6 Magnesium 1.6 Total Bilirubin 1.3 H AST 153 H ALT 84 H Alkaline Phosphatase 94 Total Protein 8.2 H Albumin 4.2 Triglycerides 690 H Lipase 278 H Urine Color Dark Yellow Urine Appearance Cloudy Urine pH 5.5 Ur Specific [place] >= 1.030 H Urine Protein 30 (1+) H Urine Glucose (UA) Negative Urine Ketones Trace Urine Blood Negative Urine Nitrite Negative Ur Leukocyte Esterase Trace H Urine RBC 0-2 Urine WBC 0-5 Ur Squamous Epith Cells 3-5 Urine Bacteria 2+ Hyaline Casts 0-2 Urine Test NEGATIVE Urine Opiates Screen Not Detected Urine Fentanyl Screen Not Detected Ur Barbiturates Screen Not Detected Ur Phencyclidine Scrn Not Detected Ur Amphetamines Screen Not Detected U Benzodiazepines Scrn POSITIVE H Urine Cocaine Screen Not Detected U Marijuana (THC) Screen POSITIVE H Ethyl Alcohol < 10 07/17/23 05:15 MCV MCH MCHC RDW Plt Count MPV Immature Gran % (Auto) Neut % (Auto) Lymph % (Auto) [place] % (Auto) Eos % (Auto) Baso % (Auto) Lymph # (Auto) [place] # (Auto) Eos # (Auto) Baso # (Auto) Abs Immat Gran (auto) Absolute Neuts (auto) Absolute Nucleated RBC Nucleated RBC % (auto) Anion Gap 15 Estim Creat Clear Calc 100.6 Estimated GFR > 60 Random Glucose 108 Calcium 9.0 D Magnesium Total Bilirubin 1.5 H AST 107 H ALT 63 H Alkaline Phosphatase 86 Total Protein 7.4 Albumin 3.5 Triglycerides Lipase Urine Color Urine Appearance Urine pH Ur Specific [place] Urine Protein Urine Glucose (UA) Urine Ketones Urine Blood Urine Nitrite Ur Leukocyte Esterase Urine RBC Urine WBC Ur Squamous Epith Cells Urine Bacteria Hyaline Casts Urine Test Urine Opiates Screen Urine Fentanyl Screen Ur Barbiturates Screen Ur Phencyclidine Scrn Ur Amphetamines Screen U Benzodiazepines Scrn Urine Cocaine Screen U Marijuana (THC) Screen Ethyl Alcohol Assessment and Plan (1) Alcohol use disorder: Status: Acute (2) Acute alcoholic pancreatitis: Status: Acute Plan This is a 32-year-old female with pertinent history of alcohol use disorder, opioid use disorder on methadone, mood disorder who presents to the emergency department for evaluation of abdominal pain. acute pancreatitis likely multifactorial related to alcohol use, elevated Triglyceride could also be contributing factor clear liquids, IVF, pain control ADAT elevated triglycerides TG 690 will start fenofibrate will need outpatient follow up Alcohol dependence will start phenobarbitol protocol follow CIWA continue thiamine and folic acid addiction medicine consult pending mood disorder On Xanax t.i.d. p.r.n. -stop while on phenobarbitol DVT prophylaxis: Lovenox Full code Admit as inpatient and will require two night minimum hospital stay for IV fluid resuscitation. Time Spent With Patient Time: Total time managing care of this patient today ____ minutes. Quality Stroke Does the patient have a stroke diagnosis?: No VTE Prior VTE?: No VTE Risk Level:: Medical - moderate - high VTE Device Contraindication: Treatment Not Indicated VTE Drug Contraindication: N/A - Med Ordered
[2023-07-17 14:16] VITALS: BP 129/100; PULSE 82; RESP 16; TEMP 36.5; O2SAT 95
[2023-07-17] MEDS: PHENobarbitaL sodium 130 MG/ML VIAL IM Q3Hx2 90 MG IM ×2 (15:27→18:17)
--- NOTE | 2023-07-17 16:31 | PC.NURSE ---
IV to right lower arm infiltrated , IV fluids stopped. Unable to obtain IV access , Charge nurse at main ED called for support , waiting for other RN to do IV . Report called to Eddie CLANCY on med surge, mary Bassettaiah was notified and waiting for pt to be transferred to [id number]
--- NOTE | 2023-07-17 16:57 | PC.NURSE ---
IV inserted by ED RN , #20 right lower arm , IV fluids resumed
[2023-07-17 17:19] VITALS: BMI 35.9
[2023-07-17 18:04] VITALS: BP 131/84; PULSE 73; RESP 17; TEMP 36.4; O2SAT 97
--- NOTE | 2023-07-17 18:20 | MHC.RECOVRN ---
This newswriter met with patient after receiving addiction consult. Pt was admitted for ETOH withdrawal and pancreatitis. Pt was resting in bed, awake to verbal command. Pt request Addiction/Recovery to return tomorrow. Resource folder left at bedside. Addiction/Recovery to return tomorrow when patient more alert.
[2023-07-17] MEDS: Enoxaparin Sodium 40 MG/0.4 ML SYRINGE SUBCUT (20:41)
[2023-07-17] MEDS: Acetaminophen 325 MG TABLET 650 MG PO (20:41)
[2023-07-17] MEDS: Melatonin 3 MG TABLET 6 MG PO (22:22)
[2023-07-17 22:54] VITALS: RESP 16
[2023-07-18] MEDS: Lactated Ringers 1,000 ML 150 ML IVCONT ×4 (00:21→22:43)
[2023-07-18] MEDS: HYDROmorphone HCl 0.5 MG/0.5 ML SYRINGE IVPUSH (01:33)
[2023-07-18 02:07] VITALS: RESP 18
[2023-07-18 03:07] VITALS: BP 130/65; PULSE 65; RESP 17; TEMP 36.8; O2SAT 97
[2023-07-18] MEDS: Morphine Sulfate 4 MG/ML CARTRIDGE IVPUSH ×4 (06:07→20:40)
[2023-07-18 06:17] LABS: Alanine Aminotransferase 44 U/L (0-31); Albumin Level 3.4 g/dL (3.5-5.0); Alkaline Phosphatase 74 U/L (39-117); Anion Gap 12 (12-20); Aspartate Amino Transferase 72 U/L (5-31); Bilirubin Direct 0.4 mg/dL (0.0-0.5); Bilirubin Total 1.4 mg/dL (0.0-1.0); Blood Urea Nitrogen 6 mg/dL (9-16); Calcium 8.7 mg/dL (8.4-10.2); Carbon Dioxide 26 mmol/L (22-29); Chloride 104 mmol/L (96-108); Creatinine Clr Calc Pharmacy 102.8; Estimated Glomerular Filt Rate > 60; Glucose Random 78 mg/dL (60-115); Potassium 3.6 mmol/L (3.3-5.1); Sodium 138 mmol/L (135-145); Total Protein 6.9 g/dL (6.5-8.0)
[2023-07-18 06:32] LABS: Lipase 282 U/L (8-78)
[2023-07-18] MEDS: Thiamine HCL 100 MG TABLET PO (07:25)
[2023-07-18] MEDS: Fenofibrate,Micronized 134 MG CAPSULE PO (07:26)
[2023-07-18] MEDS: PHENobarbitaL 15 MG TABLET 45 MG PO ×2 (07:26→20:46)
[2023-07-18] MEDS: 0.9 % Sodium Chloride Flush 3 ML SYRINGE IVFLUSH ×3 (07:27→20:45)
[2023-07-18] MEDS: methADONE HCl 20 MG/2 ML ORAL.CONC 77 MG PO (07:28)
[2023-07-18] MEDS: Folic Acid 1 MG TABLET PO (07:28)
[2023-07-18 07:31] VITALS: BP 121/78; PULSE 74; RESP 16; TEMP 36; O2SAT 92
[2023-07-18] MEDS: Acetaminophen 325 MG TABLET 650 MG PO ×2 (07:33→20:46)
[2023-07-18] MEDS: Famotidine/PF 20 MG/2 ML VIAL IVPUSH (09:21)
--- NOTE | 2023-07-18 11:44 | MHC.CM.PN ---
pt lives with mother ,she goes to [facility] she has her own ride ian pt has a chilkd who lives with the father dc plan resume clinic
[2023-07-18] MEDS: polyethylene glycoL 3350 17 GM POWD.PACK PO (14:02)
--- NOTE | 2023-07-18 15:14 | P.PNIM_ITS ---
Subjective Subjective Date of Service: 07/18/23 Interval History: seen and examined this morning follow up for pancreatitis reporting ongoing abdominal pain Review of Systems Review of Systems: Yes all other systems are reviewed and are negative Constitutional Constitutional: Denies chills and Denies fever(s) Gastrointestinal Gastrointestinal: Reports abdominal pain Physical Exam 2 Vital Signs: Vital Signs: Last Vital Signs Temp 96.8 F 07/18/23 07:31 Pulse 74 07/18/23 07:31 Resp 16 07/18/23 07:31 BP 121/78 07/18/23 07:31 Pulse Ox 92 07/18/23 07:31 O2 Del Method Room Air 07/18/23 07:31 BMI result Body Mass Index 35.9 Const: General: no acute distress, alert and awake Nutritional Appearance: overweight Orientation/consciousness: patient oriented x3 Resp: Effort & Inspection: normal respiratory effort, able to speak in complete sentences, no respiratory distress and no use of accessory muscles A uscultation: clear to auscultation bilaterally Cardio: Rate: regular rate Heart sounds: S1 normal heart sound present and S2 normal heart sound present GI: Other: epigastric tenderness Inspection: No distended Palpation (GI): Soft to palpation, Tenderness to palpation present (GI) and no guarding Neuro: General: patient oriented x3, moves all extremities and CN's II-XI intact bilaterally Extrem: General: Yes no pedal edema Objective Data Active Medications Acetaminophen (Acetaminophen 325 Mg Tablet) 650 mg PO Q6H PRN PRN Reason: Pain, Mild (Pain Scale 1-3) Last Admin: 07/18/23 07:33 Dose: 650 mg Documented By: NIKO Albuterol Sulfate (Albuterol Sulfate 90 Mcg 8 Gm Inhaler) 2 puff INHALE Q4H PRN PRN Reason: Shortness Of Breath Or Wheezing Docusate Sodium (Docusate Sodium 100 Mg Capsule) 100 mg PO BEDTIME [facility] Enoxaparin Sodium (Enoxaparin Sodium 40 Mg/0.4 Ml Syringe) 40 mg SUBCUT Q24H [facility] Last Admin: 07/17/23 20:41 Dose: 40 mg Documented By: OZORALB Famotidine (Famotidine/Pf 20 Mg/2 Ml Vial) 20 mg IVPUSH DAILY [facility] Last Admin: 07/18/23 09:21 Dose: 20 mg Documented By: NIKO Fenofibrate (Fenofibrate,Micronized 134 Mg Capsule) 134 mg PO DAILY [facility] Last Admin: 07/18/23 07:26 Dose: 134 mg Documented By: NIKO Folic Acid (Folic Acid 1 Mg Tablet) 1 mg PO DAILY [facility] Last Admin: 07/18/23 07:28 Dose: 1 mg Documented By: NIKO Lactated Ringer's (Lr) 1,000 mls @ 150 mls/hr IVCONT .Q6H40M [facility] Last Infusion: 07/18/23 14:50 Dose: 0 mls/hr Documented By: NIKO Melatonin (Melatonin 3 Mg Tablet) 6 mg PO BEDTIME PRN PRN Reason: Insomnia Last Admin: 07/17/23 22:22 Dose: 6 mg Documented By: TIMAORALB Methadone HCl (Methadone Hcl 20 Mg/2 Ml Oral.Conc) 77 mg PO DAILY [facility] Last Admin: 07/18/23 07:28 Dose: 77 mg Documented By: NIKO Morphine Sulfate (Morphine Sulfate 4 Mg/Ml Cartridge) 4 mg IVPUSH Q3H PRN; Protocol PRN Reason: Pain, Severe (Pain Scale 7-10) Ondansetron HCl (Ondansetron Hcl 4 Mg/2 Ml Vial) 4 mg IVPUSH Q6H PRN PRN Reason: Nausea and Vomiting Last Admin: 07/17/23 12:36 Dose: 4 mg Documented By: HEATHER Pharmacy Consult (Consult Rx Etoh Phenob Im/Po) 1 each MISCELLANE ONCE PRN; Protocol PRN Reason: Consult order Phenobarbital (Phenobarbital 15 Mg Tablet) 45 mg PO BID [facility]; Protocol Stop: 07/19/23 21:01 Last Admin: 07/18/23 07:26 Dose: 45 mg Documented By: NIKO Phenobarbital (Phenobarbital 15 Mg Tablet) 15 mg PO BID [facility]; Protocol Stop: 07/21/23 21:01 Phenobarbital (Phenobarbital 15 Mg Tablet) 15 mg PO DAILY [facility]; Protocol Stop: 07/23/23 09:01 Polyethylene Glycol (Polyethylene Glycol 3350 17 Gm Powd.Pack) 17 gm PO DAILY PRN PRN Reason: Constipation Last Admin: 07/18/23 14:02 Dose: 17 gm Documented By: NIKO Sodium Chloride (0.9 % Sodium Chloride Flush 3 Ml Syringe) 3 ml IVFLUSH QSHIFT [facility] Last Admin: 07/18/23 07:27 Dose: 3 ml Documented By: NIKO Thiamine HCl (Thiamine Hcl 100 Mg Tablet) 100 mg PO DAILY [facility] Last Admin: 07/18/23 07:25 Dose: 100 mg Documented By: NIKO Labs 07/16/23 14:02 07/18/23 05:12 Labs: Laboratory Results - last 24 hr 07/18/23 05:12 Anion Gap 12 Estim Creat Clear Calc 102.8 Estimated GFR > 60 Random Glucose 78 Calcium 8.7 Total Bilirubin 1.4 H Direct Bilirubin 0.4 AST 72 H ALT 44 H Alkaline Phosphatase 74 Total Protein 6.9 Albumin 3.4 L Lipase 282 H Assessment and Plan (1) Acute alcoholic pancreatitis: Status: Acute (2) Hypertriglyceridemia: Status: Acute Plan This is a 32-year-old female with pertinent history of alcohol use disorder, opioid use disorder on methadone, mood disorder who presents to the emergency department for evaluation of abdominal pain. acute pancreatitis likely multifactorial related to alcohol use, elevated Triglyceride could also be contributing factor persistent abdominal pain continue clear liquids, IVF, pain control; ADAT pepcid for possible component of etoh gastritis elevated triglycerides TG 690 started fenofibrate will need outpatient follow up Alcohol dependence continue phenobarbitol protocol follow CIWA continue thiamine and folic acid addiction medicine consult pending mood disorder On Xanax t.i.d. p.r.n. -stop while on phenobarbitol DVT prophylaxis: Lovenox Full code attending - dr. Mitchell requires ongoing inpatient stay for management of acute pancreatitis requiring IV analgesia for adequate pain control Time Spent With Patient Time: Total time managing care of this patient today ____ minutes. Quality Stroke Does the patient have a stroke diagnosis?: No VTE Prior VTE?: No VTE Risk Level:: Medical - moderate - high VTE Device Contraindication: Treatment Not Indicated VTE Drug Contraindication: N/A - Med Ordered
--- NOTE | 2023-07-18 15:36 | MHC.RECOVRN ---
Pt declining to meet with recovery team at this time. Pt with folder of resources provided yesterday.
[2023-07-18 15:50] VITALS: BP 114/56; PULSE 71; RESP 20; TEMP 36.3; O2SAT 96
[2023-07-18 16:38] VITALS: RESP 19
[2023-07-18 20:00] VITALS: BP 138/63; PULSE 77; RESP 20; TEMP 36.1; O2SAT 94
[2023-07-18] MEDS: Enoxaparin Sodium 40 MG/0.4 ML SYRINGE SUBCUT (20:45)
[2023-07-18] MEDS: Docusate Sodium 100 MG CAPSULE PO (20:53)
[2023-07-18] MEDS: Melatonin 3 MG TABLET 6 MG PO (20:54)
--- NOTE | 2023-07-18 21:10 | PM.EVENT ---
Event Note Date of Service: 07/18/23 Event Note: Addiction consult place Patient declined to meet with Recovery Support RN No follow up at this time Time Spent With Patient Time: Total time managing care of this patient today ____ minutes.
[2023-07-19] MEDS: Morphine Sulfate 4 MG/ML CARTRIDGE IVPUSH ×2 (00:08→03:20)
[2023-07-19] MEDS: Acetaminophen 325 MG TABLET 650 MG PO ×2 (03:17→15:45)
[2023-07-19 03:49] VITALS: BP 118/75; PULSE 61; RESP 20; TEMP 36.2; O2SAT 94
[2023-07-19] MEDS: Lactated Ringers 1,000 ML 150 ML IVCONT ×2 (05:13→12:02)
[2023-07-19 08:00] VITALS: BP 147/86; PULSE 67; RESP 18; TEMP 36.2; O2SAT 95
--- NOTE | 2023-07-19 09:09 | P.PNIM_ITS ---
Subjective Subjective Date of Service: 07/19/23 Interval History: seen and examined this morning follow up for pancreatitis reporting ongoing abdominal pain Review of Systems Review of Systems: Yes all other systems are reviewed and are negative Constitutional Constitutional: Denies chills and Denies fever(s) Gastrointestinal Gastrointestinal: Reports abdominal pain Physical Exam 2 Vital Signs: Vital Signs: Last Vital Signs Temp 97.2 F 07/19/23 08:00 Pulse 67 07/19/23 08:00 Resp 18 07/19/23 08:00 BP 147/86 H 07/19/23 08:00 Pulse Ox 95 07/19/23 08:00 O2 Del Method Room Air 07/19/23 08:00 BMI result Body Mass Index 35.9 Appearing in no acute distress lung sounds are clear to auscultation heart regular rate rhythm, clear S1, S2 positive bowel sounds, abdomen is soft, RUQ tenderness neuro patient is alert x3, no focal deficits Objective Data Active Medications Acetaminophen (Acetaminophen 325 Mg Tablet) 650 mg PO Q6H PRN PRN Reason: Pain, Mild (Pain Scale 1-3) Last Admin: 07/19/23 03:17 Dose: 650 mg Documented By: BALTAZAR Albuterol Sulfate (Albuterol Sulfate 90 Mcg 8 Gm Inhaler) 2 puff INHALE Q4H PRN PRN Reason: Shortness Of Breath Or Wheezing Docusate Sodium (Docusate Sodium 100 Mg Capsule) 100 mg PO BEDTIME [facility] Last Admin: 07/18/23 20:53 Dose: 100 mg Documented By: BALTAZAR Enoxaparin Sodium (Enoxaparin Sodium 40 Mg/0.4 Ml Syringe) 40 mg SUBCUT Q24H [facility] Last Admin: 07/18/23 20:45 Dose: 40 mg Documented By: BALTAZAR Famotidine (Famotidine/Pf 20 Mg/2 Ml Vial) 20 mg IVPUSH DAILY [facility] Last Admin: 07/18/23 09:21 Dose: 20 mg Documented By: NIKO Fenofibrate (Fenofibrate,Micronized 134 Mg Capsule) 134 mg PO DAILY [facility] Last Admin: 07/18/23 07:26 Dose: 134 mg Documented By: NIKO Folic Acid (Folic Acid 1 Mg Tablet) 1 mg PO DAILY [facility] Last Admin: 07/18/23 07:28 Dose: 1 mg Documented By: NIKO Hydromorphone HCl (Hydromorphone Hcl 0.5 Mg/0.5 Ml Syringe) 0.5 mg IVPUSH Q4H PRN; Protocol PRN Reason: Pain, Severe (Pain Scale 7-10) Lactated Ringer's (Lr) 1,000 mls @ 150 mls/hr IVCONT .Q6H40M [facility] Last Admin: 07/19/23 05:13 Dose: 150 mls/hr Documented By: BALTAZAR Melatonin (Melatonin 3 Mg Tablet) 6 mg PO BEDTIME PRN PRN Reason: Insomnia Last Admin: 07/18/23 20:54 Dose: 6 mg Documented By: BALTAZAR Methadone HCl (Methadone Hcl 20 Mg/2 Ml Oral.Conc) 77 mg PO DAILY [facility] Last Admin: 07/18/23 07:28 Dose: 77 mg Documented By: NIKO Morphine Sulfate (Morphine Sulfate 4 Mg/Ml Cartridge) 4 mg IVPUSH Q3H PRN; Protocol PRN Reason: Pain, Severe (Pain Scale 7-10) Last Admin: 07/19/23 03:20 Dose: 4 mg Documented By: BALTAZAR Ondansetron HCl (Ondansetron Hcl 4 Mg/2 Ml Vial) 4 mg IVPUSH Q6H PRN PRN Reason: Nausea and Vomiting Last Admin: 07/17/23 12:36 Dose: 4 mg Documented By: HEATHER Pharmacy Consult (Consult Rx Etoh Phenob Im/Po) 1 each MISCELLANE ONCE PRN; Protocol PRN Reason: Consult order Phenobarbital (Phenobarbital 15 Mg Tablet) 45 mg PO BID [facility]; Protocol Stop: 07/19/23 21:01 Last Admin: 07/18/23 20:46 Dose: 45 mg Documented By: BALTAZAR Phenobarbital (Phenobarbital 15 Mg Tablet) 15 mg PO BID [facility]; Protocol Stop: 07/21/23 21:01 Phenobarbital (Phenobarbital 15 Mg Tablet) 15 mg PO DAILY [facility]; Protocol Stop: 07/23/23 09:01 Polyethylene Glycol (Polyethylene Glycol 3350 17 Gm Powd.Pack) 17 gm PO DAILY PRN PRN Reason: Constipation Last Admin: 07/18/23 14:02 Dose: 17 gm Documented By: NIKO Sodium Chloride (0.9 % Sodium Chloride Flush 3 Ml Syringe) 3 ml IVFLUSH QSHIFT [facility] Last Admin: 07/18/23 20:45 Dose: 3 ml Documented By: BALTAZAR Thiamine HCl (Thiamine Hcl 100 Mg Tablet) 100 mg PO DAILY [facility] Last Admin: 07/18/23 07:25 Dose: 100 mg Documented By: NIKO Labs 07/16/23 14:02 07/18/23 05:12 Assessment and Plan (1) Acute alcoholic pancreatitis: Status: Acute (2) Hypertriglyceridemia: Status: Acute Plan This is a 32-year-old female with pertinent history of alcohol use disorder, opioid use disorder on methadone, mood disorder who presents to the emergency department for evaluation of abdominal pain. acute pancreatitis lipase 282 likely multifactorial related to alcohol use, elevated Triglyceride could also be contributing factor persistent abdominal pain IV fluids clear liquids and advance as tolerated IV pepcid for possible component of etoh gastritis elevated triglycerides TG 690 started fenofibrate will need outpatient follow up Alcohol dependence continue phenobarbitol protocol follow CIWA continue thiamine and folic acid addiction medicine consult pending mood disorder On Xanax t.i.d. p.r.n. -stop while on phenobarbitol DVT prophylaxis: Lovenox Full code attending - dr. Pearson requires ongoing inpatient stay for management of acute pancreatitis requiring IV analgesia for adequate pain control Time Spent With Patient Time: Total time managing care of this patient today ____ minutes. Quality Stroke Does the patient have a stroke diagnosis?: No VTE Prior VTE?: No VTE Risk Level:: Medical - moderate - high VTE Device Contraindication: Treatment Not Indicated VTE Drug Contraindication: N/A - Med Ordered
[2023-07-19] MEDS: methADONE HCl 20 MG/2 ML ORAL.CONC 77 MG PO (09:19)
[2023-07-19] MEDS: HYDROmorphone HCl 0.5 MG/0.5 ML SYRINGE IVPUSH ×4 (09:21→22:29)
[2023-07-19] MEDS: PHENobarbitaL 15 MG TABLET 45 MG PO ×2 (09:23→20:18)
[2023-07-19] MEDS: Folic Acid 1 MG TABLET PO (09:23)
[2023-07-19] MEDS: Fenofibrate,Micronized 134 MG CAPSULE PO (09:24)
[2023-07-19] MEDS: Thiamine HCL 100 MG TABLET PO (09:24)
[2023-07-19] MEDS: Famotidine/PF 20 MG/2 ML VIAL IVPUSH (09:30)
[2023-07-19] MEDS: 0.9 % Sodium Chloride Flush 3 ML SYRINGE IVFLUSH ×2 (15:44→20:22)
[2023-07-19 16:00] VITALS: BP 122/76; PULSE 63; RESP 18; TEMP 36.7; O2SAT 93
[2023-07-19 20:00] VITALS: BP 141/75; PULSE 57; RESP 20; TEMP 36; O2SAT 96
[2023-07-19] MEDS: Docusate Sodium 100 MG CAPSULE PO (20:18)
[2023-07-19] MEDS: Enoxaparin Sodium 40 MG/0.4 ML SYRINGE SUBCUT (20:19)
[2023-07-19] MEDS: Melatonin 3 MG TABLET 6 MG PO (22:29)
[2023-07-20] MEDS: Acetaminophen 325 MG TABLET 650 MG PO ×3 (00:47→16:54)
[2023-07-20] MEDS: HYDROmorphone HCl 0.5 MG/0.5 ML SYRINGE IVPUSH ×5 (03:23→21:35)
[2023-07-20 04:00] VITALS: BP 122/71; PULSE 65; RESP 18; TEMP 36; O2SAT 95
[2023-07-20] MEDS: ondansetron HCL 4 MG/2 ML VIAL IVPUSH ×2 (07:43→16:55)
[2023-07-20 08:00] VITALS: BP 146/91; PULSE 71; RESP 18; O2SAT 96
[2023-07-20 08:05] LABS: Alanine Aminotransferase 41 U/L (0-31); Albumin Level 3.1 g/dL (3.5-5.0); Alkaline Phosphatase 76 U/L (39-117); Anion Gap 13 (12-20); Aspartate Amino Transferase 63 U/L (5-31); Bilirubin Direct 0.4 mg/dL (0.0-0.5); Bilirubin Total 0.8 mg/dL (0.0-1.0); Blood Urea Nitrogen 4 mg/dL (9-16); Calcium 8.4 mg/dL (8.4-10.2); Carbon Dioxide 30 mmol/L (22-29); Chloride 101 mmol/L (96-108); Creatinine Clr Calc Pharmacy 120.9; Estimated Glomerular Filt Rate > 60; Glucose Random 100 mg/dL (60-115); Lipase 168 U/L (8-78); Potassium 3.5 mmol/L (3.3-5.1); Sodium 140 mmol/L (135-145); Total Protein 6.4 g/dL (6.5-8.0)
[2023-07-20] MEDS: methADONE HCl 20 MG/2 ML ORAL.CONC 77 MG PO (08:59)
[2023-07-20] MEDS: Famotidine/PF 20 MG/2 ML VIAL IVPUSH (09:00)
[2023-07-20] MEDS: Fenofibrate,Micronized 134 MG CAPSULE PO (09:01)
[2023-07-20] MEDS: Thiamine HCL 100 MG TABLET PO (09:01)
[2023-07-20] MEDS: Folic Acid 1 MG TABLET PO (09:01)
[2023-07-20] MEDS: PHENobarbitaL 15 MG TABLET PO ×2 (09:01→20:18)
[2023-07-20] MEDS: 0.9 % Sodium Chloride Flush 3 ML SYRINGE IVFLUSH ×3 (09:02→20:18)
--- NOTE | 2023-07-20 09:28 | P.PNIM_ITS ---
Subjective Subjective Date of Service: 07/20/23 Interval History: seen and examined this morning follow up for pancreatitis reporting ongoing abdominal pain Review of Systems Review of Systems: Yes all other systems are reviewed and are negative Constitutional Constitutional: Denies chills and Denies fever(s) Gastrointestinal Gastrointestinal: Reports abdominal pain Physical Exam 2 Vital Signs: Vital Signs: Last Vital Signs Temp 96.8 F 07/20/23 04:00 Pulse 71 07/20/23 08:00 Resp 18 07/20/23 08:00 BP 146/91 H 07/20/23 08:00 Pulse Ox 96 07/20/23 08:00 O2 Del Method Room Air 07/20/23 08:00 BMI result Body Mass Index 35.9 Appearing in no acute distress lung sounds are clear to auscultation heart regular rate rhythm, clear S1, S2 positive bowel sounds, abdomen is soft, nontender neuro patient is alert x3, no focal deficit Objective Data Active Medications Acetaminophen (Acetaminophen 325 Mg Tablet) 650 mg PO Q6H PRN PRN Reason: Pain, Mild (Pain Scale 1-3) Last Admin: 07/20/23 07:39 Dose: 650 mg Documented By: SINDY Albuterol Sulfate (Albuterol Sulfate 90 Mcg 8 Gm Inhaler) 2 puff INHALE Q4H PRN PRN Reason: Shortness Of Breath Or Wheezing Docusate Sodium (Docusate Sodium 100 Mg Capsule) 100 mg PO BEDTIME [facility] Last Admin: 07/19/23 20:18 Dose: 100 mg Documented By: ALMAZ Enoxaparin Sodium (Enoxaparin Sodium 40 Mg/0.4 Ml Syringe) 40 mg SUBCUT Q24H [facility] Last Admin: 07/19/23 20:19 Dose: 40 mg Documented By: ALMAZ Famotidine (Famotidine/Pf 20 Mg/2 Ml Vial) 20 mg IVPUSH DAILY [facility] Last Admin: 07/20/23 09:00 Dose: 20 mg Documented By: SINDY Fenofibrate (Fenofibrate,Micronized 134 Mg Capsule) 134 mg PO DAILY [facility] Last Admin: 07/20/23 09:01 Dose: 134 mg Documented By: SINDY Folic Acid (Folic Acid 1 Mg Tablet) 1 mg PO DAILY [facility] Last Admin: 07/20/23 09:01 Dose: 1 mg Documented By: SINDY Hydromorphone HCl (Hydromorphone Hcl 0.5 Mg/0.5 Ml Syringe) 0.5 mg IVPUSH Q4H PRN; Protocol PRN Reason: Pain, Severe (Pain Scale 7-10) Last Admin: 07/20/23 07:30 Dose: 0.5 mg Documented By: SINDY Melatonin (Melatonin 3 Mg Tablet) 6 mg PO BEDTIME PRN PRN Reason: Insomnia Last Admin: 07/19/23 22:29 Dose: 6 mg Documented By: ALMAZ Methadone HCl (Methadone Hcl 20 Mg/2 Ml Oral.Conc) 77 mg PO DAILY [facility] Last Admin: 07/20/23 08:59 Dose: 77 mg Documented By: SINDY Morphine Sulfate (Morphine Sulfate 4 Mg/Ml Cartridge) 4 mg IVPUSH Q3H PRN; Protocol PRN Reason: Pain, Severe (Pain Scale 7-10) Last Admin: 07/19/23 03:20 Dose: 4 mg Documented By: BALTAZAR Ondansetron HCl (Ondansetron Hcl 4 Mg/2 Ml Vial) 4 mg IVPUSH Q6H PRN PRN Reason: Nausea and Vomiting Last Admin: 07/20/23 07:43 Dose: 4 mg Documented By: SINDY Pharmacy Consult (Consult Rx Etoh Phenob Im/Po) 1 each MISCELLANE ONCE PRN; Protocol PRN Reason: Consult order Phenobarbital (Phenobarbital 15 Mg Tablet) 15 mg PO BID [facility]; Protocol Stop: 07/21/23 21:01 Last Admin: 07/20/23 09:01 Dose: 15 mg Documented By: SINDY Phenobarbital (Phenobarbital 15 Mg Tablet) 15 mg PO DAILY [facility]; Protocol Stop: 07/23/23 09:01 Polyethylene Glycol (Polyethylene Glycol 3350 17 Gm Powd.Pack) 17 gm PO DAILY PRN PRN Reason: Constipation Last Admin: 07/18/23 14:02 Dose: 17 gm Documented By: NIKO Sodium Chloride (0.9 % Sodium Chloride Flush 3 Ml Syringe) [facility] Last Admin: 07/20/23 09:02 Dose: 3 ml Documented By: SINDY Thiamine HCl (Thiamine Hcl 100 Mg Tablet) 100 mg PO DAILY [facility] Last Admin: 07/20/23 09:01 Dose: 100 mg Documented By: SINDY Labs 07/16/23 14:02 07/20/23 07:29 Labs: Laboratory Results - last 24 hr 07/20/23 07:29 Anion Gap 13 Estim Creat Clear Calc 120.9 Estimated GFR > 60 Random Glucose 100 Calcium 8.4 Total Bilirubin 0.8 Direct Bilirubin 0.4 AST 63 H ALT 41 H Alkaline Phosphatase 76 Total Protein 6.4 L Albumin 3.1 L Lipase 168 H Assessment and Plan (1) Acute alcoholic pancreatitis: Status: Acute (2) Hypertriglyceridemia: Status: Acute Plan This is a 32-year-old female with pertinent history of alcohol use disorder, opioid use disorder on methadone, mood disorder who presents to the emergency department for evaluation of abdominal pain. acute pancreatitis still with some pain lipase down to 168 likely multifactorial related to alcohol use, elevated Triglyceride could also be contributing factor persistent abdominal pain s/p IV fluids bland diet IV pepcid elevated triglycerides TG 690 started fenofibrate will need outpatient follow up Alcohol dependence continue phenobarbitol protocol follow CIWA continue thiamine and folic acid addiction medicine consult pending mood disorder On Xanax t.i.d. p.r.n. -stop while on phenobarbitol DVT prophylaxis: Lovenox Full code attending - dr. Pearson requires ongoing inpatient stay for management of acute pancreatitis requiring IV analgesia for adequate pain control Time Spent With Patient Time: Total time managing care of this patient today ____ minutes. Quality Stroke Does the patient have a stroke diagnosis?: No VTE Prior VTE?: No VTE Risk Level:: Medical - moderate - high VTE Device Contraindication: Treatment Not Indicated VTE Drug Contraindication: N/A - Med Ordered
[2023-07-20 16:00] VITALS: BP 135/90; PULSE 82; RESP 20; TEMP 36; O2SAT 93
[2023-07-20 20:00] VITALS: BP 142/64; PULSE 64; RESP 20; TEMP 36.2; O2SAT 94
[2023-07-20] MEDS: Docusate Sodium 100 MG CAPSULE PO (20:18)
[2023-07-20] MEDS: Melatonin 3 MG TABLET 6 MG PO (22:33)
[2023-07-21] MEDS: HYDROmorphone HCl 0.5 MG/0.5 ML SYRINGE IVPUSH ×2 (02:32→07:10)
[2023-07-21] MEDS: Acetaminophen 325 MG TABLET 650 MG PO (02:38)
[2023-07-21 03:52] VITALS: BP 113/61; PULSE 61; RESP 18; TEMP 36.2; O2SAT 95
[2023-07-21 08:00] VITALS: BP 138/82; PULSE 56; RESP 16; TEMP 36.6; O2SAT 96
[2023-07-21] MEDS: Fenofibrate,Micronized 134 MG CAPSULE PO (08:12)
[2023-07-21] MEDS: Thiamine HCL 100 MG TABLET PO (08:12)
[2023-07-21] MEDS: Famotidine/PF 20 MG/2 ML VIAL IVPUSH (08:12)
[2023-07-21] MEDS: PHENobarbitaL 15 MG TABLET PO (08:12)
[2023-07-21] MEDS: methADONE HCl 20 MG/2 ML ORAL.CONC 77 MG PO (08:12)
[2023-07-21] MEDS: 0.9 % Sodium Chloride Flush 3 ML SYRINGE IVFLUSH (08:12)
[2023-07-21] MEDS: Folic Acid 1 MG TABLET PO (08:12)
--- NOTE | 2023-07-21 09:01 | PM.DS ---
DS: Providers Provider Date of Service: 07/21/23 Date of admission: 07/16/23 20:15 Primary care physician: Kenisha Martinez MD Consults: 07/16/23 20:23 Addiction Medicine Routine Consulting Provider: Karlos Jones Reason for consultation: Alcohol use disorder DS: Diagnosis Discharge Diagnosis (1) Acute alcoholic pancreatitis: Status: Acute (2) Hypertriglyceridemia: Status: Acute DS: Summary Hospital Course Hospital Course: HP as per admitting provider . This is a 32-year-old female with pertinent history of alcohol use disorder, opioid use disorder on methadone, mood disorder who presents to the emergency department for evaluation of abdominal pain. Patient states that started 2 days prior to presentation. Located in the epigastric region and radiating to the back. Initially it was intermittent but progressed to being constant. Associated with nausea and vomiting. Also has decreased p.o. intake in the last 2 days. Patient states her last alcoholic drink was 3 days prior to presentation. No history of alcohol withdrawal. Does have a history of alcoholic pancreatitis. No fever, chills, chest discomfort, palpitations, shortness of breath, changes in urinary or bowel habits. In the emergency department, lipase found to be elevated and imaging concerning for acute pancreatitis. 32-year-old woman with history of alcohol use treated for acute pancreatitis. Patient treated with IV fluids, narcotic pain medication. Diet was advanced, she has been able to eat and drink. She was also noted to help have elevated triglycerides of 690, so the combination of both may have triggered her pancreatitis. She reports that she did have pancreatitis 1 time before this. She was placed on CIWA protocol but did not have any signs of withdrawal with phenobarbital. She was seen evaluated by addiction medicine. She will continue on and a Acamprosate at home. Lipase trended down. Plan is to discharge home. She should not drink any alcohol. Mental health. Continue home medications Time Spent with Patient Time attestation: Total time managing care of this patient today ____ minutes. Discharge coordination time: Greater than 30 minutes Quality: Safe Use of Opioids Does Pt have an Active Cancer Diagnosis on the Problem List?: No Quality: Stroke Does the patient have a stroke diagnosis?: No Physical Exam Vital Signs: Vital Signs: Last Vital Signs Temp 97.8 F 07/21/23 08:00 Pulse 56 07/21/23 08:00 Resp 16 07/21/23 08:00 BP 138/82 07/21/23 08:00 Pulse Ox 96 07/21/23 08:00 O2 Del Method Room Air 07/21/23 08:00 BMI result Body Mass Index 35.9 Appearing in no acute distress head is normocephalic atraumatic eyes pupils are PERRLA sclera is anicteric mouth throat mucous membranes are intact and moist neck is supple no lymphadenopathy, no JVD noted lung sounds are clear to auscultation heart regular rate rhythm, clear S1, S2 positive bowel sounds, abdomen is soft, nontender neuro patient is alert x3, no focal deficits Discharge Plan Discharge Anticipated Discharge Date/Time: 07/21/23 08:54 Patient Disposition: Home, Self-Care Discharge Diagnosis: Alcoholic pancreatitis Referrals: Kenisha Martinez MD [Primary Care Provider] - 1 Week Discharge Medications: New acamprosate 333 mg tablet,delayed release (DR/EC) 666 mg PO TID Qty: 45 0RF Continued dextroamphetamine-amphetamine 10 mg tablet 1 tab PO BID PRN (Reason: attention deficit hyperactivity disorder) alprazolam 2 mg tablet 2 mg PO TID PRN (Reason: anxiety) albuterol sulfate [Ventolin HFA] 90 mcg/actuation HFA aerosol inhaler 2 puff INHALATION Q4-6H PRN (Reason: Shortness Of Breath Or Wheezing) dextroamphetamine-amphetamine [Adderall XR] 30 mg capsule,extended release 24hr 1 cap PO QAM PRN (Reason: attention deficit hyperactivity disorder) acamprosate 333 mg tablet,delayed release (DR/EC) 666 mg PO TID methadone [Methadose] 10 mg/mL Concentrate 77 mg PO DAILY Discharge Orders: Discharge Order (Routine); Ordered 07/21/23 Ordered By: Celia Chaudhary Diet: Advance to usual diet Activity on Discharge: As tolerated Stand Alone Forms: Patient Portal Discharge page Care Plan Goals: Do not drink alcohol Last dose of methadone 07/21/2023 0812 Health Concerns: Alcoholic pancreatitis Plan of Treatment: Follow-up with primary care provider as needed Follow-up with resources in the community to help the stop drinking alcohol Assessment: See discharge summary
[2023-07-21 09:16] LABS: Anion Gap 11 (12-20); Blood Urea Nitrogen 4 mg/dL (9-16); Calcium 9.2 mg/dL (8.4-10.2); Carbon Dioxide 29 mmol/L (22-29); Chloride 101 mmol/L (96-108); Creatinine Clr Calc Pharmacy 108.1; Estimated Glomerular Filt Rate > 60; Glucose Random 141 mg/dL (60-115); Lipase 195 U/L (8-78); Potassium 3.3 mmol/L (3.3-5.1); Sodium 138 mmol/L (135-145)
--- NOTE | 2023-07-21 10:27 | MHC.CM.PN ---
pt dcd home no skilled services
== END 2023-07-21 12:44 | disposition home or self-care (01) | DRG 282 ==
LOC: HO.ED 19:03 → HO.EDOVER 20:22 → HO.S3 07-17 14:33
PROVIDERS: Physician Assistant; Physician Assistant Medical; Admitting Provider Student in an Organized Health Care Education/Training Program; Emergency Provider Student in an Organized Health Care Education/Training Program; PCP Internal Medicine; Visit Provider Nurse Practitioner Acute Care
DX: K85.20 Alcohol induced acute pancreatitis without necrosis or infection (principal); E78.1 Pure hyperglyceridemia; F39 Unspecified mood [affective] disorder; F10.20 Alcohol dependence, uncomplicated; E86.0 Dehydration; F11.20 Opioid dependence, uncomplicated; Z79.899 Other long term (current) drug therapy
CPT/HCPCS: 36415; 74177; 76705; 80048; 80053; 80076; 80307; 81001; 81025; 83690; 83735; 84478; 85025; 93005; 99285; J1170; J1650; J2270; J2405; J2560; J2765; J3411; Q9967

== ENCOUNTER → 2023-07-16 20:15 | Outpatient (BNV) | payer MEDICAID, SELFPAY | PROVIDERS: Admitting Provider Student in an Organized Health Care Education/Training Program; Emergency Provider Student in an Organized Health Care Education/Training Program; PCP Internal Medicine; Visit Provider Student in an Organized Health Care Education/Training Program | DX: K85.20 Alcohol induced acute pancreatitis without necrosis or infection (principal); E78.1 Pure hyperglyceridemia | CPT/HCPCS: 99222; 99232; 99239 ==

== ENCOUNTER 2023-08-13 12:35 | Outpatient (REF) | payer MEDICAID, SELFPAY ==
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
== END 2023-08-13 12:36 | disposition home or self-care (01) ==
LOC: HO.XRAY 12:35
PROVIDERS: PCP Internal Medicine; Visit Provider Internal Medicine
DX: M25.532 Pain in left wrist (principal)
CPT/HCPCS: 73110

== ENCOUNTER 2023-11-16 09:38 | Inpatient (IN) | payer MEDICAID, SELFPAY ==
[2023-11-16] VITALS (8 sets, daily range): BP systolic 113–140; BP diastolic 69–86; PULSE 69–146; RESP 13–24; TEMP 36.4–37.8; O2SAT 48–99; BMI 28.3
--- NOTE | ~2023-11-16 | XR_ITS ---
EXAMINATION: XR CHEST CLINICAL INFORMATION: Reason for Exam sob COMPARISON: CT abdomen and pelvis 07/16/2023 TECHNIQUE: One view of the chest FINDINGS: Lines and tubes: EKG leads overlie the patient. Multifocal right parenchymal consolidation and left retrocardiac and to a lesser extent left upper lobe consolidation suspicious for multifocal infection and/or asymmetric edema. Low lung volumes. No pleural effusion. No pneumothorax. Normal cardiomediastinal silhouette. XR/XR chest 1V IMPRESSION: Multifocal right parenchymal consolidation and left retrocardiac and to a lesser extent left upper lobe consolidation suspicious for multifocal infection and/or asymmetric edema. Low lung volumes. Recommend repeat radiographs after treatment to ensure resolution.
--- NOTE | ~2023-11-16 | CT_ITS ---
EXAMINATION: CT ANGIOGRAM OF THE CHEST WITH AND WITHOUT CONTRAST (CT PULMONARY ANGIOGRAM FOR PE) CLINICAL INFORMATION: Reason for Exam sob 55% RA COMPARISON: Today's chest x-ray TECHNIQUE: Prior to contrast administration, noncontrast localization images were obtained. Subsequently, multidetector volumetric imaging was performed from the thoracic inlet to below the diaphragms following the administration of 65 mL Omnipaque 350 intravenous contrast. No contrast reaction reported Sagittal, coronal, and MIP oblique sagittal reformatted images were obtained on the CT workstation, uploaded to PACS, and reviewed. This CT examination was performed using dose optimization techniques as appropriate, variously including the following: *Automated exposure control *Adjustment of mA and/or kV according to patient size (this includes techniques or standardized protocols for targeted exams where dose is matched to indication/reason for exam; i.e. extremities or head) *Use of iterative reconstruction technique Total exam dose-length product 420 mGy-cm FINDINGS: QUALITY OF STUDY/CONTRAST BOLUS: Satisfactory. Exam artifact limits sensitivity for segmental and subsegmental emboli. PULMONARY ARTERIES: No large central or segmental pulmonary emboli. As above, image utilized limits evaluation. If there is strong clinical concern for pulmonary embolism, recommend bilateral leg Doppler for DVT or short interval follow-up CT pulmonary angiography. THORACIC AORTA: Grossly normal in caliber without obvious aneurysm or dissection. Artifact limits examination. LUNG: There is multifocal airspace disease bilaterally with dense consolidation of the right middle lobe, extensive consolidation of the right upper lobe multifocal consolidation of both lower lobes and minimal patchy consolidation in the lingula. Multifocal patchy airspace opacities are nonspecific with differential considerations including pneumonia, hemorrhage, aspiration, organizing pneumonia, inflammatory disease, or drug reaction. Clinical correlation is required. Bronchoscopy could be helpful in this regard. This is a probable etiology of patient's pulmonary distress. In the absence of pleural effusions or signs of venous hypertension, this is unlikely to represent cardiogenic pulmonary edema. On motion degraded imaging, the central airways are grossly patent PLEURA: No pleural effusion or pneumothorax. MEDIASTINUM: Possible subcarinal toña fullness. Possible right hilar toña fullness. Suspect small reactive nodes. No evidence of septal bowing or right heart strain. CORONARY ARTERY CALCIFICATION: Mild coronary artery calcifications suspected in the LAD on thin sections. CHEST WALL/AXILLA: No axillary or internal mammary lymphadenopathy. OSSEOUS STRUCTURES: No fracture. UPPER ABDOMEN: A diffuse decrease in liver attenuation suggests hepatic steatosis. Nonobstructive gas pattern. No reflux of contrast into the hepatic veins to suggest elevated right heart pressures. CT/CT angio chest PE protocol IMPRESSION: 1. Multifocal airspace opacities bilaterally right more than left favor an acute airspace process such as pneumonia. Clinical correlation is required. This is a probable etiology for patient's respiratory distress. 2. No large central or segmental pulmonary emboli. Technically limited examination with significant artifact. If there is strong clinical concern for pulmonary thromboembolic disease recommend bilateral lower extremity Doppler ultrasound of the legs or short interval follow-up PE study. VTE: negative
--- NOTE | 2023-11-16 10:00 | ED_ITS ---
HPI - General Adult General Chief complaint: Upper Respiratory Symptoms Stated complaint: Ear pain/Sore throat/Chest pain Time Seen by Provider: 11/16/23 09:58 Source: patient Mode of arrival: ambulatory Limitations: other (Lethargic) History of Present Illness HPI narrative: 33-year-old female hx opiate use disorder on methadone ( last used opiates 3 months ago w/ hx of IVDA), alcoholabuse, mood d/o presents stating she has shortness of breath has been ongoing for the past 3 days, reports she was recently discharged from a program is a lot of sick contacts. Patient is having a very hard time giving us a history and review of systems she is very short of breath speaking in 2-3 word sentences. Was rushed back from triage patient is saturating 51% on room air, lethargic. Immediately respiratory was called was placed on a non-rebreather. Related Data Home Medications Medication Instructions Recorded Confirmed acamprosate 333 mg tablet,delayed 666 mg PO TID 07/16/23 07/16/23 release albuterol sulfate 90 mcg/actuation 2 puff inhalation Q4-6H PRN 07/16/23 07/16/23 aerosol inhaler (Ventolin HFA) Shortness Of Breath Or Wheezing alprazolam 2 mg tablet 2 mg PO TID PRN anxiety 07/16/23 07/16/23 dextroamphetamine-amphetamine 10 1 tab PO BID PRN attention deficit 07/16/23 07/16/23 mg tablet hyperactivity disorder dextroamphetamine-amphetamine ER 1 cap PO QAM PRN attention deficit 07/16/23 07/16/23 30 mg 24hr capsule,extend release hyperactivity disorder (Adderall XR) methadone 10 mg/mL oral 77 mg PO DAILY 07/16/23 07/17/23 concentrate (Methadose) Previous Rx's Medication Instructions Recorded acamprosate 333 mg tablet,delayed 666 mg (2 x 333 mg) PO TID #45 tabs 07/21/23 release Allergies Allergy/AdvReac Type Severity Reaction Status Date / Time amoxicillin Allergy Hives Verified 11/16/23 09:49 Review of Systems 2 Review of Systems: Constitutional : No Weight loss, No Fever, No Chills, No Fatigue, No Malaise ENT/Mouth : No sore throat, No Rhinorrhea Eyes: No Eye Pain, No Swelling, No Redness Cardiovascular : No Chest Pain, + SOB, No Dyspnea on Exertion, No Orthopnea, No Edema, No Palpitations Respiratory : No Cough, No Sputum, No Wheezing Gastrointestinal : No Nausea, No Vomiting, No Diarrhea, No Constipation, No abdominal Pain, No Hematochezia, No Melena Genitourinary : No Dysuria, No Urinary Frequency, No Hematuria, Musculoskeletal : No joint pain, No Myalgias, No Joint Swelling Skin : No Skin Lesions, No rash Neuro : No Weakness, No Numbness, No Dizziness, No Headache Psych : No Anxiety/Panic, No Depression All other systems reviewed and are negative Yes all other systems are reviewed and are negative [facility] Past Medical History Attestation statement: The following information was validated with the patient. Source: old records reviewed and nursing notes reviewed Onset Date is defined in the Problem List Problems that require an onset date and time if occurred within 24 hrs of arrival to the ED Aortic Dissection and Rupture; Neurologic impairment; Cardiopulmonary Arrest; Endotracheal Intubation; Insertion or Replacement of Mechanical Circulatory Assist Device Medical History Hypertriglyceridemia Alcohol abuse Mood disorder Opioid abuse Alcohol use disorder Social History Social History Household Members: Family Housing: House Unable to assess alcohol history related to: Unable to respond Alcohol intake: current Alcohol intake frequency: 3 or more drinks per day Patient Tobacco Use Status: Tobacco use Unknown Advance Directives: No Advance Directives Information Provided: No service: No Physical Exam ED Vital Signs: Vital Signs - 24 hr 11/16/23 09:58 Pulse Rate 146 H Respiratory Rate 24 H Blood Pressure 117/77 Pulse Oximetry 48 L Oxygen Delivery Method Room Air BMI result Body Mass Index 28.3 hypoxic- 51% RA Tachycardia likely due to hypoxia Appearance: Alert.? Oriented X3.? + acute distress.?with tripoding Head: Normocephalic, atraumatic, no step-offs or deformities Eyes: Pupils equal, round and reactive to light.? ENT: Pharynx normal.? Neck: Normal inspection.? Neck supple.? CVS: Normal heart rate and rhythm.? Pulses normal.? Respiratory: + moderate respiratory distress.? Breath sounds diminished bilaterally.? Abdomen: Soft and nontender.? Skin: Skin warm and dry.? Normal skin color.? Normal skin turgor.? Extremities: No lower extremity edema.? No calf ttp. 5/5 strength to bilateral upper and lower extremities Back: No midline tenderness, no C-spine tenderness, full range of motion, no CVA tenderness bilaterally Neuro: Oriented X 3.? No motor deficit.? No sensory deficit. CN 2-12 intact Course Reevaluation(s) Reevaluation #1: Patient very difficult stick phlebotomy just darryl patients labs. Labs pending Infection suspected labs, iv antibiotics and fluids ordered. Blood cultures lactic ordered Time: 11:15 Reevaluation #2: CBC leukocytosis and an elevated band count as well as elevated neutrophil count. Patient is receiving IV antibiotics and IV fluids. Infection suspected lactic acid hemolyzed they are trying again again patient very difficult stick therefore delay in obtaining this. Patient's chemistry with no acute findings requiring intervention. Beta hCG negative. Troponin 87 likely a type 2 cardiac injury secondary to acute hypoxia. Will repeat at the 3 hour radah, non ischemic EKG Time: 12:04 Reevaluation #3: Multifocal pna on xray. CTA pending Time: 12:27 Additional Reevaluation(s): CTA no clot multifocal pna. Patient 94-95% on oximizer. Hospitalist aware of admission. Medications Administered Discontinued Medications Generic Name Dose Route Start Last Admin Trade Name Freq PRN Reason Stop Dose Admin Magnesium Sulfate 2 gm in 50 mls @ 25 mls/hr 11/16/23 09:58 11/16/23 11:43 Magnesium Sulfate/H2o IV 11/16/23 11:57 Infused ONCE ONE Infusion Ceftriaxone Sodium 1 gm/ 50 mls @ 100 mls/hr 11/16/23 10:27 11/16/23 11:43 Sodium Chloride IV 11/16/23 10:56 Infused ONCE ONE Infusion Sodium Chloride 1,973.13 mls @ 1,973.13 mls/hr 11/16/23 10:27 11/16/23 12:21 Ns 30 ml/kg infuse over 1 hr (1973.13 ml) 11/16/23 11:26 Infused IV Infusion .Q1H STA Iohexol 65 ml 11/16/23 12:26 11/16/23 12:26 Iohexol 350 Mg/Ml 100 Ml Infus..Btl IV 11/16/23 12:27 65 ml ONCE ONE Administration Methylprednisolone Sodium Succinate 125 mg 11/16/23 09:58 11/16/23 10:52 Methylprednisolone Sod Succ 125 Mg/2 Ml Vial IVPUSH 11/16/23 09:59 125 mg ONCE ONE Administration Naloxone HCl 0.4 mg 11/16/23 10:14 11/16/23 10:56 Naloxone Hcl 0.4 Mg/Ml Vial IVPUSH 11/16/23 10:15 0.4 mg STAT STA Administration Ondansetron HCl 4 mg 11/16/23 11:02 11/16/23 11:09 Ondansetron Hcl 4 Mg/2 Ml Vial IVPUSH 11/16/23 11:03 4 mg ONCE ONE Administration Medical Decision Making Medical Decision Making [facility] Narrative: 1008 33-year-old female presents with acute respiratory distress for the past few days she says she has not been feeling well. On exam patient has diminished breath sounds bilaterally is noted to be hypoxic oxygen saturation 51% on room air. Immediately placed on a non-rebreather. Noted to be tachycardic heart rate 130s 140s. Patient lethargic. History and physical exam concerning for acute hypoxic respiratory failure. Will rule out pulmonary embolism, viral illness, pneumonia. Unlikely ACS, dissection. Will rule out metabolic derangement. History less likely opiate overdose Plan at this time labs, imaging. Respiratory at bedside. Differential Diagnosis Differential Diagnoses: The differential diagnosis associated with the presentation includes History and physical exam concerning for acute hypoxic respiratory failure. Will rule out pulmonary embolism, viral illness, pneumonia. Unlikely ACS, dissection. Will rule out metabolic derangement. History less likely opiate overdose Admission/Observation Consideration of admission/observation: Escalation of care including admission/observation considered Lab Data [facility] Lab Attestation statement: I reviewed the patient's lab results. CBC significant for leukocytosis 17.2 CMP U tox 11/16/23 10:49 11/16/23 10:56 Labs: Lab Results 11/16/23 11/16/23 11/16/23 Range/Units 10:19 10:49 10:56 WBC 17.2 H (4.8-10.8) X10*3/uL RBC 4.02 L (4.20-5.50) X10*6/uL Hgb 12.1 (12.0-16.0) g/dl Hct 37.6 (37.0-47.0) % MCV 93.5 (80.0-98.0) fL MCH 30.1 (27.0-33.0) pg MCHC 32.2 (31.0-35.0) g/dl RDW 12.9 (11.0-16.0) % Plt Count 185 (160-400) X10*3/uL MPV 10.8 (9.4-12.3) fL Immature Gran % (Auto) Cancelled Neut % (Auto) Cancelled Lymph % (Auto) Cancelled [place] % (Auto) Cancelled Eos % (Auto) Cancelled Baso % (Auto) Cancelled Lymph # (Auto) Cancelled [place] # (Auto) Cancelled Eos # (Auto) Cancelled Baso # (Auto) Cancelled Abs Immat Gran (auto) Cancelled Absolute Neuts (auto) Cancelled Absolute Nucleated RBC 0.000 (0.0-0.012) X10*3/uL Nucleated RBC % (auto) 0.0 (0.0-0.2) /100WBC Neutrophils % (Manual) 80 H (45-73) % Band Neutrophils % 9 H (3-5) % Lymphocytes % (Manual) 6 L (20-40) % Monocytes % (Manual) 5 (2-11) % Abs Neuts (Manual) 15.3 H (2.0-8.3) X10*3/uL Lymphocytes # (Manual) 1.0 L (1.2-4.9) X10*3/uL Monocytes # (Manual) 0.9 (0.1-1.2) X10*3/uL Toxic Vacuolation PRESENT Platelet Estimate NORMAL (NORMAL) Plt Morphology Comment NORMAL RBC Morphology NORMAL PT (11.1-13.3) SEC INR (0.9-1.1) O2 Saturation 90.0 % ABG pH at Pt Temp 7.42 (7.35-7.45) ABG pCO2 at Pt Temp 58 H (32-45) mmHg ABG pO2 at Pt Temp 64 L (83-108) mmHg ABG HCO3 38 H (22-26) mmol/L ABG Base Excess (Actual) 11.8 mmol/L VBG pH (7.32-7.43) VBG pCO2 mmHg VBG pO2 mmHg VBG HCO3 (22-26) mmol/L VBG O2 Saturation % VBG Base Excess mmol/L Sodium 138 (135-145) mmol/L Potassium 3.9 (3.3-5.1) mmol/L Chloride 97 (96-108) mmol/L Carbon Dioxide 30 H (22-29) mmol/L Anion Gap 15 (12-20) BUN 11 (9-16) mg/dL Creatinine 0.84 (0.5-1.4) mg/dL Estim Creat Clear Calc 79.1 Estimated GFR > 60 Random Glucose 116 H (60-115) mg/dL Lactic Acid (0.5-2.0) mmol/L Calcium 8.3 L D (8.4-10.2) mg/dL Magnesium 1.9 (1.6-2.6) mg/dL Total Bilirubin 0.7 (0.0-1.0) mg/dL AST 39 H (5-31) U/L ALT 26 (0-31) U/L Alkaline Phosphatase 115 (39-117) U/L Troponin I High Sens 87.0 H* (<3.5-17.0) ng/L Total Protein 7.5 (6.5-8.0) g/dL Albumin 3.7 (3.5-5.0) g/dL Beta HCG, Quant < 2 mIU/mL Ethyl Alcohol < 10 mg/dL 11/16/23 11/16/23 Range/Units 11:05 12:39 WBC (4.8-10.8) X10*3/uL RBC (4.20-5.50) X10*6/uL Hgb (12.0-16.0) g/dl Hct (37.0-47.0) % MCV (80.0-98.0) fL MCH (27.0-33.0) pg MCHC (31.0-35.0) g/dl RDW (11.0-16.0) % Plt Count (160-400) X10*3/uL MPV (9.4-12.3) fL Immature Gran % (Auto) Neut % (Auto) Lymph % (Auto) [place] % (Auto) Eos % (Auto) Baso % (Auto) Lymph # (Auto) [place] # (Auto) Eos # (Auto) Baso # (Auto) Abs Immat Gran (auto) Absolute Neuts (auto) Absolute Nucleated RBC (0.0-0.012) X10*3/uL Nucleated RBC % (auto) (0.0-0.2) /100WBC Neutrophils % (Manual) (45-73) % Band Neutrophils % (3-5) % Lymphocytes % (Manual) (20-40) % Monocytes % (Manual) (2-11) % Abs Neuts (Manual) (2.0-8.3) X10*3/uL Lymphocytes # (Manual) (1.2-4.9) X10*3/uL Monocytes # (Manual) (0.1-1.2) X10*3/uL Toxic Vacuolation Platelet Estimate (NORMAL) Plt Morphology Comment RBC Morphology PT 13.7 H (11.1-13.3) SEC INR 1.1 (0.9-1.1) O2 Saturation % ABG pH at Pt Temp (7.35-7.45) ABG pCO2 at Pt Temp (32-45) mmHg ABG pO2 at Pt Temp (83-108) mmHg ABG HCO3 (22-26) mmol/L ABG Base Excess (Actual) mmol/L VBG pH 7.63 H* (7.32-7.43) VBG pCO2 31 mmHg VBG pO2 169 mmHg VBG HCO3 33 H (22-26) mmol/L VBG O2 Saturation 100.0 % VBG Base Excess 12.0 mmol/L Sodium (135-145) mmol/L Potassium (3.3-5.1) mmol/L Chloride (96-108) mmol/L Carbon Dioxide (22-29) mmol/L Anion Gap (12-20) BUN (9-16) mg/dL Creatinine (0.5-1.4) mg/dL Estim Creat Clear Calc Estimated GFR Random Glucose (60-115) mg/dL Lactic Acid 1.2 (0.5-2.0) mmol/L Calcium (8.4-10.2) mg/dL Magnesium (1.6-2.6) mg/dL Total Bilirubin (0.0-1.0) mg/dL AST (5-31) U/L ALT (0-31) U/L Alkaline Phosphatase (39-117) U/L Troponin I High Sens (<3.5-17.0) ng/L Total Protein (6.5-8.0) g/dL Albumin (3.5-5.0) g/dL Beta HCG, Quant mIU/mL Ethyl Alcohol mg/dL ABG Data ABG Results: 1019 O2 sat: 90 pH: 7.42 pCO2: 58 pO2: 64 HCO3: 38 VBG 11:05 o2 sat: 100 pH: 7.63 pCO2: 31 pO2:169 HCO3: 33 Attestation ABG: I personally reviewed and interpreted this ABG as follows: Independent Interpretation I performed an independent interpretation of an: EKG (Vent. Rate : 113 BPM Atrial Rate : 113 BPM P-R Int : 120 ms QRS Dur : 090 ms QT Int : 346 ms P-R-T Axes : 041 037 040 degrees QTc Int : 474 ms Sinus tachycardia Nonspecific [address] abnormality Abnormal ECG When compared with ECG of 16-JUL-2023 13:49, Vent. rate has increase) and CT Scan Radiology Impression Discussion of test interpretation with radiology: I have reviewed the radiologist's reading. Radiologist Impression: Vent. Rate : 113 BPM Atrial Rate : 113 BPM P-R Int : 120 ms QRS Dur : 090 ms QT Int : 346 ms P-R-T Axes : 041 037 040 degrees QTc Int : 474 ms Sinus tachycardia Nonspecific ST abnormality Abnormal ECG When compared with ECG of 16-JUL-2023 13:49, Vent. rate has increased BY 63 BPM External Record Review External record reviewed: Inpatient record and Outpatient record Social Determinants Patient?s care significantly limited by Social Determinants of Health including: Other Social Determinant of Health Critical Care Time Critical Care Time Critical Care Time: Yes Total Critical Care Time: 45 Attestation: I attest to this time spent taking care of the patient, obtaining history, physical, reviewing labs, imaging, speaking to my attending, speaking to specialist. Discharge Plan Discharge Clinical Impression: Opioid abuse, Multifocal pneumonia, Hypoxia Patient Disposition: Admitted As Inpatient Prescriptions: No Action dextroamphetamine-amphetamine 10 mg tablet 1 tab PO BID PRN (Reason: attention deficit hyperactivity disorder) alprazolam 2 mg tablet 2 mg PO TID PRN (Reason: anxiety) albuterol sulfate [Ventolin HFA] 90 mcg/actuation HFA aerosol inhaler 2 puff INHALATION Q4-6H PRN (Reason: Shortness Of Breath Or Wheezing) dextroamphetamine-amphetamine [Adderall XR] 30 mg capsule,extended release 24hr 1 cap PO QAM PRN (Reason: attention deficit hyperactivity disorder) acamprosate 333 mg tablet,delayed release (DR/EC) 666 mg PO TID methadone [Methadose] 10 mg/mL Concentrate 77 mg PO DAILY acamprosate 333 mg tablet,delayed release (DR/EC) 666 mg PO TID Qty: 45 0RF
[2023-11-16 10:26] LABS: ABG Base Excess 11.8 mmol/L; ABG HCO3 38 mmol/L (22-26); ABG pCO2 58 mmHg (32-45); ABG pH 7.42 (7.35-7.45); ABG pO2 64 mmHg (83-108)
[2023-11-16] MEDS: 0.9 % Sodium Chloride 1,973.13 ML 1973.13 ML IV (10:52)
[2023-11-16] MEDS: Magnesium Sulfate/H2O 2 GM/50 ML PIGGYBACK IV (10:52)
[2023-11-16] MEDS: methylPREDNISolone Sod Succ 125 MG/2 ML VIAL IVPUSH (10:52)
[2023-11-16] MEDS: Naloxone HCl 0.4 MG/ML VIAL IVPUSH (10:56)
[2023-11-16] MEDS: cefTRIAXone sodium 1 GM in 0.9 % Sodium Chloride 50 ML IV (10:58)
[2023-11-16 10:59] LABS: ABG Refer to POC result
[2023-11-16] MEDS: ondansetron HCL 4 MG/2 ML VIAL IVPUSH (11:09)
[2023-11-16 11:10] LABS: Hemoglobin 12.1 g/dl (12.0-16.0); PLT CLUMP 1; Red Cell Distribution Width 12.9 % (11.0-16.0)
[2023-11-16 11:12] LABS: Hematocrit 37.6 % (37.0-47.0); Mean Corpuscular HGB Conc 32.2 g/dl (31.0-35.0); Mean Corpuscular Hemoglobin 30.1 pg (27.0-33.0); Mean Corpuscular Volume 93.5 fL (80.0-98.0); Mean Platelet Volume 10.8 fL (9.4-12.3); Platelet Count 185 X10*3/uL (160-400); Red Blood Count 4.02 X10*6/uL (4.20-5.50); WBC ABN SCTR FOR CBC 1; White Blood Count 17.2 X10*3/uL (4.8-10.8)
[2023-11-16 11:18] LABS: VBG HCO3 33 mmol/L (22-26); VBG pCO2 31 mmHg; VBG pH 7.63 (7.32-7.43); VBG pO2 169 mmHg
[2023-11-16 11:33] LABS: Band Neutrophils Percent 9 % (3-5); Lymphocytes Percent Manual 6 % (20-40); Monocytes Absolute Manual 0.9 X10*3/uL (0.1-1.2); Monocytes Percent Manual 5 % (2-11); Neutrophils Absolute Manual 15.3 X10*3/uL (2.0-8.3); Neutrophils Percent Manual 80 % (45-73)
[2023-11-16 11:38] LABS: Platelet Estimate NORMAL (NORMAL); Platelet Morphology Comment NORMAL; RBC Morphology NORMAL; Toxic Vacuolation PRESENT
[2023-11-16 11:40] LABS: Venous Blood Gas Refer to POC result
[2023-11-16 11:41] LABS: Alanine Aminotransferase 26 U/L (0-31); Albumin Level 3.7 g/dL (3.5-5.0); Alkaline Phosphatase 115 U/L (39-117); Anion Gap 15 (12-20); Aspartate Amino Transferase 39 U/L (5-31); Bilirubin Total 0.7 mg/dL (0.0-1.0); Blood Urea Nitrogen 11 mg/dL (9-16); Calcium 8.3 mg/dL (8.4-10.2); Carbon Dioxide 30 mmol/L (22-29); Chloride 97 mmol/L (96-108); Creatinine Clr Calc Pharmacy 79.1; Estimated Glomerular Filt Rate > 60; Ethanol < 10 mg/dL; Glucose Random 116 mg/dL (60-115); HCG Quantitative < 2 mIU/mL; Magnesium 1.9 mg/dL (1.6-2.6); Potassium 3.9 mmol/L (3.3-5.1); Sodium 138 mmol/L (135-145); Total Protein 7.5 g/dL (6.5-8.0)
[2023-11-16] MEDS: iohexoL 350 MG/ML 100 ML INFUS..BTL 65 ML IV (12:26)
[2023-11-16 12:50] LABS: INTERNATIONAL NORM RATIO 1.1 (0.9-1.1); Prothrombin Time 13.7 SEC (11.1-13.3)
[2023-11-16 12:53] LABS: Lactic Acid 1.2 mmol/L (0.5-2.0)
[2023-11-16 13:11] LABS: Troponin-I High Sensitivity 88.9 ng/L (<3.5-17.0)
--- NOTE | 2023-11-16 13:24 | P.HPHOSP_ITS ---
History of Present Illness Date of Service: 11/16/23 Attending physician on admission: [facility] Chief Complaint: SOB, cough Pt is a 33-year-old female with a PMH significant for?opioid use disorder methadone, alcohol use disorder, and ADHD who presents to the ED with?shortness of breath, productive cough, and ZIMMERMAN past 3 days. Has had a low-grade fever and chills. Denies nausea, vomiting, abdominal pain at home. Patient has a long history of opioid use disorder including IVDU. Reports was voluntarily in a recovery program for 2 months, though voluntarily left around 2 weeks ago since everyone was using there and she did not want to be around that kind of environment. Initially denied using while in the community, but eventually admits to using once before he symptoms started. Says she was Narcaned while in the community, but is unsure why. Denies overdose. The patient herself was somnolent upon arrival in the ED, satting at 48% O2. Was given Narcan which revive her some and patient immediately started having nausea and vomiting. At time of interview patient is still somewhat groggy, but alert and awake and answering inappropriately. In the ED pt was also tachycardic up to 146 and tachypneic up 24. Labs were significant for leukocytosis of 17.2, and initial troponin 87.0 with repeat 88.9. VBG pH 7.63. Ethyl alcohol level was undetectable. CXR showed multifocal right parenchymal consolidation and left retrocardiac and left upper lobe consolidation suspicious for multifocal infection. CTA of chest found multifocal airspace opacities bilaterally right more than left that favor an acute airspace process such as pneumonia. Did not find any large central or segmental pulmonary emboli, but exam limited due to artifact. EKG demonstrated sinus tachycardia of [address] elevations or depressions. Pt was treated with Mag sulfate, Solu-Medrol, IVF, ondansetron, ceftriaxone, and azithromycin. Pt will be admitted to the hospital for treatment and further evaluation of acute hypoxic respiratory failure in the setting of likely aspiration pneumonia from likely opioid overdose. Review of Systems 2 Review of Systems: SOB, ZIMMERMAN Productive cough Fever, chills Nausea, vomiting while in ED Denies chest pain/pressure, palpitations PMFSH Medical History Hypertriglyceridemia Alcohol abuse Mood disorder Opioid abuse Alcohol use disorder Social History Household Members: Unknown / Unable to assess Housing: House Unable to assess alcohol history related to: Unknown Alcohol intake: current Alcohol intake frequency: 3 or more drinks per day Patient Tobacco Use Status: Tobacco use Unknown Use of substances other than those prescribed or required for medical reasons: Refusing to respond Currently Displaying Signs/Symptoms of Drug Intoxication Withdrawal: No Have you been hit, kicked, punched, or otherwise hurt by someone within the past year? If so, by whom?: No Do you feel safe in your current relationship?: Yes Is there a partner from a previous relationship who is making you feel unsafe now?: No Are you made to feel afraid or neglected: No Advance Directives: No Advance Directives Information Provided: No Do you have thoughts of harming others: None Do you have a plan to hurt others: No Plan Recently lost weight without trying: No Eating poorly because of decreased appetite: No Nutrition Risks: No Nutritional Risk Patient : No : No Poor oral hygiene: No service: No Meds Allergies Allergy/AdvReac Type Severity Reaction Status Date / Time amoxicillin Allergy Hives Verified 11/16/23 09:49 Home Medications Medication Instructions Recorded Confirmed Last Taken Type acamprosate 333 mg tablet,delayed 666 mg PO TID 07/16/23 11/16/23 11/16/23 09:00 History release albuterol sulfate 90 mcg/actuation 2 puff inhalation Q4-6H PRN 07/16/23 11/16/23 Unknown History aerosol inhaler (Ventolin HFA) Shortness Of Breath Or Wheezing alprazolam 2 mg tablet 2 mg PO QID PRN anxiety 07/16/23 11/16/23 Unknown History dextroamphetamine-amphetamine 10 1 tab PO BID@0900,1700 attention 07/16/23 11/16/23 11/16/23 09:00 History mg tablet deficit hyperactivity disorder dextroamphetamine-amphetamine ER 1 cap PO DAILY attention deficit 07/16/23 11/16/23 11/16/23 09:00 History 30 mg 24hr capsule,extend release hyperactivity disorder (Adderall XR) methadone 10 mg/mL oral 77 mg PO DAILY 07/16/23 07/17/23 07/16/23 History concentrate (Methadose) ascorbic acid (vitamin C) 500 mg 500 mg PO DAILY 11/16/23 11/16/23 11/16/23 09:00 History tablet (Vitamin C) etonogestrel 0.12 mg-ethinyl 1 vag ring vaginal Q4W 11/16/23 11/16/23 Unknown History estradiol 0.015 mg/24 hr vaginal ring (NuvaRing) famotidine 20 mg tablet 20 mg PO BID 11/16/23 11/16/23 11/16/23 09:00 History folic acid 1 mg tablet 1 mg PO DAILY 11/16/23 11/16/23 11/16/23 09:00 History magnesium oxide 400 mg (241.3 mg 400 mg PO DAILY 11/16/23 11/16/23 11/16/23 09:00 History magnesium) tablet ondansetron 4 mg disintegrating 4 mg PO Q8H PRN Nausea And Vomiting 11/16/23 11/16/23 Unknown History tablet pantoprazole 40 mg tablet,delayed 40 mg PO DAILY@0630 11/16/23 11/16/23 11/16/23 09:00 History release thiamine HCl (vitamin B1) 100 mg 100 mg PO DAILY 11/16/23 11/16/23 11/16/23 09:00 History tablet (Vitamin B-1) zinc acetate 50 mg (zinc) capsule 50 mg PO DAILY 11/16/23 11/16/23 11/16/23 09:00 History Physical Exam 2 Vital Signs and Narrative: Vital Signs: Last Vital Signs Pulse 110 H 11/16/23 13:05 Resp 13 11/16/23 13:05 BP 126/78 11/16/23 13:05 Pulse Ox 95 11/16/23 13:05 O2 Del Method Oxymask 11/16/23 13:05 O2 Flow Rate 10 11/16/23 13:05 BMI result Body Mass Index 28.3 Constitutional: Alert though seemingly drowsy, cooperative, answering appropriately. In no acute distress. Mental Status: Oriented to person, place and time. Eyes: Pupils are equal, round, and reactive to light. Ear, Nose, and Throat: Oropharynx clear, mucous membranes moist. Ears and nose without deformities. Trachea midline. Respiratory: Diffuse expiratory rhonchi bilaterally, especially on right side. Cardiovascular: S1, S2 tachycardic. No murmurs, rubs, or gallops. Gastrointestinal: Abdomen soft, non-tender, non-distended. Normal bowel sounds. Neurologic: Cranial nerves II-XII are grossly intact bilaterally. No focal neurological deficits. Moves all extremities spontaneously. Skin: Warm, dry. Musculoskeletal: No cyanosis or clubbing. Extremities: No edema. Psychiatric: Normal mood and affect. Results Labs 11/17/23 04:01 11/17/23 04:01 Labs: Laboratory Results - last 24 hr 11/16/23 11/16/23 11/16/23 10:19 10:49 10:56 MCV 93.5 MCH 30.1 MCHC 32.2 RDW 12.9 Plt Count 185 MPV 10.8 Immature Gran % (Auto) Cancelled Neut % (Auto) Cancelled Lymph % (Auto) Cancelled [place] % (Auto) Cancelled Eos % (Auto) Cancelled Baso % (Auto) Cancelled Lymph # (Auto) Cancelled [place] # (Auto) Cancelled Eos # (Auto) Cancelled Baso # (Auto) Cancelled Abs Immat Gran (auto) Cancelled Absolute Neuts (auto) Cancelled Absolute Nucleated RBC 0.000 Nucleated RBC % (auto) 0.0 Neutrophils % (Manual) 80 H Band Neutrophils % 9 H Lymphocytes % (Manual) 6 L Monocytes % (Manual) 5 Abs Neuts (Manual) 15.3 H Lymphocytes # (Manual) 1.0 L Monocytes # (Manual) 0.9 Toxic Vacuolation PRESENT Platelet Estimate NORMAL Plt Morphology Comment NORMAL RBC Morphology NORMAL PT INR O2 Saturation 90.0 ABG pH at Pt Temp 7.42 ABG pCO2 at Pt Temp 58 H ABG pO2 at Pt Temp 64 L ABG HCO3 38 H ABG Base Excess (Actual) 11.8 VBG pH VBG pCO2 VBG pO2 VBG HCO3 VBG O2 Saturation VBG Base Excess Anion Gap 15 Estim Creat Clear Calc 79.1 Estimated GFR > 60 Random Glucose 116 H Lactic Acid Calcium 8.3 L D Magnesium 1.9 Total Bilirubin 0.7 AST 39 H ALT 26 Alkaline Phosphatase 115 Total Protein 7.5 Albumin 3.7 Beta HCG, Quant < 2 Ethyl Alcohol < 10 11/16/23 11/16/23 11:05 12:39 MCV MCH MCHC RDW Plt Count MPV Immature Gran % (Auto) Neut % (Auto) Lymph % (Auto) [place] % (Auto) Eos % (Auto) Baso % (Auto) Lymph # (Auto) [place] # (Auto) Eos # (Auto) Baso # (Auto) Abs Immat Gran (auto) Absolute Neuts (auto) Absolute Nucleated RBC Nucleated RBC % (auto) Neutrophils % (Manual) Band Neutrophils % Lymphocytes % (Manual) Monocytes % (Manual) Abs Neuts (Manual) Lymphocytes # (Manual) Monocytes # (Manual) Toxic Vacuolation Platelet Estimate Plt Morphology Comment RBC Morphology PT 13.7 H INR 1.1 O2 Saturation ABG pH at Pt Temp ABG pCO2 at Pt Temp ABG pO2 at Pt Temp ABG HCO3 ABG Base Excess (Actual) VBG pH 7.63 H* VBG pCO2 31 VBG pO2 169 VBG HCO3 33 H VBG O2 Saturation 100.0 VBG Base Excess 12.0 Anion Gap Estim Creat Clear Calc Estimated GFR Random Glucose Lactic Acid 1.2 Calcium Magnesium Total Bilirubin AST ALT Alkaline Phosphatase Total Protein Albumin Beta HCG, Quant Ethyl Alcohol Imaging Radiologist's Impressions: Impressions Chest X-Ray 11/16/23 10:43 IMPRESSION: Multifocal right parenchymal consolidation and left retrocardiac and to a lesser extent left upper lobe consolidation suspicious for multifocal infection and/or asymmetric edema. Low lung volumes. Recommend repeat radiographs after treatment to ensure resolution. Chest CTA 11/16/23 12:31 IMPRESSION: 1. Multifocal airspace opacities bilaterally right more than left favor an acute airspace process such as pneumonia. Clinical correlation is required. This is a probable etiology for patient's respiratory distress. 2. No large central or segmental pulmonary emboli. Technically limited examination with significant artifact. If there is strong clinical concern for pulmonary thromboembolic disease recommend bilateral lower extremity Doppler ultrasound of the legs or short interval follow-up PE study. VTE: negative Assessment and Plan (1) Hypoxia: Status: Acute (2) Aspiration pneumonia: Status: Acute Plan Pt is a 33-year-old female with a PMH significant for?opioid use disorder methadone, alcohol use disorder, and ADHD who presents to the ED with?shortness of breath, productive cough, and ZIMMERMAN past 3 days. Pt will be admitted to the hospital for treatment and further evaluation of acute hypoxic respiratory failure in the setting of likely aspiration pneumonia from likely opioid overdose. Acute hypoxic respiratory failure in the setting of multifocal pneumonia with sepsis Pt satting as low at 48% on RA, CTA with evidence of multifocal airspace opacities bilaterally right more than left Likely secondary to aspiration from opioid use disorder/opioid overdose Patient meets sepsis criteria: Tachycardia, tachypnea, leukocytosis; lactic acid WNL 1.2 Pt given IVF and started on broad-spectrum antibiotics in ED Pt with penicillin allergy: Will treat with ceftriaxone, metronidazole, started 11/16/2023 Titrate supplemental O2 >92, wean as tolerated Monitor respiratory status Follow CBC, cultures Elevated troponins Initial troponin 87.0 with repeat 88.9 Patient asymptomatic, EKG without significant ischemic changes Likely type 2 setting increased demand Opioid use disorder Addiction medicine consult ADHD Continue Adderall Alcohol use disorder Continue acamprosate GERD Continue famotidine, PPI Full Code Attending:?Dr. Pearson DVT Prophylaxis: Lovenox Pt will require a hospitalization of at least two nights for treatment of? with . Quality Stroke Does the patient have a stroke diagnosis?: No VTE Prior VTE?: No VTE Risk Level:: Medical - moderate - high VTE Device Contraindication: Treatment Not Indicated VTE Drug Contraindication: N/A - Med Ordered
--- NOTE | 2023-11-16 13:54 | PHA.MEDREC ---
Pharmacy Consult ? Medication Reconciliation Pharmacy has completed the medication reconciliation. Spoke to patient to confirm meds.
--- NOTE | 2023-11-16 15:36 | PC.NURSE ---
pt a+o x3, she was brought to the ed via private vehicle by her step-father. her chief complaint was sob x3 days. pt was immediately brought back. her o2 sat was mid-high 80s on r/a. she was placed on 10L via venti mask that brought her o2 sat up to low - mid 90s. pt has hx of iv drug use and reports using 2 days ago, she denies alcohol use. she is also on methadone. labs were drawn, 20g iv was inserted ALEXIS, meds and fluid given as documented. pt's currently satting hi 90s on 10L venti-mask.
[2023-11-16] MEDS: Enoxaparin Sodium 40 MG/0.4 ML SYRINGE SUBCUT (16:07)
[2023-11-16] MEDS: Amphetamine Mixed Salts 10 MG TABLET PO (16:08)
[2023-11-16] MEDS: metroNIDAZOLE/NS 500 MG/100 ML PIGGYBACK 100 MG IV ×2 (16:08→22:20)
[2023-11-16] MEDS: 0.9 % Sodium Chloride Flush 3 ML SYRINGE IVFLUSH ×2 (16:09→22:20)
[2023-11-16] MEDS: Acamprosate Calcium 333 MG TABLET.DR 666 MG PO ×2 (16:21→20:41)
[2023-11-16 16:39] LABS: Amphetamine Screen Urine Not Detected (Not Detect); Barbiturates, Urine Not Detected (Not Detect); Benzodiazepines Screen Urine POSITIVE (Not Detect); Cannabinoid Screen Urine Not Detected (Not Detect); Cocaine Screen Urine Not Detected (Not Detect); Fentanyl, urine POSITIVE (Not Detect); Opiate Screen Urine Not Detected (Not Detect); Phencyclidine Screen Urine Not Detected (Not Detect)
--- NOTE | 2023-11-16 16:39 | PC.NURSE ---
Addendum entered by Harrison Simms RN 11/16/23 16:44: belongings list completed and is in pt's chart Original Note: meds given as documented.report sent as documented. transporter notified.
--- NOTE | 2023-11-16 17:48 | PC.NURSE ---
Pts arrives to room about 45 minutes prior to pt arrival. upon pt arrival is slurring words and unsteady on feet. when confronted about the safety of his condition and the pt he becomes defensive and denies etoh or drug use but does admit to having just taken his methadon, keppra, clonapin, gabapentin and several other medication. camera placed in room for pt safety. meteorologist in charge aware. pt is alert talkative mild sob with ambulation.
--- NOTE | 2023-11-16 18:10 | PC.NURSE ---
close observation called to mention that was giving her a flask and then a small box which she wrapped and placed secretly in a bag. security called.
--- NOTE | 2023-11-16 18:15 | PC.NURSE ---
observation room calls to report pt is vaping in room.
--- NOTE | 2023-11-16 18:31 | PC.NURSE ---
Pt leaving ama per provider as pt is refusing to stay once flask and vape device has been located and removed from pts belongings. video games mechanic states there was an object like a pill box that was handed to her by her however that cannot be located. providers area aware. security at bedside. escorted out with large mr. dillon vodkchay bottle.
--- NOTE | 2023-11-16 18:58 | PM.EVENT ---
Event Note Date of Service: 11/16/23 Event Note: Pt caught drinking alcohol and vaping on camera and subsequently decided to leave AMA, when alcohol flask was taking away. Unfortunately she was not deemed to be able to make a sound decision given O2 saturation of a mere 81 %. She was convinced in the end to stay and get the right care, however the who brought her these vape and alcohol not alowed to returned to the unt Time Spent With Patient Time: Total time managing care of this patient today ____ minutes.
[2023-11-16] MEDS: Famotidine 20 MG TABLET PO (20:41)
[2023-11-16] MEDS: ALPRAZolam 0.5 MG TABLET 2 MG PO (20:41)
[2023-11-16] MEDS: Acetaminophen 325 MG TABLET 650 MG PO (20:48)
--- NOTE | 2023-11-16 20:51 | PC.NURSE ---
Addendum entered by Sheila Cantor RN 11/17/23 00:16: Pt switching back and forth from nasal cannula and oxymask due to comfort, oxygen saturation remains 96% on 4L, Pt noted to have productive cough, Pt medicated per MAR with good effect, Pt allowed to sleep, respirations even and unlabored, Pt easily arousable, call fraser within reach. Original Note: This RN taking over care of Pt at 18:45, Pt agreeable to stay inpatient and not leave AMA, security searched Pt belongings at shift change. Pt reevaluated by this RN at 20:20 and noted to be calm and cooperative, wearing oxymask at 2L, respirations even and unlabored, Pt alert and oriented x 4, clear speech, Pt medicated per MAR, charge histotechnologist at bedside attempting new IV access.
[2023-11-16] MEDS: Benzonatate 100 MG CAPSULE PO (23:13)
[2023-11-16] MEDS: Nicotine Polacrilex Lozenge 2 MG LOZENGE BUCCAL (23:37)
--- NOTE | 2023-11-17 03:30 | PC.NURSE ---
Pt ambulated to bathroom 1A, complaints of unrelenting productive cough and SOB upon ambulation with upper lobe wheezing, medicated previously with tessalon no effect. MD made aware and robitussin with codeine ordered, Respiratory therapy called to administer inhaler treatment, inhaler not available at this time and respiratory informed this nurse a call was made to pharmacy, Pt escorted to bed with HOB raised and oxy mask place on Pt on 4L, complaining of TOBAR, medicated per JAN, SOB resolved at this time, o2 saturation 96%, no signs of respiratory distress, respirations unlabored and even, call fraser within reach.
[2023-11-17] MEDS: Acetaminophen 325 MG TABLET 650 MG PO ×4 (03:41→22:35)
[2023-11-17] MEDS: guaiFEN/Codeine SF 200/20/10ML 10 ML LIQUID PO ×2 (03:41→10:25)
[2023-11-17 03:43] VITALS: PULSE 88; O2SAT 96
[2023-11-17 04:22] VITALS: BP 106/56; PULSE 71; RESP 16; TEMP 36.1; O2SAT 93
[2023-11-17 05:11] LABS: Hematocrit 30.1 % (37.0-47.0); Hemoglobin 9.7 g/dl (12.0-16.0); Mean Corpuscular HGB Conc 32.2 g/dl (31.0-35.0); Mean Corpuscular Hemoglobin 30.3 pg (27.0-33.0); Mean Corpuscular Volume 94.1 fL (80.0-98.0); Mean Platelet Volume 11.6 fL (9.4-12.3); NRBC Pct Auto 0.1 /100WBC (0.0-0.2); Platelet Count 190 X10*3/uL (160-400); White Blood Count 19.8 X10*3/uL (4.8-10.8)
[2023-11-17 05:29] LABS: Anion Gap 13 (12-20); Blood Urea Nitrogen 9 mg/dL (9-16); Carbon Dioxide 30 mmol/L (22-29); Chloride 100 mmol/L (96-108); Creatinine Clr Calc Pharmacy 84.1; Estimated Glomerular Filt Rate > 60; Glucose Random 186 mg/dL (60-115); Potassium 3.4 mmol/L (3.3-5.1); Sodium 140 mmol/L (135-145)
[2023-11-17] MEDS: Omeprazole 20 MG CAPSULE.DR PO (06:11)
[2023-11-17] MEDS: metroNIDAZOLE/NS 500 MG/100 ML PIGGYBACK 100 MG IV ×3 (06:11→22:35)
[2023-11-17] MEDS: ALPRAZolam 0.5 MG TABLET 2 MG PO ×3 (06:32→21:10)
[2023-11-17] MEDS: Ondansetron ODT 4 MG TAB.RAPDIS TRANSLINGU (06:33)
[2023-11-17 08:00] VITALS: BP 120/64; PULSE 73; RESP 18; TEMP 36.6; O2SAT 94
--- NOTE | 2023-11-17 09:25 | HO.PM.IMPN ---
Subjective Subjective Date of Service: 11/17/23 Interval History: f/u on pna, and acute hypoxic resp failure more cooperative today, remains hypoxic on but getting better Physical Exam Vital Signs: Vital Signs: Last Vital Signs Temp 98 F 11/17/23 08:00 Pulse 73 11/17/23 08:00 Resp 18 11/17/23 08:00 BP 120/64 11/17/23 08:00 Pulse Ox 94 11/17/23 08:00 O2 Del Method Room Air 11/17/23 08:00 O2 Flow Rate 4 11/17/23 04:22 BMI result Body Mass Index 28.3 Const: Other: General: AO X 3, no acute distress Resp: hamlet rhonchi CVS: S1,S2,RRR GI: +BS, NT, no distention Skin: No rash Neuro: motor grossly intact Psych: appropriate affect Objective Data Active Medications Acamprosate (Acamprosate Calcium 333 Mg Tablet.) 666 mg PO TID [facility] Last Admin: 11/16/23 20:41 Dose: 666 mg Documented By: VENKATA Acetaminophen (Acetaminophen 325 Mg Tablet) 650 mg PO Q6H PRN PRN Reason: Pain, Mild (Pain Scale 1-3) Last Admin: 11/17/23 03:41 Dose: 650 mg Documented By: VENKATA Albuterol Sulfate (Albuterol Sulfate 90 Mcg 8 Gm Inhaler) 2 puff INHALE Q4H PRN PRN Reason: Shortness Of Breath Or Wheezing Alprazolam (Alprazolam 0.5 Mg Tablet) 2 mg PO QID PRN PRN Reason: anxiety Last Admin: 11/17/23 06:32 Dose: 2 mg Documented By: VENKATA Amphetamine/Dextroamphetamine (Dextroamphetamine/Amphetamine Xr 10 Mg Cap.Er.24h) 30 mg PO DAILY [facility] Amphetamine/Dextroamphetamine (Amphetamine Mixed Salts 10 Mg Tablet) 10 mg PO BID@0900,1700 [facility] Last Admin: 11/16/23 16:08 Dose: 10 mg Documented By: HEATHER Ascorbic Acid (Ascorbic Acid 500 Mg Tablet) 500 mg PO DAILY [facility] Benzonatate (Benzonatate 100 Mg Capsule) 100 mg PO TID PRN PRN Reason: Cough Last Admin: 11/16/23 23:13 Dose: 100 mg Documented By: VENKATA Docusate Sodium (Docusate Sodium 100 Mg Capsule) 100 mg PO DAILY PRN PRN Reason: Constipation Enoxaparin Sodium (Enoxaparin Sodium 40 Mg/0.4 Ml Syringe) 40 mg SUBCUT Q24H [facility] Last Admin: 11/16/23 16:07 Dose: 40 mg Documented By: HEATHER Famotidine (Famotidine 20 Mg Tablet) 20 mg PO BID [facility] Last Admin: 11/16/23 20:41 Dose: 20 mg Documented By: VENKATA Folic Acid (Folic Acid 1 Mg Tablet) 1 mg PO DAILY [facility] Guaifenesin/Codeine Phosphate (Guaifen/Codeine Sf 200/20/10ml 10 Ml Liquid) 10 ml PO Q4H PRN PRN Reason: Cough Last Admin: 11/17/23 03:41 Dose: 10 ml Documented By: VENKATA Metronidazole (Flagyl) 500 mg in 100 mls @ 100 mls/hr IV Q8H [facility] Last Infusion: 11/17/23 07:43 Dose: Infused Documented By: DUYEN Ceftriaxone Sodium 1 gm/ (Sodium Chloride) 50 mls @ 100 mls/hr IV Q24H [facility] Magnesium Oxide (Magnesium Oxide 400 Mg Tablet) 400 mg PO DAILY [facility] Melatonin (Melatonin 3 Mg Tablet) 6 mg PO BEDTIME PRN PRN Reason: Insomnia Nicotine Polacrilex (Nicotine Polacrilex Lozenge 2 Mg Lozenge) 2 mg BUCCAL Q2H PRN PRN Reason: Nicotine Cravings Last Admin: 11/16/23 23:37 Dose: 2 mg Documented By: VENKATA Omeprazole (Omeprazole 20 Mg Dav.) 20 mg PO DAILY@0630 [facility] Last Admin: 11/17/23 06:11 Dose: 20 mg Documented By: VENKATA Ondansetron HCl (Ondansetron Odt 4 Mg Tab.Rapdis) 4 mg TRANSLINGU Q8H PRN PRN Reason: Nausea And Vomiting Last Admin: 11/17/23 06:33 Dose: 4 mg Documented By: VENKATA Sodium Chloride (0.9 % Sodium Chloride Flush 3 Ml Syringe) 3 ml IVFLUSH QSHIFT [facility] Last Admin: 11/16/23 22:20 Dose: 3 ml Documented By: VENKATA Thiamine HCl (Thiamine Hcl 100 Mg Tablet) 100 mg PO DAILY [facility] Zinc Sulfate (Zinc Sulfate 220 Mg Capsule) 220 mg PO DAILY [facility] Labs 11/17/23 04:01 11/17/23 04:01 Labs: Laboratory Results - last 24 hr 11/16/23 11/16/23 11/16/23 10:19 10:49 10:56 MCV 93.5 MCH 30.1 MCHC 32.2 RDW 12.9 Plt Count 185 MPV 10.8 Immature Gran % (Auto) Cancelled Neut % (Auto) Cancelled Lymph % (Auto) Cancelled Upson % (Auto) Cancelled Eos % (Auto) Cancelled Baso % (Auto) Cancelled Lymph # (Auto) Cancelled Upson # (Auto) Cancelled Eos # (Auto) Cancelled Baso # (Auto) Cancelled Abs Immat Gran (auto) Cancelled Absolute Neuts (auto) Cancelled Absolute Nucleated RBC 0.000 Nucleated RBC % (auto) 0.0 Neutrophils % (Manual) 80 H Band Neutrophils % 9 H Lymphocytes % (Manual) 6 L Monocytes % (Manual) 5 Abs Neuts (Manual) 15.3 H Lymphocytes # (Manual) 1.0 L Monocytes # (Manual) 0.9 Toxic Vacuolation PRESENT Platelet Estimate NORMAL Plt Morphology Comment NORMAL RBC Morphology NORMAL PT INR O2 Saturation 90.0 ABG pH at Pt Temp 7.42 ABG pCO2 at Pt Temp 58 H ABG pO2 at Pt Temp 64 L ABG HCO3 38 H ABG Base Excess (Actual) 11.8 VBG pH VBG pCO2 VBG pO2 VBG HCO3 VBG O2 Saturation VBG Base Excess Anion Gap 15 Estim Creat Clear Calc 79.1 Estimated GFR > 60 Random Glucose 116 H Lactic Acid Calcium 8.3 L D Magnesium 1.9 Total Bilirubin 0.7 AST 39 H ALT 26 Alkaline Phosphatase 115 Total Protein 7.5 Albumin 3.7 Beta HCG, Quant < 2 Urine Opiates Screen Urine Fentanyl Screen Ur Barbiturates Screen Ur Phencyclidine Scrn Ur Amphetamines Screen U Benzodiazepines Scrn Urine Cocaine Screen U Marijuana (THC) Screen Ethyl Alcohol < 10 11/16/23 11/16/23 11/16/23 11:05 12:39 15:57 MCV MCH MCHC RDW Plt Count MPV Immature Gran % (Auto) Neut % (Auto) Lymph % (Auto) Upson % (Auto) Eos % (Auto) Baso % (Auto) Lymph # (Auto) Upson # (Auto) Eos # (Auto) Baso # (Auto) Abs Immat Gran (auto) Absolute Neuts (auto) Absolute Nucleated RBC Nucleated RBC % (auto) Neutrophils % (Manual) Band Neutrophils % Lymphocytes % (Manual) Monocytes % (Manual) Abs Neuts (Manual) Lymphocytes # (Manual) Monocytes # (Manual) Toxic Vacuolation Platelet Estimate Plt Morphology Comment RBC Morphology PT 13.7 H INR 1.1 O2 Saturation ABG pH at Pt Temp ABG pCO2 at Pt Temp ABG pO2 at Pt Temp ABG HCO3 ABG Base Excess (Actual) VBG pH 7.63 H* VBG pCO2 31 VBG pO2 169 VBG HCO3 33 H VBG O2 Saturation 100.0 VBG Base Excess 12.0 Anion Gap Estim Creat Clear Calc Estimated GFR Random Glucose Lactic Acid 1.2 Calcium Magnesium Total Bilirubin AST ALT Alkaline Phosphatase Total Protein Albumin Beta HCG, Quant Urine Opiates Screen Not Detected Urine Fentanyl Screen POSITIVE H Ur Barbiturates Screen Not Detected Ur Phencyclidine Scrn Not Detected Ur Amphetamines Screen Not Detected U Benzodiazepines Scrn POSITIVE H Urine Cocaine Screen Not Detected U Marijuana (THC) Screen Not Detected Ethyl Alcohol 11/17/23 04:01 MCV 94.1 MCH 30.3 MCHC 32.2 RDW 13.0 Plt Count 190 MPV 11.6 Immature Gran % (Auto) Neut % (Auto) Lymph % (Auto) Upson % (Auto) Eos % (Auto) Baso % (Auto) Lymph # (Auto) Upson # (Auto) Eos # (Auto) Baso # (Auto) Abs Immat Gran (auto) Absolute Neuts (auto) Absolute Nucleated RBC 0.020 H Nucleated RBC % (auto) 0.1 Neutrophils % (Manual) Band Neutrophils % Lymphocytes % (Manual) Monocytes % (Manual) Abs Neuts (Manual) Lymphocytes # (Manual) Monocytes # (Manual) Toxic Vacuolation Platelet Estimate Plt Morphology Comment RBC Morphology PT INR O2 Saturation ABG pH at Pt Temp ABG pCO2 at Pt Temp ABG pO2 at Pt Temp ABG HCO3 ABG Base Excess (Actual) VBG pH VBG pCO2 VBG pO2 VBG HCO3 VBG O2 Saturation VBG Base Excess Anion Gap 13 Estim Creat Clear Calc 84.1 Estimated GFR > 60 Random Glucose 186 H Lactic Acid Calcium 8.0 L Magnesium Total Bilirubin AST ALT Alkaline Phosphatase Total Protein Albumin Beta HCG, Quant Urine Opiates Screen Urine Fentanyl Screen Ur Barbiturates Screen Ur Phencyclidine Scrn Ur Amphetamines Screen U Benzodiazepines Scrn Urine Cocaine Screen U Marijuana (THC) Screen Ethyl Alcohol Assessment and Plan (1) Aspiration pneumonia: Status: Acute (2) Hypoxia: Status: Acute (3) Multifocal pneumonia: Status: Acute Plan Pt is a 33-year-old female with a PMH significant for?opioid use disorder methadone, alcohol use disorder, and ADHD who presents to the ED with?shortness of breath, productive cough, and ZIMMERMAN past 3 days. Pt will be admitted to the hospital for treatment and further evaluation of acute hypoxic respiratory failure in the setting of likely aspiration pneumonia from likely opioid overdose. Acute hypoxic respiratory failure in the setting of multifocal pneumonia with sepsis, suspect aspiration from OD, CT with multifocal PNA -Continue Ceftriaxone + Flagyl -O2, goal 92 to 94, wean as nuno Elevated troponins Initial troponin 87.0 with repeat 88.9, no ecg change.. likely from hypoxia, no further testing at this poin Leukocytosis--worse, likely from PNA and steroid Opioid use disorder Addiction medicine consult anemia--singificant drop since yesterday, likely from hemoconcentration, monitor ADHD Continue Adderall Diarrhea--check cdif Alcohol use disorder Continue acamprosate ciwa, pt was cought drinking alcohol and vaping in the room yesterday--brought by GERD Continue famotidine, PPI Full Code DVT Prophylaxis: Lovenox need for inpt: IV Abx for multifocal PNA with severe hypoxia, not able to manage on outpatient basis at this time Quality Stroke Does the patient have a stroke diagnosis?: No VTE Prior VTE?: No VTE Risk Level:: Medical - moderate - high VTE Device Contraindication: Treatment Not Indicated VTE Drug Contraindication: N/A - Med Ordered
[2023-11-17] MEDS: Acamprosate Calcium 333 MG TABLET.DR 666 MG PO ×3 (09:46→21:10)
[2023-11-17] MEDS: Magnesium Oxide 400 MG TABLET PO (09:46)
[2023-11-17] MEDS: Zinc Sulfate 220 MG CAPSULE PO (09:46)
[2023-11-17] MEDS: Ascorbic Acid 500 MG TABLET PO (09:46)
[2023-11-17] MEDS: Folic Acid 1 MG TABLET PO (09:46)
[2023-11-17] MEDS: Famotidine 20 MG TABLET PO ×2 (09:46→21:10)
[2023-11-17] MEDS: Thiamine HCL 100 MG TABLET PO (09:46)
[2023-11-17] MEDS: cefTRIAXone sodium 1 GM in 0.9 % Sodium Chloride 50 ML IV (10:20)
[2023-11-17] MEDS: Benzonatate 100 MG CAPSULE PO ×2 (10:25→21:16)
--- NOTE | 2023-11-17 10:48 | HE.PHANOTE ---
RE METHADONE VERIFICATION LAST DOSE 77 MG @[facility] ON 11/15/23
--- NOTE | 2023-11-17 11:35 | MHC.RECOVRN ---
Met with pt in 378 after consult placed to Addiction Medicine. Pt had presented to the ED with c/o headache, cough, general malaise, weakness x3 days - lethargic in triage, difficulty holding belongings/remaining alert. Upon evaluation, pt admitted for treatment of pneumonia and hypoxia. Pt sitting in bed, awake, alert, easily engages in conversation, awaiting methadone dose. Pt reports receiving methadone through [facility] in [place], 77 mg daily, x 5 years. Pt reports she had been doing well with recovery from opioids (x 2 years) up until an incident where she was living. Pt reports she used 1/2 bag heroin/fentanyl, which resulted in overdose. Did receive Narcan. Pt reports this was second overdose, first was in 2019. Pt reports after ceasing opioid use she began to use alcohol. Reports 1 pint vodka daily x 2 years. Pt reports she recently went to [facility], [facility], and was living at [facility] in [place] until incident on Friday. Pt reports recovery from alcohol x 2 months. Pt would like to return to [facility]. Pt requesting t/w speak with Moni, nursing program chair, to inquire if pt is able to return upon discharge. 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 Pt hopes to return to [facility] and continue methadone. Denies other questions or concerns for t/w. Attempted to reach Moni ([phone] ext [phone]), no answer, voicemail left with request to return phone call.
[2023-11-17 12:18] VITALS: O2SAT 94
[2023-11-17] MEDS: methADONE HCl 20 MG/2 ML ORAL.CONC 77 MG PO (12:44)
[2023-11-17 12:58] LABS: CDiff Gene PCR NEGATIVE (Negative)
[2023-11-17] MEDS: Enoxaparin Sodium 40 MG/0.4 ML SYRINGE SUBCUT (14:58)
[2023-11-17] MEDS: 0.9 % Sodium Chloride Flush 3 ML SYRINGE IVFLUSH ×2 (14:59→22:36)
[2023-11-17 15:53] VITALS: BP 109/60; PULSE 68; RESP 18; TEMP 36.4; O2SAT 93
[2023-11-17] MEDS: Loperamide HCl 2 MG CAPSULE PO ×2 (16:07→22:35)
[2023-11-17] MEDS: Amphetamine Mixed Salts 10 MG TABLET PO (16:09)
--- NOTE | 2023-11-17 16:14 | MHC.CM.PN ---
PT REPORTS SHE LIVES WITH HER FAMILY AND IS INDEPENDENT WITH CARE SHE DENIES USE OF DME OR HOME SERVICES SHE SAYS SHE HAS A HCP NAMING HER MOTHER HER AGENT, COPY REQUESTED PCP: HARMONY BLAND DCP: HOME NO SERVICES VIA PRIVATE TRANSPORT
[2023-11-17 19:36] VITALS: BP 118/69; PULSE 74; RESP 16; TEMP 36.3; O2SAT 94
[2023-11-17] MEDS: Nicotine Polacrilex Lozenge 2 MG LOZENGE BUCCAL (19:38)
[2023-11-18] MEDS: guaiFEN/Codeine SF 200/20/10ML 10 ML LIQUID PO ×4 (00:04→19:49)
[2023-11-18] MEDS: Melatonin 3 MG TABLET 6 MG PO (00:08)
[2023-11-18 03:14] VITALS: BP 103/61; PULSE 73; RESP 14; TEMP 37; O2SAT 93
[2023-11-18] MEDS: metroNIDAZOLE/NS 500 MG/100 ML PIGGYBACK 100 MG IV ×3 (06:27→22:39)
[2023-11-18] MEDS: Omeprazole 20 MG CAPSULE.DR PO (06:27)
--- NOTE | 2023-11-18 07:00 | CA_ITS ---
Transthoracic Echocardiogram Patient (Last, First, Middle): Codi Leos A Gender: Female Date of : 1990 Age: 33 Procedure Date: 11/18/2023 Procedure Type: Transthoracic Echocardiogram Location: S3W Height: 152.4 cm Weight: 65.77 kg BSA: 1.63 m2 Heart Rate: bpm BP: 105 / 66 mmHg [facility]: [place] Referring MD: Leon Pearosn MD Symptoms: elevated troponin Study Quality: Fair/Contrast ECG Rhythm: Sinus Conclusions: - The left ventricular systolic function is mildly decreased. The calculated ejection fraction is 50% by biplane method. - No obvious valvular pathology seen on this study. Findings Procedure Information Contrast agent, definity, is being given per protocol without apparent complications. The study quality is limited by the patients inability to tolerate the test. Left Ventricle Normal left ventricular cavity size. There is normal left ventricular wall thickness. The left ventricular systolic function is mildly decreased. The calculated ejection fraction is 50% by biplane method. There is mild global hypokinesis. Diastolic function is indeterminate on the basis of available data. Right Ventricle Normal right ventricular cavity size and systolic function. Atria The left atrium is moderately dilated. The right atrium is normal in size. Aortic Valve There is a normal trileaflet aortic valve. There is no aortic valve stenosis. There is no aortic valve regurgitation. Mitral Valve The mitral valve appears normal. There is trace mitral valve regurgitation. There is no mitral valve stenosis. Pulmonic Valve The pulmonic valve is likely normal. Tricuspid Valve Normal tricuspid valve structure. There is mild tricuspid valve regurgitation. There is no evidence of pulmonary hypertension. Great Vessels The asc aorta is normal in size. Venous The inferior vena cava is mildly dilated and collapses greater than 50% with inspiration. Pericardium/Pleural There is no evidence of pericardial effusion. Prior Study Comparison No prior study available for comparison. Recommendations, Care & Conclusions No obvious valvular pathology seen on this study. Measurements 2D Linear Measurements IVSd: 0.76 0.6-0.9/0.6-1.0 cm LVIDd: 4.72 3.9-5.3/4.2-5.9 cm LVIDd Index: 2.90 2.4-3.2/2.2-3.1 cm/m2 LVIDs: 3.17 2.0-3.6 cm LVPWd: 0.93 0.7-1.1 cm LA Diam: 3.50 2.7-3.8/3.0-4.0 cm LAIDs Index: 2.15 1.5-2.3 cm/m2 LV Mass: 164.42 67-162/88-224 g LV Mass Index: 100.87 43-95/49-115 g/m2 LVOT Diam: 2.00 3.0+(-)1.3 cm 2D Systolic Function EF 4C: 49.10 >55% EF 2C: 54.70 >55% EF BiP: 50.30 >55% Mitral Valve E'Lateral: 14.50 Aortic Valve AoV Pk Pérez: 1.29 AoV Mn Pérez: 0.92 AoV VTI: 0.27 AoV Pk Grad: 7.00 Aov Mn Grad: 4.00 PRERNA Cont.VTI: 2.09 LVOT LVOT Pk Pérez: 0.83 LVOT Mn Pérez: 0.56 LVOT VTI: 0.18 LVOT Pk Grad: 3.00 LVOT Mn Grad: 1.00 LVOT Diam: 2.00 LVOT Area: 3.14 Diastolic Function E' Laterial: 14.50 Right Ventricle TAPSE (mm): 23.30 TVS' Pérez: 11.90 Tricuspid Valve TR Pk Pérez: 2.17 TR Pk Grad: 19.00 RA Press: 8.00 RVSP: 27.00 Great Vessels Aorta Sinus of Valsalva: 2.76 2.0-3.[address] Ridge: 2.11 1.7-3.4 cm Ao Asc: 3.10 2.1-3.4 cm Updated in Other Vendor System with Status of Final Fidel Parson MD electronically signed on 11/18/2023 11:56:54 AM with status of Final
[2023-11-18 07:19] VITALS: BP 105/66; PULSE 50; RESP 15; TEMP 36.6; O2SAT 93
[2023-11-18] MEDS: 0.9 % Sodium Chloride Flush 3 ML SYRINGE IVFLUSH ×2 (07:29→22:03)
[2023-11-18 08:40] LABS: Hematocrit 28.2 % (37.0-47.0); Hemoglobin 9.1 g/dl (12.0-16.0); Mean Corpuscular HGB Conc 32.3 g/dl (31.0-35.0); Mean Corpuscular Hemoglobin 30.4 pg (27.0-33.0); Mean Corpuscular Volume 94.3 fL (80.0-98.0); Mean Platelet Volume 11.3 fL (9.4-12.3); NRBC Pct Auto 0.4 /100WBC (0.0-0.2); Platelet Count 196 X10*3/uL (160-400); Red Blood Count 2.99 X10*6/uL (4.20-5.50); Red Cell Distribution Width 13.2 % (11.0-16.0); White Blood Count 14.8 X10*3/uL (4.8-10.8)
[2023-11-18 09:11] LABS: Anion Gap 11 (12-20); Blood Urea Nitrogen 13 mg/dL (9-16); Calcium 8.2 mg/dL (8.4-10.2); Carbon Dioxide 34 mmol/L (22-29); Chloride 99 mmol/L (96-108); Creatinine Clr Calc Pharmacy 92.2; Estimated Glomerular Filt Rate > 60; Glucose Random 114 mg/dL (60-115); Potassium 2.9 mmol/L (3.3-5.1); Sodium 141 mmol/L (135-145)
[2023-11-18] MEDS: Thiamine HCL 100 MG TABLET PO (09:20)
[2023-11-18] MEDS: methADONE HCl 20 MG/2 ML ORAL.CONC 77 MG PO (09:20)
[2023-11-18] MEDS: Famotidine 20 MG TABLET PO ×2 (09:20→22:02)
[2023-11-18] MEDS: Ascorbic Acid 500 MG TABLET PO (09:20)
[2023-11-18] MEDS: Acamprosate Calcium 333 MG TABLET.DR 666 MG PO ×3 (09:21→22:02)
[2023-11-18] MEDS: Zinc Sulfate 220 MG CAPSULE PO (09:21)
[2023-11-18] MEDS: Magnesium Oxide 400 MG TABLET PO (09:21)
[2023-11-18] MEDS: Folic Acid 1 MG TABLET PO (09:21)
--- NOTE | 2023-11-18 09:24 | HO.PM.IMPN ---
Subjective Subjective Date of Service: 11/18/23 <Josy Manjitsharonda Flynn - Last Filed: 11/18/23 09:39> 11/18/23 <Leon Pearson MD - Last Filed: 11/18/23 11:20> Interval History: Patient states she is feeling improved from yesterday. Denies SOB, vomiting, chest pain, palpitations. Endorses some nausea and subjective fever. <Josy Maisharonda Flynn - Last Filed: 11/18/23 09:39> Patient states she is feeling improved from yesterday. Denies SOB, vomiting, chest pain, palpitations. Endorses some nausea and subjective fever and off O2 <Leon Pearson MD - Last Filed: 11/18/23 11:20> Review of Systems Review of Systems: Yes all other systems are reviewed and are negative <Josy Maisharonda Flynn - Last Filed: 11/18/23 09:39> Physical Exam Vital Signs: Vital Signs: Last Vital Signs Temp 98 F 11/18/23 07:19 Pulse 50 11/18/23 07:19 Resp 15 11/18/23 07:19 BP 105/66 11/18/23 07:19 Pulse Ox 93 11/18/23 07:19 O2 Del Method Room Air 11/18/23 07:19 O2 Flow Rate 4 11/17/23 04:22 BMI result Body Mass Index 28.3 <Josy Stoverfrederic - Last Filed: 11/18/23 09:39> General: AO X 3, no acute distress Resp: no wheezes, rhonchi, rales. Respiratory effort normal. CVS: S1,S2,RRR GI: Non-tender, non-distended. Neuro: motor grossly intact Psych: appropriate affect <Leon Pearson MD - Last Filed: 11/18/23 11:20> Const: Other: General: AO X 3, no acute distress Resp: no wheezes, rhonchi, rales. Respiratory effort normal. CVS: S1,S2,RRR GI: Non-tender, non-distended. Neuro: motor grossly intact Psych: appropriate affect <Josy Manjit Flynn - Last Filed: 11/18/23 09:39> Objective Data Active Medications Acamprosate (Acamprosate Calcium 333 Mg Tablet.) 666 mg PO TID [facility] Last Admin: 11/18/23 09:21 Dose: 666 mg Documented By: DUYEN Acetaminophen (Acetaminophen 325 Mg Tablet) 650 mg PO Q6H PRN PRN Reason: Pain, Mild (Pain Scale 1-3) Last Admin: 11/17/23 22:35 Dose: 650 mg Documented By: KERRY Albuterol Sulfate (Albuterol Sulfate 90 Mcg 8 Gm Inhaler) 2 puff INHALE Q4H PRN PRN Reason: Shortness Of Breath Or Wheezing Alprazolam (Alprazolam 0.5 Mg Tablet) 2 mg PO QID PRN PRN Reason: anxiety Last Admin: 11/17/23 21:10 Dose: 2 mg Documented By: KERRY Amphetamine/Dextroamphetamine (Dextroamphetamine/Amphetamine Xr 10 Mg Cap.Er.24h) 30 mg PO DAILY [facility] Last Admin: 11/18/23 09:21 Dose: Not Given Documented By: DUYEN Non-Admin Reason: Patient Refused Amphetamine/Dextroamphetamine (Amphetamine Mixed Salts 10 Mg Tablet) 10 mg PO BID@0900,1700 [facility] Last Admin: 11/18/23 09:21 Dose: Not Given Documented By: DUYEN Non-Admin Reason: Patient Refused Ascorbic Acid (Ascorbic Acid 500 Mg Tablet) 500 mg PO DAILY [facility] Last Admin: 11/18/23 09:20 Dose: 500 mg Documented By: DUYEN Benzonatate (Benzonatate 100 Mg Capsule) 100 mg PO TID PRN PRN Reason: Cough Last Admin: 11/17/23 21:16 Dose: 100 mg Documented By: KERRY Docusate Sodium (Docusate Sodium 100 Mg Capsule) 100 mg PO DAILY PRN PRN Reason: Constipation Enoxaparin Sodium (Enoxaparin Sodium 40 Mg/0.4 Ml Syringe) 40 mg SUBCUT Q24H [facility] Last Admin: 11/17/23 14:58 Dose: 40 mg Documented By: DUYEN Famotidine (Famotidine 20 Mg Tablet) 20 mg PO BID [facility] Last Admin: 11/18/23 09:20 Dose: 20 mg Documented By: DUYEN Folic Acid (Folic Acid 1 Mg Tablet) 1 mg PO DAILY [facility] Last Admin: 11/18/23 09:21 Dose: 1 mg Documented By: DUYEN Guaifenesin/Codeine Phosphate (Guaifen/Codeine Sf 200/20/10ml 10 Ml Liquid) 10 ml PO Q4H PRN PRN Reason: Cough Last Admin: 11/18/23 00:04 Dose: 10 ml Documented By: KERRY Metronidazole (Flagyl) 500 mg in 100 mls @ 100 mls/hr IV Q8H [facility] Last Infusion: 11/18/23 07:29 Dose: Infused Documented By: DUYEN Ceftriaxone Sodium 1 gm/ (Sodium Chloride) 50 mls @ 100 mls/hr IV Q24H [facility] Last Infusion: 11/17/23 10:51 Dose: Infused Documented By: DUYEN Loperamide HCl (Loperamide Hcl 2 Mg Capsule) 2 mg PO Q6H PRN PRN Reason: Diarrhea Last Admin: 11/17/23 22:35 Dose: 2 mg Documented By: KERRY Magnesium Oxide (Magnesium Oxide 400 Mg Tablet) 400 mg PO DAILY [facility] Last Admin: 11/18/23 09:21 Dose: 400 mg Documented By: DUYEN Melatonin (Melatonin 3 Mg Tablet) 6 mg PO BEDTIME PRN PRN Reason: Insomnia Last Admin: 11/18/23 00:08 Dose: 6 mg Documented By: KERRY Methadone HCl (Methadone Hcl 20 Mg/2 Ml Oral.Conc) 77 mg PO DAILY [facility] Last Admin: 11/18/23 09:20 Dose: 77 mg Documented By: DUYEN Nicotine Polacrilex (Nicotine Polacrilex Lozenge 2 Mg Lozenge) 2 mg BUCCAL Q2H PRN PRN Reason: Nicotine Cravings Last Admin: 11/17/23 19:38 Dose: 2 mg Documented By: KERRY Omeprazole (Omeprazole 20 Mg Capsule.Dr) 20 mg PO DAILY@0630 [facility] Last Admin: 11/18/23 06:27 Dose: 20 mg Documented By: KERRY Ondansetron HCl (Ondansetron Odt 4 Mg Tab.Rapdis) 4 mg TRANSLINGU Q8H PRN PRN Reason: Nausea And Vomiting Last Admin: 11/17/23 06:33 Dose: 4 mg Documented By: VENKATA Sodium Chloride (0.9 % Sodium Chloride Flush 3 Ml Syringe) 3 ml IVFLUSH QSHIFT [facility] Last Admin: 11/18/23 07:29 Dose: 3 ml Documented By: DUYEN Thiamine HCl (Thiamine Hcl 100 Mg Tablet) 100 mg PO DAILY [facility] Last Admin: 11/18/23 09:20 Dose: 100 mg Documented By: DUYEN Zinc Sulfate (Zinc Sulfate 220 Mg Capsule) 220 mg PO DAILY [facility] Last Admin: 11/18/23 09:21 Dose: 220 mg Documented By: DUYEN <Josy Flynn - Last Filed: 11/18/23 09:39> Labs CBC & Chem 7: 11/18/23 07:57 11/18/23 07:57 <Josy Flynn - Last Filed: 11/18/23 09:39> Labs: Laboratory Results - last 24 hr 11/17/23 11/18/23 11:52 07:57 MCV 94.3 MCH 30.4 MCHC 32.3 RDW 13.2 Plt Count 196 MPV 11.3 Absolute Nucleated RBC 0.060 H Nucleated RBC % (auto) 0.4 H Anion Gap 11 L Estim Creat Clear Calc 92.2 Estimated GFR > 60 Random Glucose 114 Calcium 8.2 L C. difficile Tox B Gene NEGATIVE <Josy Flynn - Last Filed: 11/18/23 09:39> Microbiology Microbiology Results: Microbiology 11/16/23 10:49 Blood Culture - Preliminary Blood - Venous No growth after 24 hours. 11/16/23 10:56 Blood Culture - Preliminary Blood - Venous No growth after 24 hours. <Josy Lermalyndon - Last Filed: 11/18/23 09:39> Assessment and Plan (1) Aspiration pneumonia: Status: Acute <Josy Flynn - Last Filed: 11/18/23 09:39> (2) Hypoxia: Status: Acute <Josy Flynn - Last Filed: 11/18/23 09:39> (3) Multifocal pneumonia: Status: Acute <Josy Flynn - Last Filed: 11/18/23 09:39> Assessment and Plan: 33-year-old female with a PMH significant for?opioid use disorder methadone, alcohol use disorder, and ADHD who presented to the ED with?shortness of breath, productive cough, and ZIMMERMAN x 3 days. Pt was admitted to the hospital for treatment and further evaluation of acute hypoxic respiratory failure in the setting of likely aspiration pneumonia from likely opioid overdose. Acute hypoxic respiratory failure in the setting of multifocal pneumonia with sepsis, suspect aspiration from OD, CT with multifocal PNA: - Continue Ceftriaxone + Flagyl - O2, goal 92 to 94, wean as nuno - Consult item repair manager Hypokalemia - Likely from diarrhea; patient asymptomatic. - PO k+ and mg+; repeat electrolytes Elevated troponin: - Initial troponin 87.0 with repeat 88.9 with no ECG change or symptoms. - Order echocardiogram Leukocytosis: - Improved from yesterday to 14.8 from 19.8; monitor. Opioid use disorder - Addiction medicine consult Anemia: - No significant change from initial drop yesterday; likely hemoconcentration, monitor. ADHD Continue Adderall Diarrhea - C.Diff negative, stool culture pending - Oral rehydration solution/pedialyte for diarrhea?? Alcohol use disorder - Continue acamprosate - Monitor for withdrawal GERD - Continue famotidine, PPI Full Code DVT Prophylaxis: Lovenox need for inpt: IV Abx for multifocal PNA with severe hypoxia, and specialist consult pending, not able to manage on outpatient basis at this time <Josy Flynn - Last Filed: 11/18/23 09:39> 33-year-old female with a PMH significant for?opioid use disorder methadone, alcohol use disorder, and ADHD who presented to the ED with?shortness of breath, productive cough, and ZIMMERMAN x 3 days. Pt was admitted to the hospital for treatment and further evaluation of acute hypoxic respiratory failure in the setting of likely aspiration pneumonia from likely opioid overdose. Acute hypoxic respiratory failure in the setting of multifocal pneumonia with sepsis, suspect aspiration from OD or intoxication with multifocal PNA: - Continue Ceftriaxone + Flagyl - O2, goal 92 to 94, wean as nuno - Consult item repair manager HypOkalemia - Likely from diarrhea; patient asymptomatic. - PO k+ and mg+; repeat electrolytes Elevated troponin likely from severe hypoxia - Initial troponin 87.0 with repeat 88.9 with no ECG change or symptoms. - Order echocardiogram Leukocytosis: - Improved from yesterday to 14.8 from 19.8; monitor. Opioid use disorder, Seen by addiction/recovery team and will follow through outpatient resources Anemia: - No significant change from initial drop yesterday; initial high likely hemoconcentration, monitor. ADHD Continue Adderall Diarrhea - C.Diff negative, stool culture pending -GI panel --EPEC (should self-limiting) Alcohol use disorder - Continue acamprosate - Monitor for withdrawal GERD - Continue famotidine, PPI Full Code DVT Prophylaxis: Lovenox need for inpt: IV Abx for multifocal PNA with severe hypoxia, and specialist consult pending, not able to manage on outpatient basis at this time <Leon Pearson MD - Last Filed: 11/18/23 11:20> Quality Stroke Does the patient have a stroke diagnosis?: No <Josy Flynn - Last Filed: 11/18/23 09:39> VTE Prior VTE?: No <oJsy Flynn - Last Filed: 11/18/23 09:39> VTE Risk Level:: Medical - moderate - high <Josy Flynn - Last Filed: 11/18/23 09:39> VTE Device Contraindication: Treatment Not Indicated <Josy Flynn - Last Filed: 11/18/23 09:39> VTE Drug Contraindication: N/A - Med Ordered <Josy Flynn - Last Filed: 11/18/23 09:39>
[2023-11-18] MEDS: Acetaminophen 325 MG TABLET 650 MG PO ×2 (09:35→19:50)
[2023-11-18] MEDS: ALPRAZolam 0.5 MG TABLET 2 MG PO ×3 (09:35→22:03)
[2023-11-18] MEDS: Loperamide HCl 2 MG CAPSULE PO ×3 (09:36→22:02)
[2023-11-18] MEDS: Ondansetron ODT 4 MG TAB.RAPDIS TRANSLINGU (09:36)
[2023-11-18] MEDS: Potassium Chloride ER 20 MEQ TAB.ER.PRT 40 MEQ PO (09:36)
[2023-11-18 09:41] LABS: Magnesium 2.6 mg/dL (1.6-2.6)
[2023-11-18 10:06] LABS: Adenovirus F 40/41 Not Detected (Not Detect.); Astrovirus Not Detected (Not Detect.); Campylobacter Not Detected (Not Detect.); Cryptosporidium Not Detected (Not Detect.); Cyclospora cayetanensis Not Detected (Not Detect.); E. coli EAEC Not Detected (Not Detect.); E. coli EPEC Detected (Not Detect.); E. coli ETEC Not Detected (Not Detect.); E. coli STEC Not Detected (Not Detect.); Entamoeba histolytica Not Detected (Not Detect.); Giardia lamblia Not Detected (Not Detect.); Norovirus GI/GII Not Detected (Not Detect.); Plesiomonas shigelloides Not Detected (Not Detect.); Rotavirus A Not Detected (Not Detect.); Salmonella Not Detected (Not Detect.); Sapovirus Not Detected (Not Detect.); Shigella sp./EIEC Not Detected (Not Detect.); Vibrio Not Detected (Not Detect.); Vibrio Cholerae Not Detected (Not Detect.); Yersinia enterocolitica Not Detected (Not Detect.)
[2023-11-18] MEDS: cefTRIAXone sodium 1 GM in 0.9 % Sodium Chloride 50 ML IV (12:27)
--- NOTE | 2023-11-18 13:19 | PM.CNPUL ---
History of Present Illness History of Present Illness Consult date: 11/18/23 Requesting physician: Leon Pearson Chief complaint: hypoxia, multifocal pneumonia Narrative: 33-year-old lady with underlying history of substance abuse including methadone and alcohol, ADHD admitted on 11/16/2023 with pneumonia community-acquired versus aspiration and treated with appropriate antibiotics, now improving. Patient continues to complain of some dyspnea on exertion, but no longer requires supplemental oxygen. Review of Systems Constitutional: Constitutional: Denies daytime sleepiness, Denies excessive sweating, Reports fatigue, Denies fever(s), Reports lethargy, Reports malaise, Denies night sweats, Denies snoring and Denies weight loss Eyes: Eyes: Denies blurry vision and Denies itchy eyes ENT: Denies nasal congestion, Denies post nasal drip, Denies sinus pain, Denies sinus pressure and Denies other ( Thrush) Cardiovascular: Cardiovascular: Denies chest pain, Denies pedal edema, Reports dyspnea, Denies orthopnea and Denies paroxysmal nocturnal dyspnea Respiratory: Respiratory: Reports cough, Denies hemoptysis, Denies excessive phlegm production, Reports dyspnea, Denies snoring and Denies wheezing Gastrointestinal: Gastrointestinal: Denies abdominal pain and Denies heartburn Musculoskeletal: Musculoskeletal: Denies myalgias, Denies arthralgias and Denies joint swelling Integumentary/Breasts: Skin/Breast: Denies rash Neurologic: Denies memory loss and Denies seizure-like activity Psychiatric: Psychiatric: Denies abnormal sleep pattern, Denies anxiety and Denies memory loss Endocrine: Endocrine: Denies excessive sweating, Reports fatigue and Denies heat intolerance Hematologic/Lymphatic: Hematologic/Lymphatic: Denies easy bruising Allergic/Immunologic: Allergic/Immunologic: Denies itchy eyes, Denies seasonal rhinorrhea and Denies wheezing PMFSH Past Medical History Medical History (Updated 11/16/23 @ 14:28 by BOB Villa) Hypertriglyceridemia Alcohol abuse Mood disorder Opioid abuse Alcohol use disorder Social History Social History Household Members: Unknown / Unable to assess Housing: House Unable to assess alcohol history related to: Unknown Alcohol intake: current Alcohol intake frequency: 3 or more drinks per day Patient Tobacco Use Status: Tobacco use Unknown Use of substances other than those prescribed or required for medical reasons: Refusing to respond Currently Displaying Signs/Symptoms of Drug Intoxication Withdrawal: No Have you been hit, kicked, punched, or otherwise hurt by someone within the past year? If so, by whom?: No Do you feel safe in your current relationship?: Yes Is there a partner from a previous relationship who is making you feel unsafe now?: No Are you made to feel afraid or neglected: No Advance Directives: No Advance Directives Information Provided: No Do you have thoughts of harming others: None Do you have a plan to hurt others: No Plan Recently lost weight without trying: No Eating poorly because of decreased appetite: No Nutrition Risks: No Nutritional Risk Patient : No : No Poor oral hygiene: No service: No Meds Allergies Allergy/AdvReac Type Severity Reaction Status Date / Time amoxicillin Allergy Hives Verified 11/16/23 09:49 Active Medications: Current Medications Acamprosate (Acamprosate Calcium 333 Mg Tablet.) 666 mg PO TID [facility] Last Admin: 11/18/23 09:21 Dose: 666 mg Acetaminophen (Acetaminophen 325 Mg Tablet) 650 mg PO Q6H PRN PRN Reason: Pain, Mild (Pain Scale 1-3) Last Admin: 11/18/23 09:35 Dose: 650 mg Albuterol Sulfate (Albuterol Sulfate 90 Mcg 8 Gm Inhaler) 2 puff INHALE Q4H PRN PRN Reason: Shortness Of Breath Or Wheezing Alprazolam (Alprazolam 0.5 Mg Tablet) 2 mg PO QID PRN PRN Reason: anxiety Last Admin: 11/18/23 09:35 Dose: 2 mg Amphetamine/Dextroamphetamine (Dextroamphetamine/Amphetamine Xr 10 Mg Cap.Er.24h) 30 mg PO DAILY [facility] Last Admin: 11/18/23 09:21 Dose: Not Given Amphetamine/Dextroamphetamine (Amphetamine Mixed Salts 10 Mg Tablet) 10 mg PO BID@0900,1700 [facility] Last Admin: 11/18/23 09:21 Dose: Not Given Ascorbic Acid (Ascorbic Acid 500 Mg Tablet) 500 mg PO DAILY [facility] Last Admin: 11/18/23 09:20 Dose: 500 mg Benzonatate (Benzonatate 100 Mg Capsule) 100 mg PO TID PRN PRN Reason: Cough Last Admin: 11/17/23 21:16 Dose: 100 mg Docusate Sodium (Docusate Sodium 100 Mg Capsule) 100 mg PO DAILY PRN PRN Reason: Constipation Enoxaparin Sodium (Enoxaparin Sodium 40 Mg/0.4 Ml Syringe) 40 mg SUBCUT Q24H [facility] Last Admin: 11/17/23 14:58 Dose: 40 mg Famotidine (Famotidine 20 Mg Tablet) 20 mg PO BID [facility] Last Admin: 11/18/23 09:20 Dose: 20 mg Folic Acid (Folic Acid 1 Mg Tablet) 1 mg PO DAILY [facility] Last Admin: 11/18/23 09:21 Dose: 1 mg Guaifenesin/Codeine Phosphate (Guaifen/Codeine Sf 200/20/10ml 10 Ml Liquid) 10 ml PO Q4H PRN PRN Reason: Cough Last Admin: 11/18/23 09:35 Dose: 10 ml Metronidazole (Flagyl) 500 mg in 100 mls @ 100 mls/hr IV Q8H [facility] Last Infusion: 11/18/23 07:29 Dose: Infused Ceftriaxone Sodium 1 gm/ (Sodium Chloride) 50 mls @ 100 mls/hr IV Q24H [facility] Last Infusion: 11/18/23 13:06 Dose: Infused Loperamide HCl (Loperamide Hcl 2 Mg Capsule) 2 mg PO Q6H PRN PRN Reason: Diarrhea Last Admin: 11/18/23 09:36 Dose: 2 mg Magnesium Oxide (Magnesium Oxide 400 Mg Tablet) 400 mg PO DAILY [facility] Last Admin: 11/18/23 09:21 Dose: 400 mg Melatonin (Melatonin 3 Mg Tablet) 6 mg PO BEDTIME PRN PRN Reason: Insomnia Last Admin: 11/18/23 00:08 Dose: 6 mg Methadone HCl (Methadone Hcl 20 Mg/2 Ml Oral.Conc) 77 mg PO DAILY [facility] Last Admin: 11/18/23 09:20 Dose: 77 mg Nicotine Polacrilex (Nicotine Polacrilex Lozenge 2 Mg Lozenge) 2 mg BUCCAL Q2H PRN PRN Reason: Nicotine Cravings Last Admin: 11/17/23 19:38 Dose: 2 mg Omeprazole (Omeprazole 20 Mg Capsule.Dr) 20 mg PO DAILY@0630 [facility] Last Admin: 11/18/23 06:27 Dose: 20 mg Ondansetron HCl (Ondansetron Odt 4 Mg Tab.Rapdis) 4 mg TRANSLINGU Q8H PRN PRN Reason: Nausea And Vomiting Last Admin: 11/18/23 09:36 Dose: 4 mg Sodium Chloride (0.9 % Sodium Chloride Flush 3 Ml Syringe) 3 ml IVFLUSH QSHIFT [facility] Last Admin: 11/18/23 07:29 Dose: 3 ml Thiamine HCl (Thiamine Hcl 100 Mg Tablet) 100 mg PO DAILY [facility] Last Admin: 11/18/23 09:20 Dose: 100 mg Zinc Sulfate (Zinc Sulfate 220 Mg Capsule) 220 mg PO DAILY [facility] Last Admin: 11/18/23 09:21 Dose: 220 mg Home Medications Medication Instructions Recorded Confirmed Last Taken Type acamprosate 333 mg tablet,delayed 666 mg PO TID 07/16/23 11/16/23 11/16/23 09:00 History release albuterol sulfate 90 mcg/actuation 2 puff inhalation Q4-6H PRN 07/16/23 11/16/23 Unknown History aerosol inhaler (Ventolin HFA) Shortness Of Breath Or Wheezing alprazolam 2 mg tablet 2 mg PO QID PRN anxiety 07/16/23 11/16/23 Unknown History dextroamphetamine-amphetamine 10 1 tab PO BID@0900,1700 attention 07/16/23 11/16/23 11/16/23 09:00 History mg tablet deficit hyperactivity disorder dextroamphetamine-amphetamine ER 1 cap PO DAILY attention deficit 07/16/23 11/16/23 11/16/23 09:00 History 30 mg 24hr capsule,extend release hyperactivity disorder (Adderall XR) methadone 10 mg/mL oral 77 mg PO DAILY 07/16/23 11/17/23 11/15/23 History concentrate (Methadose) ascorbic acid (vitamin C) 500 mg 500 mg PO DAILY 11/16/23 11/16/23 11/16/23 09:00 History tablet (Vitamin C) etonogestrel 0.12 mg-ethinyl 1 vag ring vaginal Q4W 11/16/23 11/16/23 Unknown History estradiol 0.015 mg/24 hr vaginal ring (NuvaRing) famotidine 20 mg tablet 20 mg PO BID 11/16/23 11/16/23 11/16/23 09:00 History folic acid 1 mg tablet 1 mg PO DAILY 11/16/23 11/16/23 11/16/23 09:00 History magnesium oxide 400 mg (241.3 mg 400 mg PO DAILY 11/16/23 11/16/23 11/16/23 09:00 History magnesium) tablet ondansetron 4 mg disintegrating 4 mg PO Q8H PRN Nausea And Vomiting 11/16/23 11/16/23 Unknown History tablet pantoprazole 40 mg tablet,delayed 40 mg PO DAILY@0630 11/16/23 11/16/23 11/16/23 09:00 History release thiamine HCl (vitamin B1) 100 mg 100 mg PO DAILY 11/16/23 11/16/23 11/16/23 09:00 History tablet (Vitamin B-1) zinc acetate 50 mg (zinc) capsule 50 mg PO DAILY 11/16/23 11/16/23 11/16/23 09:00 History Physical Exam Vital Signs: Vital Signs: Last Vital Signs Temp 98 F 11/18/23 07:19 Pulse 50 11/18/23 07:19 Resp 15 11/18/23 07:19 BP 105/66 11/18/23 07:19 Pulse Ox 93 11/18/23 07:19 O2 Del Method Room Air 11/18/23 07:19 O2 Flow Rate 4 11/17/23 04:22 BMI result Body Mass Index 28.3 Const: General: no acute distress and alert Nutritional Appearance: not obese Orientation/consciousness: Other orientation findings ( oriented) HEENT: Head: Yes atraumatic Eyes: General: appearance normal, both eyes and all related structures Sclerae: sclerae normal EOM: EOMs intact bilaterally Neck: Neck: Yes supple Lymphatic: no lymphadenopathy noted Resp: Effort & Inspection: normal respiratory effort and no use of accessory muscles Auscultation: clear to auscultation bilaterally Cardio: Rate: regular rate Rhythm: regular rhythm Heart sounds: no gallops, no murmurs and no rubs Skin: General skin exam: other ( warm) Extrem: General: No clubbing, No cyanosis and No edema Results Laboratory Findings 11/18/23 07:57 11/18/23 07:57 ABG, PT/INR, D-dimer: PT/INR, D-dimer PT 13.7 SEC (11.1-13.3) H 11/16/23 12:39 INR 1.1 (0.9-1.1) 11/16/23 12:39 Abnormal lab findings: Abnormal Labs 11/16/23 11/16/23 11/16/23 10:19 10:49 10:56 WBC 17.2 H RBC 4.02 L Hgb Hct Absolute Nucleated RBC Nucleated RBC % (auto) Neutrophils % (Manual) 80 H Band Neutrophils % 9 H Lymphocytes % (Manual) 6 L Abs Neuts (Manual) 15.3 H Lymphocytes # (Manual) 1.0 L PT ABG pCO2 at Pt Temp 58 H ABG pO2 at Pt Temp 64 L ABG HCO3 38 H VBG pH VBG HCO3 Potassium Carbon Dioxide 30 H Anion Gap Random Glucose 116 H Calcium 8.3 L D AST 39 H Troponin I High Sens 87.0 H* Stool EPEC (PCR) Urine Fentanyl Screen U Benzodiazepines Scrn 11/16/23 11/16/23 11/16/23 11:05 12:39 15:57 WBC RBC Hgb Hct Absolute Nucleated RBC Nucleated RBC % (auto) Neutrophils % (Manual) Band Neutrophils % Lymphocytes % (Manual) Abs Neuts (Manual) Lymphocytes # (Manual) PT 13.7 H ABG pCO2 at Pt Temp ABG pO2 at Pt Temp ABG HCO3 VBG pH 7.63 H* VBG HCO3 33 H Potassium Carbon Dioxide Anion Gap Random Glucose Calcium AST Troponin I High Sens 88.9 H* Stool EPEC (PCR) Urine Fentanyl Screen POSITIVE H U Benzodiazepines Scrn POSITIVE H 11/17/23 11/18/23 11/18/23 04:01 00:28 07:57 WBC 19.8 H 14.8 H RBC 3.20 L D 2.99 L Hgb 9.7 L 9.1 L Hct 30.1 L 28.2 L Absolute Nucleated RBC 0.020 H 0.060 H Nucleated RBC % (auto) 0.4 H Neutrophils % (Manual) Band Neutrophils % Lymphocytes % (Manual) Abs Neuts (Manual) Lymphocytes # (Manual) PT ABG pCO2 at Pt Temp ABG pO2 at Pt Temp ABG HCO3 VBG pH VBG HCO3 Potassium 2.9 L* Carbon Dioxide 30 H 34 H Anion Gap 11 L Random Glucose 186 H Calcium 8.0 L 8.2 L AST Troponin I High Sens Stool EPEC (PCR) Detected A Urine Fentanyl Screen U Benzodiazepines Scrn Microbiology: Microbiology 11/16/23 10:49 Blood - Venous Blood Culture - Preliminary No growth after 48 hours. 11/16/23 10:56 Blood - Venous Blood Culture - Preliminary No growth after 48 hours. Assessment and Plan (1) Multifocal pneumonia: Status: Acute (2) Opioid abuse: Status: Acute (3) Alcohol abuse: Status: Acute Plan Impression: 33-year-old lady with underlying history of polysubstance abuse including methadone an alcohol admitted with multifocal pneumonia with possible aspiration component, treated with ceftriaxone and Flagyl, now significantly improved. Recommendations: CT chest reviewed, underlying multifocal pneumonia right greater than left. Agree with current medication regimen, though consider switching to levofloxacin. Will require 7-10 days of total antibiotic therapy. Now back to room air in from respiratory perspective may be ready for discharge, however appears somewhat deconditioned, may benefit from PT eval and/or other day of inpatient monitoring. Procedures Date of Service Date of Service: 11/18/23
[2023-11-18 15:25] VITALS: BP 108/69; PULSE 77; RESP 16; TEMP 37.2; O2SAT 93
[2023-11-18] MEDS: Benzonatate 100 MG CAPSULE PO (15:50)
[2023-11-18] MEDS: Enoxaparin Sodium 40 MG/0.4 ML SYRINGE SUBCUT (15:51)
[2023-11-18 19:15] VITALS: BP 129/81; PULSE 59; RESP 18; TEMP 36.2; O2SAT 93
[2023-11-19 04:00] VITALS: BP 123/75; PULSE 59; RESP 18; TEMP 36; O2SAT 93
[2023-11-19] MEDS: guaiFEN/Codeine SF 200/20/10ML 10 ML LIQUID PO ×3 (05:16→21:58)
[2023-11-19] MEDS: Omeprazole 20 MG CAPSULE.DR PO (05:16)
[2023-11-19] MEDS: ALPRAZolam 0.5 MG TABLET 2 MG PO ×4 (05:19→23:28)
[2023-11-19] MEDS: Acetaminophen 325 MG TABLET 650 MG PO ×3 (05:19→17:32)
[2023-11-19] MEDS: Nicotine Polacrilex Lozenge 2 MG LOZENGE BUCCAL ×3 (05:24→21:58)
[2023-11-19] MEDS: metroNIDAZOLE/NS 500 MG/100 ML PIGGYBACK 100 MG IV ×3 (06:34→22:04)
[2023-11-19 07:12] VITALS: BP 117/63; PULSE 74; RESP 16; TEMP 36.1; O2SAT 95
[2023-11-19] MEDS: 0.9 % Sodium Chloride Flush 3 ML SYRINGE IVFLUSH ×2 (07:31→15:22)
--- NOTE | 2023-11-19 08:57 | MHC.RECOVSUP ---
Met with patient at this time regarding going to [facility]. Patient states she is no longer interested, would like to go home with family, and acknowledges she feels safe at home. She acknowledges a home plan, she states she plans on going to [facility] for methadone dose, states she is established with a trampoline team coach and counseling services at [facility]. Patient states she has a car and has reliable transportation to all of these places. She verbally understands that she can call and or reach out to [facility] at any time. Patient was sitting up in bed eating breakfast during this discussion. Speaking in clear/full sentences, smiling and engaged.
[2023-11-19 09:21] VITALS: O2SAT 96
[2023-11-19] MEDS: Ascorbic Acid 500 MG TABLET PO (09:22)
[2023-11-19] MEDS: Famotidine 20 MG TABLET PO ×2 (09:22→21:58)
[2023-11-19] MEDS: Folic Acid 1 MG TABLET PO (09:22)
[2023-11-19] MEDS: Magnesium Oxide 400 MG TABLET PO (09:22)
[2023-11-19] MEDS: Acamprosate Calcium 333 MG TABLET.DR 666 MG PO ×3 (09:22→21:58)
[2023-11-19] MEDS: methADONE HCl 20 MG/2 ML ORAL.CONC 77 MG PO (09:22)
[2023-11-19] MEDS: Thiamine HCL 100 MG TABLET PO (09:23)
[2023-11-19] MEDS: Zinc Sulfate 220 MG CAPSULE PO (09:23)
--- NOTE | 2023-11-19 09:55 | PM.DS ---
DS: Providers Provider Date of Service: 11/19/23 <Josy Flynn - Last Filed: 11/19/23 10:30> 11/20/23 <Leon Pearson MD - Last Filed: 11/20/23 12:39> Date of admission: 11/16/23 14:50 <Josyelsy Flynn - Last Filed: 11/19/23 10:30> Primary care physician: Geovanna Sheth <Josy Flynn - Last Filed: 11/19/23 10:30> Consults: 11/16/23 14:54 Addiction Medicine Routine Consulting Provider: Addiction Covering Reason for consultation: Opiate use disorder, likely aspiration pneumonia from OD 11/18/23 10:57 Consult to Pulmonology Routine Consulting Provider: [facility] [place], [place] Pulmonology Services Reason for consultation: Pneumonia Has provider been notified: Yes <Josyelsy Flynn - Last Filed: 11/19/23 10:30> DS: Diagnosis Discharge Diagnosis (1) Multifocal pneumonia: Status: Acute <Josy Manjit Lerman - Last Filed: 11/19/23 10:30> (2) Opioid abuse: Status: Acute <Josy Lerman - Last Filed: 11/19/23 10:30> (3) Alcohol abuse: Status: Acute <Josy Manjit Flynn - Last Filed: 11/19/23 10:30> DS: Summary Hospital Course Hospital Course: Admitting HPI: Date of Service: 11/16/23 Attending physician on admission: Leon Pearson Chief Complaint: SOB, cough Pt is a 33-year-old female with a PMH significant for opioid use disorder methadone, alcohol use disorder, and ADHD who presents to the ED with shortness of breath, productive cough, and ZIMMERMAN past 3 days. Has had a low-grade fever and chills. Denies nausea, vomiting, abdominal pain at home. Patient has a long history of opioid use disorder including IVDU. Reports was voluntarily in a recovery program for 2 months, though voluntarily left around 2 weeks ago since everyone was using there and she did not want to be around that kind of environment. Initially denied using while in the community, but eventually admits to using once before he symptoms started. Says she was Narcaned while in the community, but is unsure why. Denies overdose. The patient herself was somnolent upon arrival in the ED, satting at 48% O2. Was given Narcan which revive her some and patient immediately started having nausea and vomiting. At time of interview patient is still somewhat groggy, but alert and awake and answering inappropriately. In the ED pt was also tachycardic up to 146 and tachypneic up 24. Labs were significant for leukocytosis of 17.2, and initial troponin 87.0 with repeat 88.9. VBG pH 7.63. Ethyl alcohol level was undetectable. CXR showed multifocal right parenchymal consolidation and left retrocardiac and left upper lobe consolidation suspicious for multifocal infection. CTA of chest found multifocal airspace opacities bilaterally right more than left that favor an acute airspace process such as pneumonia. Did not find any large central or segmental pulmonary emboli, but exam limited due to artifact. EKG demonstrated sinus tachycardia of [address] elevations or depressions. Pt was treated with Mag sulfate, Solu-Medrol, IVF, ondansetron, ceftriaxone, and azithromycin. Pt will be admitted to the hospital for treatment and further evaluation of acute hypoxic respiratory failure in the setting of likely aspiration pneumonia from likely opioid overdose. Hospital Course: 33 yo F with past medical history of opioid use disorder, IVDU, alcohol use disorder, and ADHD presented on 11/16/23 to the ED complaining of SOB and productive cough for 3 days. She admitted to using one time before her symptoms began and reports she was narcanned in the community, but denied overdose. Patient was febrile (100.0), had SPO2 of 48%, and somnolent upon arrival which was improved with Narcan in the ED. Labs were significant for leukocytosis of 17.2, and initial troponin 87.0 with repeat 88.9 and VBG pH 7.63. CXR showed multifocal right parenchymal consolidation and left retrocardiac and left upper lobe consolidation suspicious for multifocal infection. CTA of chest found multifocal airspace opacities bilaterally right more than left that favor an acute airspace process such as pneumonia. ECG showed sinus tachycardia of 113 without other abnormalities. She received Mag sulfate, Solu-Medrol, IVF, ondansetron, ceftriaxone, and azithromycin in the ED. Patient was admitted for acute hypoxic respiratory failure in the probably setting of aspiration pneumonia. She was treated with ceftriaxone, metronidazole and supplemental O2 to keep patient >92% SPO2. Her stay was complicated when she was found to be drinking alcohol and vaping on 11/16/23. Patient was convinced to stay to finish treatment and no further incidence of alcohol abuse/vaping was noted. She had hypokalemia in the setting of EPEC diarrhea which resolved with oral repletion. Echo performed secondary to the elevated troponins found mildly decreased left ventricular systolic function with and ejection fraction of 50% but no obvious valvular pathology. Troponin likely elevated in the setting of severe hypoxia from respiratory depression/pneumonia and should normalize. She was evaluated by fiberglass fabricator Dr. Alicea who recommended 7-10 total days of antibiotic therapy and recommended PT eval. PT found patient to be at baseline with no need for STR or PT. Patient seen by recovery team to whom she reports she will continue to go to [facility] for methadone dose and receive counseling through [facility]. She is medically stable and ready for discharge. ADHD Continue Adderall Diarrhea -GI panel --EPEC (should self-limiting) Alcohol use disorder - Continue acamprosate GERD - Continue famotidine, PPI <Josy Flynn - Last Filed: 11/19/23 10:30> Status at Discharge Functional status at discharge: independent ambulation <Josy Flynn - Last Filed: 11/19/23 10:30> Overall status at discharge: patient is back to baseline <Josy Flynn - Last Filed: 11/19/23 10:30> Time Attestation Discharge coordination time: Greater than 30 minutes <Josy Flynn - Last Filed: 11/19/23 10:30> Quality: Safe Use of Opioids Does Pt have an Active Cancer Diagnosis on the Problem List?: No <Josy Flynn - Last Filed: 11/19/23 10:30> Quality: Stroke Does the patient have a stroke diagnosis?: No <Josy Flynn - Last Filed: 11/19/23 10:30> Physical Exam Vital Signs: Vital Signs: Last Vital Signs Temp 97.0 F 11/19/23 07:12 Pulse 74 11/19/23 07:12 Resp 16 11/19/23 07:12 BP 117/63 01/17/24 07:12 Pulse Ox 96 11/19/23 09:21 O2 Del Method Room Air 11/19/23 09:21 O2 Flow Rate 2 11/19/23 07:12 BMI result Body Mass Index 28.3 <Josy Flynn - Last Filed: 11/19/23 10:30> Vital Signs: Selected Entries 11/20/23 07:32 Temperature 98.0 F Pulse Rate 68 Respiratory Rate 16 Blood Pressure 130/80 Pulse Oximetry 93 Oxygen Delivery Me thod Room Air <Leon Pearson MD - Last Filed: 11/20/23 12:39> DS: Data Data Completed and Pending Completed studies during hospitalization [Text1]: Procedures Detoxification Services for Substance Abuse Treatment (07/16/23) <Josy Flynn - Last Filed: 11/19/23 10:30> Labs on day of discharge: Laboratory Results - last 24 hr 11/18/23 00:28 Stl C. cayetanensis PCR Not Detected Stool Rotavirus A PCR Not Detected Stl Adenov F 40/41 PCR Not Detected Stool Astrovirus (PCR) Not Detected Stool Campylobacter PCR Not Detected Stool Cryptosporidium PCR Not Detected Stl Sh Tox Pr E STEC PCR Not Detected Stool E coli O157 PCR Not applicable Stl Enterotoxigenic E PCR Not Detected Stool EPEC (PCR) Detected A Stool EAEC (PCR) Not Detected Stl E. histolytica PCR Not Detected Stool Giardia Lamblia PCR Not Detected Stl P. shigelloides PCR Not Detected Stool Salmonella PCR Not Detected Stool Sapovirus (PCR) Not Detected Stl Shigella/EIEC PCR Not Detected St Y.enterocolitica PCR Not Detected Stool Vibrio (PCR) Not Detected Stl Vibrio cholerae PCR Not Detected Stl Norovirus GI/GII PCR Not Detected Preliminary micro results at discharge 11/16/23 10:49 Blood Culture - Preliminary Blood - Venous No growth after 48 hours. 11/16/23 10:56 Blood Culture - Preliminary Blood - Venous No growth after 48 hours. <Josy Flynn - Last Filed: 11/19/23 10:30> Discharge Plan Discharge Anticipated Discharge Date/Time: 11/20/23 11:26 <Josy Flynn - Last Filed: 11/19/23 10:30> Patient Disposition: Home, Self-Care <Josy Flynn - Last Filed: 11/19/23 10:30> Discharge Diagnosis: Aspiration pneumonia, Opioid use desorder <Josy Flynn - Last Filed: 11/19/23 10:30> Aspiration pneumonia, Opioid use desorder <Leon Pearson MD - Last Filed: 11/20/23 12:39> Referrals: Geoavnna Sheth [Primary Care Provider] - 1 Week <Josy Flynn - Last Filed: 11/19/23 10:30> Discharge Medications: New cefuroxime axetil 500 mg tablet 500 mg PO BID 7 Days Qty: 14 0RF Continued dextroamphetamine-amphetamine 10 mg tablet 1 tab PO BID@0900,1700 alprazolam 2 mg tablet 2 mg PO QID PRN (Reason: anxiety) albuterol sulfate [Ventolin HFA] 90 mcg/actuation HFA aerosol inhaler 2 puff INHALATION Q4-6H PRN (Reason: Shortness Of Breath Or Wheezing) dextroamphetamine-amphetamine [Adderall XR] 30 mg capsule,extended release 24hr 1 cap PO DAILY acamprosate 333 mg tablet,delayed release (DR/EC) 666 mg PO TID methadone [Methadose] 10 mg/mL Concentrate 77 mg PO DAILY Rx Instructions: [facility] thiamine HCl (vitamin B1) [Vitamin B-1] 100 mg tablet 100 mg PO DAILY famotidine 20 mg tablet 20 mg PO BID pantoprazole 40 mg tablet,delayed release (DR/EC) 40 mg PO DAILY@0630 folic acid 1 mg tablet 1 mg PO DAILY zinc acetate 50 mg (zinc) Capsule 50 mg PO DAILY magnesium oxide 400 mg (241.3 mg magnesium) Tablet 400 mg PO DAILY ascorbic acid (vitamin C) [Vitamin C] 500 mg Tablet 500 mg PO DAILY ondansetron 4 mg tablet,disintegrating 4 mg PO Q8H PRN (Reason: Nausea And Vomiting) etonogestrel-ethinyl estradiol [NuvaRing] 0.12-0.015 mg/24 hr Ring 1 vag ring VAGINAL Q4W Rx Instructions: leave in place for 3 weeks of a 4-week cycle <Josy Flynn - Last Filed: 11/19/23 10:30> Discharge Orders: Discharge Order (Routine); Ordered 11/20/23 Ordered By: Leon Pearson <Josy Flynn - Last Filed: 11/19/23 10:30> Diet: Advance to usual diet <Josy Flynn - Last Filed: 11/19/23 10:30> Advance to usual diet <Leon Pearson MD - Last Filed: 11/20/23 12:39> Activity on Discharge: As tolerated <Josy Flynn - Last Filed: 11/19/23 10:30> As tolerated <Leon Pearson MD - Last Filed: 11/20/23 12:39> Stand Alone Forms: Patient Portal Discharge page <Josy Flynn - Last Filed: 11/19/23 10:30> Other Ambulatory Orders: Basic Metabolic Panel Fasting (Routine) Timeframe: 20231124 Facility: [facility] - Location: Laboratory Ordered By: Leon Pearson <Josy Flynn - Last Filed: 11/19/23 10:30> Care Plan Goals: recovery from pneumonia abstinence from substance use <Josy Flynn - Last Filed: 11/19/23 10:30> Health Concerns: opioid use desorder pneumonia <Josy Flynn - Last Filed: 11/19/23 10:30> Plan of Treatment: take Cefuroximeas recommended for pneumonia You understand you are leaving against medical advise and assumes all responsibilities for your health we continue to recommend that you stay in the hopsital for the rest of your care. We further recommend that you follow up with your Doctor promptly and return to the emergency or call 911 should your condition worsen check potassium level within a week <Josy Flynn - Last Filed: 11/19/23 10:30> Assessment: see above <Josy Flynn - Last Filed: 11/19/23 10:30>
[2023-11-19 10:50] LABS: Hematocrit 31.3 % (37.0-47.0); Hemoglobin 10.1 g/dl (12.0-16.0); Mean Corpuscular HGB Conc 32.3 g/dl (31.0-35.0); Mean Corpuscular Hemoglobin 30.1 pg (27.0-33.0); Mean Corpuscular Volume 93.4 fL (80.0-98.0); Mean Platelet Volume 10.5 fL (9.4-12.3); NRBC Pct Auto 0.8 /100WBC (0.0-0.2); Platelet Count 240 X10*3/uL (160-400); Red Blood Count 3.35 X10*6/uL (4.20-5.50); Red Cell Distribution Width 13.3 % (11.0-16.0); White Blood Count 11.7 X10*3/uL (4.8-10.8)
[2023-11-19 10:58] LABS: Anion Gap 9 (12-20); Blood Urea Nitrogen 9 mg/dL (9-16); Calcium 8.5 mg/dL (8.4-10.2); Carbon Dioxide 36 mmol/L (22-29); Chloride 101 mmol/L (96-108); Creatinine Clr Calc Pharmacy 79.1; Estimated Glomerular Filt Rate > 60; Glucose Random 116 mg/dL (60-115); Potassium 3.2 mmol/L (3.3-5.1); Sodium 143 mmol/L (135-145)
[2023-11-19] MEDS: cefTRIAXone sodium 1 GM in 0.9 % Sodium Chloride 50 ML IV (10:58)
[2023-11-19] MEDS: Benzonatate 100 MG CAPSULE PO ×2 (11:27→21:58)
[2023-11-19] MEDS: Potassium Chloride ER 20 MEQ TAB.ER.PRT 40 MEQ PO (11:27)
[2023-11-19] MEDS: Loperamide HCl 2 MG CAPSULE PO (11:27)
--- NOTE | 2023-11-19 14:32 | MHC.CM.PN ---
Per MD rounds, pt may dc today. A last dose letter was provided to the patient this am. A new order for a PT eval has been written. DP pending PT eval. Home with private transport.
[2023-11-19 15:11] VITALS: BP 146/88; PULSE 73; RESP 18; TEMP 36.2; O2SAT 94
--- NOTE | 2023-11-19 15:11 | HO.PM.IMPN ---
Subjective Subjective Date of Service: 11/19/23 Interval History: Off O2, no sob, still with diarrhea Review of Systems Review of Systems: Yes all other systems are reviewed and are negative Physical Exam Vital Signs: Vital Signs: Last Vital Signs Temp 97.0 F 11/19/23 07:12 Pulse 74 11/19/23 07:12 Resp 16 11/19/23 07:12 BP 117/63 11/19/23 07:12 Pulse Ox 96 11/19/23 09:21 O2 Del Method Room Air 11/19/23 09:21 O2 Flow Rate 2 11/19/23 07:12 BMI result Body Mass Index 28.3 Const: Other: General: AO X 3, no acute distress Resp: hamlet rhonchi CVS: S1,S2,RRR GI: +BS, NT, no distention Skin: No rash Neuro: motor grossly intact Psych: appropriate affect Objective Data Active Medications Acamprosate (Acamprosate Calcium 333 Mg Tablet.) 666 mg PO TID [facility] Last Admin: 11/19/23 14:22 Dose: 666 mg Documented By: DUYEN Acetaminophen (Acetaminophen 325 Mg Tablet) 650 mg PO Q6H PRN PRN Reason: Pain, Mild (Pain Scale 1-3) Last Admin: 11/19/23 11:27 Dose: 650 mg Documented By: DUYEN Albuterol Sulfate (Albuterol Sulfate 90 Mcg 8 Gm Inhaler) 2 puff INHALE Q4H PRN PRN Reason: Shortness Of Breath Or Wheezing Alprazolam (Alprazolam 0.5 Mg Tablet) 2 mg PO QID PRN PRN Reason: anxiety Last Admin: 11/19/23 11:27 Dose: 2 mg Documented By: DUYEN Amphetamine/Dextroamphetamine (Dextroamphetamine/Amphetamine Xr 10 Mg Cap.Er.24h) 30 mg PO DAILY [facility] Last Admin: 11/19/23 09:25 Dose: Not Given Documented By: DUYEN Non-Admin Reason: Patient Refused Amphetamine/Dextroamphetamine (Amphetamine Mixed Salts 10 Mg Tablet) 10 mg PO BID@0900,1700 [facility] Last Admin: 11/19/23 09:25 Dose: Not Given Documented By: DUYEN Non-Admin Reason: Patient Refused Ascorbic Acid (Ascorbic Acid 500 Mg Tablet) 500 mg PO DAILY [facility] Last Admin: 11/19/23 09:22 Dose: 500 mg Documented By: DUYEN Benzonatate (Benzonatate 100 Mg Capsule) 100 mg PO TID PRN PRN Reason: Cough Last Admin: 11/19/23 11:27 Dose: 100 mg Documented By: DUYEN Docusate Sodium (Docusate Sodium 100 Mg Capsule) 100 mg PO DAILY PRN PRN Reason: Constipation Enoxaparin Sodium (Enoxaparin Sodium 40 Mg/0.4 Ml Syringe) 40 mg SUBCUT Q24H [facility] Last Admin: 11/18/23 15:51 Dose: 40 mg Documented By: SOLISOSIEL Famotidine (Famotidine 20 Mg Tablet) 20 mg PO BID [facility] Last Admin: 11/19/23 09:22 Dose: 20 mg Documented By: DUYEN Folic Acid (Folic Acid 1 Mg Tablet) 1 mg PO DAILY [facility] Last Admin: 11/19/23 09:22 Dose: 1 mg Documented By: DUYEN Guaifenesin/Codeine Phosphate (Guaifen/Codeine Sf 200/20/10ml 10 Ml Liquid) 10 ml PO Q4H PRN PRN Reason: Cough Last Admin: 11/19/23 11:27 Dose: 10 ml Documented By: DUYEN Metronidazole (Flagyl) 500 mg in 100 mls @ 100 mls/hr IV Q8H [facility] Last Admin: 11/19/23 14:22 Dose: 100 mls/hr Documented By: DUYEN Ceftriaxone Sodium 1 gm/ (Sodium Chloride) 50 mls @ 100 mls/hr IV Q24H [facility] Last Infusion: 11/19/23 11:26 Dose: Infused Documented By: DUYEN Loperamide HCl (Loperamide Hcl 2 Mg Capsule) 2 mg PO Q6H PRN PRN Reason: Diarrhea Last Admin: 11/19/23 11:27 Dose: 2 mg Documented By: DUYEN Magnesium Oxide (Magnesium Oxide 400 Mg Tablet) 400 mg PO DAILY [facility] Last Admin: 11/19/23 09:22 Dose: 400 mg Documented By: DUYEN Melatonin (Melatonin 3 Mg Tablet) 6 mg PO BEDTIME PRN PRN Reason: Insomnia Last Admin: 11/18/23 00:08 Dose: 6 mg Documented By: HO.ODRISM Methadone HCl (Methadone Hcl 20 Mg/2 Ml Oral.Conc) 77 mg PO DAILY [facility] Last Admin: 11/19/23 09:22 Dose: 77 mg Documented By: DUYEN Nicotine Polacrilex (Nicotine Polacrilex Lozenge 2 Mg Lozenge) 2 mg BUCCAL Q2H PRN PRN Reason: Nicotine Cravings Last Admin: 11/19/23 11:32 Dose: 2 mg Documented By: DUYEN Omeprazole (Omeprazole 20 Mg Capsule.Dr) 20 mg PO DAILY@0630 [facility] Last Admin: 11/19/23 05:16 Dose: 20 mg Documented By: KERRY Ondansetron HCl (Ondansetron Odt 4 Mg Tab.Rapdis) 4 mg TRANSLINGU Q8H PRN PRN Reason: Nausea And Vomiting Last Admin: 11/18/23 09:36 Dose: 4 mg Documented By: DUYEN Sodium Chloride (0.9 % Sodium Chloride Flush 3 Ml Syringe) 3 ml IVFLUSH QSHIFT [facility] Last Admin: 11/19/23 07:31 Dose: 3 ml Documented By: DUYEN Thiamine HCl (Thiamine Hcl 100 Mg Tablet) 100 mg PO DAILY [facility] Last Admin: 11/19/23 09:23 Dose: 100 mg Documented By: DUYEN Zinc Sulfate (Zinc Sulfate 220 Mg Capsule) 220 mg PO DAILY [facility] Last Admin: 11/19/23 09:23 Dose: 220 mg Documented By: DUYEN Labs 11/19/23 10:27 11/19/23 10:27 Labs: Laboratory Results - last 24 hr 11/19/23 10:27 MCV 93.4 MCH 30.1 MCHC 32.3 RDW 13.3 Plt Count 240 MPV 10.5 Absolute Nucleated RBC 0.090 H Nucleated RBC % (auto) 0.8 H Anion Gap 9 L Estim Creat Clear Calc 79.1 Estimated GFR > 60 Random Glucose 116 H Calcium 8.5 Microbiology Microbiology Results: Microbiology 11/16/23 10:49 Blood Culture - Preliminary Blood - Venous No growth after 48 hours. 11/16/23 10:56 Blood Culture - Preliminary Blood - Venous No growth after 48 hours. Assessment and Plan (1) Aspiration pneumonia: Status: Acute (2) Hypoxia: Status: Acute (3) Multifocal pneumonia: Status: Acute Plan 33-year-old female with a PMH significant for?opioid use disorder methadone, alcohol use disorder, and ADHD who presented to the ED with?shortness of breath, productive cough, and ZIMMERMAN x 3 days. Pt was admitted to the hospital for treatment and further evaluation of acute hypoxic respiratory failure in the setting of likely aspiration pneumonia from likely opioid overdose. Acute hypoxic respiratory failure in the setting of multifocal pneumonia with sepsis, suspect aspiration from OD or intoxication with multifocal PNA: - Continue Ceftriaxone + Flagyl -PO Abx in am and dc HypOkalemia--3.2, supplement, repeat in am Elevated troponin likely from severe hypoxia - Initial troponin 87.0 with repeat 88.9 with no ECG change or symptoms. - Order EF 50, no acute abnormalities Leukocytosis: 11 today Opioid use disorder, Seen by addiction/recovery team and will follow through outpatient resources Anemia: - No significant change from initial drop yesterday; initial high likely hemoconcentration, monitor. ADHD Continue Adderall Diarrhea - C.Diff negative, stool culture pending -GI panel --EPEC (should be self-limiting) Alcohol use disorder - Continue acamprosate - Monitor for withdrawal GERD - Continue famotidine, PPI Full Code DVT Prophylaxis: Lovenox need for inpt: IV Abx for multifocal PNA with severe hypoxia, and specialist consult pending, not able to manage on outpatient basis at this time home [facility] Stroke Does the patient have a stroke diagnosis?: No VTE Prior VTE?: No VTE Risk Level:: Medical - moderate - high VTE Device Contraindication: Treatment Not Indicated VTE Drug Contraindication: N/A - Med Ordered
[2023-11-19] MEDS: Enoxaparin Sodium 40 MG/0.4 ML SYRINGE SUBCUT (15:21)
[2023-11-19 19:16] VITALS: BP 127/80; PULSE 56; RESP 18; TEMP 37; O2SAT 96
[2023-11-20] MEDS: Ondansetron ODT 4 MG TAB.RAPDIS TRANSLINGU (00:27)
[2023-11-20 04:00] VITALS: BP 124/71; PULSE 65; RESP 18; TEMP 36.7; O2SAT 94
[2023-11-20] MEDS: Omeprazole 20 MG CAPSULE.DR PO (06:27)
[2023-11-20] MEDS: metroNIDAZOLE/NS 500 MG/100 ML PIGGYBACK 100 MG IV (06:27)
[2023-11-20 06:54] LABS: Anion Gap 12 (12-20); Blood Urea Nitrogen 7 mg/dL (9-16); Calcium 8.7 mg/dL (8.4-10.2); Carbon Dioxide 33 mmol/L (22-29); Chloride 100 mmol/L (96-108); Estimated Glomerular Filt Rate > 60; Glucose Random 104 mg/dL (60-115); Potassium 3.2 mmol/L (3.3-5.1); Sodium 142 mmol/L (135-145)
[2023-11-20 07:32] VITALS: BP 130/80; PULSE 68; RESP 16; TEMP 36.7; O2SAT 93
[2023-11-20 08:06] LABS: Magnesium 1.7 mg/dL (1.6-2.6)
[2023-11-20] MEDS: Folic Acid 1 MG TABLET PO (08:26)
[2023-11-20] MEDS: Amphetamine Mixed Salts 10 MG TABLET PO (08:26)
[2023-11-20] MEDS: Ascorbic Acid 500 MG TABLET PO (08:26)
[2023-11-20] MEDS: methADONE HCl 20 MG/2 ML ORAL.CONC 77 MG PO (08:26)
[2023-11-20] MEDS: Famotidine 20 MG TABLET PO (08:27)
[2023-11-20] MEDS: ALPRAZolam 0.5 MG TABLET 2 MG PO ×2 (08:40→13:02)
[2023-11-20] MEDS: Loperamide HCl 2 MG CAPSULE PO (08:40)
[2023-11-20] MEDS: guaiFEN/Codeine SF 200/20/10ML 10 ML LIQUID PO (08:40)
[2023-11-20] MEDS: Benzonatate 100 MG CAPSULE PO (08:40)
[2023-11-20] MEDS: Dextroamphetamine/Amphetamine XR 10 MG CAP.ER.24H 30 MG PO (08:41)
[2023-11-20] MEDS: Magnesium Oxide 400 MG TABLET PO (08:42)
[2023-11-20] MEDS: Thiamine HCL 100 MG TABLET PO (08:42)
[2023-11-20] MEDS: Potassium Chloride ER 20 MEQ TAB.ER.PRT 40 MEQ PO (08:42)
[2023-11-20] MEDS: Zinc Sulfate 220 MG CAPSULE PO (08:42)
[2023-11-20] MEDS: Acamprosate Calcium 333 MG TABLET.DR 666 MG PO (08:47)
[2023-11-20] MEDS: Nicotine Polacrilex Lozenge 2 MG LOZENGE BUCCAL (09:10)
--- NOTE | 2023-11-20 10:22 | MHC.CM.PN ---
Patient is discharged today to home. She has received her last dose letter for Methadone dispensary. The [facility] Shuttle has been booked. A voucher has been provided to the patient. A Gift card has been provided. Patient going to discharge lounge 1:30pm.
[2023-11-20] MEDS: cefTRIAXone sodium 1 GM in 0.9 % Sodium Chloride 50 ML IV (12:07)
== END 2023-11-20 13:27 | disposition home or self-care (01) | DRG 137 ==
LOC: HO.ED 13:17 → HO.EDOVER 14:54 → HO.S3 16:03
PROVIDERS: Physician Assistant; Admitting Provider Student in an Organized Health Care Education/Training Program; Emergency Provider Emergency Medicine; Visit Provider Internal Medicine
DX: J69.0 Pneumonitis due to inhalation of food and vomit (principal); J96.01 Acute respiratory failure with hypoxia; A04.0 Enteropathogenic Escherichia coli infection; F11.20 Opioid dependence, uncomplicated; F10.10 Alcohol abuse, uncomplicated; F90.9 Attention-deficit hyperactivity disorder, unspecified type; K21.9 Gastro-esophageal reflux disease without esophagitis; E87.6 Hypokalemia; T40.2X1S Poisoning by other opioids, accidental (unintentional), sequela; Z79.899 Other long term (current) drug therapy
CPT/HCPCS: 36415; 71045; 71275; 80048; 80053; 80307; 82803; 83605; 83735; 84484; 84702; 85007; 85027; 85610; 87040; 87493; 87507; 93005; 93306; 97161; 99285; J0696; J1650; J1836; J2310; J2405; J2930; J3475; Q9957; Q9967

== ENCOUNTER → 2023-11-16 09:59 | Outpatient (BNV) | payer MEDICAID, SELFPAY | PROVIDERS: Admitting Provider Student in an Organized Health Care Education/Training Program; Emergency Provider Emergency Medicine; Visit Provider Internal Medicine | DX: R06.02 Shortness of breath (principal) | CPT/HCPCS: 93010 ==

== ENCOUNTER 2023-11-16 14:50 | Outpatient (BNV) | payer MEDICAID, SELFPAY | END 2023-11-18 07:00 | PROVIDERS: Admitting Provider Student in an Organized Health Care Education/Training Program; Emergency Provider Emergency Medicine; Visit Provider Internal Medicine | DX: I36.1 Nonrheumatic tricuspid (valve) insufficiency (principal) | CPT/HCPCS: 93306 ==

== ENCOUNTER → 2023-11-16 14:50 | Outpatient (BNV) | payer MEDICAID, SELFPAY | PROVIDERS: Admitting Provider Student in an Organized Health Care Education/Training Program; Emergency Provider Emergency Medicine; Visit Provider Internal Medicine | DX: J18.9 Pneumonia, unspecified organism (principal); F11.10 Opioid abuse, uncomplicated; F10.10 Alcohol abuse, uncomplicated | CPT/HCPCS: 99223; 99232; 99233; 99239; 99499 ==

== ENCOUNTER → 2023-11-16 14:50 | Outpatient (BNV) | payer MEDICAID, SELFPAY | PROVIDERS: Admitting Provider Student in an Organized Health Care Education/Training Program; Emergency Provider Emergency Medicine; Visit Provider Internal Medicine Pulmonary Disease | DX: J18.9 Pneumonia, unspecified organism (principal); F11.10 Opioid abuse, uncomplicated; F10.10 Alcohol abuse, uncomplicated | CPT/HCPCS: 99222 ==

== ENCOUNTER 2024-02-03 14:50 | Outpatient (REF) | payer MEDICAID, SELFPAY ==
[2024-02-03 17:51] LABS: Appearance Urine Cloudy; Color Urine Yellow; Glucose Urine UA Negative (Negative); Leukocyte Esterase Urine Negative (Negative); Nitrite Urine Negative (Negative); Specific Gravity - Urine 1.015 (1.005-1.025); Urine Blood Negative (Negative); Urine Ketones Negative (Negative); Urine Protein Negative (Neg-Trace)
[2024-02-03 17:53] LABS: Bacteria Urine 4+ (None Seen); Hyaline Casts Urine 0-2 /LPF (0-2); RBC Urine 0-2 /HPF (0-2); Squamous Epithelial Cell Urine >20 /HPF (0-2); WBC Urine 0-5 /HPF (0-5)
[2024-02-03 18:24] LABS: Alanine Aminotransferase 16 U/L (0-31); Albumin Level 4.1 g/dL (3.5-5.0); Alkaline Phosphatase 60 U/L (39-117); Aspartate Amino Transferase 30 U/L (5-31); Bilirubin Direct 0.1 mg/dL (0.0-0.5); Bilirubin Total 0.4 mg/dL (0.0-1.0); Total Protein 7.8 g/dL (6.5-8.0)
[2024-02-04 07:46] LABS: HIV AB/AG Nonreactive (Nonreactive); HIV Num 1 0.05 S/CO (0.00-0.99)
[2024-02-05 05:48] LABS: C. trachomatis RNA TMA NOT DETECTED (NOT DETECTED); N. gonorrhoeae RNA TMA NOT DETECTED (NOT DETECTED)
[2024-02-05 16:32] LABS: HCV Log PCR <1.18 NOT DETECTED Log IU/mL (NOT DETECTED); HepC Viral Load <15 NOT DETECTED IU/mL (NOT DETECTED)
[2024-02-09 12:54] LABS: RPR Rapid Plasma Reagin NON-REACTIVE (NON-REACTIVE)
== END 2024-02-03 14:51 | disposition home or self-care (01) ==
LOC: HO.CHCLDS 14:50
PROVIDERS: Visit Provider Internal Medicine
DX: Z11.3 Encounter for screening for infections with a predominantly sexual mode of transmission (principal)
CPT/HCPCS: 36415; 80076; 81001; 81513; 86592; 87389; 87491; 87522; 87591

== ENCOUNTER 2025-06-06 19:53 | Inpatient (IN) | payer MEDICAID, SELFPAY ==
--- NOTE | ~2025-06-06 | CT_ITS ---
CLINICAL HISTORY: abd pain, persistent vomiting, hx o pacreatitis CT abdomen and pelvis without contrast Comparison: CT angiogram of the chest 11/16/2023, CT of the abdomen and pelvis with contrast 07/16/2023 Findings: The lung bases are clear. Unremarkable gallbladder. Fatty liver. Peripancreatic edema consistent with acute pancreatitis. No urolithiasis. No bowel obstruction, pneumoperitoneum, or pneumatosis. Prominent mesenteric lymph nodes, likely reactive. Right adnexal cyst. Appendix not visualized, although no pericecal inflammatory changes. The bones are intact. IMPRESSION: Acute pancreatitis. Fatty liver. This document has been electronically signed by: Donal Ortiz MD on 06/07/2025 03:19:02
[2025-06-06 20:10] VITALS: BP 130/98; PULSE 87; RESP 18; TEMP 36.2; O2SAT 100; BMI 31.6
--- NOTE | 2025-06-06 20:11 | ED.GENADULT ---
HPI - General Adult General Chief complaint: Abdominal Pain Stated complaint: acute appendicitis in pain!!! Time Seen by Provider: 06/06/25 20:57 Source: patient Mode of arrival: ambulatory Limitations: no limitations History of Present Illness ED Provider: DR. Walker HPI narrative: 34-year-old female history of opiate use disorder on methadone has been clean for few years as per patient, alcohol abuse, mood disorder, patient started to drink on May 06 has been drinking heavily since then today started to have epigastric pain and nonstop vomiting with nausea. Related Data Home Medications ?Medication ?Instructions ?Recorded ?Confirmed alprazolam 2 mg tablet 2 mg PO TID PRN anxiety 07/16/23 06/07/25 methadone 10 mg/mL oral 60 mg PO DAILY 07/16/23 06/07/25 concentrate (Methadose) ascorbic acid (vitamin C) 500 mg 500 mg PO DAILY 11/16/23 06/07/25 tablet (Vitamin C) ondansetron 4 mg disintegrating 4 mg PO Q8H PRN Nausea And Vomiting 11/16/23 06/07/25 tablet thiamine HCl (vitamin B1) 100 mg 100 mg PO DAILY 11/16/23 06/07/25 tablet (Vitamin B-1) dextroamphetamine-amphetamine 15 15 mg PO TID PRN Attention/Focus 06/07/25 06/07/25 mg tablet (Adderall) gabapentin 300 mg capsule 300 mg PO BEDTIME 06/07/25 06/07/25 melatonin 5 mg tablet 5 mg PO BEDTIME 06/07/25 06/07/25 pantoprazole 20 mg tablet,delayed 20 mg PO DAILY@0630 acid reflux 06/07/25 06/07/25 release triamcinolone acetonide 0.5 % 1 appl topical BID PRN Inflammation 06/07/25 06/07/25 topical cream Previous Rx's ?Medication ?Instructions ?Recorded fenofibrate 54 mg tablet 54 mg PO DAILY #90 tabs 06/13/25 Allergies Allergy/AdvReac Type Severity Reaction Status Date / Time amoxicillin Allergy Hives Verified 06/06/25 20:15 Review of Systems Review of Systems: All other systems are reviewed and are negative Constitutional: Reports as per HPI and Reports no additional constitutional complaints Eyes: Reports as per HPI and Reports no additional eye complaints Reports system reviewed and no additional complaints, except as documented Cardiovascular: Reports as per HPI and Reports no additional cardiovascular complaints Respiratory: Reports as per HPI and Reports no additional respiratory complaints Gastrointestinal: Reports as per HPI and Reports no additional gastrointestinal complaints Genitourinary: Reports no additional female genitourinary complaints Musculoskeletal: Reports no additional musculoskeletal complaints Skin/Breast: Reports system reviewed and no additional complaints, except as docu Psychiatric: Reports no additional psychiatric complaints Endocrine: Reports no additional endocrine complaints Hematologic/Lymphatic: Reports no additional hematologic/lymphatic complaints Allergic/Immunologic: Reports no additional allergic/immunologic complaints Reports system reviewed and no additional complaints, except as documented and Reports Abnormal speech present [facility] Past Medical History Medical History Hypertriglyceridemia Alcohol abuse Mood disorder Opioid abuse Alcohol use disorder Social History Social History Household Members: Family Housing: House Do you presently have visiting nurse or other home services: No Unable to assess alcohol history related to: Unknown Alcohol intake: current Alcohol intake frequency: 3 or more drinks per day Alcohol type: hard liquor Patient Tobacco Use Status: Current someday Tobacco user Tobacco use type: Cigarette Second Hand Smoke Exposure: No service: No Physical Exam ED Vital Signs: Vital Signs - 24 hr 06/06/25 20:10 06/06/25 22:02 06/06/25 23:15 Temperature 97.1 F 97.3 F 97.6 F Pulse Rate 87 50 59 Respiratory Rate 18 16 16 Blood Pressure 130/98 H 141/79 H 132/84 Pulse Oximetry 100 96 97 Oxygen Delivery Method Room Air Room Air Room Air 06/07/25 02:23 Temperature Pulse Rate 95 Respiratory Rate 20 Blood Pressure 134/103 H Pulse Oximetry 98 Oxygen Delivery Method Room Air BMI result Body Mass Index 31.6 Vital signs have been reviewed and appear to be correct. Blood pressure elevated. Heart rate normal. Respiratory rate normal. Temperature normal. Oxygen saturation normal. Appearance: Alert. Oriented X3. No acute distress. Head: Normal external exam. Normocephalic. Atraumatic. No Golden signs noted. No raccoon eyes noted Eyes: PERRLA. EOMI. Conjunctiva and sclera normal. Eyelids normal. ENT: TM's Normal. Pharynx normal. Uvula midline. Moist mucous membranes. No trismus noted. No drooling noted. No muffled voice noted. Neck: Normal inspection. Neck supple. FROM. No adenopathy. Thyroid Normal. No meningeal signs. No neck mass noted. CVS: Normal heart rate and rhythm. Heart sound normal. No murmurs noted. Pulses normal throughout. Respiratory: No respiratory distress. Painless inspiration. Breath sounds normal. No wheezes/rales/rhonchi noted. Chest nontender. No accessory muscle usage noted or decreased air movement noted. Abdomen: Soft and nontender. Bowel sounds normal in all 4 quadrants. No distention noted. No organomegaly noted. No visible injury noted. Back: No CVA tenderness. Full range of motion noted. Skin: Skin warm and dry. Normal skin color. Normal skin turgor. No rashes/lesions/lacerations noted. Extremities: No lower extremity edema. Extremities exhibit normal range of motion. Extremities nontender. Neuro: Oriented X 3. Cranial nerve exam: II-XII are grossly intact No motor deficit. No sensory deficit. Reflexes normal. Course Course Course Narrative: RME performed by Heavenly Chong PA-C. Patient is a 34 year old assigned female at presenting to the emergency department with abdominal pain, nausea, and vomiting. Patient states that she was sober for awhile and recently began drinking again and is now vomiting. Patient states that she drank alcohol this morning but still feels as though she is having pancreatitis. Detailed physical exam and review of systems are deferred to the modeling director. EKG, labs ordered. Patient placed back in the waiting room pending room availability and results. Reevaluation(s) Reevaluation #1: multiple episode of vomiting and upper abdominal pain after drinking alcohol. History of multiple hospitalization secondary to alcoholic gastritis and alcoholic pancreatitis. Time: 01:57 Medications Administered Discontinued Medications Generic Name Dose Route Start Last Admin Trade Name Freq PRN Reason Stop Dose Admin Acetaminophen 650 mg 06/07/25 04:18 06/13/25 06:02 Acetaminophen 325 Mg Tablet PO 650 mg Q6H PRN Administration Pain, Mild 1-3,fever,headache Alprazolam 2 mg 06/07/25 13:34 06/12/25 08:33 Alprazolam 0.5 Mg Tablet PO 2 mg QID PRN Administration Anxiety Alprazolam 1 mg 06/12/25 15:09 06/12/25 15:22 Alprazolam 0.5 Mg Tablet PO 06/12/25 15:10 1 mg ONCE ONE Administration Alprazolam 2 mg 06/12/25 19:45 06/13/25 07:38 Alprazolam 0.5 Mg Tablet PO 2 mg TID PRN Administration anxiety/restlessness Amphetamine/Dextroamphetamine 15 mg 06/07/25 13:34 06/13/25 11:34 Amphetamine Mixed Salts 10 Mg Tablet PO 15 mg TID PRN Administration Attention/Focus Ascorbic Acid 500 mg 06/08/25 09:00 06/13/25 07:39 Ascorbic Acid 500 Mg Tablet PO 500 mg DAILY SCAR Administration Dexamethasone Sodium Phosphate 4 mg 06/07/25 15:04 06/07/25 16:04 Dexamethasone Sod Phosphate 4 Mg/Ml Vial IVPUSH 06/07/25 15:05 4 mg ONCE ONE Administration Diazepam 5 mg 06/06/25 21:37 06/06/25 21:50 Diazepam 10 Mg/2 Ml Cartridge IVPUSH 06/06/25 21:38 5 mg STAT STA Administration Diazepam 5 mg 06/07/25 02:03 06/07/25 02:26 Diazepam 10 Mg/2 Ml Cartridge IVPUSH 06/07/25 02:04 5 mg STAT STA Administration Diazepam 10 mg 06/07/25 04:07 06/07/25 04:57 Diazepam 10 Mg/2 Ml Cartridge IVPUSH 06/07/25 04:08 10 mg STAT STA Administration Diphenhydramine HCl 25 mg 06/07/25 03:16 06/07/25 03:33 Diphenhydramine Hcl 50 Mg/Ml Vial IVPUSH 06/07/25 03:17 25 mg ONCE ONE Administration Droperidol 1.25 mg 06/06/25 23:05 06/06/25 23:11 Droperidol 5 Mg/2 Ml Vial IVPUSH 06/06/25 23:06 1.25 mg ONCE ONE Administration Enoxaparin Sodium 40 mg 06/07/25 05:00 06/13/25 04:31 Enoxaparin Sodium 40 Mg/0.4 Ml Syringe SUBCUT Not Given Q24H SCAR Famotidine 20 mg 06/06/25 21:37 06/06/25 21:50 Famotidine/Pf 20 Mg/2 Ml Vial IVPUSH 06/06/25 21:38 20 mg ONCE ONE Administration Fenofibrate 54 mg 06/07/25 13:50 06/13/25 07:39 Fenofibrate 54 Mg Tablet PO 54 mg DAILY SCAR Administration Gabapentin 300 mg 06/07/25 21:00 06/12/25 20:01 Gabapentin 300 Mg Capsule PO 300 mg BEDTIME SCAR Administration Haloperidol Lactate 2.5 mg 06/07/25 03:16 06/07/25 03:33 Haloperidol Lactate 5 Mg/Ml Vial IVPUSH 06/07/25 03:17 Not Given ONCE ONE Hydromorphone HCl 1 mg 06/07/25 03:16 06/07/25 03:33 Hydromorphone Hcl 1 Mg/Ml Syringe IVPUSH 06/07/25 03:17 1 mg ONCE ONE Administration Protocol Hydromorphone HCl 1 mg 06/07/25 17:23 06/09/25 09:50 Hydromorphone Hcl 1 Mg/Ml Syringe IVPUSH 1 mg Q4H PRN Administration Pain, Severe (Pain Scale 7-10) Protocol Hydromorphone HCl 1 mg 06/09/25 13:01 06/11/25 08:04 Hydromorphone Hcl 1 Mg/Ml Syringe IVPUSH 1 mg Q3H PRN Administration Pain, Severe (Pain Scale 7-10) Protocol Hydromorphone HCl 1 mg 06/11/25 08:07 06/13/25 01:33 Hydromorphone Hcl 1 Mg/Ml Syringe IVPUSH 1 mg Q6H PRN Administration Pain, Severe (Pain Scale 7-10) Protocol Sodium Chloride 1,000 mls @ 999 mls/hr 06/06/25 20:30 06/06/25 22:50 Ns IV 06/06/25 21:30 Infused .Q1H1M SCAR Infusion Acetaminophen 1,000 mg in 100 mls @ 400 mls/hr 06/06/25 23:07 06/06/25 23:50 Ofirmev IV 06/06/25 23:21 Infused ONCE ONE Infusion Magnesium Sulfate 2 gm in 50 mls @ 25 mls/hr 06/07/25 04:09 06/07/25 09:00 Magnesium Sulfate/H2o IV 06/07/25 06:08 Infused ONCE ONE Infusion Thiamine HCl 200 mg/ Sodium 102 mls @ 204 mls/hr 06/07/25 04:09 06/07/25 05:18 Chloride IV 06/07/25 04:38 Infused ONCE ONE Infusion Lactated Ringer's 1,000 mls @ 100 mls/hr 06/07/25 04:30 06/09/25 11:39 Lr IVCONT Not Given .Q10H SCAR Lactated Ringer's 1,000 mls @ 100 mls/hr 06/08/25 12:00 06/11/25 07:18 Lr IVCONT Infused .Q10H SCAR Infusion Magnesium Hydroxide 30 ml 06/07/25 04:18 06/10/25 00:55 Milk Of Magnesia 30 Ml Oral.Susp PO 30 ml DAILY PRN Administration Constipation Melatonin 6 mg 06/07/25 21:00 06/12/25 20:03 Melatonin 3 Mg Tablet PO 6 mg BEDTIME SCAR Administration Methadone HCl 60 mg 06/07/25 13:45 06/07/25 13:46 Methadone Hcl 20 Mg/2 Ml Oral.Conc PO 06/07/25 13:46 60 mg ONCE ONE Administration Methadone HCl 60 mg 06/07/25 13:35 06/07/25 13:46 Methadone Hcl 20 Mg/2 Ml Oral.Conc PO Not Given DAILY SCAR Methadone HCl 60 mg 06/07/25 17:00 06/07/25 18:33 Methadone Hcl 20 Mg/2 Ml Oral.Conc PO 06/07/25 17:01 60 mg ONCE ONE Administration Methadone HCl 120 mg 06/08/25 08:00 06/13/25 07:39 Methadone Hcl 20 Mg/2 Ml Oral.Conc PO 120 mg DAILY@0800 SCAR Administration Morphine Sulfate 4 mg 06/07/25 04:18 06/07/25 11:22 Morphine Sulfate 4 Mg/Ml Cartridge IVPUSH 4 mg Q4H PRN Administration Pain, Severe (Pain Scale 7-10) Protocol Omeprazole 20 mg 06/08/25 06:30 06/13/25 06:02 Omeprazole 20 Mg Capsule. PO 20 mg DAILY@0630 [facility] Administration Ondansetron HCl 4 mg 06/06/25 20:19 06/06/25 21:46 Ondansetron Hcl 4 Mg/2 Ml Vial IVPUSH 06/06/25 20:20 4 mg ONCE ONE Administration Ondansetron HCl 4 mg 06/06/25 21:37 06/06/25 21:47 Ondansetron Hcl 4 Mg/2 Ml Vial IVPUSH 06/06/25 21:38 Not Given ONCE ONE Ondansetron HCl 4 mg 06/07/25 01:56 06/07/25 02:26 Ondansetron Hcl 4 Mg/2 Ml Vial IVPUSH 06/07/25 01:57 4 mg ONCE ONE Administration Oxycodone HCl 5 mg 06/11/25 08:06 06/13/25 11:34 Oxycodone Hcl Immed Release 5 Mg Tablet PO 5 mg Q4H PRN Administration severe pain Phenobarbital 60 mg 06/07/25 19:00 06/08/25 06:24 Phenobarbital 30 Mg Tablet PO 06/09/25 07:01 60 mg Q12H SCAR Administration Phenobarbital Sodium 240 mg 06/07/25 05:00 06/07/25 05:19 Phenobarbital Sodium 130 Mg/Ml Vial IM 06/07/25 05:01 240 mg ONCE ONE Administration Phenobarbital Sodium 180 mg 06/07/25 08:00 06/07/25 13:34 Phenobarbital Sodium 130 Mg/Ml Vial IM 06/07/25 11:01 180 mg Q3H SCAR Administration Phenobarbital Sodium 180 mg 06/07/25 13:15 06/07/25 16:29 Phenobarbital Sodium 130 Mg/Ml Vial IM 06/07/25 13:16 180 mg Q3H SCAR Administration Simethicone 160 mg 06/09/25 04:39 06/09/25 04:56 Simethicone 80 Mg Tab.Chew PO 06/09/25 04:40 160 mg ONCE ONE Administration Sodium Chloride 3 ml 06/07/25 08:00 06/13/25 07:39 0.9 % Sodium Chloride Flush 3 Ml Syringe IVFLUSH 3 ml QSHIFT SCAR Administration Thiamine HCl 100 mg 06/08/25 09:00 06/13/25 07:39 Thiamine Hcl 100 Mg Tablet PO 100 mg DAILY SCAR Administration Procedures Procedure Narrative Procedure Narrative: Ultrasound-guided IV 20 gauge 2-1/2 inch IV placed in left upper extremity. Adequate blood return, flushes well, secured with Tegaderm. Performed by Sonia Rivero PA-C Medical Decision Making Differential Diagnosis Differential Diagnoses: The differential diagnosis associated with the presentation includes (Alcoholic gastritis, alcoholic pancreatitis, intractable vomiting, electrolyte derangement, severe anemia, intractable abdominal pain, ,) Admission/Observation Consideration of admission/observation: Escalation of care including admission/observation considered Consult Healthcare Provider Management of the patient was discussed with: Hospitalist ( Dr. Reed) Lab Data MDM Lab Attestation statement: I reviewed the patient's lab results. 06/07/25 09:35 06/09/25 05:13 Labs: Lab Results 06/06/25 06/06/25 06/06/25 Range/Units 20:34 21:44 23:22 WBC 4.6 L (4.8-10.8) X10*3/uL RBC 4.62 D (4.20-5.50) X10*6/uL Hgb 14.1 D (12.0-16.0) g/dl Hct 41.0 D (37.0-47.0) % MCV 88.7 (80.0-98.0) fL MCH 30.5 (27.0-33.0) pg MCHC 34.4 (31.0-35.0) g/dl RDW 14.9 (11.0-16.0) % Plt Count 193 (160-400) X10*3/uL MPV 10.2 (9.4-12.3) fL Immature Gran % (Auto) 0.2 (0.0-0.4) % Neut % (Auto) 49.0 (45-73) % Lymph % (Auto) 39.6 (20-40) % [place] % (Auto) 9.4 (2-11) % Eos % (Auto) 0.9 (0-4) % Baso % (Auto) 0.9 (0-2) % Lymph # (Auto) 1.8 (1.2-4.9) X10*3/uL [place] # (Auto) 0.4 (0.1-1.2) X10*3/uL Eos # (Auto) 0.0 (0.0-0.4) X10*3/uL Baso # (Auto) 0.0 (0.0-0.2) X10*3/uL Abs Immat Gran (auto) 0.01 (0.00-0.03) X10*3/uL Absolute Neuts (auto) 2.2 (2.0-8.3) x10*3/uL Absolute Nucleated RBC 0.000 (0.0-0.012) X10*3/uL Nucleated RBC % (auto) 0.0 (0.0-0.2) /100WBC Sodium 135 (135-145) mmol/L Potassium 4.6 D (3.3-5.1) mmol/L Chloride 100 (96-108) mmol/L Carbon Dioxide 18 L (22-29) mmol/L Anion Gap 22 H (12-20) BUN 18 H (9-16) mg/dL Creatinine 0.92 (0.5-1.4) mg/dL Estim Creat Clear Calc 81.9 Estimated GFR > 60 Random Glucose 129 H (60-115) mg/dL Calcium 8.2 L (8.4-10.2) mg/dL Magnesium 1.8 (1.6-2.6) mg/dL Total Bilirubin 0.3 (0.0-1.0) mg/dL AST 285 H (5-31) U/L ALT 72 H (0-31) U/L Alkaline Phosphatase 96 (39-117) U/L Total Protein 8.3 H (6.5-8.0) g/dL Albumin 3.8 (3.5-5.0) g/dL Lipase 100 H (8-78) U/L Beta HCG, Quant < 2 mIU/mL Influenza Type A (PCR) NEGATIVE (Negative) Influenza Type B (PCR) NEGATIVE (Negative) RSV RNA Qual (PCR) NEGATIVE (Negative) SARS-CoV-2 RNA (RT-PCR) NEGATIVE (Negative) Independent Interpretation I performed an independent interpretation of an: CT Scan ( abdomen pelvis:) Interpretation: CT abdomen and pelvis without contrast Comparison: CT angiogram of the chest 11/16/2023, CT of the abdomen and pelvis with contrast 07/16/2023 Findings: The lung bases are clear. Unremarkable gallbladder. Fatty liver. Peripancreatic edema consistent with acute pancreatitis. No urolithiasis. No bowel obstruction, pneumoperitoneum, or pneumatosis. Prominent mesenteric lymph nodes, likely reactive. Right adnexal cyst. Appendix not visualized, although no pericecal inflammatory changes. The bones are intact. IMPRESSION: Acute pancreatitis. Fatty liver. This document has been electronically signed by: Donal Ortiz MD on 06/07/2025 03:19:02 Radiology Impression Discussion of test interpretation with radiology: I have reviewed the radiologist's reading. Chronic Conditions Patient?s care impacted by: Other (Alcohol use disorder) Social Determinants Patient?s care significantly limited by Social Determinants of Health including: Alcoholism and drug addiction in family Critical Care Time Critical Care Time Critical Care Time: Yes Total Critical Care Time: 60 Attestation: The patient was critically ill with a high probability of imminent or life-threatening deterioration. I spent greater than 30 minutes of discontinuous time evaluating the patient, delivering critical care at the bedside, discussing evaluating data with consultants. Critical care time does not include time spent performing separately billable procedures or teaching. Time spent performing critical care was 60 minutes. Discharge Plan Discharge Clinical Impression: Intractable vomiting, Alcoholic gastritis, Acute alcoholic pancreatitis Patient Disposition: Admitted As Inpatient Interventions: Admission Worksheet (ED) Last Done: 06/07/25 19:25 Discharge Date/Time: 06/07/25 20:51
--- NOTE | 2025-06-06 20:19 | ECG_ITS ---
Test Reason : QT EVAL Blood Pressure : */* mmHG Vent. Rate : 78 BPM Atrial Rate : 78 BPM P-R Int : 140 ms QRS Dur : 92 ms QT Int : 456 ms P-R-T Axes : 75 52 55 degrees QTcB Int : 519 ms Normal sinus rhythm with sinus arrhythmia Prolonged QT Abnormal ECG When compared with ECG of 16-Nov-2023 11:21, No significant change was found Referred By: Heavenly Chong Electronically Signed By: MICHELLE WAGGONER
--- OUTSIDE RECORDS SUMMARY | 2025-06-06 20:26 | XMS_ITS | Clinical Summary ---
Author Organization [facility] Address [address] [place] [address] Phone Care Team Providers Care Torch Heater Name Role Phone Kenisha Martinez MD Primary Care Provider [phone] Allergies Active Allergy Reactions Criticality Noted Date Comments Amoxicillin Unknown 11/19/2024 Childhood reaction Medications methadone (DOLOPHINE) 10 mg/mL concentrated solution Take 11.5 mL (115 mg total) by mouth 1 (one) time each day. Active amphetamine-dextr oamphetamine (ADDERALL) 15 mg tablet Take 1 tablet (15 mg total) by mouth 3 (three) times a day if needed. 5 Active gabapentin (NEURONTIN) 300 mg capsule Take 1 capsule (300 mg total) by mouth 1 (one) time each day in the evening. Active DULoxetine (CYMBALTA) [address] capsule Take 1 capsule (30 mg total) by mouth 1 (one) time each day. Do not crush or chew. 30 each 5 Active disulfiram (ANTABUSE) 250 mg tablet Take 1 tablet (250 mg total) by mouth 1 (one) time each day for 10 days. 10 each 5 Active Active Problems Problem Noted Date Diagnosed Date Methadone maintenance treatm ent affecting , antepartum (CMS/HCC V24, CMS/HCC V28) 11/19/2024 Chronic hepatitis C (CMS/HCC V24, CMS/HCC V28) 0 11/19/2024 Obesity 11/19/2024 Adult ADHD 11/19/2024 PTSD (post-traumatic stress disorder) 09/16/2024 Obstructive sleep apnea 09/16/2024 Marijuana use 09/16/2024 History of opioid abuse ([facility] V24, [facility] V2 8) 09/16/2024 Anxiety 09/16/2024 Anemia 09/16/2024 Resolved Problems Problem Noted Date Diagnosed Date Resolved Date Alcohol withdrawal syndrome without complication ([facility] V24, [facility] V28) 11/19/2024 11/22/2024 Surgical History Surgery Date Site/Laterality Comments SECTION Medical History Medical History Date Comments Alcohol abuse Anxiety Social History Tobacco Use Types Packs/Day Years Used Date Smoking Tobacco: Some Days Cigarettes Smokeless Tobacco: Never Tobacco Cessation:Ready to Q uit: Not Asked; Counseling Given: Not Answered Alcohol Use Standard Drinks/Week Comments Yes 0 (1 standard drink = 0.6 oz pur e alcohol) 20 nips daily Interpersonal Safety Answer Date Record ed Physical Abuse 11/20/2024 Verbal Abuse 11/20/2024 Comments Unknown Sex and Gender Information Value Date Recorded Sex Assigned at Female 11/19/2024 12:12 PM EST Legal Sex Female 10:21 AM EST Gender Identity Female 11/19/2024 12:12 PM EST Sexual Orientation Straight 11/19/2024 12 :12 PM EST Obstetrics History Last Filed Vital Signs Vital Sign Reading Time Taken Comments Blood Pressure 109/68 11/22/2024 1:56 PM EST Pulse 54 11/22/2024 1:56 PM EST Temperature 36.2 C (97.1 F) 11/22/2024 8:30 AM EST Respiratory Rate 12 11/22/2024 8:30 AM EST Oxygen Saturation 100% 11/22/2024 1:56 PM EST Inhaled Oxygen Concentration - - Weight 81.6 kg (180 lb) 11/19/2024 9:59 AM EST Height 157.5 cm (5' 2 ) 11/19/2024 9:59 AM EST Body Mass Index 32.92 11/19/2024 9:59 AM EST Plan of Treatment Health Maintenance Due Date Last Done Comments Hepatitis A Vaccines (1 of 2 - Risk 2-dose series) 2007 Hepatitis B Vaccines (1 of 3 - 19+ 3-dose series) 2007 Pneumococcal Vaccine: Pediat rics (0 to 5 Years) and At-Risk Patients (6 to 49 Years) (1 of 2 - PCV) 2007 Cervical Cancer Screening: P ap Smear 2009 COVID-19 Vaccine (1 - 2023-2 5 season) 2024 Cholesterol Screening (Lipid Panel) 08/25/2024 Hepatitis C Screening 08/25/2024 Social Influencers of Health Screening 08/25/2024 Depression Screening 11/03/2024 Influenza Vaccine (#1) 2025 08/02/2016 DTaP,Tdap,and Td Vaccines (2 - Td or Tdap) 09/20/2030 09/20/2020 HIV Screening Completed 02/03/2024 HIB Vaccines Aged Out No longer eligi ble based on patient's age to complete this topic HPV Vaccines Aged Out No longer eligi ble based on patient's age to complete this topic IPV Vaccines Aged Out No longer eligi ble based on patient's age to complete this topic MMR Vaccines Aged Out No longer eligi ble based on patient's age to complete this topic Meningococcal ACWY Vaccine Aged Out N o longer eligible based on patient's age to complete this topic Meningococcal B Vaccine Aged Out No l onger eligible based on patient's age to complete this topic RSV Immunization Patients Un haylie 20 months Aged Out No longer eligible b ased on patient's age to complete this topic Varicella Vaccines Aged Out No longer eligible based on patient's age to complete this topic Insurance MEDICAID - [place] [facility] Advance Directives * Full Code - Default (Latest Code Status on File) Date Activated Date Inactivated Comments 11/19/2024 7:45 PM 11/22/2024 5:50 PM This is orde r is used when code status has not been discussed with the patient, or code status is otherwise unknown/unconfirmed To update the patient's code status, place a code status order. Do not modify or discontinue any currently active code status orders. Care Teams Torch Heater Relationship Specialty Start Date End Date Kenisha Martinez MD [address] [place] [id number] PCP - General Internal Medicine 11/19/24
[2025-06-06 20:38] LABS: MANUAL DIFF FLAG NO
[2025-06-06 20:39] LABS: Hematocrit 41.0 % (37.0-47.0); Hemoglobin 14.1 g/dl (12.0-16.0); Imm Gran Abs Auto 0.01 X10*3/uL (0.00-0.03); Imm Gran Pct Auto 0.2 % (0.0-0.4); Lymphocytes Absolute Auto 1.8 X10*3/uL (1.2-4.9); Mean Corpuscular HGB Conc 34.4 g/dl (31.0-35.0); Mean Corpuscular Hemoglobin 30.5 pg (27.0-33.0); Mean Corpuscular Volume 88.7 fL (80.0-98.0); NRBC Abs Auto 0.000 X10*3/uL (0.0-0.012); NRBC Pct Auto 0.0 /100WBC (0.0-0.2); Platelet Count 193 X10*3/uL (160-400); Red Blood Count 4.62 X10*6/uL (4.20-5.50); White Blood Count 4.6 X10*3/uL (4.8-10.8)
--- NOTE | 2025-06-06 21:03 | MHC.EDTECH ---
Unable to get EKG due to patient consistent vomiting
[2025-06-06] MEDS: diazePAM 10 MG/2 ML CARTRIDGE 5 MG IVPUSH (21:50)
[2025-06-06 22:02] VITALS: BP 141/79; PULSE 50; RESP 16; TEMP 36.3; O2SAT 96
[2025-06-06 22:14] LABS: Alanine Aminotransferase 72 U/L (0-31); Albumin Level 3.8 g/dL (3.5-5.0); Alkaline Phosphatase 96 U/L (39-117); Anion Gap 22 (12-20); Blood Urea Nitrogen 18 mg/dL (9-16); Calcium 8.2 mg/dL (8.4-10.2); Carbon Dioxide 18 mmol/L (22-29); Chloride 100 mmol/L (96-108); Creatinine Clr Calc Pharmacy 81.9; Estimated Glomerular Filt Rate > 60; Lipase 100 U/L (8-78); Magnesium 1.8 mg/dL (1.6-2.6); Potassium 4.6 mmol/L (3.3-5.1); Sodium 135 mmol/L (135-145); Total Protein 8.3 g/dL (6.5-8.0)
[2025-06-06 22:28] LABS: Aspartate Amino Transferase 285 U/L (5-31)
[2025-06-06 23:15] VITALS: BP 132/84; PULSE 59; RESP 16; TEMP 36.4; O2SAT 97
[2025-06-07] VITALS (7 sets, daily range): BP systolic 117–168; BP diastolic 75–103; PULSE 58–95; RESP 16–20; TEMP 36.6–37.1; O2SAT 95–98; BMI 34.0
--- NOTE | 2025-06-07 | ECG_ITS ---
Test Reason : METHADONE INCREASE PROLONG QTC Blood Pressure : */* mmHG Vent. Rate : 62 BPM Atrial Rate : 62 BPM P-R Int : 130 ms QRS Dur : 92 ms QT Int : 466 ms P-R-T Axes : 43 44 47 degrees QTcB Int : 472 ms Normal sinus rhythm with sinus arrhythmia Normal ECG When compared with ECG of 06-Jun-2025 21:55, No significant change was found Referred By: Lucy Denney Electronically Signed By: MICHELLE WAGGONER
[2025-06-07 00:05] LABS: Resp Syncy Virus RNA Qual PCR NEGATIVE (Negative); SARS COV2 PCR INHOUSE NEGATIVE (Negative)
[2025-06-07] MEDS: diazePAM 10 MG/2 ML CARTRIDGE 5 MG IVPUSH (02:26)
--- NOTE | 2025-06-07 04:19 | PM.IMHP ---
History of Present Illness Date of Service: 06/07/25 Chief Complaint: Abdominal pain This has a 34-year-old female with pertinent history of alcohol use disorder with history of alcoholic pancreatitis, opioid use disorder on methadone, mood disorder, gastroesophageal reflux disease who presents to the emergency department for evaluation of abdominal pain. Patient states she has been doing well with alcohol but relapsed in May. Endorses significant use every day. Her last drink was 1 day prior to presentation. Patient states on the day of presentation she started having abdominal pain in the epigastric region which was constant, radiated to the back and without any relieving factors. Also had associated nausea and multiple episodes of nonbloody emesis. Unable to tolerate p.o. intake. Patient states she feels anxious and is concerned for alcohol withdrawal. No visual or auditory hallucinations. No fever, chills, chest pain, palpitations, shortness of breath, changes in urinary or bowel habits. In the emergency department, lipase found to be elevated and imaging concerning for acute pancreatitis. Review of Systems Constitutional: Constitutional: Reports fatigue, Reports lethargy, Reports malaise and Reports poor appetite Cardiovascular: Cardiovascular: Reports no additional cardiovascular complaints Respiratory: Respiratory: Reports no additional respiratory complaints Gastrointestinal: Gastrointestinal: Reports no additional gastrointestinal complaints, Reports nausea and Reports vomiting Genitourinary: Genitourinary: Reports no additional female genitourinary complaints Endocrine: Endocrine: Reports fatigue PMFSH Medical History Hypertriglyceridemia Alcohol abuse Mood disorder Opioid abuse Alcohol use disorder Pertinent family history: No family history of early CAD Social History Household Members: Unknown / Unable to assess Housing: House Unable to assess alcohol history related to: Unknown Alcohol intake: current Alcohol intake frequency: 3 or more drinks per day Alcohol type: hard liquor Patient Tobacco Use Status: Tobacco use Unknown Smoked in Last 30 Days: No Use of substances other than those prescribed or required for medical reasons: No Advance Directives: No Advance Directives Information Provided: No Do you have a plan to hurt others: No Plan service: No Meds Allergies Allergy/AdvReac Type Severity Reaction Status Date / Time amoxicillin Allergy Hives Verified 06/06/25 20:15 Active Medications: Current Medications Diazepam (Diazepam 10 Mg/2 Ml Cartridge) 10 mg IVPUSH STAT STA Stop: 06/07/25 04:08 Magnesium Sulfate (Magnesium Sulfate/H2o) 2 gm in 50 mls @ 25 mls/hr IV ONCE ONE Stop: 06/07/25 06:08 Thiamine HCl 200 mg/ Sodium (Chloride) 102 mls @ 204 mls/hr IV ONCE ONE Stop: 06/07/25 04:38 Pharmacy Consult (Consult Rx Etoh Phenob Im/Po) 1 each MISCELLANE ONCE PRN; Protocol PRN Reason: Consult order Home Medications ?Medication ?Instructions ?Recorded ?Confirmed ?Last Taken ?Type acamprosate 333 mg tablet,delayed 666 mg PO TID 07/16/23 11/16/23 11/16/23 09:00 History release albuterol sulfate 90 mcg/actuation 2 puff inhalation Q4-6H PRN 07/16/23 11/16/23 Unknown History aerosol inhaler (Ventolin HFA) Shortness Of Breath Or Wheezing alprazolam 2 mg tablet 2 mg PO QID PRN anxiety 07/16/23 11/16/23 Unknown History dextroamphetamine-amphetamine 10 1 tab PO BID@0900,1700 attention 07/16/23 11/16/23 11/16/23 09:00 History mg tablet deficit hyperactivity disorder dextroamphetamine-amphetamine ER 1 cap PO DAILY attention deficit 07/16/23 11/16/23 11/16/23 09:00 History 30 mg 24hr capsule,extend release hyperactivity disorder (Adderall XR) methadone 10 mg/mL oral 77 mg PO DAILY 07/16/23 11/17/23 11/15/23 History concentrate (Methadose) ascorbic acid (vitamin C) 500 mg 500 mg PO DAILY 11/16/23 11/16/23 11/16/23 09:00 History tablet (Vitamin C) etonogestrel 0.12 mg-ethinyl 1 vag ring vaginal Q4W 11/16/23 11/16/23 Unknown History estradiol 0.015 mg/24 hr vaginal ring (NuvaRing) famotidine 20 mg tablet 20 mg PO BID 11/16/23 11/16/23 11/16/23 09:00 History folic acid 1 mg tablet 1 mg PO DAILY 11/16/23 11/16/23 11/16/23 09:00 History magnesium oxide 400 mg (241.3 mg 400 mg PO DAILY 11/16/23 11/16/23 11/16/23 09:00 History magnesium) tablet ondansetron 4 mg disintegrating 4 mg PO Q8H PRN Nausea And Vomiting 11/16/23 11/16/23 Unknown History tablet pantoprazole 40 mg tablet,delayed 40 mg PO DAILY@0630 11/16/23 11/16/23 11/16/23 09:00 History release thiamine HCl (vitamin B1) 100 mg 100 mg PO DAILY 11/16/23 11/16/23 11/16/23 09:00 History tablet (Vitamin B-1) zinc acetate 50 mg (zinc) capsule 50 mg PO DAILY 11/16/23 11/16/23 11/16/23 09:00 History Physical Exam Vital Signs and Narrative: Vital Signs: Last Vital Signs Temp 97.6 F 06/06/25 23:15 Pulse 95 06/07/25 02:23 Resp 20 06/07/25 02:23 BP 134/103 H 06/07/25 02:23 Pulse Ox 98 06/07/25 02:23 O2 Del Method Room Air 06/07/25 02:23 BMI result Body Mass Index 31.6 Const: Other: Middle-aged female lying in bed in no distress Neck supple, no JVD Regular rate and rhythm, S1-S2 heard Regular breath sounds bilaterally, no wheezing or crackles appreciated Abdomen with a epigastric tenderness and mild guarding, no rigidity Patient is awake, alert and oriented to self, place, time and person ; no focal motor deficit Psych: Normal mood No pedal edema Results Labs 06/06/25 20:34 06/06/25 21:44 Labs: Laboratory Results - last 24 hr 06/06/25 06/06/25 06/06/25 20:34 21:44 23:22 MCV 88.7 MCH 30.5 MCHC 34.4 RDW 14.9 Plt Count 193 MPV 10.2 Immature Gran % (Auto) 0.2 Neut % (Auto) 49.0 Lymph % (Auto) 39.6 [place] % (Auto) 9.4 Eos % (Auto) 0.9 Baso % (Auto) 0.9 Lymph # (Auto) 1.8 [place] # (Auto) 0.4 Eos # (Auto) 0.0 Baso # (Auto) 0.0 Abs Immat Gran (auto) 0.01 Absolute Neuts (auto) 2.2 Absolute Nucleated RBC 0.000 Nucleated RBC % (auto) 0.0 Anion Gap 22 H Estim Creat Clear Calc 81.9 Estimated GFR > 60 Random Glucose 129 H Calcium 8.2 L Magnesium 1.8 Total Bilirubin 0.3 AST 285 H ALT 72 H Alkaline Phosphatase 96 Total Protein 8.3 H Albumin 3.8 Lipase 100 H Beta HCG, Quant < 2 Influenza Type A (PCR) NEGATIVE Influenza Type B (PCR) NEGATIVE RSV RNA Qual (PCR) NEGATIVE SARS-CoV-2 RNA (RT-PCR) NEGATIVE Assessment and Plan (1) Acute alcoholic pancreatitis: Status: Acute Plan This has a 34-year-old female with pertinent history of alcohol use disorder with history of alcoholic pancreatitis, opioid use disorder on methadone, mood disorder, gastroesophageal reflux disease who presents to the emergency department for evaluation of abdominal pain. #. Acute alcoholic pancreatitis: Will admit patient and continue IV crystalloid resuscitation. NPO for bowel rest. IV opioids p.r.n. for analgesia. Triglyceride pending. #. Alcohol use disorder with concerns for withdrawal: Initiated phenobarb protocol in the ER. Monitor CIWA. On thiamine and folic acid. Addiction Team consulted #. Prolonged QTC: Ordered IV magnesium. Keep potassium above 4 and magnesium above 2. #. Mood disorder: Continue home mood stabilizers #. Elevated liver enzymes due to alcohol use #. Gastroesophageal reflux disease: Continue home medications once med rec is complete Med rec pending DVT prophylaxis: Lovenox Full code Admit as inpatient and will require two night minimum hospital stay for management of acute pancreatitis and alcohol withdrawal (as above), which is not possible in a lesser acute setting. Quality Stroke Does the patient have a stroke diagnosis?: No VTE Prior VTE?: No VTE Risk Level:: Medical - moderate - high VTE Device Contraindication: Treatment Not Indicated VTE Drug Contraindication: N/A - Med Ordered
[2025-06-07] MEDS: Thiamine HCL 200 MG in 0.9 % Sodium Chloride 100 ML 204 MG IV (04:57)
[2025-06-07] MEDS: diazePAM 10 MG/2 ML CARTRIDGE IVPUSH (04:57)
[2025-06-07] MEDS: Magnesium Sulfate/H2O 2 GM/50 ML PIGGYBACK IV (05:21)
[2025-06-07] MEDS: Lactated Ringers 1,000 ML 100 ML IVCONT ×2 (05:21→16:05)
--- NOTE | 2025-06-07 08:56 | HO.PM.IMPN ---
Subjective Subjective Date of Service: 06/07/25 Interval History: Seen and evaluated today, feels better than last night, however still in pain and feeling poorly. Doesn't want to drink anymore because her body cannot tolerate it. Review of Systems Review of Systems: Yes all other systems are reviewed and are negative Gastrointestinal Gastrointestinal: Reports abdominal pain and Reports nausea Physical Exam Vital Signs: Vital Signs: Last Vital Signs Temp 98.8 F 06/07/25 08:15 Pulse 64 06/07/25 08:15 Resp 16 06/07/25 08:15 BP 141/93 H 06/07/25 08:15 Pulse Ox 96 06/07/25 08:15 O2 Del Method Room Air 06/07/25 08:15 BMI result Body Mass Index 31.6 Const: General: intoxicated appearing Nutritional Appearance: obese Orientation/consciousness: patient oriented x3 Resp: Auscultation: clear to auscultation bilaterally GI: Palpation (GI): Tenderness to palpation present (GI) in the epigastrum Auscultation: normal bowel sounds Neuro: General: patient oriented x3 and moves all extremities Psych: Appearance: disheveled Attitude: cooperative Objective Data Active Medications Acetaminophen (Acetaminophen 325 Mg Tablet) 650 mg PO Q6H PRN PRN Reason: Pain, Mild 1-3,fever,headache Calcium Carbonate (Calcium Carbonate 750 Mg Tab.Chew) 750 mg PO Q4H PRN PRN Reason: Heartburn Enoxaparin Sodium (Enoxaparin Sodium 40 Mg/0.4 Ml Syringe) 40 mg SUBCUT Q24H [facility] Last Admin: 06/07/25 04:51 Dose: Not Given Documented By: SAMMI Non-Admin Reason: Patient Refused Lactated Ringer's (Lr) 1,000 mls @ 100 mls/hr IVCONT .Q10H [facility] Last Admin: 06/07/25 05:21 Dose: 100 mls/hr Documented By: SAMMI Magnesium Hydroxide (Milk Of Magnesia 30 Ml Oral.Susp) 30 ml PO DAILY PRN PRN Reason: Constipation Melatonin (Melatonin 3 Mg Tablet) 6 mg PO BEDTIME PRN PRN Reason: Insomnia Morphine Sulfate (Morphine Sulfate 4 Mg/Ml Cartridge) 4 mg IVPUSH Q4H PRN; Protocol PRN Reason: Pain, Severe (Pain Scale 7-10) Pharmacy Consult (Consult Rx Etoh Phenob Im/Po) 1 each MISCELLANE ONCE PRN; Protocol PRN Reason: Consult order Phenobarbital (Phenobarbital 30 Mg Tablet) 60 mg PO Q12H [facility] Stop: 06/09/25 07:01 Phenobarbital (Phenobarbital 30 Mg Tablet) 30 mg PO Q12H [facility] Stop: 06/11/25 08:01 Phenobarbital (Phenobarbital 30 Mg Tablet) 30 mg PO BEDTIME [facility] Stop: 06/12/25 21:01 Phenobarbital Sodium (Phenobarbital Sodium 130 Mg/Ml Vial) 180 mg IM Q3H [facility] Stop: 06/07/25 11:01 Sodium Chloride (0.9 % Sodium Chloride Flush 3 Ml Syringe) 3 ml IVFLUSH QSHIFT [facility] Labs 06/07/25 09:35 06/07/25 09:35 Labs: Laboratory Results - last 24 hr 06/06/25 06/06/25 06/06/25 20:34 21:44 23:22 MCV 88.7 MCH 30.5 MCHC 34.4 RDW 14.9 Plt Count 193 MPV 10.2 Immature Gran % (Auto) 0.2 Neut % (Auto) 49.0 Lymph % (Auto) 39.6 [place] % (Auto) 9.4 Eos % (Auto) 0.9 Baso % (Auto) 0.9 Lymph # (Auto) 1.8 [place] # (Auto) 0.4 Eos # (Auto) 0.0 Baso # (Auto) 0.0 Abs Immat Gran (auto) 0.01 Absolute Neuts (auto) 2.2 Absolute Nucleated RBC 0.000 Nucleated RBC % (auto) 0.0 Anion Gap 22 H Estim Creat Clear Calc 81.9 Estimated GFR > 60 Random Glucose 129 H Calcium 8.2 L Magnesium 1.8 Total Bilirubin 0.3 AST 285 H ALT 72 H Alkaline Phosphatase 96 Total Protein 8.3 H Albumin 3.8 Lipase 100 H Beta HCG, Quant < 2 Influenza Type A (PCR) NEGATIVE Influenza Type B (PCR) NEGATIVE RSV RNA Qual (PCR) NEGATIVE SARS-CoV-2 RNA (RT-PCR) NEGATIVE Assessment and Plan (1) Acute alcoholic pancreatitis: Status: Acute Plan This has a 34-year-old female with pertinent history of alcohol use disorder with history of alcoholic pancreatitis, opioid use disorder on methadone, mood disorder, gastroesophageal reflux disease who presents to the emergency department for evaluation of abdominal pain. Acute alcoholic pancreatitis, and posible compoenent of high TG, still with significant pain Lactate ringers IVF resuscitation diet as tolerated, clear liquids advance as tolerated IV opioids p.r.n. 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
[2025-06-07 09:39] LABS: MANUAL DIFF FLAG NO
[2025-06-07 09:40] LABS: Hematocrit 37.1 % (37.0-47.0); Hemoglobin 13.2 g/dl (12.0-16.0); Imm Gran Abs Auto 0.04 X10*3/uL (0.00-0.03); Imm Gran Pct Auto 0.4 % (0.0-0.4); Lymphocytes Absolute Auto 1.2 X10*3/uL (1.2-4.9); Mean Corpuscular HGB Conc 35.6 g/dl (31.0-35.0); Mean Corpuscular Hemoglobin 31.5 pg (27.0-33.0); Mean Corpuscular Volume 88.5 fL (80.0-98.0); NRBC Abs Auto 0.000 X10*3/uL (0.0-0.012); NRBC Pct Auto 0.0 /100WBC (0.0-0.2); Platelet Count 175 X10*3/uL (160-400); Red Blood Count 4.19 X10*6/uL (4.20-5.50); White Blood Count 10.0 X10*3/uL (4.8-10.8)
[2025-06-07 10:06] LABS: Anion Gap 18 (12-20); Blood Urea Nitrogen 13 mg/dL (9-16); Calcium 8.3 mg/dL (8.4-10.2); Carbon Dioxide 20 mmol/L (22-29); Chloride 103 mmol/L (96-108); Creatinine Clr Calc Pharmacy 89.8; Estimated Glomerular Filt Rate > 60; Magnesium 2.0 mg/dL (1.6-2.6); Potassium 3.9 mmol/L (3.3-5.1); Sodium 137 mmol/L (135-145); Triglycerides 992 mg/dL (<150)
--- NOTE | 2025-06-07 10:32 | HE.PHANOTE ---
RE: METHADONE DOSING Patient usually gets 120 mg but failed breathalizer test on 06/06/25 so got 60 mg on 06/06/25 @0747 per Carmen at [facility] [phone].
--- NOTE | 2025-06-07 11:37 | PHA.MEDREC ---
Addendum entered by Blayne Colvin [facility] 06/07/25 14:20: Reviewed by [facility] Addendum entered by Yeison Green 06/07/25 13:58: Spoke with pt about Alprazolam 2mg since pt originally confirmed she takes it QID PRN, claims and PDMP shows she takes it TID; pt confirmed she use to take it QID and her Dr wrote it for TID and she now does it TID PRN ( I updated the med rec according to the new findings). Spoke with pt about Pantoprazole (pt originally confirmed the 40mg) and after asking if she takes the 20mg now or 40mg, pt was not ure and said whatever is filled recent is what I am taking ; claims shows Pantoprazole 20mg once daily 06/03 for 90 days. Original Note: Pharmacy Consult ? Medication Reconciliation Pharmacy has completed the medication reconciliation. Pt able to confirm med rec after multiple attempts this morning. Pt states she takes 120mg of Morphine daily.
[2025-06-07] MEDS: methADONE HCl 20 MG/2 ML ORAL.CONC 60 MG PO ×2 (13:46→18:33)
--- NOTE | 2025-06-07 13:54 | PC.NURSE ---
Methadose 60mg given as ordered. Duplicate orders were entered by Dr. Pearson. As confirmed with Methadone clinic, patient typically receives 120mg daily, but received 60mg yesterday due to being intoxicated during breathalizer test. Dr. Pearson confirmed that he wants Methadone 60mg given, NOT 120mg at this time.
[2025-06-07] MEDS: 0.9 % Sodium Chloride Flush 3 ML SYRINGE IVFLUSH (16:04)
--- NOTE | 2025-06-07 16:35 | HO.ADDICTCON ---
History of Present Illness Date of Service: 06/07/2025 Chief Complaint: abd pain Reason for Consult: MONICA Sources of Information: patient interviewed and chart reviewed HPI Narrative: Patient is a 34 year old female with history of AUD, pancreatitis and OUD. Presented to [facility] ED with abdominal pain and vomiting. Admitted with pancreatitis. Patient seen in room 22 of main ED. She is awake, alert, quite labile--crying, moving all around her bed. She has numerous complaints---nausea, anxiety, doesn't want to be alone, pain. She states she had been in recovery for some time, until May when she started drinking again. She expressed remorse and shame that she started drinking again. Difficult to follow her at times, as she was tangential. Often saying she did not want to be alone in the room and feeling like she was bothering people. Provided support and reassurance. She states that she woke up with sudden sharp abdominal pain and vomiting and came to the hospital. She was started on phenobarbital protocol and CIWAs scores have been high--mostly related to restlessness and anxiety/mood lability. With regards to OUD--she reports that she has been stable on methadone 120mg QD, however received half her dose on 06/06 due to + breathalyzer at [facility]. Methadone dose has been confirmed and patient is connected to [facility]. Received 60mg here today. Labs reviewed Mg 1.7 at admission (repleted) elevated lipase and LFTS 72/285 no UDS EKG showed prolonged QTcB 517. --Follow up QTcB 472. Mass Pat reviewed--patient prescribed Diazepam 2mg TID, Adderall 15mg TID. While she was restless, she did not appear diaphoretic or tremulous when seen by t/w Medical Evaluation Reviewed: Yes Review of Systems Constitutional: Reports as per HPI, Reports difficulty sleeping and Reports malaise Gastrointestinal: Reports abdominal pain and Reports nausea Psychiatric: Reports anxiety Diagnostics Vital Signs (24Hr): Vital Signs - 24 hr 06/06/25 20:10 06/06/25 22:02 06/06/25 23:15 Temperature 97.1 F 97.3 F 97.6 F Pulse Rate 87 50 59 Respiratory Rate 18 16 16 Blood Pressure 130/98 H 141/79 H 132/84 Pulse Oximetry 100 96 97 Oxygen Delivery Method Room Air Room Air Room Air 06/07/25 02:23 06/07/25 04:54 06/07/25 08:15 Temperature 98.1 F 98.8 F Pulse Rate 95 58 64 Respiratory Rate 20 20 16 Blood Pressure 134/103 H 168/75 H 141/93 H Pulse Oximetry 98 96 96 Oxygen Delivery Method Room Air Room Air Room Air 06/07/25 15:27 Temperature 98.5 F Pulse Rate 73 Respiratory Rate 18 Blood Pressure 148/80 H Pulse Oximetry 97 Oxygen Delivery Method Room Air BMI result Body Mass Index 31.6 Labs 06/07/25 09:35 06/07/25 09:35 Labs: Laboratory Results - last 48 hr 06/06/25 06/06/25 06/06/25 20:34 21:44 23:22 WBC 4.6 L RBC 4.62 D Hgb 14.1 D Hct 41.0 D MCV 88.7 MCH 30.5 MCHC 34.4 RDW 14.9 Plt Count 193 MPV 10.2 Immature Gran % (Auto) 0.2 Neut % (Auto) 49.0 Lymph % (Auto) 39.6 [place] % (Auto) 9.4 Eos % (Auto) 0.9 Baso % (Auto) 0.9 Lymph # (Auto) 1.8 [place] # (Auto) 0.4 Eos # (Auto) 0.0 Baso # (Auto) 0.0 Abs Immat Gran (auto) 0.01 Absolute Neuts (auto) 2.2 Absolute Nucleated RBC 0.000 Nucleated RBC % (auto) 0.0 Sodium 135 Potassium 4.6 D Chloride 100 Carbon Dioxide 18 L Anion Gap 22 H BUN 18 H Creatinine 0.92 Estim Creat Clear Calc 81.9 Estimated GFR > 60 Random Glucose 129 H Calcium 8.2 L Magnesium 1.8 Total Bilirubin 0.3 AST 285 H ALT 72 H Alkaline Phosphatase 96 Total Protein 8.3 H Albumin 3.8 Triglycerides Lipase 100 H Beta HCG, Quant < 2 Influenza Type A (PCR) NEGATIVE Influenza Type B (PCR) NEGATIVE RSV RNA Qual (PCR) NEGATIVE SARS-CoV-2 RNA (RT-PCR) NEGATIVE 06/07/25 09:35 WBC 10.0 RBC 4.19 L Hgb 13.2 Hct 37.1 MCV 88.5 MCH 31.5 MCHC 35.6 H RDW 15.1 Plt Count 175 MPV 10.1 Immature Gran % (Auto) 0.4 Neut % (Auto) 82.7 H Lymph % (Auto) 11.9 L [place] % (Auto) 4.8 Eos % (Auto) 0.0 Baso % (Auto) 0.2 Lymph # (Auto) 1.2 [place] # (Auto) 0.5 Eos # (Auto) 0.0 Baso # (Auto) 0.0 Abs Immat Gran (auto) 0.04 H Absolute Neuts (auto) 8.2 Absolute Nucleated RBC 0.000 Nucleated RBC % (auto) 0.0 Sodium 137 Potassium 3.9 Chloride 103 Carbon Dioxide 20 L Anion Gap 18 BUN 13 Creatinine 0.84 Estim Creat Clear Calc 89.8 Estimated GFR > 60 Random Glucose 133 H Calcium 8.3 L Magnesium 2.0 Total Bilirubin AST ALT Alkaline Phosphatase Total Protein Albumin Triglycerides 992 H Lipase Beta HCG, Quant Influenza Type A (PCR) Influenza Type B (PCR) RSV RNA Qual (PCR) SARS-CoV-2 RNA (RT-PCR) Mental Status Exam Mental Status Exam Level of Consciousness: Awake, Restless and Alert Patient Behavior: Restless, Anxious and Crying Affect Description: Labile Speech Pattern: Clear and Rambling Thought Process: Racing Thought Content: positive for Tangential Judgement: Fair Medications Medications Current Medications Acetaminophen (Acetaminophen 325 Mg Tablet) 650 mg PO Q6H PRN PRN Reason: Pain, Mild 1-3,fever,headache Alprazolam (Alprazolam 0.5 Mg Tablet) 2 mg PO QID PRN PRN Reason: Anxiety Last Admin: 06/07/25 16:04 Dose: 2 mg Amphetamine/Dextroamphetamine (Amphetamine Mixed Salts 10 Mg Tablet) 15 mg PO TID PRN PRN Reason: Attention/Focus Ascorbic Acid (Ascorbic Acid 500 Mg Tablet) 500 mg PO DAILY [facility] Calcium Carbonate (Calcium Carbonate 750 Mg Tab.Chew) 750 mg PO Q4H PRN PRN Reason: Heartburn Enoxaparin Sodium (Enoxaparin Sodium 40 Mg/0.4 Ml Syringe) 40 mg SUBCUT Q24H [facility] Last Admin: 06/07/25 04:51 Dose: Not Given Fenofibrate (Fenofibrate 54 Mg Tablet) 54 mg PO DAILY [facility] Last Admin: 06/07/25 16:30 Dose: 54 mg Gabapentin (Gabapentin 300 Mg Capsule) 300 mg PO BEDTIME [facility] Lactated Ringer's (Lr) 1,000 mls @ 100 mls/hr IVCONT .Q10H [facility] Last Admin: 06/07/25 16:05 Dose: 100 mls/hr Magnesium Hydroxide (Milk Of Magnesia 30 Ml Oral.Susp) 30 ml PO DAILY PRN PRN Reason: Constipation Melatonin (Melatonin 3 Mg Tablet) 6 mg PO BEDTIME PRN PRN Reason: Insomnia Melatonin (Melatonin 3 Mg Tablet) 6 mg PO BEDTIME [facility] Methadone HCl (Methadone Hcl 20 Mg/2 Ml Oral.Conc) 60 mg PO ONCE ONE Stop: 06/07/25 16:35 Morphine Sulfate (Morphine Sulfate 4 Mg/Ml Cartridge) 4 mg IVPUSH Q4H PRN; Protocol PRN Reason: Pain, Severe (Pain Scale 7-10) Last Admin: 06/07/25 11:22 Dose: 4 mg Omeprazole (Omeprazole 20 Mg Capsule.Dr) 20 mg PO DAILY@0630 [facility] Pharmacy Consult (Consult Rx Etoh Phenob Im/Po) 1 each MISCELLANE ONCE PRN; Protocol PRN Reason: Consult order Phenobarbital (Phenobarbital 30 Mg Tablet) 60 mg PO Q12H [facility] Stop: 06/09/25 07:01 Phenobarbital (Phenobarbital 30 Mg Tablet) 30 mg PO Q12H [facility] Stop: 06/11/25 08:01 Phenobarbital (Phenobarbital 30 Mg Tablet) 30 mg PO BEDTIME [facility] Stop: 06/12/25 21:01 Sodium Chloride (0.9 % Sodium Chloride Flush 3 Ml Syringe) 3 ml IVFLUSH QSHIFT [facility] Last Admin: 06/07/25 16:04 Dose: 3 ml Thiamine HCl (Thiamine Hcl 100 Mg Tablet) 100 mg PO DAILY [facility] Triamcinolone Acetonide (Triamcinolone Acet 0.5 % Cream 15 Gm Tube) 1 appl TOPICAL BID PRN; Protocol PRN Reason: Inflammation Allergies Allergies Allergy/AdvReac Type Severity Reaction Status Date / Time amoxicillin Allergy Hives Verified 06/06/25 20:15 Assessment & Plan Assessment & Plan (1) Opioid use disorder: Status: Acute Code(s): F11.90 - Opioid use, unspecified, uncomplicated Assessment and Plan: methadone resumed at home dose 120mg --follow up EKG with improved QTc (2) Alcohol use disorder, severe, dependence: Status: Acute Code(s): F10.20 - Alcohol dependence, uncomplicated Assessment and Plan: acute withdrawal with pancreatitis phenobarbital taper in place as well as PRN morphine. CIWA scores elevated, however this is due to patient restlessness. May require PRN dose of phenobarbital to address this. PRN gabapentin may also be beneficial. she would really benefit from some sleep will follow up in AM to Total time managing care of this patient today _40___ minutes. PMFSH Past Medical History Medical History Hypertriglyceridemia Alcohol abuse Mood disorder Opioid abuse Alcohol use disorder Social History Social History Household Members: Unknown / Unable to assess Housing: House Unable to assess alcohol history related to: Unknown Alcohol intake: current Alcohol intake frequency: 3 or more drinks per day Alcohol type: hard liquor Patient Tobacco Use Status: Tobacco use Unknown Smoked in Last 30 Days: No Use of substances other than those prescribed or required for medical reasons: No Advance Directives: No Advance Directives Information Provided: No Do you have a plan to hurt others: No Plan service: No
[2025-06-08 00:28] LABS: Cannabinoid Screen Urine POSITIVE (Not Detect)
[2025-06-08] MEDS: Lactated Ringers 1,000 ML 100 ML IVCONT ×4 (01:24→20:33)
[2025-06-08 03:55] VITALS: BP 124/83; PULSE 73; RESP 18; TEMP 36.8; O2SAT 94
[2025-06-08 07:03] VITALS: BP 156/90; PULSE 72; RESP 16; TEMP 36.1; O2SAT 97
[2025-06-08] MEDS: methADONE HCl 20 MG/2 ML ORAL.CONC 120 MG PO (08:03)
[2025-06-08 11:32] VITALS: BP 111/56; PULSE 56; RESP 16; TEMP 36.6
--- NOTE | 2025-06-08 11:48 | MHC.CM.PN ---
pt lives with parent is indepdent and will be seen by addiction medicine dc plan per addiction medicine
[2025-06-08 14:51] VITALS: BP 120/80; PULSE 53; RESP 18; TEMP 36.3; O2SAT 93
--- NOTE | 2025-06-08 16:12 | P.PNIM_ITS ---
Subjective Subjective Date of Service: 06/08/25 Interval History: 34-year-old female with pertinent history of alcohol use disorder with history of alcoholic pancreatitis, opioid use disorder on methadone, mood disorder, gastroesophageal reflux disease who presents to the emergency department for evaluation of abdominal pain, admitted with acute alcoholic pancreatitis, uncompliacted without necrosis. The patient feels significantly better from yesterday. Currently on liquid diet and tolerating well. Pain well controlled. Discussed possible progression of diet tomorrow if patient feels better and able to tolerate clear liquid diet without issue. In agreement. Review of Systems Review of Systems: Yes all other systems are reviewed and are negative Physical Exam 2 Exam: Exam: General: A&O x3, oriented to time place person and siutaion, comfortable, no pain Cardiac: S1, S2 auscultated with no S3/4, no MRG. Well perfused. Respiratory: Normal breath sounds auscultated throughout all lung zones, without wheezing, rales. Normal rate. GI/ : No abdominal pain on palpation, no masses or distentions. MSK: Normal ambulation without pain at bony prominences or musculature Neurological: Normal neurological examination on overview, without obvious CN II-XII abnormalities. Vital Signs: Vital Signs: Last Vital Signs Temp 97.4 F 06/08/25 14:51 Pulse 53 06/08/25 14:51 Resp 18 06/08/25 14:51 BP 120/80 06/08/25 14:51 Pulse Ox 93 06/08/25 14:51 O2 Del Method Room Air 06/08/25 14:51 BMI result Body Mass Index 34.0 Objective Data Active Medications Acetaminophen (Acetaminophen 325 Mg Tablet) 650 mg PO Q6H PRN PRN Reason: Pain, Mild 1-3,fever,headache Alprazolam (Alprazolam 0.5 Mg Tablet) 2 mg PO QID PRN PRN Reason: Anxiety Last Admin: 06/08/25 08:07 Dose: 2 mg Documented By: CASSIDY Amphetamine/Dextroamphetamine (Amphetamine Mixed Salts 10 Mg Tablet) 15 mg PO TID PRN PRN Reason: Attention/Focus Ascorbic Acid (Ascorbic Acid 500 Mg Tablet) 500 mg PO DAILY [facility] Last Admin: 06/08/25 08:07 Dose: 500 mg Documented By: CASSIDY Calcium Carbonate (Calcium Carbonate 750 Mg Tab.Chew) 750 mg PO Q4H PRN PRN Reason: Heartburn Enoxaparin Sodium (Enoxaparin Sodium 40 Mg/0.4 Ml Syringe) 40 mg SUBCUT Q24H [facility] Last Admin: 06/08/25 06:26 Dose: Not Given Documented By: BALTAZAR Non-Admin Reason: Patient Refused Fenofibrate (Fenofibrate 54 Mg Tablet) 54 mg PO DAILY [facility] Last Admin: 06/08/25 08:07 Dose: 54 mg Documented By: CASSIDY Gabapentin (Gabapentin 300 Mg Capsule) 300 mg PO BEDTIME [facility] Last Admin: 06/07/25 22:28 Dose: 300 mg Documented By: BALTAZAR Hydromorphone HCl (Hydromorphone Hcl 1 Mg/Ml Syringe) 1 mg IVPUSH Q4H PRN; Protocol PRN Reason: Pain, Severe (Pain Scale 7-10) Last Admin: 06/08/25 08:13 Dose: 1 mg Documented By: CASSIDY Lactated Ringer's (Lr) 1,000 mls @ 100 mls/hr IVCONT .Q10H [facility] Last Admin: 06/08/25 11:34 Dose: 100 mls/hr Documented By: CASSIDY Magnesium Hydroxide (Milk Of Magnesia 30 Ml Oral.Susp) 30 ml PO DAILY PRN PRN Reason: Constipation Melatonin (Melatonin 3 Mg Tablet) 6 mg PO BEDTIME PRN PRN Reason: Insomnia Melatonin (Melatonin 3 Mg Tablet) 6 mg PO BEDTIME [facility] Last Admin: 06/07/25 22:27 Dose: 6 mg Documented By: BALTAZAR Methadone HCl (Methadone Hcl 20 Mg/2 Ml Oral.Conc) 120 mg PO DAILY@0800 [facility] Last Admin: 06/08/25 08:03 Dose: 120 mg Documented By: CASSIDY Co-signed By: SINDY Omeprazole (Omeprazole 20 Mg Capsule.Dr) 20 mg PO DAILY@0630 [facility] Last Admin: 06/08/25 06:25 Dose: 20 mg Documented By: BALTAZAR Pharmacy Consult (Consult Rx Etoh Phenob Im/Po) 1 each MISCELLANE ONCE PRN; Protocol PRN Reason: Consult order Phenobarbital (Phenobarbital 30 Mg Tablet) 60 mg PO Q12H [facility] Stop: 06/09/25 07:01 Last Admin: 06/08/25 06:24 Dose: 60 mg Documented By: BALTAZAR Phenobarbital (Phenobarbital 30 Mg Tablet) 30 mg PO Q12H [facility] Stop: 06/11/25 08:01 Phenobarbital (Phenobarbital 30 Mg Tablet) 30 mg PO BEDTIME [facility] Stop: 06/12/25 21:01 Sodium Chloride (0.9 % Sodium Chloride Flush 3 Ml Syringe) 3 ml IVFLUSH QSHIFT [facility] Last Admin: 06/08/25 15:51 Dose: Not Given Documented By: SINDY Non-Admin Reason: IV Running Thiamine HCl (Thiamine Hcl 100 Mg Tablet) 100 mg PO DAILY [facility] Last Admin: 06/08/25 08:07 Dose: 100 mg Documented By: LEFEBRADHA Triamcinolone Acetonide (Triamcinolone Acet 0.5 % Cream 15 Gm Tube) 1 appl TOPICAL BID PRN; Protocol PRN Reason: Inflammation Labs 06/07/25 09:35 06/07/25 09:35 Labs: Laboratory Results - last 24 hr 06/08/25 00:07 Urine Opiates Screen POSITIVE H Ur Buprenorphine Scrn Not Detected Ur Oxycodone Screen Not Detected Urine Methadone Screen Positive H Urine Fentanyl Screen POSITIVE H Ur Barbiturates Screen POSITIVE H Ur Phencyclidine Scrn Not Detected Ur Amphetamines Screen Not Detected U Benzodiazepines Scrn POSITIVE H Urine Cocaine Screen Not Detected U Marijuana (THC) Screen POSITIVE H Assessment and Plan (1) Acute alcoholic pancreatitis: Status: Acute Assessment and Plan: Improving gradually. Elevated TGs (possible contirbutory vs etiologically related to alcoholic hepatitis). PLAN - Continue LR infusion - Continue analgesia with opioids IV - Fenofibrate started to TG 992 (2) Alcoholic gastritis: Status: Acute Assessment and Plan: No bleeding. Epigastric pain reported. PLAN - PPI consider (3) Alcohol use disorder, severe, dependence: Status: Acute Assessment and Plan: Alcohol use disorder with concerns for withdrawal PLAN - Initiated phenobarb protocol in the ER - Monitor CIWA - On thiamine and folic acid - Addiction Team consulted (4) Opioid use disorder: Status: Acute Assessment and Plan: PLAN - Continue Methadone per dose verified at [facility] - Addiction medicine following (5) Alcoholic hepatitis: Status: Acute Assessment and Plan: Elevated liver enzymes due to alcohol use. Patient reports relapse with alcohol use recently Addiction med following. No evidence of acute decompenstion; will monitor closely. Fatty liver noted. PLAN - Thiamine - CIWA monitoring - Addiction medicine following - Consider outpatient medication regimen for EtOH deterrence Total time managing care of this patient today: 35 minutes. Quality Stroke Does the patient have a stroke diagnosis?: No VTE Prior VTE?: No VTE Risk Level:: Medical - moderate - high VTE Device Contraindication: Treatment Not Indicated VTE Drug Contraindication: N/A - Med Ordered
[2025-06-08 19:20] VITALS: BP 133/80; PULSE 58; RESP 17; TEMP 36.2; O2SAT 93
[2025-06-08 23:25] VITALS: RESP 18
[2025-06-09] VITALS (7 sets, daily range): BP systolic 118–130; BP diastolic 60–90; PULSE 64–76; RESP 16–18; TEMP 36.3–36.7; O2SAT 95–98
[2025-06-09] MEDS: Lactated Ringers 1,000 ML 100 ML IVCONT ×2 (05:56→15:32)
[2025-06-09 06:21] LABS: Alanine Aminotransferase 44 U/L (0-31); Albumin Level 3.3 g/dL (3.5-5.0); Alkaline Phosphatase 68 U/L (39-117); Anion Gap 10 (12-20); Aspartate Amino Transferase 87 U/L (5-31); Blood Urea Nitrogen 4 mg/dL (9-16); Calcium 8.0 mg/dL (8.4-10.2); Carbon Dioxide 28 mmol/L (22-29); Chloride 102 mmol/L (96-108); Creatinine Clr Calc Pharmacy 113.6; Estimated Glomerular Filt Rate > 60; Potassium 3.4 mmol/L (3.3-5.1); Sodium 137 mmol/L (135-145); Total Protein 6.7 g/dL (6.5-8.0)
[2025-06-09] MEDS: methADONE HCl 20 MG/2 ML ORAL.CONC 120 MG PO (07:38)
[2025-06-09 08:14] LABS: HIV Num 1 0.04 S/CO (0.00-0.99)
--- NOTE | 2025-06-09 13:26 | MHC.RECOVRN ---
Met with pt in 344- to offer continued support in relation to substance use. On approach pt was sitting in bed and was pleasant and engaged during itneraction. Pt reports pain is well managed and states she is feeling much better . Pt also states she is interested in reeving [facility] and wants to attend the [facility] upon discharge as well as enrolling in PHP/IOP. Pt is also agreeable to professional athletes coach referral. CM to made aware and referral to be entered.
--- NOTE | 2025-06-09 14:12 | HO.PM.IMPN ---
Subjective Subjective Date of Service: 06/09/25 Interval History: 34-year-old female with pertinent history of alcohol use disorder with history of alcoholic pancreatitis, opioid use disorder on methadone, mood disorder, gastroesophageal reflux disease who presents to the emergency department for evaluation of abdominal pain, admitted with acute alcoholic pancreatitis, uncompliacted without necrosis. The patient feels better than yesterday. Currently on liquid diet and tolerating well. Pain well controlled. Progress to full liquid diet tonight Review of Systems All other systems are reviewed and are negative Constitutional: Reports as per HPI and Reports no additional constitutional complaints Eyes: Reports as per HPI and Reports no additional eye complaints Reports system reviewed and no additional complaints, except as documented Cardiovascular: Reports as per HPI and Reports no additional cardiovascular complaints Respiratory: Reports as per HPI and Reports no additional respiratory complaints Gastrointestinal: Reports as per HPI and Reports no additional gastrointestinal complaints Genitourinary: Reports no additional female genitourinary complaints Musculoskeletal: Reports no additional musculoskeletal complaints Skin/Breast: Reports system reviewed and no additional complaints, except as docu Psychiatric: Reports no additional psychiatric complaints Endocrine: Reports no additional endocrine complaints Hematologic/Lymphatic: Reports no additional hematologic/lymphatic complaints Allergic/Immunologic: Reports no additional allergic/immunologic complaints Reports system reviewed and no additional complaints, except as documented and Reports Abnormal speech present Constitutional Constitutional: Reports as per HPI, Reports difficulty sleeping, Reports fatigue, Reports lethargy, Reports malaise and Reports poor appetite Cardiovascular Cardiovascular: Reports no additional cardiovascular complaints Respiratory Respiratory: Reports no additional respiratory complaints Gastrointestinal Gastrointestinal: Reports no additional gastrointestinal complaints, Reports abdominal pain, Reports nausea and Reports vomiting Psychiatric Psychiatric: Reports anxiety Endocrine Endocrine: Reports fatigue Physical Exam Vital Signs: Vital Signs: Last Vital Signs Temp 97.8 F 06/09/25 11:52 Pulse 70 06/09/25 11:52 Resp 16 06/09/25 11:52 BP 122/60 06/09/25 11:52 Pulse Ox 98 06/09/25 11:52 O2 Del Method Room Air 06/09/25 11:52 BMI result Body Mass Index 34.0 Const: Other: Middle-aged female lying in bed in no distress Neck supple, no JVD Regular rate and rhythm, S1-S2 heard Regular breath sounds bilaterally, no wheezing or crackles appreciated Abdomen with a epigastric tenderness and mild guarding, no rigidity Patient is awake, alert and oriented to self, place, time and person ; no focal motor deficit Psych: Normal mood No pedal edema Orientation/consciousness: patient oriented x3 Resp: Auscultation: clear to auscultation bilaterally GI: Palpation (GI): Tenderness to palpation present (GI) in the epigastrum Auscultation: normal bowel sounds Neuro: General: patient oriented x3 and moves all extremities Psych: Appearance: disheveled Attitude: cooperative Objective Data Active Medications Acetaminophen (Acetaminophen 325 Mg Tablet) 650 mg PO Q6H PRN PRN Reason: Pain, Mild 1-3,fever,headache Last Admin: 06/08/25 20:31 Dose: 650 mg Documented By: BALTAZAR Comments: per pt request Alprazolam (Alprazolam 0.5 Mg Tablet) 2 mg PO QID PRN PRN Reason: Anxiety Last Admin: 06/09/25 07:48 Dose: 2 mg Documented By: BRETT Amphetamine/Dextroamphetamine (Amphetamine Mixed Salts 10 Mg Tablet) 15 mg PO TID PRN PRN Reason: Attention/Focus Ascorbic Acid (Ascorbic Acid 500 Mg Tablet) 500 mg PO DAILY [facility] Last Admin: 06/09/25 07:36 Dose: 500 mg Documented By: BRETT Calcium Carbonate (Calcium Carbonate 750 Mg Tab.Chew) 750 mg PO Q4H PRN PRN Reason: Heartburn Enoxaparin Sodium (Enoxaparin Sodium 40 Mg/0.4 Ml Syringe) 40 mg SUBCUT Q24H [facility] Last Admin: 06/09/25 05:35 Dose: Not Given Documented By: BALTAZAR Non-Admin Reason: Patient Refused Fenofibrate (Fenofibrate 54 Mg Tablet) 54 mg PO DAILY [facility] Last Admin: 06/09/25 07:35 Dose: 54 mg Documented By: BRETT Gabapentin (Gabapentin 300 Mg Capsule) 300 mg PO BEDTIME [facility] Last Admin: 06/08/25 20:32 Dose: 300 mg Documented By: BALTAZAR Hydromorphone HCl (Hydromorphone Hcl 1 Mg/Ml Syringe) 1 mg IVPUSH Q3H PRN; Protocol PRN Reason: Pain, Severe (Pain Scale 7-10) Lactated Ringer's (Lr) 1,000 mls @ 100 mls/hr IVCONT .Q10H [facility] Last Admin: 06/09/25 09:25 Dose: Not Given Documented By: BRETT Non-Admin Reason: IV Running Magnesium Hydroxide (Milk Of Magnesia 30 Ml Oral.Susp) 30 ml PO DAILY PRN PRN Reason: Constipation Melatonin (Melatonin 3 Mg Tablet) 6 mg PO BEDTIME PRN PRN Reason: Insomnia Melatonin (Melatonin 3 Mg Tablet) 6 mg PO BEDTIME [facility] Last Admin: 06/08/25 20:32 Dose: 6 mg Documented By: BALTAZAR Methadone HCl (Methadone Hcl 20 Mg/2 Ml Oral.Conc) 120 mg PO DAILY@0800 [facility] Last Admin: 06/09/25 07:38 Dose: 120 mg Documented By: BRETT Co-signed By: GLADYS Omeprazole (Omeprazole 20 Mg Capsule.Dr) 20 mg PO DAILY@0630 [facility] Last Admin: 06/09/25 05:51 Dose: Not Given Documented By: BALTAZAR Non-Admin Reason: Nausea Pharmacy Consult (Consult Rx Etoh Phenob Im/Po) 1 each MISCELLANE ONCE PRN; Protocol PRN Reason: Consult order Sodium Chloride (0.9 % Sodium Chloride Flush 3 Ml Syringe) 3 ml IVFLUSH QSHIFT [facility] Last Admin: 06/09/25 07:50 Dose: Not Given Documented By: BRETT Non-Admin Reason: IV Running Thiamine HCl (Thiamine Hcl 100 Mg Tablet) 100 mg PO DAILY [facility] Last Admin: 06/09/25 07:36 Dose: 100 mg Documented By: BRETT Triamcinolone Acetonide (Triamcinolone Acet 0.5 % Cream 15 Gm Tube) 1 appl TOPICAL BID PRN; Protocol PRN Reason: Inflammation Labs 06/07/25 09:35 06/09/25 05:13 Labs: Laboratory Results - last 24 hr 06/09/25 05:13 Hold Purple Top SEE NOTE Anion Gap 10 L Estim Creat Clear Calc 113.6 Estimated GFR > 60 Random Glucose 124 H Calcium 8.0 L Total Bilirubin 0.5 AST 87 H ALT 44 H Alkaline Phosphatase 68 Total Protein 6.7 Albumin 3.3 L HIV 1&2 Ab/P24 Ag 4thGn Nonreactive Assessment and Plan (1) Acute alcoholic pancreatitis: Status: Acute Assessment and Plan: Improving gradually. Elevated TGs (possible contirbutory vs etiologically related to alcoholic hepatitis). PLAN - Continue LR infusion; discontinue tonight and encourage PO - Continue analgesia with opioids IV - Fenofibrate started to TG 992 - IV dilaudid adjusted to 1mg q3hrly - Advance diet to full liquid diet (low fat) (2) Alcoholic gastritis: Status: Acute Assessment and Plan: No bleeding. Epigastric pain reported. PLAN - PPI consider (3) Alcohol use disorder, severe, dependence: Status: Acute Assessment and Plan: Alcohol use disorder with concerns for withdrawal PLAN - Initiated phenobarb protocol in the ER - Monitor CIWA - On thiamine and folic acid - Addiction Team consulted (4) Opioid use disorder: Status: Acute Assessment and Plan: PLAN - Continue [facility] - Addiction medicine following (5) Alcoholic hepatitis: Status: Acute Assessment and Plan: Elevated liver enzymes due to alcohol use. Patient reports relapse with alcohol use recently Addiction med following. No evidence of acute decompenstion; will monitor closely. Fatty liver noted. PLAN - Thiamine - CIWA monitoring - Addiction medicine following - Consider outpatient medication regimen for EtOH deterrence Total time managing care of this patient today: 35 minutes. Quality Stroke Does the patient have a stroke diagnosis?: No VTE Prior VTE?: No VTE Risk Level:: Medical - moderate - high VTE Device Contraindication: Treatment Not Indicated VTE Drug Contraindication: N/A - Med Ordered
[2025-06-09] MEDS: 0.9 % Sodium Chloride Flush 3 ML SYRINGE IVFLUSH (23:40)
[2025-06-10] VITALS (8 sets, daily range): BP systolic 113–145; BP diastolic 63–89; PULSE 63–82; RESP 16–18; TEMP 36.1–37; O2SAT 94–97
[2025-06-10] MEDS: Milk of Magnesia 30 ML ORAL.SUSP PO (00:55)
[2025-06-10] MEDS: Lactated Ringers 1,000 ML 100 ML IVCONT ×2 (01:03→11:08)
--- NOTE | 2025-06-10 04:24 | PC.NURSE ---
Handoff report given to oncoming RN at 03:45.
[2025-06-10] MEDS: methADONE HCl 20 MG/2 ML ORAL.CONC 120 MG PO (09:26)
--- NOTE | 2025-06-10 10:14 | MHC.CM.PN ---
PER MD ROUNDS, PT NOT MEDICALLY CLEAR, C/O ABD PAIN, CONT TO ADV DIET DCP: HOME VIA [facility]
--- NOTE | 2025-06-10 12:26 | P.PNIM_ITS ---
Subjective Subjective Date of Service: 06/10/25 Interval History: 34-year-old female with pertinent history of alcohol use disorder with history of alcoholic pancreatitis, opioid use disorder on methadone, mood disorder, gastroesophageal reflux disease who presents to the emergency department for evaluation of abdominal pain, admitted with acute alcoholic pancreatitis, uncompliacted without necrosis. No new changes. Patient requesting attempt restart full liquid diet. Will oblige. No change in opioid regimen discussed as well. In agreement. No other developing concerning clinical features Review of Systems All other systems are reviewed and are negative Constitutional: Reports as per HPI and Reports no additional constitutional complaints Eyes: Reports as per HPI and Reports no additional eye complaints Reports system reviewed and no additional complaints, except as documented Cardiovascular: Reports as per HPI and Reports no additional cardiovascular complaints Respiratory: Reports as per HPI and Reports no additional respiratory complaints Gastrointestinal: Reports as per HPI and Reports no additional gastrointestinal complaints Genitourinary: Reports no additional female genitourinary complaints Musculoskeletal: Reports no additional musculoskeletal complaints Skin/Breast: Reports system reviewed and no additional complaints, except as docu Psychiatric: Reports no additional psychiatric complaints Endocrine: Reports no additional endocrine complaints Hematologic/Lymphatic: Reports no additional hematologic/lymphatic complaints Allergic/Immunologic: Reports no additional allergic/immunologic complaints Reports system reviewed and no additional complaints, except as documented and Reports Abnormal speech present Constitutional Constitutional: Reports as per HPI, Reports difficulty sleeping, Reports fatigue, Reports lethargy, Reports malaise and Reports poor appetite Cardiovascular Cardiovascular: Reports no additional cardiovascular complaints Respiratory Respiratory: Reports no additional respiratory complaints Gastrointestinal Gastrointestinal: Reports no additional gastrointestinal complaints, Reports abdominal pain, Reports nausea and Reports vomiting Psychiatric Psychiatric: Reports anxiety Endocrine Endocrine: Reports fatigue Physical Exam 2 Vital Signs: Vital Signs: Last Vital Signs Temp 97.5 F 06/10/25 11:35 Pulse 64 06/10/25 11:35 Resp 16 06/10/25 11:35 BP 130/89 06/10/25 11:35 Pulse Ox 96 06/10/25 11:35 O2 Del Method Room Air 06/10/25 11:35 BMI result Body Mass Index 34.0 Const: Other: Middle-aged female lying in bed in no distress Neck supple, no JVD Regular rate and rhythm, S1-S2 heard Regular breath sounds bilaterally, no wheezing or crackles appreciated Abdomen with a epigastric tenderness and mild guarding, no rigidity Patient is awake, alert and oriented to self, place, time and person ; no focal motor deficit Psych: Normal mood No pedal edema Orientation/consciousness: patient oriented x3 Resp: Auscultation: clear to auscultation bilaterally GI: Palpation (GI): Tenderness to palpation present (GI) in the epigastrum Auscultation: normal bowel sounds Neuro: General: patient oriented x3 and moves all extremities Psych: Appearance: disheveled Attitude: cooperative Objective Data Active Medications Acetaminophen (Acetaminophen 325 Mg Tablet) 650 mg PO Q6H PRN PRN Reason: Pain, Mild 1-3,fever,headache Last Admin: 06/10/25 00:47 Dose: 650 mg Documented By: MAGALIS Alprazolam (Alprazolam 0.5 Mg Tablet) 2 mg PO QID PRN PRN Reason: Anxiety Last Admin: 06/10/25 09:20 Dose: 2 mg Documented By: BRETT Amphetamine/Dextroamphetamine (Amphetamine Mixed Salts 10 Mg Tablet) 15 mg PO TID PRN PRN Reason: Attention/Focus Ascorbic Acid (Ascorbic Acid 500 Mg Tablet) 500 mg PO DAILY [facility] Last Admin: 06/10/25 09:21 Dose: 500 mg Documented By: BRETT Calcium Carbonate (Calcium Carbonate 750 Mg Tab.Chew) 750 mg PO Q4H PRN PRN Reason: Heartburn Enoxaparin Sodium (Enoxaparin Sodium 40 Mg/0.4 Ml Syringe) 40 mg SUBCUT Q24H [facility] Last Admin: 06/10/25 05:03 Dose: Not Given Documented By: RAQUEL Non-Admin Reason: Patient Refused Fenofibrate (Fenofibrate 54 Mg Tablet) 54 mg PO DAILY [facility] Last Admin: 06/10/25 09:21 Dose: 54 mg Documented By: BRETT Gabapentin (Gabapentin 300 Mg Capsule) 300 mg PO BEDTIME [facility] Last Admin: 06/09/25 20:45 Dose: 300 mg Documented By: MAGALIS Hydromorphone HCl (Hydromorphone Hcl 1 Mg/Ml Syringe) 1 mg IVPUSH Q3H PRN; Protocol PRN Reason: Pain, Severe (Pain Scale 7-10) Last Admin: 06/10/25 09:21 Dose: 1 mg Documented By: BRETT Magnesium Hydroxide (Milk Of Magnesia 30 Ml Oral.Susp) 30 ml PO DAILY PRN PRN Reason: Constipation Last Admin: 06/10/25 00:55 Dose: 30 ml Documented By: MAGALIS Melatonin (Melatonin 3 Mg Tablet) 6 mg PO BEDTIME PRN PRN Reason: Insomnia Melatonin (Melatonin 3 Mg Tablet) 6 mg PO BEDTIME [facility] Last Admin: 06/09/25 20:45 Dose: 6 mg Documented By: MAGALIS Methadone HCl (Methadone Hcl 20 Mg/2 Ml Oral.Conc) 120 mg PO DAILY@0800 [facility] Last Admin: 06/10/25 09:26 Dose: 120 mg Documented By: BRETT Co-signed By: ANDREY Omeprazole (Omeprazole 20 Mg Capsule.) 20 mg PO DAILY@0630 [facility] Last Admin: 06/10/25 05:52 Dose: 20 mg Documented By: RAQUEL Pharmacy Consult (Consult Rx Etoh Phenob Im/Po) 1 each MISCELLANE ONCE PRN; Protocol PRN Reason: Consult order Sodium Chloride (0.9 % Sodium Chloride Flush 3 Ml Syringe) 3 ml IVFLUSH QSHIFT [facility] Last Admin: 06/10/25 09:26 Dose: Not Given Documented By: BRETT Non-Admin Reason: IV Running Thiamine HCl (Thiamine Hcl 100 Mg Tablet) 100 mg PO DAILY [facility] Last Admin: 06/10/25 09:21 Dose: 100 mg Documented By: BRETT Triamcinolone Acetonide (Triamcinolone Acet 0.5 % Cream 15 Gm Tube) 1 appl TOPICAL BID PRN; Protocol PRN Reason: Inflammation Labs 06/07/25 09:35 06/09/25 05:13 Assessment and Plan (1) Acute alcoholic pancreatitis: Status: Acute Assessment and Plan: Improving gradually. Elevated TGs (possible contirbutory vs etiologically related to alcoholic hepatitis). PLAN - Continue LR infusion given poor PO intake. Encourage PO - Continue analgesia with opioids IV - Fenofibrate started to TG 992 - IV dilaudid 1mg q3hrly - Advance diet to full liquid diet (low fat) (2) Alcoholic gastritis: Status: Acute Assessment and Plan: No bleeding. Epigastric pain reported. PLAN - PPI consider (3) Alcohol use disorder, severe, dependence: Status: Acute Assessment and Plan: Alcohol use disorder with concerns for withdrawal PLAN - Continue phenobarb protocol in the ER - Monitor CIWA - On thiamine and folic acid - Addiction Team following (4) Opioid use disorder: Status: Acute Assessment and Plan: PLAN - Continue Methadone per dose verified at [facility] - Addiction medicine following (5) Alcoholic hepatitis: Status: Acute Assessment and Plan: Elevated liver enzymes due to alcohol use. Patient reports relapse with alcohol use recently Addiction med following. No evidence of acute decompenstion; will monitor closely. Fatty liver noted. PLAN - Thiamine - CIWA monitoring - Addiction medicine following - Consider outpatient medication regimen for EtOH deterrence Total time managing care of this patient today: 35 minutes. Quality Stroke Does the patient have a stroke diagnosis?: No VTE Prior VTE?: No VTE Risk Level:: Medical - moderate - high VTE Device Contraindication: Treatment Not Indicated VTE Drug Contraindication: N/A - Med Ordered
[2025-06-10] MEDS: 0.9 % Sodium Chloride Flush 3 ML SYRINGE IVFLUSH (21:16)
[2025-06-11 03:12] VITALS: BP 151/68; PULSE 64; RESP 16; TEMP 36; O2SAT 98
[2025-06-11 07:16] VITALS: BP 142/85; PULSE 64; RESP 16; TEMP 36.4; O2SAT 97
[2025-06-11] MEDS: methADONE HCl 20 MG/2 ML ORAL.CONC 120 MG PO (07:28)
[2025-06-11] MEDS: 0.9 % Sodium Chloride Flush 3 ML SYRINGE IVFLUSH ×3 (07:37→20:37)
[2025-06-11 11:56] VITALS: BP 104/55; PULSE 77; RESP 16; TEMP 36.3; O2SAT 93
[2025-06-11] MEDS: oxyCODONE HCl Immed Release 5 MG TABLET PO ×3 (12:22→20:37)
--- NOTE | 2025-06-11 12:31 | PC.NURSE ---
PCT reported seeing a vape in patients bed. This RN confronted patient and asked if she was using a vape in her room. Patient denied having a vape in her position. Patient was reminded of our smoking policy and warned that if a vape is seen it will be taken away. Pt verbalized understanding.
--- NOTE | 2025-06-11 14:53 | P.PNIM_ITS ---
Subjective Subjective Date of Service: 06/11/25 Interval History: 34-year-old female with pertinent history of alcohol use disorder with history of alcoholic pancreatitis, opioid use disorder on methadone, mood disorder, gastroesophageal reflux disease who presents to the emergency department for evaluation of abdominal pain, admitted with acute alcoholic pancreatitis, uncompliacted without necrosis. No new changes. Patient requesting attempt restart full liquid diet. Will oblige. No change in opioid regimen discussed as well. In agreement. No other developing concerning clinical features Review of Systems All other systems are reviewed and are negative Constitutional: Reports as per HPI and Reports no additional constitutional complaints Eyes: Reports as per HPI and Reports no additional eye complaints Reports system reviewed and no additional complaints, except as documented Cardiovascular: Reports as per HPI and Reports no additional cardiovascular complaints Respiratory: Reports as per HPI and Reports no additional respiratory complaints Gastrointestinal: Reports as per HPI and Reports no additional gastrointestinal complaints Genitourinary: Reports no additional female genitourinary complaints Musculoskeletal: Reports no additional musculoskeletal complaints Skin/Breast: Reports system reviewed and no additional complaints, except as docu Psychiatric: Reports no additional psychiatric complaints Endocrine: Reports no additional endocrine complaints Hematologic/Lymphatic: Reports no additional hematologic/lymphatic complaints Allergic/Immunologic: Reports no additional allergic/immunologic complaints Reports system reviewed and no additional complaints, except as documented and Reports Abnormal speech present Constitutional Constitutional: Reports as per HPI, Reports difficulty sleeping, Reports lethargy, Reports malaise and Reports poor appetite Cardiovascular Cardiovascular: Reports no additional cardiovascular complaints Respiratory Respiratory: Reports no additional respiratory complaints Physical Exam 2 Vital Signs: Vital Signs: Last Vital Signs Temp 97.3 F 06/11/25 11:56 Pulse 77 06/11/25 11:56 Resp 16 06/11/25 11:56 BP 104/55 L 06/11/25 11:56 Pulse Ox 93 06/11/25 11:56 O2 Del Method Room Air 06/11/25 11:56 BMI result Body Mass Index 34.0 Const: Other: Middle-aged female lying in bed in no distress Neck supple, no JVD Regular rate and rhythm, S1-S2 heard Regular breath sounds bilaterally, no wheezing or crackles appreciated Abdomen with a epigastric tenderness and mild guarding, no rigidity Patient is awake, alert and oriented to self, place, time and person ; no focal motor deficit Psych: Normal mood No pedal edema Objective Data Active Medications Acetaminophen (Acetaminophen 325 Mg Tablet) 650 mg PO Q6H PRN PRN Reason: Pain, Mild 1-3,fever,headache Last Admin: 06/11/25 12:22 Dose: 650 mg Documented By: ANDREINA Alprazolam (Alprazolam 0.5 Mg Tablet) 2 mg PO QID PRN PRN Reason: Anxiety Last Admin: 06/11/25 07:37 Dose: 2 mg Documented By: ANDREINA Amphetamine/Dextroamphetamine (Amphetamine Mixed Salts 10 Mg Tablet) 15 mg PO TID PRN PRN Reason: Attention/Focus Ascorbic Acid (Ascorbic Acid 500 Mg Tablet) 500 mg PO DAILY [facility] Last Admin: 06/11/25 07:28 Dose: 500 mg Documented By: ANDREINA Calcium Carbonate (Calcium Carbonate 750 Mg Tab.Chew) 750 mg PO Q4H PRN PRN Reason: Heartburn Enoxaparin Sodium (Enoxaparin Sodium 40 Mg/0.4 Ml Syringe) 40 mg SUBCUT Q24H [facility] Last Admin: 06/11/25 04:39 Dose: Not Given Documented By: CHAPIS Non-Admin Reason: Patient Refused Fenofibrate (Fenofibrate 54 Mg Tablet) 54 mg PO DAILY [facility] Last Admin: 06/11/25 07:28 Dose: 54 mg Documented By: ANDREINA Gabapentin (Gabapentin 300 Mg Capsule) 300 mg PO BEDTIME [facility] Last Admin: 06/10/25 21:15 Dose: 300 mg Documented By: CHAPIS Hydromorphone HCl (Hydromorphone Hcl 1 Mg/Ml Syringe) 1 mg IVPUSH Q6H PRN; Protocol PRN Reason: Pain, Severe (Pain Scale 7-10) Magnesium Hydroxide (Milk Of Magnesia 30 Ml Oral.Susp) 30 ml PO DAILY PRN PRN Reason: Constipation Last Admin: 06/10/25 00:55 Dose: 30 ml Documented By: MAGALIS Melatonin (Melatonin 3 Mg Tablet) 6 mg PO BEDTIME PRN PRN Reason: Insomnia Melatonin (Melatonin 3 Mg Tablet) 6 mg PO BEDTIME [facility] Last Admin: 06/10/25 21:15 Dose: 6 mg Documented By: CHAPIS Methadone HCl (Methadone Hcl 20 Mg/2 Ml Oral.Conc) 120 mg PO DAILY@0800 [facility] Last Admin: 06/11/25 07:28 Dose: 120 mg Documented By: ANDREINA Co-signed By: MIGUE Omeprazole (Omeprazole 20 Mg Dav.) 20 mg PO DAILY@0630 [facility] Last Admin: 06/11/25 05:50 Dose: 20 mg Documented By: RADHA Oxycodone HCl (Oxycodone Hcl Immed Release 5 Mg Tablet) 5 mg PO Q4H PRN PRN Reason: severe pain Last Admin: 06/11/25 12:22 Dose: 5 mg Documented By: ANDREINA Pharmacy Consult (Consult Rx Etoh Phenob Im/Po) 1 each MISCELLANE ONCE PRN; Protocol PRN Reason: Consult order Sodium Chloride (0.9 % Sodium Chloride Flush 3 Ml Syringe) 3 ml IVFLUSH QSHIFT [facility] Last Admin: 06/11/25 07:37 Dose: 3 ml Documented By: ANDREINA Thiamine HCl (Thiamine Hcl 100 Mg Tablet) 100 mg PO DAILY [facility] Last Admin: 06/11/25 07:28 Dose: 100 mg Documented By: ANDREINA Triamcinolone Acetonide (Triamcinolone Acet 0.5 % Cream 15 Gm Tube) 1 appl TOPICAL BID PRN; Protocol PRN Reason: Inflammation Labs 06/07/25 09:35 06/09/25 05:13 Assessment and Plan (1) Acute alcoholic pancreatitis: Status: Acute Assessment and Plan: Improving gradually. Elevated TGs (possible contirbutory vs etiologically related to alcoholic hepatitis). PLAN - Continue LR infusion given poor PO intake. Encourage PO - Continue analgesia with opioids IV --> PO oxcycodone - Fenofibrate started to TG 992 - Advance diet to full regular diet (low fat) (2) Alcoholic gastritis: Status: Acute Assessment and Plan: No bleeding. Epigastric pain reported. PLAN - PPI consider (3) Alcohol use disorder, severe, dependence: Status: Acute Assessment and Plan: Alcohol use disorder with concerns for withdrawal PLAN - Continue phenobarb protocol in the ER - Monitor CIWA - On thiamine and folic acid - Addiction Team following (4) Opioid use disorder: Status: Acute Assessment and Plan: PLAN - Continue Methadone per dose verified at [facility] - Addiction medicine following (5) Alcoholic hepatitis: Status: Acute Assessment and Plan: Elevated liver enzymes due to alcohol use. Patient reports relapse with alcohol use recently Addiction med following. No evidence of acute decompenstion; will monitor closely. Fatty liver noted. PLAN - Thiamine - CIWA monitoring; dioscontinue - Addiction medicine following - Consider outpatient medication regimen for EtOH deterrence Plan CODE: FULL CODE VTE PHX: ENOXAPARIN Total time managing care of this patient today: 35 minutes. Quality Stroke Does the patient have a stroke diagnosis?: No VTE Prior VTE?: No VTE Risk Level:: Medical - moderate - high VTE Device Contraindication: Treatment Not Indicated VTE Drug Contraindication: N/A - Med Ordered
[2025-06-11 14:58] VITALS: BP 132/86; PULSE 63; RESP 18; TEMP 36.4; O2SAT 97
[2025-06-11 15:18] LABS: HCV Log PCR <1.18 NOT DETECTED Log IU/mL (NOT DETECTED); HepC Viral Load <15 NOT DETECTED IU/mL (NOT DETECTED)
[2025-06-11 19:40] VITALS: BP 135/78; PULSE 63; RESP 18; TEMP 36; O2SAT 98
--- NOTE | 2025-06-11 21:06 | PC.NURSE ---
21:06 Tele d/c per MD Reed. Monitor removed from pt, cleaned, and returned to [facility].
[2025-06-11 23:46] VITALS: BP 137/91; PULSE 90; RESP 18; TEMP 36.6; O2SAT 95
[2025-06-12 03:52] VITALS: BP 145/63; PULSE 63; RESP 18; TEMP 37; O2SAT 98
[2025-06-12] MEDS: oxyCODONE HCl Immed Release 5 MG TABLET PO ×3 (04:41→15:22)
--- NOTE | 2025-06-12 06:23 | PC.NURSE ---
Pt is high fall d/t CIWA. Pt is now refusing bed alarms. Pt is currently a stand by assist OOB. Encouraged and emphasized pt to call for assistance when wanting to get OOB.
[2025-06-12 08:00] VITALS: BP 134/85; PULSE 59; RESP 14; TEMP 37.1; O2SAT 97
[2025-06-12] MEDS: methADONE HCl 20 MG/2 ML ORAL.CONC 120 MG PO (08:34)
[2025-06-12] MEDS: 0.9 % Sodium Chloride Flush 3 ML SYRINGE IVFLUSH ×3 (08:34→19:25)
[2025-06-12 11:40] VITALS: BP 105/64; PULSE 58; RESP 16; TEMP 36.2; O2SAT 95
--- NOTE | 2025-06-12 12:50 | P.PNIM_ITS ---
Subjective Subjective Date of Service: 06/12/25 Interval History: 34-year-old female with pertinent history of alcohol use disorder with history of alcoholic pancreatitis, opioid use disorder on methadone, mood disorder, gastroesophageal reflux disease who presents to the emergency department for evaluation of abdominal pain, admitted with acute alcoholic pancreatitis, uncompliacted without necrosis. No new changes. Patient's friend suddenly last night and attempted to leave AMA. Patient expresses desire to drink EtOH. More quiet by bedside - somnolent. Wishes to advance diet and prep for discharge if she can tolerate it. Will oblige. Review of Systems All other systems are reviewed and are negative Constitutional: Reports as per HPI and Reports no additional constitutional complaints Eyes: Reports as per HPI and Reports no additional eye complaints Reports system reviewed and no additional complaints, except as documented Cardiovascular: Reports as per HPI and Reports no additional cardiovascular complaints Respiratory: Reports as per HPI and Reports no additional respiratory complaints Gastrointestinal: Reports as per HPI and Reports no additional gastrointestinal complaints Genitourinary: Reports no additional female genitourinary complaints Musculoskeletal: Reports no additional musculoskeletal complaints Skin/Breast: Reports system reviewed and no additional complaints, except as docu Psychiatric: Reports no additional psychiatric complaints Endocrine: Reports no additional endocrine complaints Hematologic/Lymphatic: Reports no additional hematologic/lymphatic complaints Allergic/Immunologic: Reports no additional allergic/immunologic complaints Reports system reviewed and no additional complaints, except as documented Constitutional Constitutional: Reports as per HPI, Reports difficulty sleeping, Reports fatigue, Reports lethargy, Reports malaise and Reports poor appetite Cardiovascular Cardiovascular: Reports no additional cardiovascular complaints Respiratory Respiratory: Reports no additional respiratory complaints Gastrointestinal Gastrointestinal: Reports no additional gastrointestinal complaints, Reports abdominal pain, Reports nausea and Reports vomiting Psychiatric Psychiatric: Reports anxiety Endocrine Endocrine: Reports fatigue Physical Exam 2 Vital Signs: Vital Signs: Last Vital Signs Temp 97.1 F 06/12/25 11:40 Pulse 58 06/12/25 11:40 Resp 16 06/12/25 11:40 BP 105/64 06/12/25 11:40 Pulse Ox 95 06/12/25 11:40 O2 Del Method Room Air 06/12/25 11:40 BMI result Body Mass Index 34.0 Const: Other: Middle-aged female lying in bed in no distress Neck supple, no JVD Regular rate and rhythm, S1-S2 heard Regular breath sounds bilaterally, no wheezing or crackles appreciated Abdomen with a epigastric tenderness and mild guarding, no rigidity Patient is awake, alert and oriented to self, place, time and person ; no focal motor deficit Psych: Normal mood No pedal edema Orientation/consciousness: patient oriented x3 Resp: Auscultation: clear to auscultation bilaterally GI: Palpation (GI): Tenderness to palpation present (GI) in the epigastrum Auscultation: normal bowel sounds Neuro: General: patient oriented x3 and moves all extremities Psych: Appearance: disheveled Attitude: cooperative Objective Data Active Medications Acetaminophen (Acetaminophen 325 Mg Tablet) 650 mg PO Q6H PRN PRN Reason: Pain, Mild 1-3,fever,headache Last Admin: 06/12/25 08:36 Dose: 650 mg Documented By: ANDREINA Alprazolam (Alprazolam 0.5 Mg Tablet) 2 mg PO QID PRN PRN Reason: Anxiety Last Admin: 06/12/25 08:33 Dose: 2 mg Documented By: ANDREINA Amphetamine/Dextroamphetamine (Amphetamine Mixed Salts 10 Mg Tablet) 15 mg PO TID PRN PRN Reason: Attention/Focus Ascorbic Acid (Ascorbic Acid 500 Mg Tablet) 500 mg PO DAILY [facility] Last Admin: 06/12/25 08:33 Dose: 500 mg Documented By: ANDREINA Calcium Carbonate (Calcium Carbonate 750 Mg Tab.Chew) 750 mg PO Q4H PRN PRN Reason: Heartburn Enoxaparin Sodium (Enoxaparin Sodium 40 Mg/0.4 Ml Syringe) 40 mg SUBCUT Q24H [facility] Last Admin: 06/12/25 04:33 Dose: Not Given Documented By: RADHA Non-Admin Reason: Patient Refused Fenofibrate (Fenofibrate 54 Mg Tablet) 54 mg PO DAILY [facility] Last Admin: 06/12/25 08:33 Dose: 54 mg Documented By: ANDREINA Gabapentin (Gabapentin 300 Mg Capsule) 300 mg PO BEDTIME [facility] Last Admin: 06/11/25 20:37 Dose: 300 mg Documented By: RADHA Hydromorphone HCl (Hydromorphone Hcl 1 Mg/Ml Syringe) 1 mg IVPUSH Q6H PRN; Protocol PRN Reason: Pain, Severe (Pain Scale 7-10) Last Admin: 06/12/25 12:40 Dose: 1 mg Documented By: ANDREINA Magnesium Hydroxide (Milk Of Magnesia 30 Ml Oral.Susp) 30 ml PO DAILY PRN PRN Reason: Constipation Last Admin: 06/10/25 00:55 Dose: 30 ml Documented By: MAGALIS Melatonin (Melatonin 3 Mg Tablet) 6 mg PO BEDTIME PRN PRN Reason: Insomnia Melatonin (Melatonin 3 Mg Tablet) 6 mg PO BEDTIME [facility] Last Admin: 06/11/25 20:37 Dose: 6 mg Documented By: RADHA Methadone HCl (Methadone Hcl 20 Mg/2 Ml Oral.Conc) 120 mg PO DAILY@0800 [facility] Last Admin: 06/12/25 08:34 Dose: 120 mg Documented By: ANDREINA Co-signed By: ELLEN Omeprazole (Omeprazole 20 Mg Capsule.Dr) 20 mg PO DAILY@0630 [facility] Last Admin: 06/12/25 06:00 Dose: 20 mg Documented By: RADHA Oxycodone HCl (Oxycodone Hcl Immed Release 5 Mg Tablet) 5 mg PO Q4H PRN PRN Reason: severe pain Last Admin: 06/12/25 08:36 Dose: 5 mg Documented By: ANDREINA Pharmacy Consult (Consult Rx Etoh Phenob Im/Po) 1 each MISCELLANE ONCE PRN; Protocol PRN Reason: Consult order Sodium Chloride (0.9 % Sodium Chloride Flush 3 Ml Syringe) 3 ml IVFLUSH QSHIFT [facility] Last Admin: 06/12/25 08:34 Dose: 3 ml Documented By: ANDREINA Thiamine HCl (Thiamine Hcl 100 Mg Tablet) 100 mg PO DAILY [facility] Last Admin: 06/12/25 08:33 Dose: 100 mg Documented By: ANDREINA Triamcinolone Acetonide (Triamcinolone Acet 0.5 % Cream 15 Gm Tube) 1 appl TOPICAL BID PRN; Protocol PRN Reason: Inflammation Labs 06/07/25 09:35 06/09/25 05:13 Labs: Laboratory Results - last 24 hr 06/09/25 05:13 Hep C Viral Load <15 NOT DETECTED Hep C Viral Load Log <1.18 NOT DETECTED Assessment and Plan (1) Acute alcoholic pancreatitis: Status: Acute Assessment and Plan: Improving gradually. Elevated TGs (possible contirbutory vs etiologically related to alcoholic hepatitis). PLAN - Continue LR infusion given poor PO intake. Encourage PO - Continue analgesia with opioids IV --> PO oxcycodone - Fenofibrate started to TG 992 - Advance diet to full regular diet (low fat) (2) Alcoholic gastritis: Status: Acute Assessment and Plan: No bleeding. Epigastric pain reported. PLAN - PPI consider (3) Alcohol use disorder, severe, dependence: Status: Acute Assessment and Plan: Alcohol use disorder with concerns for withdrawal PLAN - Continue phenobarb protocol in the ER - Monitor CIWA - On thiamine and folic acid - Addiction Team following (4) Opioid use disorder: Status: Acute Assessment and Plan: PLAN - Continue Methadone per dose verified at [facility] - Addiction medicine following (5) Alcoholic hepatitis: Status: Acute Assessment and Plan: Elevated liver enzymes due to alcohol use. Patient reports relapse with alcohol use recently Addiction med following. No evidence of acute decompenstion; will monitor closely. Fatty liver noted. PLAN - Thiamine - CIWA monitoring; dioscontinue - Addiction medicine following - Consider outpatient medication regimen for EtOH deterrence Plan CODE: FULL CODE VTE PHX: ENOXAPARIN Total time managing care of this patient today: 35 minutes. Quality Stroke Does the patient have a stroke diagnosis?: No VTE Prior VTE?: No VTE Risk Level:: Medical - moderate - high VTE Device Contraindication: Treatment Not Indicated VTE Drug Contraindication: N/A - Med Ordered
[2025-06-12 15:08] VITALS: BP 136/84; PULSE 92; RESP 18; TEMP 36.3; O2SAT 96
[2025-06-12 19:38] VITALS: BP 133/82; PULSE 95; RESP 18; TEMP 36.6; O2SAT 96
[2025-06-12 23:20] VITALS: BP 119/88; PULSE 100; RESP 18; TEMP 36.6; O2SAT 95
--- NOTE | 2025-06-12 23:23 | PC.NURSE ---
Pt continues to refuse alarms. Pt is high fall d/t CIWA. This RN encouraged and emphasized importance of ringing for assistance when wanting to get out of bed.
[2025-06-13 03:05] VITALS: BP 140/87; PULSE 96; RESP 18; TEMP 36.4; O2SAT 95
[2025-06-13] MEDS: oxyCODONE HCl Immed Release 5 MG TABLET PO ×3 (04:35→11:34)
[2025-06-13] MEDS: methADONE HCl 20 MG/2 ML ORAL.CONC 120 MG PO (07:39)
[2025-06-13] MEDS: 0.9 % Sodium Chloride Flush 3 ML SYRINGE IVFLUSH (07:39)
[2025-06-13 07:40] VITALS: BP 144/81; PULSE 75; RESP 16; TEMP 36.1; O2SAT 99
--- NOTE | 2025-06-13 08:41 | PM.DS ---
DS: Providers Provider Date of Service: 06/13/25 Date of admission: 06/07/25 04:18 Date of discharge: 06/13/25 Primary care physician: Kenisha Martinez MD Consults: 06/07/25 04:27 Addiction Medicine Provider Routine Consulting Provider: Addiction Covering Reason for consultation: alcohol use disorder 06/07/25 13:45 Addiction Medicine Provider Routine Consulting Provider: Addiction Covering Reason for consultation: opioid dependency DS: Diagnosis Discharge Diagnosis (1) Acute alcoholic pancreatitis: Status: Acute (2) Alcoholic gastritis: Status: Acute (3) Alcohol use disorder, severe, dependence: Status: Acute (4) Opioid use disorder: Status: Acute (5) Alcoholic hepatitis: Status: Acute DS: Summary Hospital Course Hospital Course: admission hpi Chief Complaint: Abdominal pain This has a 34-year-old female with pertinent history of alcohol use disorder with history of alcoholic pancreatitis, opioid use disorder on methadone, mood disorder, gastroesophageal reflux disease who presents to the emergency department for evaluation of abdominal pain. Patient states she has been doing well with alcohol but relapsed in May. Endorses significant use every day. Her last drink was 1 day prior to presentation. Patient states on the day of presentation she started having abdominal pain in the epigastric region which was constant, radiated to the back and without any relieving factors. Also had associated nausea and multiple episodes of nonbloody emesis. Unable to tolerate p.o. intake. Patient states she feels anxious and is concerned for alcohol withdrawal. No visual or auditory hallucinations. No fever, chills, chest pain, palpitations, shortness of breath, changes in urinary or bowel habits. In the emergency department, lipase found to be elevated and imaging concerning for acute pancreatitis.Chief Complaint: Abdominal pain This has a 34-year-old female with pertinent history of alcohol use disorder with history of alcoholic pancreatitis, opioid use disorder on methadone, mood disorder, gastroesophageal reflux disease who presents to the emergency department for evaluation of abdominal pain. Patient states she has been doing well with alcohol but relapsed in May. Endorses significant use every day. Her last drink was 1 day prior to presentation. Patient states on the day of presentation she started having abdominal pain in the epigastric region which was constant, radiated to the back and without any relieving factors. Also had associated nausea and multiple episodes of nonbloody emesis. Unable to tolerate p.o. intake. Patient states she feels anxious and is concerned for alcohol withdrawal. No visual or auditory hallucinations. No fever, chills, chest pain, palpitations, shortness of breath, changes in urinary or bowel habits. In the emergency department, lipase found to be elevated and imaging concerning for acute pancreatitis. Hospital course: Patient presented with with abdominal pain in setting of alcohol use and found to have acute pancreatitis with elevated lipase and Triglyceride near 1000. Tumor consisted of NPO, IV fluid, pain medication, fenofibrate and over the course of hospitalization her condition improved, her diet was advanced and is presently tolerating regular diet. She has been advised to avoid alcohol and foot down motor deletion substances. She will be prescribed fenofibrate at discharge. For alcoholic gastritis this was treated with a PPI. And will be discharged with Prilosec. Alcohol use disorder with concerns for withdrawal--patient did not exhibit any syd alcohol withdrawal symptoms. She was treated with phenobarbital, folic acid supplement along with thiamine. Her symptoms were monitor with CIWA protocol and presently screening very low. Again advised to avoid using alcohol and was seen by the addiction team and given further advice and resources in the community. Opiate use disorder to continue methadone and follow up with planning on outpatient basis Elevated LFTs due to chronic alcohol use, no acute decompensation she is again advised of the dangers related to alcohol use. Time Attestation Discharge Coordination Time (in mins): 45 Quality: Safe Use of Opioids Does Pt have an Active Cancer Diagnosis on the Problem List?: No Quality: Stroke Does the patient have a stroke diagnosis?: No Physical Exam Vital Signs: Vital Signs: Last Vital Signs Temp 96.9 F 06/13/25 07:40 Pulse 75 06/13/25 07:40 Resp 16 06/13/25 07:40 BP 144/81 H 06/13/25 07:40 Pulse Ox 99 06/13/25 07:40 O2 Del Method Room Air 06/13/25 07:40 BMI result Body Mass Index 34.0 DS: Data Data Completed and Pending Completed studies during hospitalization [Text1]: Procedures Detoxification Services for Substance Abuse Treatment (07/16/23) Discharge Plan Discharge Anticipated Discharge Date/Time: 06/13/25 08:42 Patient Disposition: Home, Self-Care Discharge Diagnosis: Alcoholic pancreatitis, gastritis Referrals: Kenisha Martinez MD [Primary Care Provider, Medical] - 1 Week Nancy Nichols ENVIR[employer]MENT[employer] COMPLIANCE MANAGER-C [Nurse Practitioner, Addiction Medicine] - 06/14/25 11:00 am Referral Note: Please bring photo ID and insurance information Discharge Medications: Continued triamcinolone acetonide 0.5 % cream 1 appl topical BID PRN (Reason: Inflammation ) dextroamphetamine-amphetamine [Adderall] 15 mg tablet 15 mg PO TID PRN (Reason: Attention/Focus) gabapentin 300 mg capsule 300 mg PO BEDTIME melatonin 5 mg tablet 5 mg PO BEDTIME pantoprazole 20 mg tablet,delayed release (DR/EC) 20 mg PO DAILY@0630 alprazolam 2 mg tablet 2 mg PO TID PRN (Reason: anxiety) methadone [Methadose] 10 mg/mL Concentrate 60 mg PO DAILY Rx Instructions: [facility] thiamine HCl (vitamin B1) [Vitamin B-1] 100 mg tablet 100 mg PO DAILY ascorbic acid (vitamin C) [Vitamin C] 500 mg Tablet 500 mg PO DAILY ondansetron 4 mg tablet,disintegrating 4 mg PO Q8H PRN (Reason: Nausea And Vomiting) Diet: Advance to usual diet Activity on Discharge: As tolerated Stand Alone Forms: Patient Portal Discharge page Print Language: Czech Care Plan Goals: recovery from alcoholic pancreatitis, gastritis Health Concerns: alcohol use disorder alcohol pancreatitis alcoholic gastritis opioid use disorder Plan of Treatment: Avoid alcohol Assessment: See above
--- NOTE | 2025-06-13 10:55 | MHC.CM.PN ---
[facility] [place]
[2025-06-13] MEDS: Amphetamine Mixed Salts 10 MG TABLET 15 MG PO (11:34)
[2025-06-13 11:52] VITALS: BP 134/92; PULSE 117; RESP 16; TEMP 36.1; O2SAT 96
== END 2025-06-13 12:08 | disposition home or self-care (01) | DRG 282 ==
LOC: HO.ED 06-07 04:19 → HO.EDOVER 06-07 04:27 → HO.S3 06-07 19:08
PROVIDERS: Hospitalist; Nurse Practitioner Psychiatric/Mental Health; Physician Assistant Medical; Admitting Provider Student in an Organized Health Care Education/Training Program; Emergency Provider Emergency Medicine; PCP Internal Medicine; Visit Provider Internal Medicine
DX: K85.20 Alcohol induced acute pancreatitis without necrosis or infection (principal); K70.10 Alcoholic hepatitis without ascites; E78.1 Pure hyperglyceridemia; F11.20 Opioid dependence, uncomplicated; F39 Unspecified mood [affective] disorder; R94.31 Abnormal electrocardiogram [ECG] [EKG]; K21.9 Gastro-esophageal reflux disease without esophagitis; Z20.822 Contact with and (suspected) exposure to COVID-19; Z79.899 Other long term (current) drug therapy
CPT/HCPCS: 36415; 74176; 80048; 80053; 80307; 83690; 83735; 84478; 84702; 85025; 87389; 87522; 87637; 93005; 99285; J0131; J1100; J1171; J1200; J1308; J1650; J1790; J2270; J2405; J2560; J3360; J3411; J3475; J7120; S9485

== ENCOUNTER → 2025-06-06 20:19 | Outpatient (BNV) | payer MEDICAID, SELFPAY | PROVIDERS: Admitting Provider Student in an Organized Health Care Education/Training Program; Emergency Provider Emergency Medicine; PCP Internal Medicine; Visit Provider Internal Medicine | DX: I49.9 Cardiac arrhythmia, unspecified (principal) | CPT/HCPCS: 93010 ==

== ENCOUNTER → 2025-06-07 00:37 | Outpatient (BNV) | payer MEDICAID, SELFPAY | PROVIDERS: Emergency Provider Emergency Medicine; PCP Internal Medicine; Visit Provider Student in an Organized Health Care Education/Training Program | DX: K85.90 Acute pancreatitis without necrosis or infection, unspecified (principal) | CPT/HCPCS: 74176 ==

== ENCOUNTER 2025-06-07 04:18 | Outpatient (BNV) | payer MEDICAID, SELFPAY | END 2025-06-07 15:21 | PROVIDERS: Admitting Provider Student in an Organized Health Care Education/Training Program; Emergency Provider Emergency Medicine; PCP Internal Medicine; Visit Provider Internal Medicine | DX: Z13.6 Encounter for screening for cardiovascular disorders (principal) | CPT/HCPCS: 93010 ==

== ENCOUNTER → 2025-06-07 04:18 | Outpatient (BNV) | payer MEDICAID, SELFPAY | PROVIDERS: Admitting Provider Student in an Organized Health Care Education/Training Program; Emergency Provider Emergency Medicine; PCP Internal Medicine; Visit Provider Student in an Organized Health Care Education/Training Program | DX: K85.20 Alcohol induced acute pancreatitis without necrosis or infection (principal) | CPT/HCPCS: 99222; 99499 ==

== ENCOUNTER → 2025-06-07 04:18 | Outpatient (BNV) | payer OTHER, SELFPAY | PROVIDERS: Admitting Provider Student in an Organized Health Care Education/Training Program; Emergency Provider Emergency Medicine; PCP Internal Medicine; Visit Provider Nurse Practitioner Psychiatric/Mental Health | DX: F10.20 Alcohol dependence, uncomplicated (principal); F11.90 Opioid use, unspecified, uncomplicated | CPT/HCPCS: 99232 ==

== ENCOUNTER 2025-10-18 10:59 | Inpatient (IN) | payer MEDICAID, SELFPAY ==
[2025-10-18] VITALS (7 sets, daily range): BP systolic 129–148; BP diastolic 91–100; PULSE 73–98; RESP 12–20; TEMP 36.4–36.7; O2SAT 96–97; BMI 32.9; BMI 33.0
--- NOTE | 2025-10-18 11:17 | ED.ABDPAIN ---
HPI - Abdominal Pain General Chief Complaint: ETOH/Substance Use Stated Complaint: pancreatitis Time Seen by Provider: 10/18/25 11:35 Source: patient and old records reviewed Mode of arrival: ambulatory Limitations: no limitations History of Present Illness HPI narrative: This was the RN me note. See additional note from same visit from main provider. Related Data Home Medications ?Medication ?Instructions ?Recorded ?Confirmed alprazolam 2 mg tablet 2 mg PO TID PRN anxiety 07/16/23 10/18/25 methadone 10 mg/mL oral 120 mg PO DAILY 07/16/23 10/18/25 concentrate (Methadose) thiamine HCl (vitamin B1) 100 mg 100 mg PO DAILY 11/16/23 10/18/25 tablet (Vitamin B-1) dextroamphetamine-amphetamine 15 15 mg PO TID PRN Attention/Focus 06/07/25 10/18/25 mg tablet (Adderall) gabapentin 300 mg capsule 300 mg PO BEDTIME 06/07/25 10/18/25 melatonin 5 mg tablet 5 mg PO BEDTIME 06/07/25 10/18/25 pantoprazole 20 mg tablet,delayed 20 mg PO DAILY@0630 acid reflux 06/07/25 10/18/25 release triamcinolone acetonide 0.5 % 1 appl topical BID PRN Inflammation 06/07/25 10/18/25 topical cream acetaminophen 325 mg tablet 650 mg PO Q4-6H PRN pain 10/18/25 10/18/25 bupropion HCl 100 mg tablet,12 hr 100 mg PO BID 10/18/25 10/18/25 sustained-release hydroxyzine HCl 25 mg tablet 25 - 50 mg PO BID PRN anxiety 10/18/25 10/18/25 ondansetron HCl 4 mg tablet 4 mg PO Q12H PRN nausea/vomiting 10/18/25 10/18/25 Previous Rx's ?Medication ?Instructions ?Recorded fenofibrate 54 mg tablet 54 mg PO DAILY #90 tabs 06/13/25 Allergies Allergy/AdvReac Type Severity Reaction Status Date / Time amoxicillin Allergy Hives Verified 10/18/25 11:19 Review of Systems Review of Systems Yes all other systems are reviewed and are negative PMFSH Past Medical History Attestation statement: The following information was validated with the patient. Source: old records reviewed Medical History Hypertriglyceridemia Alcohol abuse Mood disorder Opioid abuse Alcohol use disorder Social History Social History Household Members: Family Housing: House Do you presently have visiting nurse or other home services: No Alcohol intake: current Alcohol intake frequency: 3 or more drinks per day Alcohol type: hard liquor Patient Tobacco Use Status: Never used Tobacco Tobacco use type: Cigarette Smoked in Last 30 Days: No e-Cigarette/Vaping Use: Never Used Second Hand Smoke Exposure: No Use of substances other than those prescribed or required for medical reasons: Yes Substance Use Type: IV Drugs and Painkillers Substance Use Frequency: Chronic Longstanding Last Used Substance: Just Prior to Admission Currently Displaying Signs/Symptoms of Drug Intoxication Withdrawal: No Any prior treatment program specific to substance use: Yes Have you been hit, kicked, punched, or otherwise hurt by someone within the past year? If so, by whom?: No Do you feel safe in your current relationship?: Yes Is there a partner from a previous relationship who is making you feel unsafe now?: No Are you made to feel afraid or neglected: No Advance Directives: No Advance Directives Information Provided: Yes Do you have a plan to hurt others: No Plan Recently lost weight without trying: No Eating poorly because of decreased appetite: Yes Nutrition Risks: Acute nausea or vomiting x1 week Patient : No : No Poor oral hygiene: No service: No Physical Exam ED Vital Signs: Vital Signs - 24 hr 10/18/25 11:18 10/18/25 13:21 10/18/25 13:58 Temperature 98 F 97.5 F Pulse Rate 98 73 Respiratory Rate 16 20 14 Blood Pressure 137/96 H 130/94 H Pulse Oximetry 97 97 Oxygen Delivery Method Room Air Room Air 10/18/25 14:04 Temperature Pulse Rate Respiratory Rate 12 Blood Pressure Pulse Oximetry Oxygen Delivery Method BMI result Body Mass Index 32.9 Course Course Course Narrative: 34-year-old female with past medical history of opiate use disorder, alcohol use disorder, ammonia, pancreatitis from ETOH use disorder, she is very unclear states her last drink was 2 nights ago. She reports her last alcohol withdrawal seizure was about 1 month ago. She arrives states she is out of it with nausea and vomiting for for the past 2 days. She states she has upper abdominal pain as well. She denies any bloody stools but notes her stools are black. She states she is going to have a alcohol withdrawal seizure on arrival to the triage area. At this time we will with the charge nurse know. Reyna labs are ordered as well as IV thiamine, IV magnesium, IV Valium, IV fluids and IV Protonix. She is also on methadone and took her dose this morning. She states she has been vomiting and not able to keep her benzodiazepines down as well. this is a RAPID medical screening exam the rest of the history and physical exam is to be done by the main provider. 11:19 AM 10/18/2025 (TARI HAMPTON): Medical Decision Making Lab Data 10/18/25 11:37 10/18/25 11:37 Labs: Lab Results 10/18/25 10/18/25 Range/Units 11:37 14:34 WBC 6.2 (4.8-10.8) X10*3/uL RBC 4.21 (4.20-5.50) X10*6/uL Hgb 13.8 (12.0-16.0) g/dl Hct 38.2 (37.0-47.0) % MCV 90.7 (80.0-98.0) fL MCH 32.8 (27.0-33.0) pg MCHC 36.1 H (31.0-35.0) g/dl RDW 13.5 (11.0-16.0) % Plt Count 214 (160-400) X10*3/uL MPV 10.3 (9.4-12.3) fL Immature Gran % (Auto) 0.3 (0.0-0.4) % Neut % (Auto) 59.7 (45-73) % Lymph % (Auto) 31.6 (20-40) % [place] % (Auto) 6.9 (2-11) % Eos % (Auto) 1.0 (0-4) % Baso % (Auto) 0.5 (0-2) % Lymph # (Auto) 2.0 (1.2-4.9) X10*3/uL [place] # (Auto) 0.4 (0.1-1.2) X10*3/uL Eos # (Auto) 0.1 (0.0-0.4) X10*3/uL Baso # (Auto) 0.0 (0.0-0.2) X10*3/uL Abs Immat Gran (auto) 0.02 (0.00-0.03) X10*3/uL Absolute Neuts (auto) 3.7 (2.0-8.3) x10*3/uL Absolute Nucleated RBC 0.000 (0.0-0.012) X10*3/uL Nucleated RBC % (auto) 0.0 (0.0-0.2) /100WBC Sodium 135 (135-145) mmol/L Potassium 4.4 D (3.3-5.1) mmol/L Chloride 101 (96-108) mmol/L Carbon Dioxide 23 (22-29) mmol/L Anion Gap 15 (12-20) BUN 19 H (9-16) mg/dL Creatinine 0.78 (0.5-1.4) mg/dL Estim Creat Clear Calc 98.7 Estimated GFR > 60 Random Glucose 143 H (60-115) mg/dL Calcium 8.5 D (8.4-10.2) mg/dL Magnesium 1.7 (1.6-2.6) mg/dL Total Bilirubin 0.4 (0.0-1.0) mg/dL Direct Bilirubin 0.1 (0.0-0.5) mg/dL AST 544 H (5-31) U/L ALT 313 H (0-31) U/L Alkaline Phosphatase 115 (39-117) U/L Lactate Dehydrogenase 449 H (122-220) U/L Total Protein 7.9 (6.5-8.0) g/dL Albumin 4.0 (3.5-5.0) g/dL Lipase 134 H (8-78) U/L Beta HCG, Quant < 2 mIU/mL Urine Color Yellow Urine Appearance Cloudy Urine pH 5.0 (5.0-9.0) Ur Specific [place] 1.015 (1.005-1.025) Urine Protein Trace (Neg-Trace) mg/dL Urine Glucose (UA) Negative (Negative) mg/dL Urine Ketones Negative (Negative) mg/dL Urine Blood Large (3+) H (Negative) Urine Nitrite Negative (Negative) Ur Leukocyte Esterase Negative (Negative) Urine RBC >20 H (0-2) /HPF Urine WBC 0-5 (0-5) /HPF Ur Squamous Epith Cells 3-5 (0-2) /HPF Urine Bacteria Trace (None Seen) Hyaline Casts 0-2 (0-2) /LPF Ur N gonorrhoeae DNA (PCR) NOT DETECTED (Not Detect.) Urine Opiates Screen POSITIVE H (Not Detect) Ur Buprenorphine Scrn Not Detected (Not Detect) ng/mL Ur Oxycodone Screen Not Detected (Not Detect) ng/mL Urine Methadone Screen Positive H (Not Detect) ng/mL Urine Fentanyl Screen POSITIVE H (Not Detect) Ur Barbiturates Screen Not Detected (Not Detect) Ur Phencyclidine Scrn Not Detected (Not Detect) Ur Amphetamines Screen Not Detected (Not Detect) U Benzodiazepines Scrn POSITIVE H (Not Detect) Urine Cocaine Screen Not Detected (Not Detect) U Marijuana (THC) Screen Not Detected (Not Detect) Ethyl Alcohol 85 mg/dL Ur Chlamydia DNA (PCR) NOT DETECTED (Not Detect.) Medications Administered Generic Name Dose Route Start Last Admin Trade Name Freq PRN Reason Stop Dose Admin Acetaminophen 650 mg 10/18/25 18:26 10/18/25 20:11 Acetaminophen 325 Mg Tablet PO 650 mg Q6H PRN Administration Pain, Mild 1-3,fever,headache Bupropion HCl 150 mg 10/19/25 09:00 10/19/25 08:51 Bupropion Hcl Xl 150 Mg Tab.Er.24h PO 150 mg DAILY SCAR Administration Calcium Carbonate 750 mg 10/18/25 18:26 10/19/25 00:06 Calcium Carbonate 750 Mg Tab.Chew PO 750 mg Q4H PRN Administration Heartburn Enoxaparin Sodium 40 mg 10/18/25 19:00 10/18/25 20:10 Enoxaparin Sodium 40 Mg/0.4 Ml Syringe SUBCUT 40 mg Q24H SCAR Administration Fenofibrate 54 mg 10/19/25 09:00 10/19/25 08:50 Fenofibrate 54 Mg Tablet PO 54 mg DAILY SCAR Administration Folic Acid 1 mg 10/19/25 09:00 10/19/25 08:50 Folic Acid 1 Mg Tablet PO 10/22/25 08:59 1 mg DAILY SCAR Administration Gabapentin 300 mg 10/18/25 21:00 10/18/25 20:10 Gabapentin 300 Mg Capsule PO 300 mg BEDTIME SCAR Administration Hydroxyzine HCl 25 - 50 mg 10/18/25 17:45 10/18/25 20:10 Hydroxyzine Hcl 25 Mg Tablet PO 25 mg BID PRN Administration Anxiety Lactated Ringer's 1,000 mls @ 100 mls/hr 10/18/25 16:15 10/19/25 02:56 Lr IVCONT 100 mls/hr .Q10H SCAR Administration Lorazepam 1 mg 10/19/25 03:09 10/19/25 03:15 Lorazepam 1 Mg Tablet PO 10/23/25 03:08 1 mg Q4H PRN Administration Breakthrough alcohol withdrawa Melatonin 6 mg 10/18/25 21:00 10/18/25 21:13 Melatonin 3 Mg Tablet PO 6 mg BEDTIME SCAR Administration Methadone HCl 120 mg 10/19/25 08:00 10/19/25 07:23 Methadone Hcl 20 Mg/2 Ml Oral.Conc PO 120 mg DAILY@0800 SCAR Administration Morphine Sulfate 4 mg 10/18/25 16:11 10/19/25 07:23 Morphine Sulfate 4 Mg/Ml Cartridge IVPUSH 4 mg Q4H PRN Administration Pain, Severe (Pain Scale 7-10) Protocol Multivitamins/Vitamin C 1 tab 10/19/25 09:00 10/19/25 08:51 Multivitamin Tablet PO 10/22/25 08:59 1 tab DAILY SCAR Administration Omeprazole 20 mg 10/19/25 06:30 10/19/25 06:05 Omeprazole 20 Mg Capsule.Dr PO 20 mg DAILY@0630 SCAR Administration Ondansetron HCl 4 mg 10/18/25 18:26 10/19/25 06:05 Ondansetron Hcl 4 Mg/2 Ml Vial IVPUSH 4 mg Q8H PRN Administration Nausea and Vomiting Phenobarbital 45 mg 10/19/25 09:00 10/19/25 08:50 Phenobarbital 15 Mg Tablet PO 10/20/25 21:01 45 mg BID SCAR Administration Sodium Chloride 3 ml 10/19/25 00:00 10/19/25 07:09 0.9 % Sodium Chloride Flush 3 Ml Syringe IVFLUSH Not Given QSHIFT SCAR Thiamine HCl 100 mg 10/19/25 09:00 10/19/25 08:50 Thiamine Hcl 100 Mg Tablet PO 100 mg DAILY SCAR Administration Discontinued Medications Generic Name Dose Route Start Last Admin Trade Name Freq PRN Reason Stop Dose Admin Diazepam 10 mg 10/18/25 11:19 10/18/25 11:56 Diazepam 10 Mg/2 Ml Cartridge IVPUSH 10/18/25 11:20 10 mg STAT STA Administration Fentanyl 100 mcg 10/18/25 13:53 10/18/25 14:04 Fentanyl Citrate/Pf 100 Mcg/2 Ml Vial IVPUSH 10/18/25 13:54 100 mcg ONCE ONE Administration Protocol Hydromorphone HCl 0.5 mg 10/18/25 15:50 10/18/25 16:47 Hydromorphone Hcl 0.5 Mg/0.5 Ml Syringe IVPUSH 10/18/25 15:51 0.5 mg ONCE ONE Administration Protocol Lactated Ringer's 1,000 mls @ 999 mls/hr 10/18/25 11:19 10/18/25 12:56 Lr IV 10/18/25 12:19 Infused .Q1H1M ONE Infusion Thiamine HCl 200 mg/ Sodium 102 mls @ 204 mls/hr 10/18/25 11:19 10/18/25 12:25 Chloride IV 10/18/25 11:48 Infused ONCE ONE Infusion Magnesium Sulfate 2 gm in 50 mls @ 25 mls/hr 10/18/25 11:19 10/18/25 14:26 Magnesium Sulfate/H2o IV 10/18/25 13:18 Infused ONCE ONE Infusion Lactated Ringer's 1,000 mls @ 999 mls/hr 10/18/25 11:21 10/18/25 13:50 Lr IV 10/18/25 12:21 Infused .Q1H1M ONE Infusion Morphine Sulfate 6 mg 10/18/25 13:01 10/18/25 13:21 Morphine Sulfate 10 Mg/Ml Cartridge IVPUSH 10/18/25 13:02 6 mg ONCE ONE Administration Protocol Ondansetron HCl 4 mg 10/18/25 13:01 10/18/25 13:22 Ondansetron Hcl 4 Mg/2 Ml Vial IVPUSH 10/18/25 13:02 4 mg ONCE ONE Administration Pantoprazole Sodium 40 mg 10/18/25 11:19 10/18/25 11:56 Pantoprazole Sodium 40 Mg/10 Ml Vial IVPUSH 10/18/25 11:20 40 mg ONCE ONE Administration Phenobarbital Sodium 160 mg 10/18/25 18:30 10/18/25 18:27 Phenobarbital Sodium 130 Mg/Ml Im Once IM 10/18/25 18:31 160 mg ONCE ONE Administration Phenobarbital Sodium 120 mg 10/18/25 21:30 10/19/25 00:05 Phenobarbital Sodium 130 Mg/Ml Vial Im Q3hx2 IM 10/19/25 00:31 120 mg Q3H SCAR Administration Discharge Plan Discharge Clinical Impression: Pancreatitis Qualifiers: Chronicity: acute Pancreatitis type: alcohol induced Acute pancreatitis complication: unspecified Qualified Code(s): K85.20 - Alcohol induced acute pancreatitis without necrosis or infection Patient Disposition: Admitted As Inpatient Interventions: Admission Worksheet (ED) Last Done: 10/18/25 19:09 Discharge Date/Time: 10/18/25 19:49
[2025-10-18 11:43] LABS: MANUAL DIFF FLAG NO
[2025-10-18 11:46] LABS: Hematocrit 38.2 % (37.0-47.0); Hemoglobin 13.8 g/dl (12.0-16.0); Imm Gran Abs Auto 0.02 X10*3/uL (0.00-0.03); Imm Gran Pct Auto 0.3 % (0.0-0.4); Lymphocytes Absolute Auto 2.0 X10*3/uL (1.2-4.9); Mean Corpuscular HGB Conc 36.1 g/dl (31.0-35.0); Mean Corpuscular Hemoglobin 32.8 pg (27.0-33.0); Mean Corpuscular Volume 90.7 fL (80.0-98.0); NRBC Abs Auto 0.000 X10*3/uL (0.0-0.012); NRBC Pct Auto 0.0 /100WBC (0.0-0.2); Platelet Count 214 X10*3/uL (160-400); Red Blood Count 4.21 X10*6/uL (4.20-5.50); White Blood Count 6.2 X10*3/uL (4.8-10.8)
[2025-10-18] MEDS: Thiamine HCL 200 MG in 0.9 % Sodium Chloride 100 ML 204 MG IV (11:55)
[2025-10-18] MEDS: diazePAM 10 MG/2 ML CARTRIDGE IVPUSH (11:56)
[2025-10-18] MEDS: Lactated Ringers 1,000 ML 999 ML IV ×2 (11:56→12:50)
[2025-10-18] MEDS: Magnesium Sulfate/H2O 2 GM/50 ML PIGGYBACK IV (12:26)
[2025-10-18 12:33] LABS: Alanine Aminotransferase 313 U/L (0-31); Albumin Level 4.0 g/dL (3.5-5.0); Alkaline Phosphatase 115 U/L (39-117); Anion Gap 15 (12-20); Aspartate Amino Transferase 544 U/L (5-31); Blood Urea Nitrogen 19 mg/dL (9-16); Calcium 8.5 mg/dL (8.4-10.2); Carbon Dioxide 23 mmol/L (22-29); Chloride 101 mmol/L (96-108); Creatinine Clr Calc Pharmacy 98.7; Estimated Glomerular Filt Rate > 60; Lipase 134 U/L (8-78); Magnesium 1.7 mg/dL (1.6-2.6); Potassium 4.4 mmol/L (3.3-5.1); Sodium 135 mmol/L (135-145); Total Protein 7.9 g/dL (6.5-8.0)
--- NOTE | 2025-10-18 13:42 | ED.GENADULT ---
HPI - General Adult General Chief complaint: ETOH/Substance Use Stated complaint: pancreatitis Time Seen by Provider: 10/18/25 11:35 Source: patient and old records reviewed Mode of arrival: ambulatory Limitations: no limitations History of Present Illness ED Provider: Dr. Sahni HPI narrative: This is a 34-year-old female history of alcohol use disorder presented hospital today for evaluation of abdominal pain. Patient stated this has been going on for a couple of days. She stated that this is her pancreatitis. The patient has been here multiple times for pancreatitis in the past. She is also complaining of nausea and vomiting as well. Patient is still currently drinks alcohol. Looking for a detox resources as well. Does have history of alcohol seizure withdrawal. Related Data Home Medications ?Medication ?Instructions ?Recorded ?Confirmed alprazolam 2 mg tablet 2 mg PO TID PRN anxiety 07/16/23 10/18/25 methadone 10 mg/mL oral 120 mg PO DAILY 07/16/23 10/18/25 concentrate (Methadose) thiamine HCl (vitamin B1) 100 mg 100 mg PO DAILY 11/16/23 10/18/25 tablet (Vitamin B-1) dextroamphetamine-amphetamine 15 15 mg PO TID PRN Attention/Focus 06/07/25 10/18/25 mg tablet (Adderall) gabapentin 300 mg capsule 300 mg PO BEDTIME 06/07/25 10/18/25 melatonin 5 mg tablet 5 mg PO BEDTIME 06/07/25 10/18/25 pantoprazole 20 mg tablet,delayed 20 mg PO DAILY@0630 acid reflux 06/07/25 10/18/25 release triamcinolone acetonide 0.5 % 1 appl topical BID PRN Inflammation 06/07/25 10/18/25 topical cream acetaminophen 325 mg tablet 650 mg PO Q4-6H PRN pain 10/18/25 10/18/25 bupropion HCl 100 mg tablet,12 hr 100 mg PO BID 10/18/25 10/18/25 sustained-release hydroxyzine HCl 25 mg tablet 25 - 50 mg PO BID PRN anxiety 10/18/25 10/18/25 ondansetron HCl 4 mg tablet 4 mg PO Q12H PRN nausea/vomiting 10/18/25 10/18/25 Previous Rx's ?Medication ?Instructions ?Recorded fenofibrate 54 mg tablet 54 mg PO DAILY #90 tabs 06/13/25 Allergies Allergy/AdvReac Type Severity Reaction Status Date / Time amoxicillin Allergy Hives Verified 10/18/25 11:19 Review of Systems Review of Systems: Pertinent review of systems as mentioned in HPI. All other system otherwise negative. [facility] Past Medical History [facility] Narrative: Medical history as mentioned in HPI Medical History Hypertriglyceridemia Alcohol abuse Mood disorder Opioid abuse Alcohol use disorder Social History Social History Household Members: Family Housing: House Do you presently have visiting nurse or other home services: No Alcohol intake: current Alcohol intake frequency: 3 or more drinks per day Alcohol type: hard liquor Patient Tobacco Use Status: Current someday Tobacco user Tobacco use type: Cigarette Second Hand Smoke Exposure: No Advance Directives: No Advance Directives Information Provided: Yes service: No Physical Exam ED Exam Exam: General: Appears nauseated Head: Normacephalic, atraumatic ENT: oral mucosa moist, neck supple, no tracheal deviation Cardiovascular: regular rate, regular rhythm, no murmurs, rubbing, gallops Respiratory: CTAB, no wheeze, rales, rhonchi Gastrointestinal: Soft, non distended, diffuse abdominal tenderness on palpation Neurological: Awake and alert, no facial droop noted Skin: Warm and dry Psychiatric: Appropriate mood and thoughts Vital Signs: Vital Signs - 24 hr 10/18/25 11:18 10/18/25 13:21 10/18/25 13:58 Temperature 98 F 97.5 F Pulse Rate 98 73 Respiratory Rate 16 20 14 Blood Pressure 137/96 H 130/94 H Pulse Oximetry 97 97 Oxygen Delivery Method Room Air Room Air 10/18/25 14:04 Temperature Pulse Rate Respiratory Rate 12 Blood Pressure Pulse Oximetry Oxygen Delivery Method BMI result Body Mass Index 32.9 Medications Administered Discontinued Medications Generic Name Dose Route Start Last Admin Trade Name Freq PRN Reason Stop Dose Admin Diazepam 10 mg 10/18/25 11:19 10/18/25 11:56 Diazepam 10 Mg/2 Ml Cartridge IVPUSH 10/18/25 11:20 10 mg STAT STA Administration Fentanyl 100 mcg 10/18/25 13:53 10/18/25 14:04 Fentanyl Citrate/Pf 100 Mcg/2 Ml Vial IVPUSH 10/18/25 13:54 100 mcg ONCE ONE Administration Protocol Lactated Ringer's 1,000 mls @ 999 mls/hr 10/18/25 11:19 10/18/25 12:56 Lr IV 10/18/25 12:19 Infused .Q1H1M ONE Infusion Thiamine HCl 200 mg/ Sodium 102 mls @ 204 mls/hr 10/18/25 11:19 10/18/25 12:25 Chloride IV 10/18/25 11:48 Infused ONCE ONE Infusion Magnesium Sulfate 2 gm in 50 mls @ 25 mls/hr 10/18/25 11:19 10/18/25 14:26 Magnesium Sulfate/H2o IV 10/18/25 13:18 Infused ONCE ONE Infusion Lactated Ringer's 1,000 mls @ 999 mls/hr 10/18/25 11:21 10/18/25 13:50 Lr IV 10/18/25 12:21 Infused .Q1H1M ONE Infusion Morphine Sulfate 6 mg 10/18/25 13:01 10/18/25 13:21 Morphine Sulfate 10 Mg/Ml Cartridge IVPUSH 10/18/25 13:02 6 mg ONCE ONE Administration Protocol Ondansetron HCl 4 mg 10/18/25 13:01 10/18/25 13:22 Ondansetron Hcl 4 Mg/2 Ml Vial IVPUSH 10/18/25 13:02 4 mg ONCE ONE Administration Pantoprazole Sodium 40 mg 10/18/25 11:19 10/18/25 11:56 Pantoprazole Sodium 40 Mg/10 Ml Vial IVPUSH 10/18/25 11:20 40 mg ONCE ONE Administration Medical Decision Making Medical Decision Making [facility] Narrative: 34-year-old female history of alcohol use disorder presented hospital today for evaluation of abdominal pain likely secondary to pancreatitis. Plan to give patient some IV fluid, keep patient NPO at this time. IV morphine will be given pain control IV Zofran be given for nausea. We will observe patient for any signs of withdrawal symptoms. Basic lab work at lipase will be obtained assess for any signs of pancreatitis. Patient's lipase is mildly elevated. Electrolytes are within normal limits. Additional IV fentanyl was given for pain control and IV Dilaudid given for pain control. IV fluid was given to the patient as this time. Patient will be admitted to the hospital for her pancreatitis. Differential Diagnosis Differential Diagnoses: The differential diagnosis associated with the presentation includes Pancreatitis, UTI, nephrolithiasis Lab Data [facility] Lab Attestation statement: I reviewed the patient's lab results. 10/18/25 11:37 10/18/25 11:37 Labs: Lab Results 10/18/25 10/18/25 Range/Units 11:37 14:34 WBC 6.2 (4.8-10.8) X10*3/uL RBC 4.21 (4.20-5.50) X10*6/uL Hgb 13.8 (12.0-16.0) g/dl Hct 38.2 (37.0-47.0) % MCV 90.7 (80.0-98.0) fL MCH 32.8 (27.0-33.0) pg MCHC 36.1 H (31.0-35.0) g/dl RDW 13.5 (11.0-16.0) % Plt Count 214 (160-400) X10*3/uL MPV 10.3 (9.4-12.3) fL Immature Gran % (Auto) 0.3 (0.0-0.4) % Neut % (Auto) 59.7 (45-73) % Lymph % (Auto) 31.6 (20-40) % Coleman % (Auto) 6.9 (2-11) % Eos % (Auto) 1.0 (0-4) % Baso % (Auto) 0.5 (0-2) % Lymph # (Auto) 2.0 (1.2-4.9) X10*3/uL Coleman # (Auto) 0.4 (0.1-1.2) X10*3/uL Eos # (Auto) 0.1 (0.0-0.4) X10*3/uL Baso # (Auto) 0.0 (0.0-0.2) X10*3/uL Abs Immat Gran (auto) 0.02 (0.00-0.03) X10*3/uL Absolute Neuts (auto) 3.7 (2.0-8.3) x10*3/uL Absolute Nucleated RBC 0.000 (0.0-0.012) X10*3/uL Nucleated RBC % (auto) 0.0 (0.0-0.2) /100WBC Sodium 135 (135-145) mmol/L Potassium 4.4 D (3.3-5.1) mmol/L Chloride 101 (96-108) mmol/L Carbon Dioxide 23 (22-29) mmol/L Anion Gap 15 (12-20) BUN 19 H (9-16) mg/dL Creatinine 0.78 (0.5-1.4) mg/dL Estim Creat Clear Calc 98.7 Estimated GFR > 60 Random Glucose 143 H (60-115) mg/dL Calcium 8.5 D (8.4-10.2) mg/dL Magnesium 1.7 (1.6-2.6) mg/dL Total Bilirubin 0.4 (0.0-1.0) mg/dL Direct Bilirubin 0.1 (0.0-0.5) mg/dL AST 544 H (5-31) U/L ALT 313 H (0-31) U/L Alkaline Phosphatase 115 (39-117) U/L Lactate Dehydrogenase 449 H (122-220) U/L Total Protein 7.9 (6.5-8.0) g/dL Albumin 4.0 (3.5-5.0) g/dL Lipase 134 H (8-78) U/L Beta HCG, Quant < 2 mIU/mL Urine Color Yellow Urine Appearance Cloudy Urine pH 5.0 (5.0-9.0) Ur Specific [place] 1.015 (1.005-1.025) Urine Protein Trace (Neg-Trace) mg/dL Urine Glucose (UA) Negative (Negative) mg/dL Urine Ketones Negative (Negative) mg/dL Urine Blood Large (3+) H (Negative) Urine Nitrite Negative (Negative) Ur Leukocyte Esterase Negative (Negative) Urine RBC >20 H (0-2) /HPF Urine WBC 0-5 (0-5) /HPF Ur Squamous Epith Cells 3-5 (0-2) /HPF Urine Bacteria Trace (None Seen) Hyaline Casts 0-2 (0-2) /LPF Ur N gonorrhoeae DNA (PCR) NOT DETECTED (Not Detect.) Urine Opiates Screen POSITIVE H (Not Detect) Ur Buprenorphine Scrn Not Detected (Not Detect) ng/mL Ur Oxycodone Screen Not Detected (Not Detect) ng/mL Urine Methadone Screen Positive H (Not Detect) ng/mL Urine Fentanyl Screen POSITIVE H (Not Detect) Ur Barbiturates Screen Not Detected (Not Detect) Ur Phencyclidine Scrn Not Detected (Not Detect) Ur Amphetamines Screen Not Detected (Not Detect) U Benzodiazepines Scrn POSITIVE H (Not Detect) Urine Cocaine Screen Not Detected (Not Detect) U Marijuana (THC) Screen Not Detected (Not Detect) Ethyl Alcohol 85 mg/dL Ur Chlamydia DNA (PCR) NOT DETECTED (Not Detect.) Chronic Conditions alcohol use disorder Social Determinants Patient?s care significantly limited by Social Determinants of Health including: Alcoholism and drug addiction in family Discharge Plan Discharge Clinical Impression: Pancreatitis Patient Disposition: Admitted As Inpatient
[2025-10-18 14:47] LABS: Appearance Urine Cloudy; Glucose Urine UA Negative (Negative); PH 5.0 (5.0-9.0); Specific Gravity - Urine 1.015 (1.005-1.025); UMIC TRIGGER UA YES
[2025-10-18 15:01] LABS: Cannabinoid Screen Urine Not Detected (Not Detect)
--- OUTSIDE RECORDS SUMMARY | 2025-10-18 15:44 | XMS_ITS | Encounter Summary ---
Author Organization [employer] Address [address] [place] [address] [address] [place] [address] Care Team Providers Care Mechanical Engineering Officer Name Role Phone Kenisha Martinez MD Primary Care Provider [phone]- [phone] Reason for Visit * Reason Comments Med Refill Encounter Details Date Type Department Care Team ([facility] Contact Info) Description 09/26/2025 Refill [facility] [address] [place] [address] Kenisha Martinez MD [address] [place] [address] Nausea Social History Tobacco Use Types Packs/Day Years Used Date Smoking Tobacco: Never Smokeless Tobacco: Never Alcohol Use Standard Drinks/Week Comments Not Currently 5 (1 standard drink = 0.6 oz pure alcohol) Stopped drinking since 05/22/23 Housing Stability Answer Date Recorded What is your housing situation today? I have rubyfran carr 08/19/[address] you li ve. Do you have problems with any of the following? None of the above 08/19/2023 Food Insecurity Answer Date Recorded Within the past 12 months, y ou worried that your food would run out before you got money to buy more: Never True 08/19/2023 Within the past 12 months,th e food you bought just didn't last and you didn't have enough money to get more: Never True Transportation Answer Date Recorded In the past 12 months, has l ack of transportation kept you from medical appts, meetings, work or from getting things needed for daily living? No 08/19/2023 Utilities Answer Date Recorded In the past 12 months, has t he electric, gas, oil or water company threatened to shut off services in your home? No 08/19/2023 Comments Unknown Sex and Gender Information Value Date Recorded Sex Assigned at Female 09/02/2022 10:20 AM EDT Legal Sex Female 10:20 AM EDT Gender Identity Female 09/02/2022 10:20 AM EDT Sexual Orientation Choose not to disclose 2021 10:20 AM EDT documented as of this encounter Plan of Treatment Not on file documented as of this encounter Visit Diagnoses Diagnosis Nausea Nausea alone documented in this encounter Care Teams Mechanical Engineering Officer Relationship Specialty Start Date End Date Kenisha Martinez MD [address] [place] [id number] PCP - General Internal Medicine 11/03/18 Josy Chaudhary Medical Records ReceptionistWheel Fitter 07/27/24 documented as of this encounter
--- OUTSIDE RECORDS SUMMARY | 2025-10-18 15:44 | XMS_ITS | Encounter Summary ---
Author Organization [employer] Address [address] [facility] 7t [place] [address] Care Team Providers Care Movie Operator Name Role Phone Kenisha Martinez MD Primary Care Provider [phone] Encounter Details Date Type Department Care Team ([facility] Contact Info) Description 10/18/2025 Orders Only GENERIC EXTERNAL DATA DEPARTMENT Provider, Generic External Data Social History Tobacco Use Types Packs/Day Years [...] on file documented as of this encounter Procedures Procedure Name Priority Date/Time Associated Diagnosis Comments DRUG MONITOR, PANEL 1, SCREEN, URINE Routine 10/18/2025 2:34 PM EST URINALYSIS, COMPLETE (INCLUDES MACRO AND MICRO) Routine 10/18/2025 2:34 PM EST ETHANOL Routine 10/18/2025 11:37 AM EST CBC WITH AUTO DIFFERENTIAL Routine 10/18/2025 11:37 AM EST HCG, TOTAL, QN Routine 10/18/2025 11:37 AM EST MAGNESIUM Routine 10/18/2025 11:37 AM EST LIPASE Routine 10/18/2025 11:37 AM EST LD Routine 10/18/2025 11:37 AM EST HEPATIC FUNCTION PANEL Routine 10/18/2025 11:37 AM EST BASIC METABOLIC PANEL Routine 10/18/2025 11:37 AM EST documented in this encounter Results * (ABNORMAL) Drug Monitoring, Panel 1, Screen, Urine (10/18/2025 2:34 PM EST) Opiate Screen Urine POSITIVE(A) Not Detect [facility] Comment:Opiate cut-off is 30 0 ng/mL.Positive results are unconfirmed and should not be used fornon-medical purposes. Barbiturates, Urine Not Detected Not Detect [facility] Comment:Barbiturate cut-off is 200 ng/mL.Positive results are unconfirmed and should not be used fornon-medical purposes. Phencyclidine Screen Urine Not Detected Not Detect [facility] Comment:Phencyclidine cut-of f is 25 ng/mL.Positive results are unconfirmed and should not be used fornon-medical purposes. Amphetamine Screen Urine Not Detected Not Detect [facility] Comment:Amphetamine cut-off is 1000 ng/mL.Positive results are unconfirmed and should not be used fornon-medical purposes. Benzodiazepines Screen Urine POSITIVE(A) Not Detect [facility] Comment:Benzodiazepine cut-o ff is 200 ng/mL.Positive results are unconfirmed and should not be used fornon-medical purposes. Cocaine Screen Urine Not Detected Not Detect [facility] Comment:Cocaine cut-off is 3 00 ng/mL.Positive results are unconfirmed and should not be used fornon-medical purposes. Cannabinoid Screen Urine Not Detected Not Detect [facility] Comment:Cannabinoid cut-off is 50 ng/mL.Positive results are unconfirmed and should not be used fornon-medical purposes. Methadone Screen, Urine Positive(A) Not Detect ng/mL [facility] Comment:Methadone cut-off is 300 ng/mL.Positive results are unconfirmed and should not be used fornon-medical purposes. FENTANYL URINE POSITIVE(A) Not Detect [facility] Comment:Fentanyl cut-off is 1 ng/mL.Positive results are unconfirmed and should not be used fornon-medical purposes. Oxycodone Urine Screen Not Detected Not Detect ng/mL [facility] Comment:Oxycodone cut-off is 100 ng/mL.Positive results are unconfirmed and should not be used fornon-medical purposes. Buprenorphine Screen Not Detected Not Detect ng/mL [facility] Comment:Buprenorphine cut-of f is 5 ng/mL.Positive results are unconfirmed and should not be used fornon-medical purposes. 10/18/2025 2:34 PM EST 10/18/2025 2:37 PM EST us Generic External Data Provider LAB URINE ORDERAB LES Final Result [facility] [address] [place] [address] [phone] * (ABNORMAL) Urinalysis Complete (10/18/2025 2:34 PM EST) Color Urine Yellow [facility] Appearance Urine Cloudy [facility] PH 5.0 5.0 - 9.0 [facility] Glucose Urine UA Negative Negative mg/dL [facility] Urine Blood Large (3+)(A) Negative [facility] Specific [place] - Urine 1.015 1.005 - 1.025 [facility] Urine Protein Trace Neg-Trace mg/dL [facility] Urine Ketones Negative Negative mg/dL [facility] Nitrite Urine Negative Negative [facility] Leukocyte Esterase Urine Negative Negative [facility] RBC Urine >20(A) 0 - 2 /HPF [facility] Urine WBC 0-5 0 - 5 /HPF [facility] Urine Squamous Epithelial Cell 3-5 0 - 2 /HPF [facility] Urine Bacteria Trace None Seen [facility] Hyaline Casts, Urine 0-2 0 - 2 /LPF [facility] 10/18/2025 2:34 PM EST 10/18/2025 2:37 PM EST Generic External Data Provider LAB URINE ORDERAB LES Final Result Performing Organization Address [facility] de Phone Number [facility] [address] [place] [phone] * Ethanol (10/18/2025 11:37 AM EST) ETHANOL (MG/DL) IN SER/PLAS 85 mg/dL [facility] Comment:Serum/plasma ethanol results are to be used formedical/treatment purposes only. 10/18/2025 11:3 7 AM EST 10/18/2025 11:41 AM EST Generic External Data Provider LAB BLOOD ORDERAB LES Final Result Performing Organization Address [facility] Co de Phone Number [facility] [address] [place] [phone] * (ABNORMAL) Lipase (10/18/2025 11:37 AM EST) Lipase 134(H) 8 - 78 U/L [facility] 10/18/2025 11:3 7 AM EST 10/18/2025 11:41 AM EST Generic External Data Provider LAB BLOOD ORDERAB LES Final Result Performing Organization Address [facility] Co de Phone Number [facility] [address] [place] [phone] * (ABNORMAL) Lactate Dehydrogenase (LD) (10/18/2025 11:37 AM EST) Lactate Dehydrogenase 449(H) 122 - 220 U/L [facility] Comment:Slight Hemolysis.Int erpret result with caution. 10/18/2025 11:3 7 AM EST 10/18/2025 11:41 AM EST Generic External Data Provider LAB BLOOD ORDERAB LES Final Result Performing Organization Address [facility] de Phone Number [facility] [address] [place] [phone] * Magnesium (10/18/2025 11:37 AM EST) Magnesium 1.7 1.6 - 2.6 mg/dL [facility] 10/18/2025 11:3 7 AM EST 10/18/2025 11:41 AM EST Generic External Data Provider LAB BLOOD ORDERAB LES Final Result Performing Organization Address [facility] Phone Number [facility] [address] [place] [phone] * (ABNORMAL) Basic Metabolic Panel (10/18/2025 11:37 AM EST) Sodium 135 135 - 145 mmol/L [facility] Potassium 4.4 3.3 - 5.1 mmol/L [facility] Comment:Slight Hemolysis.Int erpret result with caution. Chloride 101 96 - 108 mmol/L [facility] Carbon Dioxide 23 22 - 29 mmol/L [facility] Anion Gap 15 12 - 20 [facility] Urea Nitrogen (BUN) 19(H) 9 - 16 mg/dL [facility] Creatinine, Serum 0.78 0.5 - 1.4 mg/dL [facility] Creatinine Clr Calc Pharmacy 98.7 [facility] Comment:Provided height and weight: 157.48 cm,81.647 kg.eGFR (calculated from the MDRD study equation) and eCrCl(calculated from the Cockcroft-Gault equation) are based ondifferent parameters and may not yield comparable results.If eCrCl result is absurd, please check patient'sheight/weight. Estimated Glomerular Filt Rate >60 [facility] Comment:Chronic Kidney Disea se: Estimated GFR < 60 mL/min/1.81u5Snahkj Kidney Disease: Estimated GFR < 15 mL/min/1.73m2 Glucose 143(H) 60 - 115 mg/dL [facility] Calcium 8.5 8.4 - 10.2 mg/dL [facility] 10/18/2025 11:3 7 AM EST 10/18/2025 11:41 AM EST us Generic External Data Provider LAB BLOOD ORDERAB LES Final Result [facility] [address] [place] [phone] * (ABNORMAL) Hepatic Function Panel (10/18/2025 11:37 AM EST) Bilirubin, Total 0.4 0.0 - 1.0 mg/dL [facility] Bilirubin, Direct 0.1 0.0 - 0.5 mg/dL [facility] Aspartate Amino Transferase 544(H) 5 - 31 U/L [facility] Comment:Slight Hemolysis.Int erpret result with caution. Alanine Aminotransferase 313(H) 0 - 31 U/L [facility] Total Protein 7.9 6.5 - 8.0 g/dL [facility] Albumin Level 4.0 3.5 - 5.0 g/dL [facility] Alkaline Phosphatase 115 39 - 117 U/L [facility] 10/18/2025 11:3 7 AM EST 10/18/2025 11:41 AM EST Generic External Data Provider LAB BLOOD ORDERAB LES Final Result Performing Organization Address [facility] Co de Phone Number [facility] [address] [place] [phone] * hCG, Total, Quantitative (10/18/2025 11:37 AM EST) Pathologist [facility] HCG Quantitative <2 mIU/mL [facility] Comment:Weeks post LMP Appro ximate hCG(Last Menstrual Period) Range (mIU/ml)3 - 4 weeks 9 - 1304 - 5 weeks 75 - 2,6005 - 6 weeks 850 - 20,8006 - 7 weeks 4000 - 100,2007 - 12 weeks 11,500 - 289,98588 - 16 weeks 18,300 - 137,17257 - 29 weeks (2nd trimester) 1,400 - 53,65126 - 41 weeks (3rd trimester) 940 - 60,000The Lombardo B- hCG assay is used for the early detection ofpregnancy; it cannot be used to diagnose any conditionunrelated to . If a B-hCG level is not supportedby the clinical evidence, results should be confirmed by analternative method (qualitative urine hCG, for example). 10/18/2025 11:3 7 AM EST 10/18/2025 11:41 AM EST Generic External Data Provider LAB BLOOD ORDERAB LES Final Result Performing Organization Address [facility] de Phone Number [facility] [address] [place] [phone] * (ABNORMAL) CBC auto differential (10/18/2025 11:37 AM EST) Pathologist [facility] White Blood Count 6.2 4.8 - 10.8 X10*3/uL [facility] Red Blood Count 4.21 4.20 - 5.50 X10*6/uL [facility] Hemoglobin 13.8 12.0 - 16.0 g/dl [facility] Hematocrit 38.2 37.0 - 47.0 % [facility] Mean Corpuscular Volume 90.7 80.0 - 98.0 fL [facility] Mean Corpuscular Hemoglobin 32.8 27.0 - 33.0 pg [facility] Mean Corpuscular HGB Conc 36.1(H) 31.0 - 35.0 g/dl [facility] Red Cell Distribution Width 13.5 11.0 - 16.0 % [facility] Platelet Count 214 160 - 400 X10*3/uL [facility] Mean Platelet Volume 10.3 9.4 - 12.3 fL [facility] Neutrophils Percent Auto 59.7 45 - 73 % [facility] Imm Gran Pct Auto 0.3 0.0 - 0.4 % [facility] Lymphocytes Percent Auto 31.6 20 - 40 % [facility] Monocytes Percent Auto 6.9 2 - 11 % [facility] Eosinophils Percent Auto 1.0 0 - 4 % [facility] Basophils Percent Auto 0.5 0 - 2 % [facility] NRBC Pct Auto 0.0 0.0 - 0.2 /100WBC [facility] Neutrophils Absolute Auto 3.7 2.0 - 8.3 x10*3/uL [facility] Imm Gran Abs Auto 0.02 0.00 - 0.03 X10*3/uL [facility] Lymphocytes Absolute Auto 2.0 1.2 - 4.9 X10*3/uL [facility] Monocytes Absolute Auto 0.4 0.1 - 1.2 X10*3/uL [facility] Eosinophils Absolute Auto 0.1 0.0 - 0.4 X10*3/uL [facility] Basophils Absolute Auto 0.0 0.0 - 0.2 X10*3/uL [facility] NRBC Abs Auto 0.000 0.0 - 0.012 X10*3/uL [facility] 10/18/2025 11:3 7 AM EST 10/18/2025 11:41 AM EST us Generic External Data Provider LAB BLOOD ORDERAB LES Final Result Performing Organization Address City/State/[facility] Co de Phone Number [facility] [address] [place] [phone] documented in this encounter Visit Diagnoses Not on filedocumented in this encounter Care Teams Movie Operator Relationship Specialty Start Date End Date Kenisha Martinez MD [address] [place] [phone] PCP - General Internal Medicine 11/03/18 Josy Chaudhary Budget AccountantCommunication Manager 07/27/24 documented as of this encounter
--- OUTSIDE RECORDS SUMMARY | 2025-10-18 15:44 | XMS_ITS | Encounter Summary ---
Author Organization [employer] Address [address] [place] [phone] Care Team Providers Care Insulation Engineman Name Role Phone Kenisha Martinez MD Primary Care Provider Lisbet Cuevas Unavailable Lisbet Cuevas Unavailable Reason for Visit * Reason Onset Date Comments Appointment Request 03/06/2023 Encounter Details Date Type Department Care Team ([facility] st Contact Info) Description 03/06/2023 Telephone [facility] [address] [place] [address] Kenisha Martinez MD [address] [place] [address] Appointment Request Social History Tobacco Use Types Packs/Day Years Used Date Smoking Tobacco: Never Assessed Comments Unknown Sex and Gender Information Value Date Recorded Sex Assigned at Female 09/02/2022 10:20 AM EDT Legal Sex Female 10:20 AM EDT Gender Identity Female 09/02/2022 10:20 AM EDT Sexual Orientation Choose not to disclose 2021 10:20 AM EDT documented as of this encounter Miscellaneous Notes * Telephone Encounter - Az Weber - 03/06/2023 1:53 PM EDT Tc from pt requesting to r/s appt on 03/06/23 Please contact pt at [phone] documented in this encounter Plan of Treatment Not on file documented as of this encounter Visit Diagnoses Not on filedocumented in this encounter Care Teams Insulation Engineman Relationship Specialty Start Date End Date Kenisha Martinez MD [address] [place] [phone] PCP - General Internal Medicine 11/03/18 Lisbet Cuevas 06/07/25 06/17/25 Lisbet Cuevas 08/05/25 08/12/25 Josy Chaudhary Chopper FeederPerishable Fruit Inspector 07/27/24 documented as of this encounter
--- OUTSIDE RECORDS SUMMARY | 2025-10-18 15:44 | XMS_ITS | Encounter Summary ---
Author Organization [employer] Address [address] [place] [address] [place] [address] Care Team Providers Care Lens Blocker Name Role Phone Kenisha Martinez MD Primary Care Provider Lisbet Cuevas Unavailable Lisbet Cuevas Unavailable Encounter Details Date Type Department Care Team (Late st Contact Info) Description 07/22/2023 Abstract [facility] P[facility]S [address] [place] [phone] Kenisha Martinez MD [address] [place] [address] Social History Tobacco Use Types Packs/Day Years Used Date Smoking Tobacco: Never Smokeless Tobacco: Never Alcohol Use Standard Drinks/Week Comments Not Currently 5 (1 standard drink = 0.6 oz pure alcohol) Stopped drinking since 05/22/23 Comments Unknown Sex and Gender Information Value [...] on filedocumented in this encounter Care Teams Lens Blocker Relationship Specialty Start Date End Date Kenisha Martinez MD [address] [place] [address] PCP - General Internal Medicine 11/03/18 Lisbet Cuevas 06/07/25 06/17/25 Lisbet Cuevas 08/05/25 08/12/25 Josy Chaudhary Infantry AssaultmanBuilder'S Labourer 07/27/24 documented as of this encounter
--- OUTSIDE RECORDS SUMMARY | 2025-10-18 15:44 | XMS_ITS | Encounter Summary ---
Author Organization [employer] Address [address] [facility] [place] [address] Care Team Providers Care Cryptological Technician Name Role Phone Kenisha Martinez MD Primary Care Provider [phone] Lisbet Cuevas Unavailable Lisbet Cuevas Unavailable Encounter Details Date Type Department Care Team ([facility] st Contact Info) Description 11/23/2024 Orders Only [facility] [address] [place] [address] Provider, MD Siri Social History Tobacco Use Types Packs/Day Years Used Date Smoking Tobacco: Never Smokeless Tobacco: Never Alcohol Use Standard Drinks/Week Comments Not Currently 5 (1 standard drink = 0.6 oz pure alcohol) Stopped drinking since 05/22/23 Housing Stability Answer Date Recorded What is your housing situation today? I have ruby carr 08/19/[address] you [...] Procedure Name Priority Date/Time Associated Diagnosis Comments ECG 12-LEAD Routine 11/20/2024 10:07 AM EST documented in this encounter Results * ECG 12 lead (11/20/2024 10:07 AM EST) us Historical Provider ECG ORDERABLES Final Res ult documented in this encounter Visit Diagnoses Not on filedocumented in this encounter Care Teams Cryptological Technician Relationship Specialty Start Date End Date Kenisha Martinez MD [address] [place] [phone] PCP - General Internal Medicine 11/03/18 Lisbet Cuevas 06/07/25 06/17/25 Lisbet Cuevas 08/05/25 08/12/25 Josy Chaudhary Door TrimmerRailroad Purchasing Agent 07/27/24 documented as of this encounter
--- OUTSIDE RECORDS SUMMARY | 2025-10-18 15:44 | XMS_ITS | Encounter Summary ---
Author Organization [employer] Address [address] [place] [address] [address] [place] [address] Care Team Providers Care Paint Supervisor Name Role Phone Kenisha Martinez MD Primary Care Provider Lisbet Cuevas Unavailable Lisbet Cuevas Unavailable Reason for Visit * Reason Onset Date Comments Med Refill 10/16/2023 Encounter Details Date Type Department Care Team ([facility] st Contact Info) Description 10/16/2023 Refill [facility] MED [facility] PEDS [address] [place] [address] Kenisha Martinez MD [address] [place] [address] Nausea Social History Tobacco Use Types Packs/Day [...] encounter Miscellaneous Notes * Telephone Encounter - Elizabeth Fitzpatrick - 10/16/2023 4:50 PM EST Tc from pt requesting med refill on ondansetron ODT (Zofran-ODT) 4 MG disintegrating tablet acamprosate (Campral) 333 MG EC tablet Methocarbamol 750 mg Tablet Ibuprofen 800 mg tablet Doxyclycine hydate 100 mg tablet Please sent to [facility] [place] [place], [place] - [address] [place] [address] documented in this encounter Plan of Treatment Not on file documented as of this encounter Visit Diagnoses Diagnosis Nausea Nausea alone documented in this encounter Care Teams Paint Supervisor Relationship Specialty Start Date End Date Kenisha Martinez MD [address] [place] [phone] PCP - General Internal Medicine 11/03/18 Lisbet Cuevas 06/07/25 06/17/25 Lisbet Cuevas 08/05/25 08/12/25 Josy Chaudhary Aircraft Inspection Record ClerkBulb Grower 07/27/24 documented as of this encounter
--- OUTSIDE RECORDS SUMMARY | 2025-10-18 15:44 | XMS_ITS | Encounter Summary ---
Author Organization [employer] Address [address] [place] [address] [address] [place] [address] Care Team Providers Care Paper Cone Maker Name Role Phone Kenisha Martinez MD Primary Care Provider [phone] Lisbet Cuevas Unavailable Lisbet Cuevas Unavailable Encounter Details Date Type Department Care Team ([facility] Contact Info) Description 11/24/2024 Orders Only [facility] [address] [place], [place] [phone] Provider, MD Siri Social History Tobacco Use [...] Date/Time Associated Diagnosis Comments ECG 12-LEAD Routine 11/19/2024 9:16 AM EST documented in this encounter Results * ECG 12 lead (11/19/2024 9:16 AM EST) us Historical Provider ECG ORDERABLES Final Res ult documented in this encounter Visit Diagnoses Not on filedocumented in this encounter Care Teams Paper Cone Maker Relationship Specialty Start Date End Date Kenisha Martinez MD [address] [place] [phone] PCP - General Internal Medicine 11/03/18 Lisbet Cuevas 06/07/25 06/17/25 Lisbet Cuevas 08/05/25 08/12/25 Josy Chaudhary Credit Risk SpecialistArchitectural Design Professor 07/27/24 documented as of this encounter
--- OUTSIDE RECORDS SUMMARY | 2025-10-18 15:44 | XMS_ITS | Encounter Summary ---
Author Organization [employer] Address [address] [place] [address] [address] [place] [address] Care Team Providers Care Rigger Chief Name Role Phone Kenisha Martinez MD Primary Care Provider Lisbet Cuevas Unavailable Reason for Visit * Reason Comments Med Refill Encounter Details Date Type Department Care Team ([facility] st Contact Info) Description 08/03/[address] [facility] MED & PEDS [address] [place] [address] Kenisha Martinez MD [address] [place] [address] Nausea Social History Tobacco Use Types Packs/Day [...] alone documented in this encounter Care Teams Rigger Chief Relationship Specialty Start Date End Date Kenisha Martinez MD [address] [place] [phone] PCP - General Internal Medicine 11/03/18 Lisbet Cuevas 08/05/25 08/12/25 Josy Chaudhary Elementary Special Education TeacherPlastic Molding Operator 07/27/24 documented as of this encounter
--- OUTSIDE RECORDS SUMMARY | 2025-10-18 15:45 | XMS_ITS | Clinical Summary ---
Author Organization [employer] Address [address] [place] [address] Care Team Providers Care Warehouse Distribution Specialist Name Role Phone Kenisha Martinez MD Primary Care Provider [phone] Allergies Active Allergy Reactions Criticality Noted Date Comments Codeine 11/30/2012 Other reaction(s): rash Penicillin G 11/30/2012 Other reaction(s): rash Medications * This document contains information received from the source organization and may not represent a complete record from that organization. albuterol (ProAir HFA) 108 (90 Base) MCG/ACT inhaler Inhale 2 puffs every 4 (four) hours if needed. 0 Active methadone (Dolophine) 10 MG/ML solution Take 80 mg po daily Active ALPRAZolam (Xanax) 2 MG tablet Take 1 tablet by mouth if needed in the morning, at noon, in the evening, and at bedtime for anxiety. 3 Active thiamine (,Vitamin B-1,) 100 MG tablet Take 1 tablet by mouth 1 (one) time each day. 3 Active Diclofenac Sodium 1 % gelIndications:Lef t wrist pain To apply to the affected area 3 times a day 100 g 1 3 Active famotidine (Pepcid) 20 MG tabletIndications: Nausea Take 1 tablet (20 mg) by mouth 2 times daily. 60 tablet 11 3 Active ibuprofen 400 MG tablet Take 1 tablet (400 mg) by mouth every 6 (six) hours if needed for moderate pain. 60 tablet 1 3 Active methocarbamol (Robaxin) 750 MG tablet Take 1 tablet (750 mg) by mouth 4 times daily for 10 days. 40 tablet 3 Active folic acid (Folvite) 1 MG tablet Take 1 tablet (1,000 mcg) by mouth in the morning. 30 tablet 3 3 Active melatonin 3 MG tablet Take 1 tablet (3 mg) by mouth at bedtime. 30 tablet 3 3 Active amphetamine-dextro amphetamine (Adderall) 15 MG tablet Take 1 tablet by mouth if needed in the morning, at noon, and at bedtime. 5 Active disulfiram (Antabuse) 250 MG tablet Take 1 tablet by mouth Once per day. Active DULoxetine (Cymbalta) [address] capsule Take 1 capsule by mouth Once per day. 5 Active Multiple Vitamin (Multivitamin) tablet Take 1 tablet by mouth Once per day. 5 Active triamcinolone (Kenalog) 0.1 % cream APPLY TOPICALLY TO THE AFFECTED AREA TWICE DAILY FOR 10 DAYS 5 Active gabapentin (Neurontin) 300 MG capsule TAKE 1 CAPSULE(300 MG) BY MOUTH IN THE EVENING 30 capsule 1 5 Active ondansetron ODT (Zofran-ODT) 4 MG disintegrating tabletIndications: Nausea DISSOLVE 1 TABLET ON THE TONGUE EVERY 8 HOURS NEEDED FOR NAUSEA OR VOMITING 20 tablet 1 5 Active ondansetron (Zofran) 4 MG tabletIndications: Nausea TAKE 1 TABLET BY MOUTH EVERY 12 HOURS NEEDED FOR NAUSEA OR VOMITING 20 tablet 5 Active Active Problems Problem Noted Date Diagnosed Date Anemia 09/16/2024 Anxiety 09/16/2024 History of depression 09/16/2024 History of opioid abuse 09/16/2024 History of varicose veins 09/16/2024 Marijuana use 09/16/2024 Obstructive sleep apnea 09/16/2024 PTSD (post-traumatic stress disorder) 09/16/2024 Tobacco abuse 09/16/2024 Class 2 obesity with body ma ss index (BMI) of 36.0 to 36.9 in adult 10/02/2022 Hepatitis C virus infection without hepatic coma 10/02/2022 Backache 12/12/2014 Encounters Date Type Department Care Team Description 10/18/2025 Orders Only GENERIC EXTERNAL DATA DEPARTMENT Provider, Generic External Data 09/26/[address] [facility] [address] [place] [address] Kenisha Martinez MD Nausea 08/31/[address] [facility] [address] [place] [address] Kenisha Martinez MD No Show 08/31/[address] [facility] [address] [place], [place] [phone] Kenisha Martinez MD 08/31/[address] [facility] [address] [place], [place] [phone] Kenisha Martinez MD Nausea 08/31/2025 Travel 08/24/[address] [facility] [address] [place] [address] Kenisha Martinez MD Nurse Triage 08/12/[address] [facility] [address] [place] [address] Kenisha Martinez MD Care Coordination (Communication to patient assigned ) 08/08/[address] [facility] [address] [place] [address] Kenisha Martinez MD Hospital Follow-up 08/05/[address] [facility] [address] [place] [address] Kenisha Martinez MD Care Coordination ([facility] ED Follow up) 08/05/[address] [facility] [address] [place] [address] Kenisha Martinez MD Care Coordination (CP Care Coordination Chart Review) 08/05/2025 Patient Outreach [facility] [address] [place] [phone] Kenisha Martinez MD 08/03/2025 Telephone [facility] [address] [place] [phone] Kenisha Martinez MD Med Refill; Medication Question 08/03/[address] [facility] [address] [place] [address] Kenisha Martinez MD Nausea from Last 3 Months Immunizations Immunization Administration Dates Next Due Influenza Injectable Quadriv alant Preservative Free IIV4 MDCK 08/08/2018 Influenza injectable quadriv alent IIV4 with preservative 08/02/2016 Influenza injectable quadrivalent preservative f ree 09/06/2019,08/02/2017 Tdap 09/20/2020 Social History Tobacco Use Types Packs/Day Years Used Date Smoking Tobacco: Never Smokeless Tobacco: Never Tobacco Cessation:Counseling Given: No Alcohol Use Standard Drinks/Week Comments Not Currently [...] not to disclose 2021 10:20 AM EDT Last Filed Vital Signs Vital Sign Reading Time Taken Comments Blood Pressure 127/82 04/27/2024 11:22 AM EDT Pulse 98 04/27/2024 11:22 AM EDT Temperature 36.3 C (97.3 F) 04/27/2024 11:22 AM EDT Respiratory Rate 19 04/27/2024 11:22 AM EDT Oxygen Saturation 97% 04/27/2024 11:22 AM EDT Inhaled Oxygen Concentration - - Weight 85.7 kg (189 lb) 04/27/2024 11:22 AM EDT Height 157.5 cm (5' 2 ) 04/27/2024 11:22 AM EDT Body Mass Index 34.57 04/27/2024 11:22 AM EDT Plan of Treatment Health Maintenance Due Date Last Done Comments Depression Screening 1988 Lipid Panel 1988 Disability Screening 1988 Alcohol/Substance Use Screening 2000 Family Planning (PISQ) 2003 HPV Vaccines (1 - 3-dose series) 2003 Hepatitis A Vaccines (1 of 2 - Risk 2-dose series) 2007 Hepatitis B Vaccines (1 of 3 - 19+ 3-dose series) 2007 Pneumococcal Vaccine: Pediatrics (0 to 5 Years) and At-Risk Patients (6 to 49) Years (1 of 2 - PCV) 2007 Dental Oral Exam 12/17/2014 06/15/2014, 12/25/2011 Dental X-Ray: Bitewings 06/16/2015 06/15/2014, 12/25 Dental Prophylaxis 07/08/2015 01/04/2015, 06/29/2014 Dental X-Ray: Full Mouth 09/29/2017 09/28/2014, 12/05 SDOH Screening 05/13/2024 05/13/2023 Tobacco Screening 04/27/2025 04/27/2024 Cervical Cancer Screening 05/30/2025 HPV/Cotest 05/30/2025 05/30/2020 Pap Smear 05/30/2025 05/30/2020 COVID-19 Vaccine ( - season) 2025 Influenza Vaccine (#1) 2025 9, 08/08/2018, 08/02/2017, Additional history exists DTaP/Tdap/Td Vaccines (2 - Td or Tdap) 09/20/2030 09/20/2020 Zoster Vaccines (1 of 2) 2038 RSV Patients and Patients Aged 60 years or older (1 - 1-dose 75+ series) 2063 HIV Screening Completed 02/03/2024, 01/31/2022 HIB Vaccines Aged Out No longer eligi ble based on patient's age to complete this topic IPV Vaccines Aged Out No longer eligi ble based on patient's age to complete this topic Meningococcal B Vaccine Aged Out No l onger eligible based on patient's age to complete this topic Meningococcal Vaccine Aged Out No clarissa taran eligible based on patient's age to complete this topic RSV under 20 months Aged Out No longe r eligible based on patient's age to complete this topic Rotavirus Vaccines Aged Out No longer eligible based on patient's age to complete this topic Procedures Procedure Name Priority Date/Time Associated Diagnosis Comments DRUG MONITOR, PANEL 1, SCREEN, URINE Routine 10/18/2025 2:34 PM EST URINALYSIS, COMPLETE (INCLUDES MACRO AND MICRO) Routine 10/18/2025 2:34 PM EST ETHANOL Routine 10/18/2025 11:37 AM EST LIPASE Routine 10/18/2025 11:37 AM EST LD Routine 10/18/2025 11:37 AM EST MAGNESIUM Routine 10/18/2025 11:37 AM EST BASIC METABOLIC PANEL Routine 10/18/2025 11:37 AM EST HEPATIC FUNCTION PANEL Routine 10/18/2025 11:37 AM EST HCG, TOTAL, QN Routine 10/18/2025 11:37 AM EST CBC WITH AUTO DIFFERENTIAL Routine 10/18/2025 11:37 AM EST HIV 1/2 ANTIGEN/ANTIBODY, FOURTH GENERATION W/RFL Routine 02/03/2024 2:50 PM EDT Screen for STD (sexually transmitted disease) HM PAP/HPV Routine 05/30/2020 PROPHYLAXIS - ADULT Routine 01/04/2015 1 2:00 AM EST PANORAMIC RADIOGRAPHIC IMAGE Routine 09/28/2014 12:00 AM EST BITEWINGS - 4 RADIOGRAPHIC IMAGES Routine 06/15/2014 12:00 AM EDT PERIODIC ORAL EVALUATION - ESTABLISHED PATIENT Routine 06/15/2014 12:00 AM EDT from Last 3 Months or Most Recently Relevant to Health Maintenance Results * (ABNORMAL) Drug Monitoring, Panel 1, Screen, Urine (10/18/2025 2:34 PM EST) Pathologist [facility] Opiate Screen Urine POSITIVE(A) Not Detect [facility] Comment:Opiate cut-off is 30 0 ng/mL.Positive results are unconfirmed and should not be used fornon-medical purposes. Barbiturates, Urine Not Detected Not Detect [facility] Comment:Barbiturate cut-off is 200 ng/mL.Positive results are unconfirmed and should not be used fornon-medical purposes. Phencyclidine Screen Urine Not Detected Not Detect [facility] Comment:Phencyclidine cut-of f is 25 ng/mL.Positive results are unconfirmed and should not be used fornon-medical purposes. Amphetamine Screen Urine Not Detected Not Detect [facility] Comment:Amphetamine cut-off is 1000 ng/mL.Positive results are unconfirmed and should not be used fornon-medical purposes. Benzodiazepines Screen Urine POSITIVE(A) Not Detect [facility] Comment:Benzodiazepine cut-o ff is 200 ng/mL.Positive results are unconfirmed and should not be used fornon-medical purposes. Cocaine Screen Urine Not Detected Not Detect [facility] Comment:Cocaine cut-off is 3 00 ng/mL.Positive results are unconfirmed and should not be used fornon-medical purposes. Cannabinoid Screen Urine Not Detected Not Detect [facility] Comment:Cannabinoid cut-off is 50 ng/mL.Positive results are unconfirmed and should not be used fornon-medical purposes. Methadone Screen, Urine Positive(A) Not Detect ng/mL [facility] Comment:Methadone cut-off is 300 ng/mL.Positive results are unconfirmed and should not be used fornon-medical purposes. FENTANYL URINE POSITIVE(A) Not Detect [facility] Comment:Fentanyl cut-off is 1 ng/mL.Positive results are unconfirmed and should not be used fornon-medical purposes. Oxycodone Urine Screen Not Detected Not Detect ng/mL [facility] Comment:Oxycodone cut-off is 100 ng/mL.Positive results are unconfirmed and should not be used fornon-medical purposes. Buprenorphine Screen Not Detected Not Detect ng/mL [facility] Comment:Buprenorphine cut-of f is 5 ng/mL.Positive results are unconfirmed and should not be used fornon-medical purposes. 10/18/2025 2:34 PM EST 10/18/2025 2:37 PM EST us Generic External Data Provider LAB URINE ORDERAB LES Final Result [facility] [address] [place] [phone] * (ABNORMAL) Urinalysis Complete (10/18/2025 2:34 PM EST) Color Urine Yellow [facility] Appearance Urine Cloudy [facility] PH 5.0 5.0 - 9.0 [facility] Glucose Urine UA Negative Negative mg/dL [facility] Urine Blood Large (3+)(A) Negative [facility] Specific [place] - Urine 1.015 1.005 - 1.025 [facility] Urine Protein Trace Neg-Trace mg/dL [facility] Urine Ketones Negative Negative mg/dL [facility] Nitrite Urine Negative Negative [facility] Leukocyte Esterase Urine Negative Negative [facility] RBC Urine >20(A) 0 - 2 /HPF [facility] Urine WBC 0-5 0 - 5 /HPF [facility] Urine Squamous Epithelial Cell 3-5 0 - 2 /HPF [facility] Urine Bacteria Trace None Seen [facility] Hyaline Casts, Urine 0-2 0 - 2 /LPF [facility] 10/18/2025 2:34 PM EST 10/18/2025 2:37 PM EST us Generic External Data Provider LAB URINE ORDERAB LES Final Result Performing Organization Address [facility]/ZIP Co de Phone Number [facility] [address] [place] [phone] [phone] * Ethanol (10/18/2025 11:37 AM EST) ETHANOL (MG/DL) IN SER/PLAS 85 mg/dL [facility] Comment:Serum/plasma ethanol results are to be used formedical/treatment purposes only. 10/18/2025 11:3 7 AM EST 10/18/2025 11:41 AM EST Generic External Data Provider LAB BLOOD ORDERAB LES Final Result Performing Organization Address [facility] Co de Phone Number [facility] [address] [place] [phone] * (ABNORMAL) CBC auto differential (10/18/2025 11:37 AM EST) White Blood Count 6.2 4.8 - 10.8 X10*3/uL [facility] Red Blood Count 4.21 4.20 - 5.50 X10*6/uL [facility] Hemoglobin 13.8 12.0 - 16.0 g/dl [facility] Hematocrit 38.2 37.0 - 47.0 % [facility] Mean Corpuscular Volume 90.7 80.0 - 98.0 fL [facility] Mean Corpuscular Hemoglobin 32.8 27.0 - 33.0 pg [facility] Mean Corpuscular HGB Conc 36.1(H) 31.0 - 35.0 g/dl [facility] Red Cell Distribution Width 13.5 11.0 - 16.0 % [facility] Platelet Count 214 160 - 400 X10*3/uL [facility] Mean Platelet Volume 10.3 9.4 - 12.3 fL [facility] Neutrophils Percent Auto 59.7 45 - 73 % [facility] Imm Gran Pct Auto 0.3 0.0 - 0.4 % [facility] Lymphocytes Percent Auto 31.6 20 - 40 % [facility] Monocytes Percent Auto 6.9 2 - 11 % [facility] Eosinophils Percent Auto 1.0 0 - 4 % [facility] Basophils Percent Auto 0.5 0 - 2 % [facility] NRBC Pct Auto 0.0 0.0 - 0.2 /100WBC [facility] Neutrophils Absolute Auto 3.7 2.0 - 8.3 x10*3/uL [facility] Imm Gran Abs Auto 0.02 0.00 - 0.03 X10*3/uL [facility] Lymphocytes Absolute Auto 2.0 1.2 - 4.9 X10*3/uL [facility] Monocytes Absolute Auto 0.4 0.1 - 1.2 X10*3/uL [facility] Eosinophils Absolute Auto 0.1 0.0 - 0.4 X10*3/uL [facility] Basophils Absolute Auto 0.0 0.0 - 0.2 X10*3/uL [facility] NRBC Abs Auto 0.000 0.0 - 0.012 X10*3/uL [facility] 10/18/2025 11:3 7 AM EST 10/18/2025 11:41 AM EST us Generic External Data Provider LAB BLOOD ORDERAB LES Final Result [facility] [address] [place] [phone] * hCG, Total, Quantitative (10/18/2025 11:37 AM EST) HCG Quantitative <2 mIU/mL [facility] Comment:Weeks post LMP Appro ximate hCG(Last Menstrual Period) Range (mIU/ml)3 - 4 weeks 9 - 1304 - 5 weeks 75 - 2,6005 - 6 weeks 850 - 20,8006 - 7 weeks 4000 - 100,2006 - 12 weeks 11,500 - 289,35206 - 16 weeks 18,300 - 137,36689 - 29 weeks (2nd trimester) 1,400 - 53,64665 - 41 weeks (3rd trimester) 940 - [...] ORDERAB LES Final Result Performing Organization Address [facility] Phone Number [facility] [address] [place] [phone] * Magnesium (10/18/2025 11:37 AM EST) Magnesium 1.7 1.6 - 2.6 mg/dL [facility] 10/18/2025 11:3 7 AM EST 10/18/2025 11:41 AM EST Generic External Data Provider LAB BLOOD ORDERAB LES Final Result Performing Organization Address [facility] Phone Number [facility] [address] [place] [phone] * (ABNORMAL) Lipase (10/18/2025 11:37 AM EST) Lipase 134(H) 8 - 78 U/L [facility] 10/18/2025 11:3 7 AM EST 10/18/2025 11:41 AM EST Generic External Data Provider LAB BLOOD ORDERAB LES Final Result Performing Organization Address [facility] de Phone Number [facility] [address] [place] [phone] * (ABNORMAL) Lactate Dehydrogenase (LD) (10/18/2025 11:37 AM EST) Lactate Dehydrogenase 449(H) 122 - 220 U/L [facility] Comment:Slight Hemolysis.Int erpret result with caution. 10/18/2025 11:3 7 AM EST 10/18/2025 11:41 AM EST Generic External Data Provider LAB BLOOD ORDERAB LES Final Result Performing Organization Address [facility] Co de Phone Number [facility] [address] [place] [phone] * (ABNORMAL) Hepatic Function Panel (10/18/2025 11:37 AM EST) [facility] Bilirubin, Total 0.4 0.0 - 1.0 mg/dL [facility] Bilirubin, Direct 0.1 0.0 - 0.5 mg/dL [facility] Aspartate Amino Transferase 544(H) 5 - 31 U/L [facility] Comment:Slight Hemolysis.Int erpret result with caution. Alanine Aminotransferase 313(H) 0 - 31 U/L [facility] Total Protein 7.9 6.5 - 8.0 g/dL [facility] Albumin Level 4.0 3.5 - 5.0 g/dL [facility] Alkaline Phosphatase 115 39 - 117 U/L [facility] 10/18/2025 11:3 7 AM EST 10/18/2025 11:41 AM EST [employer] External Data Provider LAB BLOOD ORDERAB LES Final Result Performing Organization Address [facility] Co de Phone Number [facility] [address] [place] [phone] * (ABNORMAL) Basic Metabolic Panel (10/18/2025 11:37 AM EST) Pathologist [facility] Sodium 135 135 - 145 mmol/L [facility] Potassium 4.4 3.3 - 5.1 mmol/L [facility] Comment:Slight Hemolysis.Int erpret result with caution. Chloride 101 96 - 108 mmol/L [facility] Carbon Dioxide 23 22 - 29 mmol/L [facility] Anion Gap 15 12 - 20 [facility] Urea Nitrogen (BUN) 19(H) 9 - 16 mg/dL [facility] Creatinine, Serum 0.78 0.5 - 1.4 mg/dL [facility] Creatinine Clr Calc Pharmacy 98.7 [facility] Comment:Provided height and weight: 157.48 cm,81.647 kg.eGFR (calculated from the MDRD study equation) and eCrCl(calculated from the Cockcroft-Gault equation) are based ondifferent parameters and may not yield comparable results.If eCrCl result is absurd, please check patient'sheight/weight. Estimated Glomerular Filt Rate >60 [facility] Comment:Chronic Kidney Disea se: Estimated GFR < 60 mL/min/[id number] Kidney Disease: Estimated GFR < 15 mL/min/1.73m2 Glucose 143(H) 60 - 115 mg/dL [facility] Calcium 8.5 8.4 - 10.2 mg/dL [facility] 10/18/2025 11:3 7 AM EST 10/18/2025 11:41 AM EST us Generic External Data Provider LAB BLOOD ORDERAB LES Final Result [facility] [address] [place] [phone] * HIV-1/2 Antigen and Antibodies, Fourth Generation, with Reflexes (02/03/2024 2:50 PM EDT) HIV AB/AG Nonreactive Nonreactive [facility] Comment:HIV-1 p24 Ag and/or HIV-1/HIV-2 Ab not detected.A test result that is nonreactive does not exclude thepossibility of exposure to or infection with HIV-1 and/orHIV-2. Nonreactive results in this assay for individualswith prior exposure to HIV-1 and/or HIV-2 may be due toantigen and antibody levels that are below the limit ofdetection of this assay.The [employer] Sp[employer] Alinity HIV Ag/Ab Combo assay result andsupplemental assay results should be interpreted inconjunction with the patient's clinical presentation,history and other laboratory results. If the results areinconsistent with clinical evidence, additional testing issuggested to confirm the result. Blood Venous blood specimen / Unknown 02/03/2024 2:50 PM EDT 02/03/2024 5:53 PM EDT us Kenisha Martinez MD LAB BLOOD ORDERABLES Final Result [facility] [address] [place] [address] [phone] * Pap Smear (05/30/2020) Pap Negative for intraephithelial lesion or malignancy Negative for intraephithelial lesion or malignancy, Other HPV Undetected Undetected, Indeterminate, Quantitative, Not Detected Historical Provider HEALTH MAINTENANCE Final Result from Last 3 Months or Most Recently Relevant to Health Maintenance Insurance [facility] [place] AD[place] Care Teams Warehouse Distribution Specialist Relationship Specialty Start Date End Date Kenisha Martinez MD [address] [place] [phone] PCP - General Internal Medicine 11/03/18 Josy Chaudhary Tire Service TechnicianBar Porter 07/27/24
--- OUTSIDE RECORDS SUMMARY | 2025-10-18 15:45 | XMS_ITS | Encounter Summary ---
Author Organization [employer] Address [address] [facility] [address] [place] [address] Care Team Providers Care Motor Driver Name Role Phone Kenisha Martinez MD Primary Care Provider [phone] Lisbet Cuevas Unavailable Lisbet Cuevas Unavailable Reason for Visit * Reason Onset Date Comments Referral 09/17/2024 Encounter Details Date Type Department Care Team ([facility] st Contact Info) Description 09/17/2024 Telephone [facility] [address] [place] [address] Kenisha Martinez MD [address] [place] [address] Referral Social History Tobacco Use Types Packs/Day Years [...] encounter Miscellaneous Notes * Telephone Encounter - Suri Peck - 09/17/2024 4:14 PM EST PT-1 submitted for patient. They will receive a letter of approval or denial in the mail. * Telephone Encounter - Keeley Peck - 09/17/2024 8:49 AM EST Patient calling requesting PT1 Home Address verified: Y/N: Yes Provider name or facility name: Kenisha Martinez Escort needed: Y/N: No Do you have a wheelchair: Y/N: No If yes- Manual or electric: Visits: (3x monthly ) documented in this encounter Plan of Treatment Not on file documented as of this encounter Visit Diagnoses Not on filedocumented in this encounter Care Teams Motor Driver Relationship Specialty Start Date End Date Kenisha Martinez MD [address] [place] [phone] PCP - General Internal Medicine 11/03/18 Lisbet Cuevas 06/07/25 06/17/25 Lisbet Cuevas 08/05/25 08/12/25 Josy Chaudhary Adjunct Political Science InstructorWood Machinist 07/27/24 documented as of this encounter
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
--- OUTSIDE RECORDS SUMMARY | 2025-10-18 15:45 | XMS_ITS | Encounter Summary ---
Author Organization [employer] Address [address] [place] [address] 7 [place] [address] Care Team Providers Care Crime Victim Specialist Name Role Phone Kenisha Martinez MD Primary Care Provider Lisbet Cuevas Unavailable Lisbet Cuevas Unavailable Encounter Details Date Type Department Care Team (Late st Contact Info) Description 02/06/2024 Orders Only [facility] [address] [place], [place] [phone] Kenisha Martinez MD [address] [place] [address] Bacterial vaginosis (Primary Dx); Screen for STD (sexually transmitted disease) Social History Tobacco Use Types Packs/Day Years [...] as of this encounter Plan of Treatment Scheduled Orders Name Type Priority Associated Diagnoses Orde r Schedule hCG, Total, Quantitative Lab Routine Screen for STD (sexually transmitted disease) Expected: 02/07/2024 (Approximate), Expires: 02/06/2025 documented as of this encounter Visit Diagnoses Diagnosis Bacterial vaginosis- Primary Unspecified vaginitis and vulvovaginitis Screen for STD (sexually transmitted disease) Screening examination for venereal disease documented in this encounter Care Teams Crime Victim Specialist Relationship Specialty Start Date End Date Kenisha Martinez MD [address] [place] [id number] PCP - General Internal Medicine 11/03/18 Lisbet Cuevas 06/07/25 06/17/25 Lisbet Cuevas 08/05/25 08/12/25 Josy Chaudhary Income Tax AuditorMysql Database Administrator 07/27/24 documented as of this encounter
--- OUTSIDE RECORDS SUMMARY | 2025-10-18 15:45 | XMS_ITS | Encounter Summary ---
Author Organization [employer] Address [address] [facility] 7 [place] [address] Care Team Providers Care Head Of Strategy Name Role Phone Kenisha Martinez MD Primary Care Provider Lisbet Cuevas Unavailable Lisbet Cuevas Unavailable Encounter Details Date Type Department Care Team (Late st Contact Info) Description 10/20/2024 Telephone [facility] [address] [place] [address] Kenisha Martinez MD [address] [place], [place] [phone] Social History Tobacco Use Types Packs/Day Years [...] on filedocumented in this encounter Care Teams Head Of Strategy Relationship Specialty Start Date End Date Kenisha Martinez MD [address] [place] [address] PCP - General Internal Medicine 11/03/18 Lisbet Cuevas 06/07/25 06/17/25 Lisbet Cuevas 08/05/25 08/12/25 Josy Chaudhary Drum Loader And UnloaderGroup Social Worker 07/27/24 documented as of this encounter
--- OUTSIDE RECORDS SUMMARY | 2025-10-18 15:45 | XMS_ITS | Encounter Summary ---
Author Organization [employer] Address [address] [place] [address] 7 [place] [address] Care Team Providers Care Spring Coiler Name Role Phone Kenisha Martinez MD Primary Care Provider [phone] Lisbet Cuevas Unavailable Lisbet Cuevas Unavailable Encounter Details Date Type Department Care Team ([facility] Contact Info) Description 07/06/2024 Orders Only [facility] [address] [place], [place] [phone] Provider, MD Siri Social History Tobacco Use [...] Procedure Name Priority Date/Time Associated Diagnosis Comments XR CHEST PORTABLE Routine 07/02/2024 9:33 AM EDT documented in this encounter Results * XR Chest Portable (07/02/2024 9:33 AM EDT) Anatomical Region Laterality Modality Radiographic Ivonne ging us Historical Provider MD LEARY XR PROCEDURES Final R esult documented in this encounter Visit Diagnoses Not on filedocumented in this encounter Care Teams Spring Coiler Relationship Specialty Start Date End Date Kenisha Martinez MD [address] [place] [id number] PCP - General Internal Medicine 11/03/18 Lisbet Cuevas 06/07/25 06/17/25 Lisbet Cuevas 08/05/25 08/12/25 Josy Chaudhary Wafer CleanerApplication Development Director 07/27/24 documented as of this encounter
--- OUTSIDE RECORDS SUMMARY | 2025-10-18 15:45 | XMS_ITS | Encounter Summary ---
Author Organization [employer] Address [address] [place] [address] 7 [place] [address] Care Team Providers Care Oxygen Equipment Technician Name Role Phone Kenisha Martinez MD Primary Care Provider [phone] Lisbet Cuevas Unavailable Lisbet Cuevas Unavailable Reason for Visit * Reason Onset Date Comments Appointment Request 03/02/2024 Encounter Details Date Type Department Care Team ([facility] Contact Info) Description 03/02/[address] [facility] [address] [place] [address] Kenisha Martinez MD [address] [place] [address] Appointment Request Social History Tobacco Use Types [...] encounter Miscellaneous Notes * Telephone Encounter - Nori Deep - 03/02/2024 10:07 AM EDT Tc from pt requesting to schedule a derm appointment for eczema. Please contact pt at [phone] documented in this encounter Plan of Treatment Not on file documented as of this encounter Visit Diagnoses Not on filedocumented in this encounter Care Teams Oxygen Equipment Technician Relationship Specialty Start Date End Date Kenisha Martinez MD [address] [place] [address] PCP - General Internal Medicine 11/03/18 Lisbet Cuevas 06/07/25 06/17/25 Lisbet Cuevas 08/05/25 08/12/25 Josy Chaudhary Power Generation Equipment RepairerBuilding Estimator 07/27/24 documented as of this encounter
--- NOTE | 2025-10-18 15:55 | HE.PHANOTE ---
Re Methadone Received verification from nursing. Pt gets 120mg from [facility]. Was dosed on 10/13 and given 6 take home bottles. Did take her dose this morning 10/18/25.
--- NOTE | 2025-10-18 16:01 | PM.IMHP ---
History of Present Illness Date of Service: 10/18/25 Attending physician on admission: [facility] Chief Complaint: Alcohol withdrawal Pt is a 34-year-old female with a PMH significant for alcohol use disorder with hx of alcoholic pancreatitis,?opioid use disorder methadone, ADHD, and disorder who presents to the ED seeking controlled detox from alcohol use. Pt with a long hx of alcohol use disorder. Reports has been sober for approximately 3 months after last admission, though recently relapsed at started drinking a sleeve or more daily for the past month. Pt reports he attempted to stop drinking on her own 3 days ago. Began experiencing nausea, vomiting, and severe diffuse abdominal pain for the past 2 days. Reports feels like pins and needles in her upper extremities. Has been having both auditory and visual hallucinations including ?hearing the ocean?, seeing ?floaters and flashes of light?, as well as feeling restless and has been unable to sleep or sit still. Reports hx alcoholic pancreatitis and states that this feels similar to those episodes. Also complains of increased anxiety, SOB, and occasional sharp and stabbing chest pain. ? In the ED pt's vitals were significant for Labs were significant for AST 544, ALT 313, lactate dehydrogenase 449, and lipase 134. UA negative for UTI. Tox screen positive for opiates,, fentanyl, and benzos. Ethyl alcohol level 85 at time of presentation at 11:37. CT?of abdomen and pelvis showed acute pancreatitis. Pt was treated in the ED with thiamine, IVF, diazepam, Protonix, magnesium, morphine, ondansetron, and fentanyl. Pt is admitted to the hospital for treatment and evaluation of acute alcoholic pancreatitis and acute alcohol withdrawal. Review of Systems Review of Systems: Negative except for that which is stated in the HPI. [facility] Medical History Hypertriglyceridemia Alcohol abuse Mood disorder Opioid abuse Alcohol use disorder Social History Household Members: Family Housing: House Do you presently have visiting nurse or other home services: No Alcohol intake: current Alcohol intake frequency: 3 or more drinks per day Alcohol type: hard liquor Patient Tobacco Use Status: Current someday Tobacco user Tobacco use type: Cigarette Smoked in Last 30 Days: No Second Hand Smoke Exposure: No Use of substances other than those prescribed or required for medical reasons: Yes Substance Use Type: IV Drugs and Painkillers Substance Use Frequency: Chronic Longstanding Last Used Substance: Just Prior to Admission Any prior treatment program specific to substance use: Yes Advance Directives: No Advance Directives Information Provided: Yes Patient : No service: No Meds Allergies Allergy/AdvReac Type Severity Reaction Status Date / Time amoxicillin Allergy Hives Verified 10/18/25 11:19 Home Medications ?Medication ?Instructions ?Recorded ?Confirmed ?Last Taken ?Type alprazolam 2 mg tablet 2 mg PO TID PRN anxiety 07/16/23 10/18/25 Unknown History methadone 10 mg/mL oral 120 mg PO DAILY 07/16/23 10/18/25 10/18/25 09:00 History concentrate (Methadose) thiamine HCl (vitamin B1) 100 mg 100 mg PO DAILY 11/16/23 10/18/25 10/18/25 History tablet (Vitamin B-1) dextroamphetamine-amphetamine 15 15 mg PO TID PRN Attention/Focus 06/07/25 10/18/25 Unknown History mg tablet (Adderall) gabapentin 300 mg capsule 300 mg PO BEDTIME 06/07/25 10/18/25 10/17/25 History melatonin 5 mg tablet 5 mg PO BEDTIME 06/07/25 10/18/25 10/17/25 History pantoprazole 20 mg tablet,delayed 20 mg PO DAILY@0630 acid reflux 06/07/25 10/18/25 10/18/25 History release triamcinolone acetonide 0.5 % 1 appl topical BID PRN Inflammation 06/07/25 10/18/25 Unknown History topical cream acetaminophen 325 mg tablet 650 mg PO Q4-6H PRN pain 10/18/25 10/18/25 Unknown History bupropion HCl 100 mg tablet,12 hr 100 mg PO BID 10/18/25 10/18/25 10/18/25 History sustained-release hydroxyzine HCl 25 mg tablet 25 - 50 mg PO BID PRN anxiety 10/18/25 10/18/25 Unknown History ondansetron HCl 4 mg tablet 4 mg PO Q12H PRN nausea/vomiting 10/18/25 10/18/25 Unknown History Physical Exam Vital Signs and Narrative: Vital Signs: Last Vital Signs Temp 97.5 F 10/18/25 13:58 Pulse 73 10/18/25 13:58 Resp 12 10/18/25 14:04 BP 130/94 H 10/18/25 13:58 Pulse Ox 97 10/18/25 13:58 O2 Del Method Room Air 10/18/25 13:58 BMI result Body Mass Index 32.9 General: AOx3, no acute distress Resp: CTA bilaterally CVS: S1, S2, RRR GI: +BS, diffuse abd pain, primarily right-sided Skin: Warm, dry Neuro: Cranial nerves II-XII grossly intact bilaterally. Motor grossly intact bilaterally. No upper extremity tremors noted. Extremities: No edema Psych: Anxious Results Labs 10/18/25 11:37 10/18/25 11:37 Labs: Laboratory Results - last 24 hr 10/18/25 10/18/25 11:37 14:34 MCV 90.7 MCH 32.8 MCHC 36.1 H RDW 13.5 Plt Count 214 MPV 10.3 Immature Gran % (Auto) 0.3 Neut % (Auto) 59.7 Lymph % (Auto) 31.6 Dupage % (Auto) 6.9 Eos % (Auto) 1.0 Baso % (Auto) 0.5 Lymph # (Auto) 2.0 Dupage # (Auto) 0.4 Eos # (Auto) 0.1 Baso # (Auto) 0.0 Abs Immat Gran (auto) 0.02 Absolute Neuts (auto) 3.7 Absolute Nucleated RBC 0.000 Nucleated RBC % (auto) 0.0 Anion Gap 15 Estim Creat Clear Calc 98.7 Estimated GFR > 60 Random Glucose 143 H Calcium 8.5 D Magnesium 1.7 Total Bilirubin 0.4 Direct Bilirubin 0.1 AST 544 H ALT 313 H Alkaline Phosphatase 115 Lactate Dehydrogenase 449 H Total Protein 7.9 Albumin 4.0 Lipase 134 H Beta HCG, Quant < 2 Urine Color Yellow Urine Appearance Cloudy Urine pH 5.0 Ur Specific Somers 1.015 Urine Protein Trace Urine Glucose (UA) Negative Urine Ketones Negative Urine Blood Large (3+) H Urine Nitrite Negative Ur Leukocyte Esterase Negative Urine RBC >20 H Urine WBC 0-5 Ur Squamous Epith Cells 3-5 Urine Bacteria Trace Hyaline Casts 0-2 Urine Opiates Screen POSITIVE H Ur Buprenorphine Scrn Not Detected Ur Oxycodone Screen Not Detected Urine Methadone Screen Positive H Urine Fentanyl Screen POSITIVE H Ur Barbiturates Screen Not Detected Ur Phencyclidine Scrn Not Detected Ur Amphetamines Screen Not Detected U Benzodiazepines Scrn POSITIVE H Urine Cocaine Screen Not Detected U Marijuana (THC) Screen Not Detected Ethyl Alcohol 85 Assessment and Plan (1) Alcoholic pancreatitis: Status: Acute Plan Pt is a 34-year-old female with a PMH significant for alcohol use disorder with hx of alcoholic pancreatitis,?opioid use disorder methadone, ADHD, and disorder who presents to the ED seeking controlled detox from alcohol use. Pt is admitted to the hospital for treatment and evaluation of acute alcoholic pancreatitis and acute alcohol withdrawal. Acute alcoholic pancreatitis As seen on CT; transaminitis, lipase 134 Analgesics, antiemetics, IVF Clear liquid diet for now, advance as tolerated Acute alcohol withdrawal Pt drinking 1+ sleeves daily; reports attempted to stop drinking on her own with last drink 3 days ago; EToH level 85 at time of presetnaton Initiate Phenobarb protocol Daily multivitamin, folic acid, thiamine, famotidine Follow lytes, Mag, BMP CIWA scale Addiction medicine consult Monitor on telemetry Polysubstance use disorder Continue methadone Mood disorder Continue Bupropion Hold alprazolam for now, though consider resuming if pt extremely anxious Full Code Attending:?Dr. Pearson DVT Prophylaxis: Lovenox Pt will require a hospitalization of at least two nights for treatment of?acute alcoholic pancreatitis as well as alcohol withdrawal requiring IV analgesics, IV fluids, and controlled detox from alcohol use with phenobarb protocol and close cardiac monitoring. Quality Stroke Does the patient have a stroke diagnosis?: No VTE Prior VTE?: No VTE Risk Level:: Medical - moderate - high VTE Device Contraindication: Treatment Not Indicated VTE Drug Contraindication: N/A - Med Ordered
[2025-10-18 16:13] LABS: CT PCR Urine NOT DETECTED (Not Detect.); NG PCR Urine NOT DETECTED (Not Detect.)
--- NOTE | 2025-10-18 16:13 | PHA.MEDREC ---
Addendum entered by Storm Cohen [facility] 10/18/25 16:31: Med rec reviewed Original Note: Pharmacy Consult ? Medication Reconciliation Pharmacy has completed the medication reconciliation. Spoke with pt and she confirmed her medications. Pt confirmed she is still taking/has at home Fenofibrate 54mg tabs she takes once for her Cholesterol; Last time she picked up from her pharmacy ([facility]) was 06/18 for 90 days, she is still taking Pantoprazole 20mg 1 daily; PT last got that from her pharmacy 06/04 for 90 days and she confirmed she is taking Methadone, 160mg once daily and gets that from a Methadone clinic in [place].
[2025-10-18] MEDS: Lactated Ringers 1,000 ML 100 ML IVCONT (16:48)
--- NOTE | 2025-10-18 17:40 | PC.NURSE ---
Hospitalist at bedside at this time.
[2025-10-18] MEDS: PHENobarbitaL sodium 130 MG/ML IM ONCE 160 MG IM (18:27)
[2025-10-18 19:38] LABS: Troponin-I High Sensitivity < 2.7 ng/L (<3.5-17.0)
[2025-10-18] MEDS: PHENobarbitaL sodium 130 MG/ML VIAL IM Q3Hx2 120 MG IM (21:13)
[2025-10-18] MEDS: 0.9 % Sodium Chloride Flush 3 ML SYRINGE IVFLUSH (21:32)
[2025-10-19] MEDS: PHENobarbitaL sodium 130 MG/ML VIAL IM Q3Hx2 120 MG IM (00:05)
[2025-10-19] MEDS: Lactated Ringers 1,000 ML 100 ML IVCONT ×2 (02:56→16:20)
[2025-10-19 03:37] VITALS: BP 156/95; PULSE 77; RESP 18; TEMP 36.2; O2SAT 93
[2025-10-19 06:51] VITALS: BP 126/77; PULSE 74; RESP 16; TEMP 36.7; O2SAT 98
[2025-10-19] MEDS: methADONE HCl 20 MG/2 ML ORAL.CONC 120 MG PO (07:23)
[2025-10-19] MEDS: PHENobarbital 15 MG TABLET 45 MG PO ×2 (08:50→20:59)
[2025-10-19] MEDS: buPROPion HCl XL 150 MG TAB.ER.24H PO (08:51)
[2025-10-19 10:20] LABS: Alanine Aminotransferase 204 U/L (0-31); Albumin Level 3.7 g/dL (3.5-5.0); Alkaline Phosphatase 108 U/L (39-117); Anion Gap 13 (12-20); Aspartate Amino Transferase 277 U/L (5-31); Blood Urea Nitrogen 14 mg/dL (9-16); Calcium 8.4 mg/dL (8.4-10.2); Carbon Dioxide 23 mmol/L (22-29); Chloride 100 mmol/L (96-108); Creatinine Clr Calc Pharmacy 96.6; Estimated Glomerular Filt Rate > 60; Lipase 188 U/L (8-78); Magnesium 1.7 mg/dL (1.6-2.6); Potassium 4.1 mmol/L (3.3-5.1); Sodium 132 mmol/L (135-145); Total Protein 7.1 g/dL (6.5-8.0)
--- NOTE | 2025-10-19 12:17 | MHC.RECOVRN ---
TW met with pt in 368-1 after consult placed to Addiction Medicine for polysubstance use On approach, pt is laying in bed, diaphoretic, in a curled position. She reports ongoing stomach pain, floaters , and feeling pins and needles in my hands and feet . Primary RN notified of pt complaints. RN stated pt is due for pain medication. Addiction Medicine provider notified of pt complaints. No new orders given at this time. ACS team to continue to follow and will meet with pt to complete recovery assessment once pt's condition improves.
[2025-10-19 12:31] LABS: Hematocrit 34.0 % (37.0-47.0); Hemoglobin 11.8 g/dl (12.0-16.0); Mean Corpuscular HGB Conc 34.7 g/dl (31.0-35.0); Mean Corpuscular Hemoglobin 31.1 pg (27.0-33.0); Mean Corpuscular Volume 89.7 fL (80.0-98.0); NRBC Abs Auto 0.000 X10*3/uL (0.0-0.012); NRBC Pct Auto 0.0 /100WBC (0.0-0.2); Platelet Count 175 X10*3/uL (160-400); Red Blood Count 3.79 X10*6/uL (4.20-5.50); White Blood Count 8.8 X10*3/uL (4.8-10.8)
--- NOTE | 2025-10-19 12:51 | P.PNIM_ITS ---
Subjective Subjective Date of Service: 10/19/25 Interval History: Follow up for acute alcoholic pancreatitis and alcohol withdrawal Pt rather somnolent, but arousable Reports she did not sleep well due to pain, and has only been able to fall asleep in the past hour or so Complains of headache No nausea or vomiting Overall feeling better but still only tolerating a slight amount of her clear liquid diet Review of Systems Review of Systems: Yes all other systems are reviewed and are negative Physical Exam 2 Exam: Exam: General: AOx3, no acute distress Resp: CTA bilaterally CVS: S1, S2, RRR GI: +BS, diffuse abd pain, primarily right-sided Skin: Warm, dry Neuro: Cranial nerves II-XII grossly intact bilaterally. Motor grossly intact bilaterally. No upper extremity tremors noted. Extremities: No edema Psych: Drowsy, cooperative Vital Signs: Vital Signs: Last Vital Signs Temp 98.1 F 10/19/25 06:51 Pulse 74 10/19/25 06:51 Resp 16 10/19/25 06:51 BP 126/77 10/19/25 06:51 Pulse Ox 98 10/19/25 06:51 O2 Del Method Room Air 10/19/25 06:51 BMI result Body Mass Index 33.0 Objective Data Active Medications Acetaminophen (Acetaminophen 325 Mg Tablet) 650 mg PO Q6H PRN PRN Reason: Pain, Mild 1-3,fever,headache Last Admin: 10/19/25 10:30 Dose: 650 mg Documented By: ISAAC Bupropion HCl (Bupropion Hcl Xl 150 Mg Tab.Er.24h) 150 mg PO DAILY [facility] Last Admin: 10/19/25 08:51 Dose: 150 mg Documented By: ISAAC Calcium Carbonate (Calcium Carbonate 750 Mg Tab.Chew) 750 mg PO Q4H PRN PRN Reason: Heartburn Last Admin: 10/19/25 10:32 Dose: 750 mg Documented By: ISAAC Enoxaparin Sodium (Enoxaparin Sodium 40 Mg/0.4 Ml Syringe) 40 mg SUBCUT Q24H [facility] Last Admin: 10/18/25 20:10 Dose: 40 mg Documented By: RODOLFO Fenofibrate (Fenofibrate 54 Mg Tablet) 54 mg PO DAILY [facility] Last Admin: 10/19/25 08:50 Dose: 54 mg Documented By: ISAAC Folic Acid (Folic Acid 1 Mg Tablet) 1 mg PO DAILY [facility] Stop: 10/22/25 08:59 Last Admin: 10/19/25 08:50 Dose: 1 mg Documented By: ISAAC Gabapentin (Gabapentin 300 Mg Capsule) 300 mg PO BEDTIME [facility] Last Admin: 10/18/25 20:10 Dose: 300 mg Documented By: RODOLFO Hydroxyzine HCl (Hydroxyzine Hcl 25 Mg Tablet) 25 - 50 mg PO BID PRN PRN Reason: Anxiety Last Admin: 10/18/25 20:10 Dose: 25 mg Documented By: RODOLFO Lactated Ringer's (Lr) 1,000 mls @ 100 mls/hr IVCONT .Q10H [facility] Last Admin: 10/19/25 02:56 Dose: 100 mls/hr Documented By: RODOLFO Lorazepam (Lorazepam 1 Mg Tablet) 1 mg PO Q4H PRN PRN Reason: Breakthrough alcohol withdrawa Stop: 10/23/25 03:08 Last Admin: 10/19/25 03:15 Dose: 1 mg Documented By: RODOLFO Magnesium Hydroxide (Milk Of Magnesia 30 Ml Oral.Susp) 30 ml PO DAILY PRN PRN Reason: Constipation Melatonin (Melatonin 3 Mg Tablet) 6 mg PO BEDTIME [facility] Last Admin: 10/18/25 21:13 Dose: 6 mg Documented By: RODOLFO Methadone HCl (Methadone Hcl 20 Mg/2 Ml Oral.Conc) 120 mg PO DAILY@0800 [facility] Last Admin: 10/19/25 07:23 Dose: 120 mg Documented By: ISAAC Co-signed By: GLADYS Morphine Sulfate (Morphine Sulfate 4 Mg/Ml Cartridge) 4 mg IVPUSH Q4H PRN; Protocol PRN Reason: Pain, Severe (Pain Scale 7-10) Last Admin: 10/19/25 12:15 Dose: 4 mg Documented By: ISAAC Multivitamins/Vitamin C (Multivitamin Tablet) 1 tab PO DAILY [facility] Stop: 10/22/25 08:59 Last Admin: 10/19/25 08:51 Dose: 1 tab Documented By: ISAAC Omeprazole (Omeprazole 20 Mg Capsule.) 20 mg PO DAILY@0630 [facility] Last Admin: 10/19/25 06:05 Dose: 20 mg Documented By: RODOLFO Ondansetron HCl (Ondansetron Hcl 4 Mg/2 Ml Vial) 4 mg IVPUSH Q8H PRN PRN Reason: Nausea and Vomiting Last Admin: 10/19/25 06:05 Dose: 4 mg Documented By: RODOLFO Pharmacy Consult (Consult Rx Etoh Phenob Im/Po) 1 each MISCELLANE ONCE PRN; Protocol PRN Reason: Consult order Phenobarbital (Phenobarbital 15 Mg Tablet) 45 mg PO BID [facility] Stop: 10/20/25 21:01 Last Admin: 10/19/25 08:50 Dose: 45 mg Documented By: ISAAC Phenobarbital (Phenobarbital 30 Mg Tablet) 30 mg PO BID [facility] Stop: 10/22/25 21:01 Phenobarbital (Phenobarbital 30 Mg Tablet) 30 mg PO DAILY [facility] Stop: 10/24/25 09:01 Sodium Chloride (0.9 % Sodium Chloride Flush 3 Ml Syringe) 3 ml IVFLUSH QSHIFT [facility] Last Admin: 10/19/25 07:09 Dose: Not Given Documented By: ISAAC Non-Admin Reason: IV Running Thiamine HCl (Thiamine Hcl 100 Mg Tablet) 100 mg PO DAILY [facility] Last Admin: 10/19/25 08:50 Dose: 100 mg Documented By: ISAAC Labs 10/19/25 12:24 10/19/25 09:29 Labs: Laboratory Results - last 24 hr 10/18/25 10/18/25 10/19/25 14:34 18:37 09:29 MCV MCH MCHC RDW Plt Count MPV Absolute Nucleated RBC Nucleated RBC % (auto) Anion Gap 13 Estim Creat Clear Calc 96.6 Estimated GFR > 60 Random Glucose 146 H Calcium 8.4 Magnesium 1.7 Total Bilirubin 1.0 AST 277 H ALT 204 H Alkaline Phosphatase 108 Troponin I High Sens < 2.7 D Total Protein 7.1 Albumin 3.7 Lipase 188 H Urine Color Yellow Urine Appearance Cloudy Urine pH 5.0 Ur Specific [place] 1.015 Urine Protein Trace Urine Glucose (UA) Negative Urine Ketones Negative Urine Blood Large (3+) H Urine Nitrite Negative Ur Leukocyte Esterase Negative Urine RBC >20 H Urine WBC 0-5 Ur Squamous Epith Cells 3-5 Urine Bacteria Trace Hyaline Casts 0-2 Ur N gonorrhoeae DNA (PCR) NOT DETECTED Urine Opiates Screen POSITIVE H Ur Buprenorphine Scrn Not Detected Ur Oxycodone Screen Not Detected Urine Methadone Screen Positive H Urine Fentanyl Screen POSITIVE H Ur Barbiturates Screen Not Detected Ur Phencyclidine Scrn Not Detected Ur Amphetamines Screen Not Detected U Benzodiazepines Scrn POSITIVE H Urine Cocaine Screen Not Detected U Marijuana (THC) Screen Not Detected Ur Chlamydia DNA (PCR) NOT DETECTED 10/19/25 12:24 MCV 89.7 MCH 31.1 MCHC 34.7 RDW 13.7 Plt Count 175 MPV 10.5 Absolute Nucleated RBC 0.000 Nucleated RBC % (auto) 0.0 Anion Gap Estim Creat Clear Calc Estimated GFR Random Glucose Calcium Magnesium Total Bilirubin AST ALT Alkaline Phosphatase Troponin I High Sens Total Protein Albumin Lipase Urine Color Urine Appearance Urine pH Ur Specific [place] Urine Protein Urine Glucose (UA) Urine Ketones Urine Blood Urine Nitrite Ur Leukocyte Esterase Urine RBC Urine WBC Ur Squamous Epith Cells Urine Bacteria Hyaline Casts Ur N gonorrhoeae DNA (PCR) Urine Opiates Screen Ur Buprenorphine Scrn Ur Oxycodone Screen Urine Methadone Screen Urine Fentanyl Screen Ur Barbiturates Screen Ur Phencyclidine Scrn Ur Amphetamines Screen U Benzodiazepines Scrn Urine Cocaine Screen U Marijuana (THC) Screen Ur Chlamydia DNA (PCR) Assessment and Plan (1) Alcoholic pancreatitis: Status: Acute (2) Alcohol withdrawal: Status: Acute Plan Pt is a 34-year-old female with a PMH significant for alcohol use disorder with hx of alcoholic pancreatitis,?opioid use disorder methadone, ADHD, and disorder who presents to the ED seeking controlled detox from alcohol use. Pt is admitted to the hospital for treatment and evaluation of acute alcoholic pancreatitis and acute alcohol withdrawal. Acute alcoholic pancreatitis As seen on CT LFTs trending down; lipase with slight increase: 134-->188 Analgesics, antiemetics, IVF Clear liquid diet for now, advance as tolerated Acute alcohol withdrawal Pt drinking 1+ sleeves daily; reports attempted to stop drinking on her own with last drink 3 days ago; EToH level 85 at time of presetnaton Initiate Phenobarb protocol Daily multivitamin, folic acid, thiamine, famotidine Follow lytes, Mag, BMP Monitor on CIWA scale Addiction medicine consult Monitor on telemetry Polysubstance use disorder Continue methadone Mood disorder Continue Bupropion Hold alprazolam for now, though consider resuming if pt extremely anxious Full Code Attending:?Dr. Pearson DVT Prophylaxis: Lovenox Pt requires continued hospitalization as her diet is not yet fully been advanced and she requires continued controlled detox on phenobarb protocol. Quality Stroke Does the patient have a stroke diagnosis?: No VTE Prior VTE?: No VTE Risk Level:: Medical - moderate - high VTE Device Contraindication: Treatment Not Indicated VTE Drug Contraindication: N/A - Med Ordered
--- NOTE | 2025-10-19 12:58 | MHC.CM.PN ---
Patient lives in a home w/ parents. Independent w/ all care. Denies use of DME or services. Methadone through [facility] HCP on file and verified. PCP Kenisha Martinez MD DP: Home self care via shuttle transport. CM will continue to follow.
[2025-10-19 15:42] VITALS: BP 132/82; PULSE 81; RESP 16; TEMP 36.7; O2SAT 95
--- NOTE | 2025-10-19 15:52 | HO.ADDICT_ITS ---
History of Present Illness Date of Service: 10/19/2025 Chief Complaint: acute pancreatitis Reason for Consult: AUD -acute withdrawal Sources of Information: chart reviewed HPI Narrative: Patient is a 35 year old female with history of AUD, OUD and pancreatitis. Medically admitted with acute pancreatitis and alcohol withdrawal --initiated on phenobarbital protocol Patient seen in room 368, with sign erector and repairer. She is awake, alert, engaged in interview. Tangential thought process, slowed speech. Minimal tremor noted. Reporting both nausea and stomach cramps, occasional restlessness and sensitivity to light She is also reporting pins and needles in her hands and feet, however states she also experiences these at home. She does note that withdrawal sx are improving since admission. Most recent CIWA score 11 elevated lfts, lipase 188 Medical Evaluation Reviewed: Yes Review of Systems Constitutional: Reports as per HPI Diagnostics Vital Signs (24Hr): Vital Signs - 24 hr 10/18/25 16:47 10/18/25 17:43 10/18/25 20:00 Temperature 98.1 F 97.8 F Pulse Rate 93 82 Respiratory Rate 20 14 18 Blood Pressure 129/100 H 148/91 H Pulse Oximetry 96 97 Oxygen Delivery Method Room Air Room Air 10/19/25 03:37 10/19/25 06:51 10/19/25 15:42 Temperature 97.1 F 98.1 F 98.1 F Pulse Rate 77 74 81 Respiratory Rate 18 16 16 Blood Pressure 156/95 H 126/77 132/82 Pulse Oximetry 93 98 95 Oxygen Delivery Method Room Air Room Air Room Air BMI result Body Mass Index 33.0 Labs 10/19/25 12:24 10/19/25 09:29 Labs: Laboratory Results - last 48 hr 10/18/25 10/18/25 10/18/25 11:37 14:34 18:37 WBC 6.2 RBC 4.21 Hgb 13.8 Hct 38.2 MCV 90.7 MCH 32.8 MCHC 36.1 H RDW 13.5 Plt Count 214 MPV 10.3 Immature Gran % (Auto) 0.3 Neut % (Auto) 59.7 Lymph % (Auto) 31.6 [place] % (Auto) 6.9 Eos % (Auto) 1.0 Baso % (Auto) 0.5 Lymph # (Auto) 2.0 [place] # (Auto) 0.4 Eos # (Auto) 0.1 Baso # (Auto) 0.0 Abs Immat Gran (auto) 0.02 Absolute Neuts (auto) 3.7 Absolute Nucleated RBC 0.000 Nucleated RBC % (auto) 0.0 Sodium 135 Potassium 4.4 D Chloride 101 Carbon Dioxide 23 Anion Gap 15 BUN 19 H Creatinine 0.78 Estim Creat Clear Calc 98.7 Estimated GFR > 60 Random Glucose 143 H Calcium 8.5 D Magnesium 1.7 Total Bilirubin 0.4 Direct Bilirubin 0.1 AST 544 H ALT 313 H Alkaline Phosphatase 115 Lactate Dehydrogenase 449 H Troponin I High Sens < 2.7 D Total Protein 7.9 Albumin 4.0 Lipase 134 H Beta HCG, Quant < 2 Urine Color Yellow Urine Appearance Cloudy Urine pH 5.0 Ur Specific [place] 1.015 Urine Protein Trace Urine Glucose (UA) Negative Urine Ketones Negative Urine Blood Large (3+) H Urine Nitrite Negative Ur Leukocyte Esterase Negative Urine RBC >20 H Urine WBC 0-5 Ur Squamous Epith Cells 3-5 Urine Bacteria Trace Hyaline Casts 0-2 Ur N gonorrhoeae DNA (PCR) NOT DETECTED Urine Opiates Screen POSITIVE H Ur Buprenorphine Scrn Not Detected Ur Oxycodone Screen Not Detected Urine Methadone Screen Positive H Urine Fentanyl Screen POSITIVE H Ur Barbiturates Screen Not Detected Ur Phencyclidine Scrn Not Detected Ur Amphetamines Screen Not Detected U Benzodiazepines Scrn POSITIVE H Urine Cocaine Screen Not Detected U Marijuana (THC) Screen Not Detected Ethyl Alcohol 85 Ur Chlamydia DNA (PCR) NOT DETECTED 10/19/25 10/19/25 09:29 12:24 WBC 8.8 RBC 3.79 L Hgb 11.8 L Hct 34.0 L MCV 89.7 MCH 31.1 MCHC 34.7 RDW 13.7 Plt Count 175 MPV 10.5 Immature Gran % (Auto) Neut % (Auto) Lymph % (Auto) [place] % (Auto) Eos % (Auto) Baso % (Auto) Lymph # (Auto) [place] # (Auto) Eos # (Auto) Baso # (Auto) Abs Immat Gran (auto) Absolute Neuts (auto) Absolute Nucleated RBC 0.000 Nucleated RBC % (auto) 0.0 Sodium 132 L Potassium 4.1 Chloride 100 Carbon Dioxide 23 Anion Gap 13 BUN 14 Creatinine 0.79 Estim Creat Clear Calc 96.6 Estimated GFR > 60 Random Glucose 146 H Calcium 8.4 Magnesium 1.7 Total Bilirubin 1.0 Direct Bilirubin AST 277 H ALT 204 H Alkaline Phosphatase 108 Lactate Dehydrogenase Troponin I High Sens Total Protein 7.1 Albumin 3.7 Lipase 188 H Beta HCG, Quant Urine Color Urine Appearance Urine pH Ur Specific [place] Urine Protein Urine Glucose (UA) Urine Ketones Urine Blood Urine Nitrite Ur Leukocyte Esterase Urine RBC Urine WBC Ur Squamous Epith Cells Urine Bacteria Hyaline Casts Ur N gonorrhoeae DNA (PCR) Urine Opiates Screen Ur Buprenorphine Scrn Ur Oxycodone Screen Urine Methadone Screen Urine Fentanyl Screen Ur Barbiturates Screen Ur Phencyclidine Scrn Ur Amphetamines Screen U Benzodiazepines Scrn Urine Cocaine Screen U Marijuana (THC) Screen Ethyl Alcohol Ur Chlamydia DNA (PCR) Mental Status Exam Mental Status Exam Level of Consciousness: Awake and Alert Patient Behavior: Cooperative Affect Description: Calm Speech Pattern: Delayed Thought Process: Intact Thought Content: positive for [place] and positive for Tangential Judgement: Good Medications Medications Current Medications Acetaminophen (Acetaminophen 325 Mg Tablet) 650 mg PO Q6H PRN PRN Reason: Pain, Mild 1-3,fever,headache Last Admin: 10/19/25 10:30 Dose: 650 mg Bupropion HCl (Bupropion Hcl Xl 150 Mg Tab.Er.24h) 150 mg PO DAILY [facility] Last Admin: 10/19/25 08:51 Dose: 150 mg Calcium Carbonate (Calcium Carbonate 750 Mg Tab.Chew) 750 mg PO Q4H PRN PRN Reason: Heartburn Last Admin: 10/19/25 10:32 Dose: 750 mg Enoxaparin Sodium (Enoxaparin Sodium 40 Mg/0.4 Ml Syringe) 40 mg SUBCUT Q24H [facility] Last Admin: 10/18/25 20:10 Dose: 40 mg Fenofibrate (Fenofibrate 54 Mg Tablet) 54 mg PO DAILY [facility] Last Admin: 10/19/25 08:50 Dose: 54 mg Folic Acid (Folic Acid 1 Mg Tablet) 1 mg PO DAILY [facility] Stop: 10/22/25 08:59 Last Admin: 10/19/25 08:50 Dose: 1 mg Gabapentin (Gabapentin 300 Mg Capsule) 300 mg PO BEDTIME [facility] Last Admin: 10/18/25 20:10 Dose: 300 mg Hydroxyzine HCl (Hydroxyzine Hcl 25 Mg Tablet) 25 - 50 mg PO BID PRN PRN Reason: Anxiety Last Admin: 10/18/25 20:10 Dose: 25 mg Lactated Ringer's (Lr) 1,000 mls @ 100 mls/hr IVCONT .Q10H [facility] Last Admin: 10/19/25 02:56 Dose: 100 mls/hr Lorazepam (Lorazepam 1 Mg Tablet) 1 mg PO Q4H PRN PRN Reason: Breakthrough alcohol withdrawa Stop: 10/23/25 03:08 Last Admin: 10/19/25 14:40 Dose: 1 mg Magnesium Hydroxide (Milk Of Magnesia 30 Ml Oral.Susp) 30 ml PO DAILY PRN PRN Reason: Constipation Melatonin (Melatonin 3 Mg Tablet) 6 mg PO BEDTIME [facility] Last Admin: 10/18/25 21:13 Dose: 6 mg Methadone HCl (Methadone Hcl 20 Mg/2 Ml Oral.Conc) 120 mg PO DAILY@0800 [facility] Last Admin: 10/19/25 07:23 Dose: 120 mg Morphine Sulfate (Morphine Sulfate 4 Mg/Ml Cartridge) 4 mg IVPUSH Q4H PRN; Protocol PRN Reason: Pain, Severe (Pain Scale 7-10) Last Admin: 10/19/25 12:15 Dose: 4 mg Multivitamins/Vitamin C (Multivitamin Tablet) 1 tab PO DAILY [facility] Stop: 10/22/25 08:59 Last Admin: 10/19/25 08:51 Dose: 1 tab Omeprazole (Omeprazole 20 Mg Capsule.Dr) 20 mg PO DAILY@0630 [facility] Last Admin: 10/19/25 06:05 Dose: 20 mg Ondansetron HCl (Ondansetron Hcl 4 Mg/2 Ml Vial) 4 mg IVPUSH Q8H PRN PRN Reason: Nausea and Vomiting Last Admin: 10/19/25 06:05 Dose: 4 mg Pharmacy Consult (Consult Rx Etoh Phenob Im/Po) 1 each MISCELLANE ONCE PRN; Protocol PRN Reason: Consult order Phenobarbital (Phenobarbital 15 Mg Tablet) 45 mg PO BID [facility] Stop: 10/20/25 21:01 Last Admin: 10/19/25 08:50 Dose: 45 mg Phenobarbital (Phenobarbital 30 Mg Tablet) 30 mg PO BID [facility] Stop: 10/22/25 21:01 Phenobarbital (Phenobarbital 30 Mg Tablet) 30 mg PO DAILY [facility] Stop: 10/24/25 09:01 Sodium Chloride (0.9 % Sodium Chloride Flush 3 Ml Syringe) 3 ml IVFLUSH QSHIFT [facility] Last Admin: 10/19/25 15:44 Dose: Not Given Thiamine HCl (Thiamine Hcl 100 Mg Tablet) 100 mg PO DAILY [facility] Last Admin: 10/19/25 08:50 Dose: 100 mg Allergies Allergies Allergy/AdvReac Type Severity Reaction Status Date / Time amoxicillin Allergy Hives Verified 10/18/25 11:19 Assessment & Plan Assessment & Plan (1) Alcohol use disorder, severe, dependence: Status: Acute Code(s): F10.20 - Alcohol dependence, uncomplicated Assessment and Plan: * withdrawal sx improving * avoid benzodiazepines while recieving phenobarbital--extra dose of phenobarbital preferred to managed elevated CIWAs or use of adjunct PRNs * allow patient to rest and minimize stimulation when possible * will follow up in AM Total time managing care of this patient today __30__ minutes. PMFSH Past Medical History Medical History Hypertriglyceridemia Alcohol abuse Mood disorder Opioid abuse Alcohol use disorder Social History Social History Household Members: Family Housing: House Do you presently have visiting nurse or other home services: No Alcohol intake: current Alcohol intake frequency: 3 or more drinks per day Alcohol type: hard liquor Patient Tobacco Use Status: Never used Tobacco Tobacco use type: Cigarette Smoked in Last 30 Days: No e-Cigarette/Vaping Use: Never Used Second Hand Smoke Exposure: No Use of substances other than those prescribed or required for medical reasons: Yes Substance Use Type: IV Drugs and Painkillers Substance Use Frequency: Chronic Longstanding Last Used Substance: Just Prior to Admission Currently Displaying Signs/Symptoms of Drug Intoxication Withdrawal: No Any prior treatment program specific to substance use: Yes Have you been hit, kicked, punched, or otherwise hurt by someone within the past year? If so, by whom?: No Do you feel safe in your current relationship?: Yes Is there a partner from a previous relationship who is making you feel unsafe now?: No Are you made to feel afraid or neglected: No Advance Directives: No Advance Directives Information Provided: Yes Do you have a plan to hurt others: No Plan Recently lost weight without trying: No Eating poorly because of decreased appetite: Yes Nutrition Risks: Acute nausea or vomiting x1 week Patient : No : No Poor oral hygiene: No service: No
[2025-10-19 19:02] VITALS: BP 142/71; PULSE 92; RESP 16; TEMP 36.1; O2SAT 97
[2025-10-20 01:10] VITALS: RESP 18
[2025-10-20] MEDS: Lactated Ringers 1,000 ML 50 ML IVCONT (03:28)
[2025-10-20 04:00] VITALS: BP 119/79; PULSE 73; RESP 18; TEMP 36.9; O2SAT 97
[2025-10-20 06:55] LABS: Alanine Aminotransferase 135 U/L (0-31); Albumin Level 3.2 g/dL (3.5-5.0); Alkaline Phosphatase 88 U/L (39-117); Anion Gap 13 (12-20); Aspartate Amino Transferase 145 U/L (5-31); Blood Urea Nitrogen 5 mg/dL (9-16); Calcium 8.0 mg/dL (8.4-10.2); Carbon Dioxide 25 mmol/L (22-29); Chloride 102 mmol/L (96-108); Creatinine Clr Calc Pharmacy 113.9; Estimated Glomerular Filt Rate > 60; Lipase 128 U/L (8-78); Potassium 3.5 mmol/L (3.3-5.1); Sodium 136 mmol/L (135-145); Total Protein 6.2 g/dL (6.5-8.0)
[2025-10-20 08:25] VITALS: BP 111/74; PULSE 76; RESP 18; TEMP 36.1; O2SAT 94
[2025-10-20] MEDS: buPROPion HCl XL 150 MG TAB.ER.24H PO (08:29)
[2025-10-20] MEDS: methADONE HCl 20 MG/2 ML ORAL.CONC 120 MG PO (08:29)
[2025-10-20] MEDS: PHENobarbital 15 MG TABLET 45 MG PO ×2 (08:29→21:53)
[2025-10-20] MEDS: Milk of Magnesia 30 ML ORAL.SUSP PO (08:36)
[2025-10-20 09:34] VITALS: O2SAT 92
[2025-10-20 15:53] VITALS: BP 102/65; PULSE 78; RESP 18; TEMP 37; O2SAT 97
--- NOTE | 2025-10-20 16:31 | HO.PM.IMPN ---
Subjective Subjective Date of Service: 10/20/25 Interval History: Feeling better No N/V Abd pain improved, would like to advance diet Complains of constipation Review of Systems Review of Systems: Yes all other systems are reviewed and are negative Physical Exam Exam: Exam: General: AOx3, no acute distress Resp: CTA bilaterally CVS: S1, S2, RRR GI: +BS, mild abd tenderness; overall abd relatively benign Skin: Warm, dry Neuro: Cranial nerves II-XII grossly intact bilaterally. Motor grossly intact bilaterally. No upper extremity tremors noted. Extremities: No edema Psych: Drowsy, cooperative Vital Signs: Vital Signs: Last Vital Signs Temp 98.6 F 10/20/25 15:53 Pulse 78 10/20/25 15:53 Resp 18 10/20/25 15:53 BP 102/65 10/20/25 15:53 Pulse Ox 97 10/20/25 15:53 O2 Del Method Room Air 10/20/25 15:53 BMI result Body Mass Index 33.0 Objective Data Active Medications Acetaminophen (Acetaminophen 325 Mg Tablet) 650 mg PO Q6H PRN PRN Reason: Pain, Mild 1-3,fever,headache Last Admin: 10/19/25 21:15 Dose: 650 mg Documented By: ONEL Bupropion HCl (Bupropion Hcl Xl 150 Mg Tab.Er.24h) 150 mg PO DAILY [facility] Last Admin: 10/20/25 08:29 Dose: 150 mg Documented By: ANDREINA Calcium Carbonate (Calcium Carbonate 750 Mg Tab.Chew) 750 mg PO Q4H PRN PRN Reason: Heartburn Last Admin: 10/19/25 10:32 Dose: 750 mg Documented By: ISAAC Enoxaparin Sodium (Enoxaparin Sodium 40 Mg/0.4 Ml Syringe) 40 mg SUBCUT Q24H [facility] Last Admin: 10/19/25 17:21 Dose: Not Given Documented By: ISAAC Non-Admin Reason: Patient Refused Fenofibrate (Fenofibrate 54 Mg Tablet) 54 mg PO DAILY [facility] Last Admin: 10/20/25 08:29 Dose: 54 mg Documented By: ANDREINA Folic Acid (Folic Acid 1 Mg Tablet) 1 mg PO DAILY [facility] Stop: 10/22/25 08:59 Last Admin: 10/20/25 08:29 Dose: 1 mg Documented By: ANDREINA Gabapentin (Gabapentin 300 Mg Capsule) 300 mg PO BEDTIME [facility] Last Admin: 10/19/25 20:59 Dose: 300 mg Documented By: ONEL Hydroxyzine HCl (Hydroxyzine Hcl 25 Mg Tablet) 25 - 50 mg PO BID PRN PRN Reason: Anxiety Last Admin: 10/18/25 20:10 Dose: 25 mg Documented By: RODOLFO Magnesium Hydroxide (Milk Of Magnesia 30 Ml Oral.Susp) 30 ml PO DAILY PRN PRN Reason: Constipation Last Admin: 10/20/25 08:36 Dose: 30 ml Documented By: ANDREINA Melatonin (Melatonin 3 Mg Tablet) 6 mg PO BEDTIME [facility] Last Admin: 10/19/25 20:59 Dose: 6 mg Documented By: ONEL Methadone HCl (Methadone Hcl 20 Mg/2 Ml Oral.Conc) 120 mg PO DAILY@0800 [facility] Last Admin: 10/20/25 08:29 Dose: 120 mg Documented By: ANDREINA Co-signed By: MIGUE Morphine Sulfate (Morphine Sulfate 4 Mg/Ml Cartridge) 4 mg IVPUSH Q4H PRN; Protocol PRN Reason: Pain, Severe (Pain Scale 7-10) Last Admin: 10/20/25 15:15 Dose: 4 mg Documented By: ANDREINA Multivitamins/Vitamin C (Multivitamin Tablet) 1 tab PO DAILY [facility] Stop: 10/22/25 08:59 Last Admin: 10/20/25 08:29 Dose: 1 tab Documented By: ANDREINA Omeprazole (Omeprazole 20 Mg Capsule.) 20 mg PO DAILY@0630 [facility] Last Admin: 10/20/25 06:40 Dose: 20 mg Documented By: ONEL Ondansetron HCl (Ondansetron Hcl 4 Mg/2 Ml Vial) 4 mg IVPUSH Q8H PRN PRN Reason: Nausea and Vomiting Last Admin: 10/19/25 06:05 Dose: 4 mg Documented By: RODOLFO Pharmacy Consult (Consult Rx Etoh Phenob Im/Po) 1 each MISCELLANE ONCE PRN; Protocol PRN Reason: Consult order Phenobarbital (Phenobarbital 15 Mg Tablet) 45 mg PO BID [facility] Stop: 10/20/25 21:01 Last Admin: 10/20/25 08:29 Dose: 45 mg Documented By: ANDREINA Phenobarbital (Phenobarbital 30 Mg Tablet) 30 mg PO BID [facility] Stop: 10/22/25 21:01 Phenobarbital (Phenobarbital 30 Mg Tablet) 30 mg PO DAILY [facility] Stop: 10/24/25 09:01 Polyethylene Glycol (Polyethylene Glycol 3350 17 Gm Powd.Pack) 17 gm PO ONCE ONE Stop: 10/20/25 16:28 Sodium Chloride (0.9 % Sodium Chloride Flush 3 Ml Syringe) 3 ml IVFLUSH QSHIFT [facility] Last Admin: 10/20/25 15:16 Dose: Not Given Documented By: ANDREINA Non-Admin Reason: IV Running Thiamine HCl (Thiamine Hcl 100 Mg Tablet) 100 mg PO DAILY [facility] Last Admin: 10/20/25 08:29 Dose: 100 mg Documented By: ANDREINA Labs 10/19/25 12:24 10/20/25 05:38 Labs: Laboratory Results - last 24 hr 10/20/25 05:38 Anion Gap 13 Estim Creat Clear Calc 113.9 Estimated GFR > 60 Random Glucose 171 H Calcium 8.0 L Total Bilirubin 1.2 H AST 145 H ALT 135 H Alkaline Phosphatase 88 Total Protein 6.2 L Albumin 3.2 L Lipase 128 H Assessment and Plan (1) Alcoholic pancreatitis: Status: Acute (2) Alcohol withdrawal: Status: Acute Plan Pt is a 34-year-old female with a PMH significant for alcohol use disorder with hx of alcoholic pancreatitis,?opioid use disorder methadone, ADHD, and disorder who presents to the ED seeking controlled detox from alcohol use. Pt is admitted to the hospital for treatment and evaluation of acute alcoholic pancreatitis and acute alcohol withdrawal. Acute alcoholic pancreatitis and hepatitis As seen on CT LFTs and lipase trending down Analgesics, antiemetics, IVF Clear liquid diet for now, advance as tolerated Acute alcohol withdrawal Pt drinking 1+ sleeves daily; reports attempted to stop drinking on her own with last drink 3 days ago; EToH level 85 at time of presetnaton Continue Phenobarb protocol Daily multivitamin, folic acid, thiamine, famotidine Follow lytes, Mag, BMP CIWA has been low x24 hours Addiction medicine consulted Monitor on telemetry Polysubstance use disorder Continue methadone Mood disorder Continue Bupropion Restart alprazolam tomorrow morning Full Code DVT Prophylaxis: Lovenox Pt requires continued hospitalization to finish controlled detox and monitor advancement of diet. Pt will likely be discharged home tomorrow. Quality Stroke Does the patient have a stroke diagnosis?: No VTE Prior VTE?: No VTE Risk Level:: Medical - moderate - high VTE Device Contraindication: Treatment Not Indicated VTE Drug Contraindication: N/A - Med Ordered
[2025-10-20 20:00] VITALS: BP 115/59; PULSE 86; RESP 18; TEMP 36.2; O2SAT 95
[2025-10-20] MEDS: 0.9 % Sodium Chloride Flush 3 ML SYRINGE IVFLUSH (21:55)
[2025-10-21 04:00] VITALS: BP 117/73; PULSE 98; RESP 18; TEMP 36.2; O2SAT 97
[2025-10-21 07:05] LABS: Alanine Aminotransferase 94 U/L (0-31); Albumin Level 3.2 g/dL (3.5-5.0); Alkaline Phosphatase 82 U/L (39-117); Anion Gap 11 (12-20); Aspartate Amino Transferase 76 U/L (5-31); Blood Urea Nitrogen 4 mg/dL (9-16); Calcium 8.4 mg/dL (8.4-10.2); Carbon Dioxide 29 mmol/L (22-29); Chloride 100 mmol/L (96-108); Creatinine Clr Calc Pharmacy 113.9; Estimated Glomerular Filt Rate > 60; Potassium 4.0 mmol/L (3.3-5.1); Sodium 136 mmol/L (135-145); Total Protein 6.2 g/dL (6.5-8.0)
[2025-10-21 08:00] VITALS: BP 115/57; PULSE 81; RESP 16; TEMP 37.1; O2SAT 96
[2025-10-21] MEDS: buPROPion HCl XL 150 MG TAB.ER.24H PO (08:28)
[2025-10-21] MEDS: 0.9 % Sodium Chloride Flush 3 ML SYRINGE IVFLUSH (08:29)
[2025-10-21] MEDS: methADONE HCl 20 MG/2 ML ORAL.CONC 120 MG PO (08:29)
[2025-10-21] MEDS: Milk of Magnesia 30 ML ORAL.SUSP PO (08:36)
--- NOTE | 2025-10-21 11:09 | MHC.RECOVRN ---
Addiction Consult received for pt admitted w/ ETOH withdrawal and pancreatitis.? Recovery Evaluation Completed. Please see for additional details.? PLAN:? Pt to continue community methadone dosing at [facility] upon discharge. ?Pt initiated on campral for AUD. To follow up w/ [facility] for intake and mediation continuation. Appt added to D/C summary?Pt to begin PHP at [facility]. 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 ACS team available as needed for ongoing support and resources
--- NOTE | 2025-10-21 11:46 | MHC.CM.PN ---
Addendum entered by Sayra Camejo 10/21/25 16:03: CM MET WITH PT TO DISCUSS DCP SHE IS AWARE OF HER APPT FRIDAY AND A CARD WAS PROVIDED FOR [facility] TRANSPORT PT UNDERSTANDS SHE SHOULD CONTACT THEM TO ARRANGE TRANSPORT TO ANY FURTHER APPTS AT [facility] SHE WILL DC HOME TODAY, NO NEW SERVICES ORDERED Original Note: PT HAS AN APPT AT THE [facility] ON Friday10/24/25 AT 1200 HOURS [facility] SHUTTLE TRANSPORT ARRANGED, THEY WILL PICK HER UP AT HOME AT 1130 HOURS
--- NOTE | 2025-10-21 14:41 | P.PNADD_ITS ---
Subjective Subjective Date of Service: 10/21/25 Reason For Visit: acute pancreatitis Interim History: Patient seen in follow up for AUD She is awake, alert, tearful during interview. Upset about something related to her ex partner. Identifies him as a trigger Withdrawal sx resolved. Patient's speech and overall communication style quite slow Thought process linear and appropriate Requesting to restart Acamprosate for AUD Discussed plan following discharge --patient tearful, stating she is unsure Has minimal supports and no transportation. Review of Systems Acute medical concerns: No Review of Systems Constitutional: Reports as per HPI Mental Status Exam Mental Status Exam Patient Appearance: Appropriate Level of Consciousness: Awake, Appropriate and Alert Patient Behavior: Appropriate, Anxious and Crying Mood Description: Sad Affect Description: Anxious and Sad Speech Pattern: Long Pauses Thought Process: Intact Thought Content: positive for Intact and positive for Circumstantial Judgement: Fair Diagnostics Vital Signs (24Hr): Vital Signs - 24 hr 10/20/25 15:53 10/20/25 20:00 10/21/25 04:00 Temperature 98.6 F 97.1 F 97.2 F Pulse Rate 78 86 98 Respiratory Rate 18 18 18 Blood Pressure 102/65 115/59 L 117/73 Pulse Oximetry 97 95 97 Oxygen Delivery Method Room Air Room Air Room Air 10/21/25 08:00 Temperature 98.8 F Pulse Rate 81 Respiratory Rate 16 Blood Pressure 115/57 L Pulse Oximetry 96 Oxygen Delivery Method Room Air BMI result Body Mass Index 33.0 Labs 10/19/25 12:24 10/21/25 05:29 Labs: Laboratory Results - last 48 hr 10/20/25 10/21/25 05:38 05:29 Hold Purple Top SEE NOTE Sodium 136 136 Potassium 3.5 4.0 Chloride 102 100 Carbon Dioxide 25 29 Anion Gap 13 11 L BUN 5 L 4 L Creatinine 0.67 0.67 Estim Creat Clear Calc 113.9 113.9 Estimated GFR > 60 > 60 Random Glucose 171 H 199 H Calcium 8.0 L 8.4 Total Bilirubin 1.2 H 0.4 AST 145 H 76 H ALT 135 H 94 H Alkaline Phosphatase 88 82 Total Protein 6.2 L 6.2 L Albumin 3.2 L 3.2 L Lipase 128 H Medications Medications Current Medications Acamprosate (Acamprosate Calcium 333 Mg Glory.) 666 mg PO TID [facility] Last Admin: 10/21/25 11:51 Dose: 666 mg Acetaminophen (Acetaminophen 325 Mg Tablet) 650 mg PO Q6H PRN PRN Reason: Pain, Mild 1-3,fever,headache Last Admin: 10/21/25 11:52 Dose: 650 mg Alprazolam (Alprazolam 0.5 Mg Tablet) 2 mg PO TID PRN PRN Reason: Anxiety Last Admin: 10/21/25 05:50 Dose: 2 mg Bupropion HCl (Bupropion Hcl Xl 150 Mg Tab.Er.24h) 150 mg PO DAILY [facility] Last Admin: 10/21/25 08:28 Dose: 150 mg Calcium Carbonate (Calcium Carbonate 750 Mg Tab.Chew) 750 mg PO Q4H PRN PRN Reason: Heartburn Last Admin: 10/21/25 11:52 Dose: 750 mg Docusate Sodium (Docusate Sodium 100 Mg Capsule) 100 mg PO BID PRN PRN Reason: Constipation Enoxaparin Sodium (Enoxaparin Sodium 40 Mg/0.4 Ml Syringe) 40 mg SUBCUT Q24H [facility] Last Admin: 10/20/25 18:28 Dose: Not Given Fenofibrate (Fenofibrate 54 Mg Tablet) 54 mg PO DAILY [facility] Last Admin: 10/21/25 08:29 Dose: 54 mg Folic Acid (Folic Acid 1 Mg Tablet) 1 mg PO DAILY [facility] Stop: 10/22/25 08:59 Last Admin: 10/21/25 08:28 Dose: 1 mg Gabapentin (Gabapentin 300 Mg Capsule) 300 mg PO BEDTIME [facility] Last Admin: 10/20/25 21:53 Dose: 300 mg Hydroxyzine HCl (Hydroxyzine Hcl 25 Mg Tablet) 25 - 50 mg PO BID PRN PRN Reason: Anxiety Last Admin: 10/18/25 20:10 Dose: 25 mg Magnesium Hydroxide (Milk Of Magnesia 30 Ml Oral.Susp) 30 ml PO DAILY PRN PRN Reason: Constipation Last Admin: 10/21/25 08:36 Dose: 30 ml Melatonin (Melatonin 3 Mg Tablet) 6 mg PO BEDTIME [facility] Last Admin: 10/20/25 21:52 Dose: 6 mg Methadone HCl (Methadone Hcl 20 Mg/2 Ml Oral.Conc) 120 mg PO DAILY@0800 [facility] Last Admin: 10/21/25 08:29 Dose: 120 mg Multivitamins/Vitamin C (Multivitamin Tablet) 1 tab PO DAILY [facility] Stop: 12/20/25 08:59 Last Admin: 10/21/25 08:28 Dose: 1 tab Omeprazole (Omeprazole 20 Mg Capsule.Dr) 20 mg PO DAILY@0630 [facility] Last Admin: 10/21/25 05:46 Dose: 20 mg Ondansetron HCl (Ondansetron Hcl 4 Mg/2 Ml Vial) 4 mg IVPUSH Q8H PRN PRN Reason: Nausea and Vomiting Last Admin: 10/21/25 14:28 Dose: 4 mg Pharmacy Consult (Consult Rx Etoh Phenob Im/Po) 1 each MISCELLANE ONCE PRN; Protocol PRN Reason: Consult order Phenobarbital (Phenobarbital 30 Mg Tablet) 30 mg PO BID [facility] Stop: 10/22/25 21:01 Last Admin: 10/21/25 08:29 Dose: 30 mg Phenobarbital (Phenobarbital 30 Mg Tablet) 30 mg PO DAILY [facility] Stop: 10/24/25 09:01 Sodium Chloride (0.9 % Sodium Chloride Flush 3 Ml Syringe) 3 ml IVFLUSH QSHIFT [facility] Last Admin: 10/21/25 08:29 Dose: 3 ml Thiamine HCl (Thiamine Hcl 100 Mg Tablet) 100 mg PO DAILY [facility] Last Admin: 10/21/25 08:29 Dose: 100 mg Allergies Allergies Allergy/AdvReac Type Severity Reaction Status Date / Time amoxicillin Allergy Hives Verified 10/18/25 11:19 Assessment & Plan Assessment & Plan (1) Alcohol use disorder, severe, dependence: Status: Acute Code(s): F10.20 - Alcohol dependence, uncomplicated Assessment and Plan: * withdrawal resolved * acamprosate restarted --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
--- NOTE | 2025-10-21 15:47 | PM.DS ---
DS: Providers Provider Date of admission: 10/18/25 15:58 Date of discharge: 10/21/25 Primary care physician: Kenisha Martinez MD Consults: 10/18/25 18:28 Addiction Medicine Provider Routine Consulting Provider: Addiction Covering Reason for consultation: Polysubstance use disorder DS: Diagnosis Discharge Diagnosis (1) Alcohol use disorder, severe, dependence: Status: Acute DS: Summary Hospital Course Hospital Course: From admission HPI: Date of Service: 10/18/25 Attending physician on admission: [facility] Chief Complaint: Alcohol withdrawal Pt is a 34-year-old female with a PMH significant for alcohol use disorder with hx of alcoholic pancreatitis,?opioid use disorder methadone, ADHD, and disorder who presents to the ED seeking controlled detox from alcohol use. Pt with a long hx of alcohol use disorder. Reports has been sober for approximately 3 months after last admission, though recently relapsed at started drinking a sleeve or more daily for the past month. Pt reports he attempted to stop drinking on her own 3 days ago. Began experiencing nausea, vomiting, and severe diffuse abdominal pain for the past 2 days. Reports feels like pins and needles in her upper extremities. Has been having both auditory and visual hallucinations including ?hearing the ocean?, seeing ?floaters and flashes of light?, as well as feeling restless and has been unable to sleep or sit still. Reports hx alcoholic pancreatitis and states that this feels similar to those episodes. Also complains of increased anxiety, SOB, and occasional sharp and stabbing chest pain. ? In the ED pt's vitals were significant for Labs were significant for AST 544, ALT 313, lactate dehydrogenase 449, and lipase 134. UA negative for UTI. Tox screen positive for opiates,, fentanyl, and benzos. Ethyl alcohol level 85 at time of presentation at 11:37. CT?of abdomen and pelvis showed acute pancreatitis. Pt was treated in the ED with thiamine, IVF, diazepam, Protonix, magnesium, morphine, ondansetron, and fentanyl. Pt is admitted to the hospital for treatment and evaluation of acute alcoholic pancreatitis and acute alcohol withdrawal. Hospital course: Pt was admitted to the hospital for acute alcoholic pancreatitis as well as acute alcohol withdrawal. For alcoholic pancreatitis pt was treated with IVF, IV analgesics pain management, and diet was slowly advanced. By time of discharge pt was tolerating a solid diet for over 24 hours. Pt was treated with phenobarb protocol for alcohol withdrawal. Pt overall responded well to therapies and at time of discharge her CIWA score has been 0 for over 24 hours. Pt was seen and evaluated by addiction medicine and had her acamprosate restarted and was established with outpatient services. Pt will be discharged home on acamprosate 666 mg t.i.d. as well as folic acid 1 mg daily and thiamine 100 mg daily. She should resume all of her other home medications. Pt is also strongly encouraged to abstain from alcohol use and use whatever familial, social, and community support she can in order to maintain her sobriety. Time Attestation Discharge Coordination Time (in mins): 32 Quality: Safe Use of Opioids Does Pt have an Active Cancer Diagnosis on the Problem List?: No Quality: Stroke Does the patient have a stroke diagnosis?: No Physical Exam Exam: Exam: General: AOx3, no acute distress Resp: CTA bilaterally CVS: S1, S2, RRR GI: +BS, NT, no distension. Abd exam benign Skin: Warm, dry Neuro: Cranial nerves II-XII grossly intact bilaterally. Motor grossly intact bilaterally. No upper extremity tremors noted. Extremities: No edema Psych: Appropriate affect Vital Signs: Vital Signs: Last Vital Signs Temp 98.8 F 10/21/25 08:00 Pulse 81 10/21/25 08:00 Resp 16 10/21/25 08:00 BP 115/57 L 10/21/25 08:00 Pulse Ox 96 10/21/25 08:00 O2 Del Method Room Air 10/21/25 08:00 BMI result Body Mass Index 33.0 DS: Data Data Completed and Pending Completed studies during hospitalization [Text1]: Procedures Detoxification Services for Substance Abuse Treatment (06/07/25) Labs on day of discharge: Laboratory Results - last 24 hr 10/21/25 05:29 Hold Purple Top SEE NOTE Sodium 136 Potassium 4.0 Chloride 100 Carbon Dioxide 29 Anion Gap 11 L BUN 4 L Creatinine 0.67 Estim Creat Clear Calc 113.9 Estimated GFR > 60 Random Glucose 199 H Calcium 8.4 Total Bilirubin 0.4 AST 76 H ALT 94 H Alkaline Phosphatase 82 Total Protein 6.2 L Albumin 3.2 L Discharge Plan Discharge Anticipated Discharge Date/Time: 10/21/25 15:29 Patient Disposition: Home, Self-Care Discharge Diagnosis: Acute alcoholic pancreatitis Ref[facility]: [facility] PHP[facility]IOP [Other] - 10/24/25 12:15 pm Referral Note: This is an intake appt to start IOP. Please bring ID and Ins Card if available. If you can not keep this appt, please call to resched CHD [Other] - Tomorrow Referral Note: Please call to initiate services for recovery coaching [facility] [Provider Group] - 11/17/25 1:30 pm Referral Note: This is an intake appt. Please bring photo ID and Ins Card if available. If you can not keep this appt, please call to reschedule. Kenisha Martinez MD [Primary Care Provider, Medical] - 1 Week Discharge Medications: New folic acid 1 mg tablet 1 mg PO DAILY Qty: 90 0RF Rx Instructions: Take on tablet daily acamprosate 333 mg tablet,delayed release (DR/EC) 666 mg PO TID Qty: 90 0RF Rx Instructions: Take one tablet three times a day ondansetron 8 mg tablet,disintegrating 8 mg PO Q8H Qty: 30 0RF Rx Instructions: Dissolve one tablet under your tongue every 8 hours as needed for nausea. Continued triamcinolone acetonide 0.5 % cream 1 appl topical BID PRN (Reason: Inflammation ) dextroamphetamine-amphetamine [Adderall] 15 mg tablet 15 mg PO TID PRN (Reason: Attention/Focus) gabapentin 300 mg capsule 300 mg PO BEDTIME melatonin 5 mg tablet 5 mg PO BEDTIME pantoprazole 20 mg tablet,delayed release (DR/EC) 20 mg PO DAILY@0630 fenofibrate 54 mg Tablet 54 mg PO DAILY Qty: 90 0RF alprazolam 2 mg tablet 2 mg PO TID PRN (Reason: anxiety) methadone [Methadose] 10 mg/mL Concentrate 120 mg PO DAILY Rx Instructions: [facility] thiamine HCl (vitamin B1) [Vitamin B-1] 100 mg tablet 100 mg PO DAILY acetaminophen 325 mg tablet 650 mg PO Q4-6H PRN (Reason: pain) bupropion HCl 100 mg tablet sustained-release 12 hr 100 mg PO BID ondansetron HCl 4 mg tablet 4 mg PO Q12H PRN (Reason: nausea/vomiting) hydroxyzine HCl 25 mg tablet 25 - 50 mg PO BID PRN (Reason: anxiety) Discharge Orders: Discharge Order (Routine); Ordered 10/21/25 Ordered By: Maynor Bruno Activity on Discharge: As tolerated Stand Alone Forms: Patient Portal Discharge page Print Language: Ukrainian Care Plan Goals: See below Health Concerns: Alcohol use disorder Alcoholic pancreatitis Acute alcohol withdrawal Plan of Treatment: You were admitted to the hospital for acute alcohol pancreatitis and acute alcohol withdrawal. For alcohol pancreatitis you were initially treated with IV fluids and analgesics for pain management while your diet was slowly advanced. By time of discharge you has been tolerating a solid diet for over 24 hours. For alcohol withdrawal you were treated with phenobarb protocol to good effect. At time of discharge you were CIWA score 0 for over 24 hours. You will be discharged on your home medications which you should resume. You were seen and evaluated by addiction medicine and have had your acamprosate restarted. You her strongly encouraged to refrain from alcohol and use whatever social, familial, or community support you can in order to maintain your sobriety. -- you will be restarted on acamprosate 666 mg 3 times a day -- take folic acid 1 mg and thiamine 100 mg daily Assessment: See discharge summary
[2025-10-21 16:00] VITALS: BP 104/77; PULSE 87; RESP 18; TEMP 36.2; O2SAT 95
== END 2025-10-21 16:52 | disposition home or self-care (01) | DRG 282 ==
LOC: HO.ED 11:54 → HO.EDOVER 16:05 → HO.S3 19:08
PROVIDERS: Emergency Medicine; Admitting Provider Student in an Organized Health Care Education/Training Program; Emergency Provider Student in an Organized Health Care Education/Training Program; PCP Internal Medicine; Visit Provider Student in an Organized Health Care Education/Training Program
DX: K85.20 Alcohol induced acute pancreatitis without necrosis or infection (principal); K70.10 Alcoholic hepatitis without ascites; F10.239 Alcohol dependence with withdrawal, unspecified; F19.90 Other psychoactive substance use, unspecified, uncomplicated; F90.9 Attention-deficit hyperactivity disorder, unspecified type; F11.20 Opioid dependence, uncomplicated; Y90.4 Blood alcohol level of 80-99 mg/100 ml; Z87.891 Personal history of nicotine dependence; Z79.899 Other long term (current) drug therapy
CPT/HCPCS: 36415; 80048; 80053; 80076; 80307; 81001; 83615; 83690; 83735; 84484; 84702; 85025; 85027; 87491; 87591; 99285; J1171; J1650; J2270; J2405; J2470; J2560; J3010; J3360; J3411; J3475; J7120; S9485

== ENCOUNTER → 2025-10-18 15:58 | Outpatient (BNV) | payer OTHER, SELFPAY | PROVIDERS: Admitting Provider Student in an Organized Health Care Education/Training Program; Emergency Provider Student in an Organized Health Care Education/Training Program; PCP Internal Medicine; Visit Provider Nurse Practitioner Psychiatric/Mental Health | DX: F10.20 Alcohol dependence, uncomplicated (principal) | CPT/HCPCS: 99232 ==

== ENCOUNTER → 2025-10-18 15:58 | Outpatient (BNV) | payer MEDICAID, SELFPAY | PROVIDERS: Admitting Provider Student in an Organized Health Care Education/Training Program; Emergency Provider Student in an Organized Health Care Education/Training Program; PCP Internal Medicine; Visit Provider Student in an Organized Health Care Education/Training Program | DX: K85.20 Alcohol induced acute pancreatitis without necrosis or infection (principal); F10.939 Alcohol use, unspecified with withdrawal, unspecified | CPT/HCPCS: 99223; 99233; 99239 ==